=== PATIENT | female | born 1960 | race Caucasian/White ===

== ENCOUNTER → 2020-12-04 09:22 | Outpatient (CLI) | payer MEDICARE, SELFPAY ==
--- NOTE | 2020-12-04 09:34 | RAD_ITS ---
CLINICAL INDICATION: 60-year-old female presenting with a knot in throat and choking. EXAM: Double contrast esophagram. TECHNIQUE: Standard double phase esophagram performed with effervescent capsules and thick and thin barium. FINDINGS: Unremarkable transit of the contrast bolus through the oral cavity, unremarkable transit through the hypopharynx, no evidence of laryngeal penetration or aspiration was seen. Unremarkable transit through the esophagus, no evidence of gastroesophageal stricture or webs, mild surface irregularity visualized in the esophagus in the nondistended state, differential diagnosis would include infections, viral or Fabiola. Unremarkable transit through the esophagus is seen. Small type I hiatus hernia visualized, mild gastroesophageal reflux seen. Fluoroscopy time 2.08 minutes. Dose area product: 49.87 mGycm2 RAD/Esophagus Dual Contrast IMPRESSION: Mild surface irregularity of the esophagus in the nondistended state, differential diagnosis would include infections, viral or Fabiola. Small type I hiatus hernia, mild gastroesophageal reflux seen. Electronically Signed: Andre Marcum MD at 12:27 EDT Tel , Service support ,
== END ==
PROVIDERS: PCP Internal Medicine; Referring Provider Otolaryngology Otolaryngology/Facial Plastic Surgery; Visit Provider Otolaryngology Otolaryngology/Facial Plastic Surgery
DX: K21.9 Gastro-esophageal reflux disease without esophagitis (principal)
CPT/HCPCS: 74221

== ENCOUNTER → 2021-03-05 16:05 | Outpatient (CLI) | payer MEDICARE, SELFPAY ==
--- NOTE | 2021-03-05 16:33 | RAD_ITS ---
STUDY: X-RAY - CERVICAL SPINE REASON FOR EXAM: Female, 60 years old. Neck pain. TECHNIQUE: 2 view(s) of the cervical spine were obtained. Only C1-C6 are visualized on the lateral view. COMPARISON: None FINDINGS: Osteopenia. Reversal of the normal lordotic curve. Diffuse uncovertebral and facet sclerosis. Diffuse intervertebral disc space narrowing with osteophyte formation most marked at C3-4, C4-5 and C5-6. C6-7 interspace is not well visualized on the lateral view. Carotid calcification. RAD/Cerv Spine 2 or 3 Views IMPRESSION: Osteopenia with diffuse moderate cervical spondylosis. No acute abnormality. Electronically Signed: Adrian Spence MD at 11:13 EST , Service support ,
--- NOTE | 2021-03-05 16:33 | RAD_ITS ---
STUDY: X-RAY - LUMBAR SPINE REASON FOR EXAM: Female, 60 years old. SPONDYLOSIS TECHNIQUE: 2 view(s) of the lumbar spine were obtained. COMPARISON: None FINDINGS: There is mild straightening of the normal lumbar lordosis. There is no substantial scoliosis. There is a normal alignment of the vertebrae. There is multilevel endplate spondylosis of the lumbar vertebrae. There is multi-level degenerative disc disease with multi-level disc space narrowing. Multiple pelvic phleboliths. RAD/Lumbar Spine 2 or 3 Views IMPRESSION: Degenerative disc and endplate disease throughout the lumbar spine. Electronically Signed: Jhon Vivas MD at 23:30 EST Tel , Service support ,
== END ==
PROVIDERS: PCP Internal Medicine; Referring Provider Anesthesiology Pain Medicine; Visit Provider Anesthesiology Pain Medicine
DX: M47.812 Spondylosis without myelopathy or radiculopathy, cervical region (principal); M47.816 Spondylosis without myelopathy or radiculopathy, lumbar region; M51.36 Other intervertebral disc degeneration, lumbar region; M48.061 Spinal stenosis, lumbar region without neurogenic claudication
CPT/HCPCS: 72040; 72100

== ENCOUNTER 2021-05-02 10:54 | Outpatient (CLI) | payer MEDICARE, SELFPAY ==
[2021-05-02 12:06] LABS: Absolute Lymphocyte Count 2.59 X10^3/uL (0.83-4.51); Absolute Neutrophil Count 4.6 X10^3/uL (2.0-7.7); Basophil# 0.05 X10^3/uL; Basophil% 0.6 % (0-1); Eosinophil# 0.16 X10^3/uL; Hematocrit 40.5 % (37-47); Lymphocyte # 2.59 X10^3/ul (0.83-4.51); Lymphocyte % 32.4 % (19-41); Mean Corp Hgb Conc 32.1 g/dL (32-36); Mean Corpuscular Hgb 28.1 pg (27.0-32.0); Mean Corpuscular Volume 87.7 fL (81-99); Mean Platelet Vol. 8.9 fl (6.2-12.0); Monocyte# 0.55 X10^3/uL; Monocyte% 6.9 % (0-10); NRBC Flagged by Analyzer 0 % (0-5); Neutrophil # 4.63 X10^3/uL (2.7-7.7); Neutrophil % 57.8 % (47-70); Platelet Count 490 K/mm3 (150-450); RBC Distribution Width CV 13.4 % (11.6-14.6); RBC Distribution Width SD 42.7 fl (35.1-43.9); Red Blood Count 4.62 M/mm3 (4.2-5.4)
[2021-05-02 12:22] LABS: ALB/GLOB Ratio 1.1 RATIO (0.9-2.4); AST(SGOT) 20 U/L (15-37); Alanine Aminotransfer ALT/SGPT 31 U/L (13-56); Albumin, Serum 4.1 g/dL (3.2-5.0); Alkaline Phosphatase 68 U/L (45-117); Anion Gap 7 (5-15); BUN 7 mg/dL (7-18); BUN/Creat Ratio 8.8 RATIO (10-20); Calcium,Total 9.5 mg/dL (8.5-10.1); Chloride 95 mmol/L (98-107); Cholesterol 204 mg/dL (200); EST Glomerular Filtration Rate 78 mL/min (>60); Est Glom Filt Rate - Afr Amer 94 mL/min (>60); Globulin 3.9 g/dL (2.2-4.2); Glucose 101 mg/dL (74-106); High Density Lipoprotein 77 mg/dL; Sodium Level 133 mmol/L (136-145); Triglycerides 263 mg/dL; Very Low Density Lipoprotein 53 mg/dL (5-40)
== END 2021-05-02 23:59 | disposition short-term general hospital (02) ==
LOC: BIMLAB 10:55
PROVIDERS: PCP Internal Medicine; Referring Provider Internal Medicine; Visit Provider Internal Medicine
DX: I10 Essential (primary) hypertension (principal); R73.03 Prediabetes
CPT/HCPCS: 36415; 80053; 80061; 85025

== ENCOUNTER 2021-06-20 10:56 | Outpatient (CLI) | payer MEDICARE, SELFPAY ==
[2021-06-20 12:17] LABS: Erythrocyte Sedimentation Rate 31 mm/hr (0-30)
[2021-06-20 12:48] LABS: Rheumatoid Factor < 10.0 IU/mL (<15)
[2021-06-21 17:09] LABS: ANTINUCLEAR ANTIBODIES DIRECT Negative (Negative)
== END 2021-06-20 23:59 | disposition home or self-care (01) ==
LOC: BIMLAB 10:57
PROVIDERS: PCP Internal Medicine; Visit Provider Internal Medicine
DX: M19.90 Unspecified osteoarthritis, unspecified site (principal)
CPT/HCPCS: 36415; 85652; 86038; 86225; 86235; 86431

== ENCOUNTER → 2021-08-02 | Outpatient (CLI) | payer MEDICARE, SELFPAY ==
--- NOTE | 2021-08-02 10:34 | EKG12_ITS ---
Test Reason : HYPERTENSION Blood Pressure : / mmHG Vent. Rate : 071 BPM Atrial Rate : 071 BPM P-R Int : 154 ms QRS Dur : 080 ms QT Int : 388 ms P-R-T Axes : 026 023 025 degrees QTc Int : 421 ms Normal sinus rhythm Low voltage QRS Borderline ECG Confirmed by LOKESH CHOI, NAHED ([id number]), electronic news gathering editor TAMAR HARRIS ([id number]) on 08/03/2021 10:31:37 AM Referred By: Rich Fallon Confirmed By:NAHED CAMPA MD
== END | disposition home or self-care (01) ==
PROVIDERS: PCP Internal Medicine; Referring Provider Internal Medicine; Visit Provider Internal Medicine
DX: I10 Essential (primary) hypertension (principal)
CPT/HCPCS: 93005

== ENCOUNTER → 2021-08-22 | Outpatient (CLI) | payer MEDICARE, SELFPAY ==
--- NOTE | 2021-08-22 11:15 | RAD_ITS ---
STUDY: X-RAY - THORACIC SPINE REASON FOR EXAM: Female, 61 years old. M51.34 TECHNIQUE: view(s) of the thoracic spine were obtained. COMPARISON: None. FINDINGS: Normal kyphosis of the thoracic spine. There is no substantial scoliosis. Normal thoracic vertebrae and endplates. Normal disc space heights. The soft tissue structures are unremarkable. RAD/Thoracic Spine 3 Views IMPRESSION: Normal x-ray examination of the thoracic spine. Electronically Signed: Sharif Abreu MD at 23:53 EDT ,
== END | disposition home or self-care (01) ==
LOC: RAD 11:01
PROVIDERS: PCP Internal Medicine; Referring Provider Anesthesiology Pain Medicine; Visit Provider Anesthesiology Pain Medicine
DX: M51.34 Other intervertebral disc degeneration, thoracic region (principal)
CPT/HCPCS: 72072

== ENCOUNTER → 2021-10-10 | Outpatient (CLI) | payer MEDICARE, SELFPAY ==
--- NOTE | 2021-10-10 10:08 | RAD_ITS ---
EXAM: XR PELVIS, 1 OR 2 VIEWS CLINICAL INDICATION: INFLAMMATORY POLYARTHROPATHY -- ATTN SACROILIAC JOINTS TECHNIQUE: Frontal view of the pelvis. This report was created using [employer] report generation technology. COMPARISON: None. FINDINGS: BONES/JOINTS: Unremarkable. No displaced fracture. No destructive or sclerotic lesions. Sacroiliac joints are unremarkable. No widening of the pubic symphysis. The articular structures are unremarkable. SOFT TISSUES: Unremarkable. No soft tissue swelling or gas. RAD/Pelvis 1 or 2 Views IMPRESSION: No evidence of sacroiliitis. Electronically Signed: Rick Pringle MD at 10:47 EDT ,
[2021-10-10 12:08] LABS: Absolute Lymphocyte Count 2.04 X10^3/uL (0.83-4.51); Absolute Neutrophil Count 5.9 X10^3/uL (2.0-7.7); Basophil# 0.04 X10^3/uL; Basophil% 0.5 % (0-1); Eosinophil# 0.11 X10^3/uL; Eosinophils% 1.2 % (0-5); Hematocrit 39.8 % (37-47); Hemoglobin 13.3 g/dL (12.0-15.0); Lymphocyte # 2.04 X10^3/ul (0.83-4.51); Lymphocyte % 23.1 % (19-41); Mean Corp Hgb Conc 33.4 g/dL (32-36); Mean Corpuscular Hgb 29.6 pg (27.0-32.0); Mean Corpuscular Volume 88.4 fL (81-99); Mean Platelet Vol. 9.4 fl (6.2-12.0); Monocyte# 0.69 X10^3/uL; Monocyte% 7.8 % (0-10); NRBC Flagged by Analyzer 0 % (0-5); Neutrophil # 5.93 X10^3/uL (2.7-7.7); Neutrophil % 67.1 % (47-70); Platelet Count 476 K/mm3 (150-450); RBC Distribution Width CV 13.7 % (11.6-14.6); RBC Distribution Width SD 44.2 fl (35.1-43.9); White Blood Count 8.8 K/mm3 (4.4-11.0)
[2021-10-10 12:45] LABS: ALB/GLOB Ratio 1.2 RATIO (0.9-2.4); AST(SGOT) 19 U/L (15-37); Alanine Aminotransfer ALT/SGPT 26 U/L (13-56); Albumin, Serum 4.3 g/dL (3.2-5.0); Alkaline Phosphatase 57 U/L (45-117); Anion Gap 8 (5-15); BUN 6 mg/dL (7-18); BUN/Creat Ratio 7.4 RATIO (10-20); CRP 6.55 mg/L (0.0-3.0); Calcium,Total 9.4 mg/dL (8.5-10.1); Chloride 95 mmol/L (98-107); Creatinine, Serum 0.81 mg/dL (0.55-1.02); EST Glomerular Filtration Rate 76 mL/min (>60); Est Glom Filt Rate - Afr Amer 92 mL/min (>60); Globulin 3.7 g/dL (2.2-4.2); Glucose 111 mg/dL (74-106); Potassium 3.7 mmol/L (3.5-5.1); Rheumatoid Factor < 10.0 IU/mL (<15); Sodium Level 132 mmol/L (136-145)
[2021-10-10 13:22] LABS: Hepatitis B Surface Antibody Non-Reactive; Hepatitis B Surface Antigen Non-Reactive (Nonreactive); Hepatitis C Antibody Non-Reactive (Nonreactive)
[2021-10-10 15:54] LABS: Erythrocyte Sedimentation Rate 26 mm/hr (0-30)
[2021-10-18 18:34] LABS: CCP IgG Antibodies 7 units (0-19); HLA B27 Negative (.)
== END | disposition home or self-care (01) ==
PROVIDERS: PCP Internal Medicine; Referring Provider Internal Medicine Rheumatology; Visit Provider Internal Medicine Rheumatology
DX: M06.4 Inflammatory polyarthropathy (principal); I50.32 Chronic diastolic (congestive) heart failure; I11.0 Hypertensive heart disease with heart failure; E11.9 Type 2 diabetes mellitus without complications; M79.7 Fibromyalgia; Q66.70 Congenital pes cavus, unspecified foot; F41.9 Anxiety disorder, unspecified; K21.9 Gastro-esophageal reflux disease without esophagitis; G47.33 Obstructive sleep apnea (adult) (pediatric); J45.909 Unspecified asthma, uncomplicated
CPT/HCPCS: 36415; 72170; 80053; 81374; 85025; 85652; 86140; 86200; 86431; 86706; 86803; 87340

== ENCOUNTER → 2021-10-15 | Outpatient (CLI) | payer MEDICARE, SELFPAY ==
[2021-10-15 12:50] LABS: Amphetamine Urine VISTA NEGATIVE (<1000 ng/mL); Barbiturate Urine VISTA NEGATIVE (< 200 ng/mL); Benzodiazepine Urine VISTA NEGATIVE (< 200 ng/mL); Cocaine Urine VISTA NEGATIVE (< 300 ng/mL); Ecstacy Urine VISTA NEGATIVE (< 500 ng/mL); Methadone Urine VISTA NEGATIVE (< 300 ng/mL); PCP Urine VISTA NEGATIVE (< 25 ng/mL); THC Urine VISTA NEGATIVE (< 50 ng/mL); Vista UDS pH Range 7
== END | disposition home or self-care (01) ==
LOC: LAB 11:32
PROVIDERS: PCP Internal Medicine; Referring Provider Anesthesiology Pain Medicine; Visit Provider Anesthesiology Pain Medicine
DX: F11.20 Opioid dependence, uncomplicated (principal)
CPT/HCPCS: 80307

== ENCOUNTER → 2021-11-09 | Outpatient (CLI) | payer MEDICARE, SELFPAY ==
[2021-11-09 15:26] LABS: Hemoglobin A1c 5.9 % (3.8-5.6)
[2021-11-09 15:36] LABS: Anion Gap 6 (5-15); BUN 5 mg/dL (7-18); BUN/Creat Ratio 7.1 RATIO (10-20); Calcium,Total 9.3 mg/dL (8.5-10.1); Chloride 101 mmol/L (98-107); EST Glomerular Filtration Rate 90 mL/min (>60); Est Glom Filt Rate - Afr Amer 109 mL/min (>60); Glucose 101 mg/dL (74-106); Potassium 4.1 mmol/L (3.5-5.1); Sodium Level 134 mmol/L (136-145)
== END | disposition home or self-care (01) ==
LOC: LABSPEC 11:27 → BIMLAB 12:03
PROVIDERS: PCP Internal Medicine; Referring Provider Physician Assistant; Visit Provider Physician Assistant
DX: E11.9 Type 2 diabetes mellitus without complications (principal); I10 Essential (primary) hypertension; R42 Dizziness and giddiness; R11.0 Nausea
CPT/HCPCS: 36415; 80048; 83036; 87635; U0003; U0005

== ENCOUNTER → 2021-11-13 | Outpatient (CLI) | payer MEDICARE, SELFPAY ==
[2021-11-13 10:56] LABS: Amphetamine Urine VISTA NEGATIVE (<1000 ng/mL); Barbiturate Urine VISTA NEGATIVE (< 200 ng/mL); Benzodiazepine Urine VISTA NEGATIVE (< 200 ng/mL); Cocaine Urine VISTA NEGATIVE (< 300 ng/mL); Ecstacy Urine VISTA NEGATIVE (< 500 ng/mL); Methadone Urine VISTA NEGATIVE (< 300 ng/mL); PCP Urine VISTA NEGATIVE (< 25 ng/mL); THC Urine VISTA NEGATIVE (< 50 ng/mL); Vista UDS pH Range 7
== END | disposition home or self-care (01) ==
LOC: LAB 10:22
PROVIDERS: PCP Internal Medicine; Visit Provider Anesthesiology Pain Medicine
DX: F11.20 Opioid dependence, uncomplicated (principal)
CPT/HCPCS: 80307

== ENCOUNTER → 2022-01-07 | Outpatient (CLI) | payer MEDICARE, SELFPAY ==
[2022-01-07 15:12] LABS: Absolute Lymphocyte Count 2.35 X10^3/uL (0.83-4.51); Absolute Neutrophil Count 4.1 X10^3/uL (2.0-7.7); Basophil# 0.03 X10^3/uL; Basophil% 0.4 % (0-1); Eosinophil# 0.12 X10^3/uL; Eosinophils% 1.7 % (0-5); Hematocrit 39.6 % (37-47); Hemoglobin 12.9 g/dL (12.0-15.0); Lymphocyte # 2.35 X10^3/ul (0.83-4.51); Lymphocyte % 32.5 % (19-41); Mean Corp Hgb Conc 32.6 g/dL (32-36); Mean Corpuscular Hgb 29.9 pg (27.0-32.0); Mean Corpuscular Volume 91.7 fL (81-99); Mean Platelet Vol. 9.3 fl (6.2-12.0); Monocyte# 0.58 X10^3/uL; NRBC Flagged by Analyzer 0 % (0-5); Neutrophil # 4.13 X10^3/uL (2.7-7.7); Neutrophil % 57.1 % (47-70); Platelet Count 401 K/mm3 (150-450); RBC Distribution Width CV 15.1 % (11.6-14.6); RBC Distribution Width SD 50.8 fl (35.1-43.9); Red Blood Count 4.32 M/mm3 (4.2-5.4); White Blood Count 7.2 K/mm3 (4.4-11.0)
[2022-01-07 15:53] LABS: ALB/GLOB Ratio 1.1 RATIO (0.9-2.4); AST(SGOT) 18 U/L (15-37); Alanine Aminotransfer ALT/SGPT 26 U/L (13-56); Albumin, Serum 3.9 g/dL (3.2-5.0); Alkaline Phosphatase 51 U/L (45-117); Anion Gap 8 (5-15); BUN 6 mg/dL (7-18); BUN/Creat Ratio 8.1 RATIO (10-20); Calcium,Total 9.2 mg/dL (8.5-10.1); Chloride 103 mmol/L (98-107); Creatinine, Serum 0.74 mg/dL (0.55-1.02); EST Glomerular Filtration Rate 85 mL/min (>60); Est Glom Filt Rate - Afr Amer 102 mL/min (>60); Globulin 3.4 g/dL (2.2-4.2); Glucose 95 mg/dL (74-106); Potassium 3.9 mmol/L (3.5-5.1); Protein, Total 7.3 g/dL (6.4-8.2); Sodium Level 138 mmol/L (136-145)
== END | disposition home or self-care (01) ==
PROVIDERS: PCP Internal Medicine; Referring Provider Internal Medicine Rheumatology; Visit Provider Internal Medicine Rheumatology
DX: M06.4 Inflammatory polyarthropathy (principal); I50.32 Chronic diastolic (congestive) heart failure; E11.9 Type 2 diabetes mellitus without complications; Z79.899 Other long term (current) drug therapy; M79.7 Fibromyalgia; Q66.70 Congenital pes cavus, unspecified foot; I10 Essential (primary) hypertension; J45.909 Unspecified asthma, uncomplicated; F41.9 Anxiety disorder, unspecified; K21.9 Gastro-esophageal reflux disease without esophagitis; G47.33 Obstructive sleep apnea (adult) (pediatric)
CPT/HCPCS: 36415; 80053; 85025

== ENCOUNTER → 2022-03-13 | Outpatient (CLI) | payer MEDICARE, SELFPAY ==
[2022-03-13 15:13] LABS: Absolute Lymphocyte Count 2.29 X10^3/uL (0.83-4.51); Basophil# 0.04 X10^3/uL; Basophil% 0.6 % (0-1); Eosinophil# 0.15 X10^3/uL; Eosinophils% 2.1 % (0-5); Hemoglobin 12.3 g/dL (12.0-15.0); Lymphocyte # 2.29 X10^3/ul (0.83-4.51); Lymphocyte % 32.7 % (19-41); Mean Corp Hgb Conc 32.4 g/dL (32-36); Mean Corpuscular Hgb 29.7 pg (27.0-32.0); Mean Corpuscular Volume 91.8 fL (81-99); Mean Platelet Vol. 9.4 fl (6.2-12.0); Monocyte% 7.1 % (0-10); NRBC Flagged by Analyzer 0 % (0-5); Neutrophil # 4.01 X10^3/uL (2.7-7.7); Neutrophil % 57.2 % (47-70); Platelet Count 397 K/mm3 (150-450); RBC Distribution Width CV 14.3 % (11.6-14.6); Red Blood Count 4.14 M/mm3 (4.2-5.4)
[2022-03-13 15:41] LABS: ALB/GLOB Ratio 1.4 RATIO (0.9-2.4); AST(SGOT) 21 U/L (15-37); Alanine Aminotransfer ALT/SGPT 32 U/L (13-56); Alkaline Phosphatase 61 U/L (45-117); Anion Gap 3 (5-15); BUN 7 mg/dL (7-18); BUN/Creat Ratio 10.7 RATIO (10-20); Chloride 104 mmol/L (98-107); Creatinine, Serum 0.66 mg/dL (0.55-1.02); EST Glomerular Filtration Rate 97 mL/min (>60); Est Glom Filt Rate - Afr Amer 117 mL/min (>60); Globulin 2.9 g/dL (2.2-4.2); Glucose 107 mg/dL (74-106); Protein, Total 6.9 g/dL (6.4-8.2); Sodium Level 138 mmol/L (136-145)
== END | disposition home or self-care (01) ==
LOC: MTLAB 14:05
PROVIDERS: PCP Internal Medicine; Referring Provider Internal Medicine Rheumatology; Visit Provider Internal Medicine Rheumatology
DX: M06.4 Inflammatory polyarthropathy (principal); G47.33 Obstructive sleep apnea (adult) (pediatric); Z79.899 Other long term (current) drug therapy
CPT/HCPCS: 36415; 80053; 85025

== ENCOUNTER → 2022-04-16 | Outpatient (CLI) | payer MEDICARE, SELFPAY ==
--- NOTE | 2022-04-16 15:40 | RAD_ITS ---
INDICATION: PAIN EXAMINATION/TECHNIQUE: X-RAY - XR Chest 2 Views COMPARISON: None. FINDINGS: The lungs are clear. Tortuous and calcified thoracic aorta. The heart is not enlarged. No pleural effusion or pneumothorax. Degenerative changes of the thoracic spine. RAD/Chest PA and Lateral IMPRESSION: No acute radiographic abnormalities. Electronically Signed: Petr Damon MD at 23:01 EST ,
[2022-04-18 19:07] LABS: QNTFERON TB Mitogen Value > 10.00 IU/mL (.); QNTFERON TB Nil Value 0.04 IU/mL (.); QNTFERON TB1+ Ag Value 0.03 IU/mL (.); QNTFERON TB2+ Ag Value 0.03 IU/mL (.)
[2022-04-18 19:39] LABS: QNTIFERON TB Positive Criteria Negative (Negative)
== END | disposition home or self-care (01) ==
PROVIDERS: PCP Internal Medicine; Referring Provider Internal Medicine Rheumatology; Visit Provider Internal Medicine Rheumatology
DX: M06.09 Rheumatoid arthritis without rheumatoid factor, multiple sites (principal); I50.32 Chronic diastolic (congestive) heart failure; I11.0 Hypertensive heart disease with heart failure; E11.9 Type 2 diabetes mellitus without complications; M79.7 Fibromyalgia; M65.342 Trigger finger, left ring finger; J30.2 Other seasonal allergic rhinitis; F41.0 Panic disorder [episodic paroxysmal anxiety]; K21.9 Gastro-esophageal reflux disease without esophagitis; G47.33 Obstructive sleep apnea (adult) (pediatric); Q66.70 Congenital pes cavus, unspecified foot; Z79.899 Other long term (current) drug therapy
CPT/HCPCS: 36415; 71046; 86480

== ENCOUNTER → 2022-06-19 | Outpatient (CLI) | payer MEDICARE, SELFPAY ==
[2022-06-19 15:41] LABS: Absolute Lymphocyte Count 2.76 X10^3/uL (0.83-4.51); Absolute Neutrophil Count 3.8 X10^3/uL (2.0-7.7); Basophil# 0.03 X10^3/uL; Basophil% 0.4 % (0-1); Eosinophil# 0.17 X10^3/uL; Eosinophils% 2.3 % (0-5); Hematocrit 38.1 % (37-47); Hemoglobin 12.8 g/dL (12.0-15.0); Lymphocyte # 2.76 X10^3/ul (0.83-4.51); Lymphocyte % 37.1 % (19-41); Mean Corp Hgb Conc 33.6 g/dL (32-36); Mean Corpuscular Hgb 31.3 pg (27.0-32.0); Mean Corpuscular Volume 93.2 fL (81-99); Monocyte# 0.63 X10^3/uL; Monocyte% 8.5 % (0-10); NRBC Flagged by Analyzer 0 % (0-5); Neutrophil # 3.84 X10^3/uL (2.7-7.7); Neutrophil % 51.6 % (47-70); Platelet Count 388 K/mm3 (150-450); RBC Distribution Width CV 14.6 % (11.6-14.6); Red Blood Count 4.09 M/mm3 (4.2-5.4); White Blood Count 7.4 K/mm3 (4.4-11.0)
[2022-06-19 16:33] LABS: ALB/GLOB Ratio 1.3 RATIO (0.9-2.4); AST(SGOT) 28 U/L (15-37); Alanine Aminotransfer ALT/SGPT 39 U/L (13-56); Albumin, Serum 3.8 g/dL (3.2-5.0); Alkaline Phosphatase 46 U/L (45-117); Anion Gap 9 (5-15); BUN 8 mg/dL (7-18); BUN/Creat Ratio 10.6 RATIO (10-20); Calcium,Total 8.6 mg/dL (8.5-10.1); Chloride 102 mmol/L (98-107); Creatinine, Serum 0.76 mg/dL (0.55-1.02); EST Glomerular Filtration Rate 82 mL/min (>60); Est Glom Filt Rate - Afr Amer 100 mL/min (>60); Globulin 2.9 g/dL (2.2-4.2); Glucose 122 mg/dL (74-106); Potassium 3.7 mmol/L (3.5-5.1); Protein, Total 6.7 g/dL (6.4-8.2); Sodium Level 137 mmol/L (136-145)
== END | disposition home or self-care (01) ==
LOC: MTLAB 12:57
PROVIDERS: PCP Internal Medicine; Referring Provider Internal Medicine Rheumatology; Visit Provider Internal Medicine Rheumatology
DX: M06.09 Rheumatoid arthritis without rheumatoid factor, multiple sites (principal); M79.7 Fibromyalgia
CPT/HCPCS: 36415; 80053; 85025

== ENCOUNTER → 2022-09-16 | Outpatient (CLI) | payer MEDICARE, SELFPAY ==
[2022-09-16 12:21] LABS: Absolute Lymphocyte Count 2.57 X10^3/uL (0.83-4.51); Absolute Neutrophil Count 4.1 X10^3/uL (2.0-7.7); Basophil# 0.04 X10^3/uL; Basophil% 0.5 % (0-1); Eosinophils% 2.6 % (0-5); Hematocrit 39.4 % (37-47); Lymphocyte # 2.57 X10^3/ul (0.83-4.51); Lymphocyte % 33.9 % (19-41); Mean Corpuscular Hgb 31.3 pg (27.0-32.0); Mean Corpuscular Volume 94.7 fL (81-99); Mean Platelet Vol. 8.8 fl (6.2-12.0); Monocyte# 0.61 X10^3/uL; NRBC Flagged by Analyzer 0 % (0-5); Neutrophil # 4.14 X10^3/uL (2.7-7.7); Neutrophil % 54.7 % (47-70); Platelet Count 379 K/mm3 (150-450); RBC Distribution Width CV 14.1 % (11.6-14.6); RBC Distribution Width SD 48.1 fl (35.1-43.9); Red Blood Count 4.16 M/mm3 (4.2-5.4); White Blood Count 7.6 K/mm3 (4.4-11.0)
[2022-09-16 12:47] LABS: ALB/GLOB Ratio 1.1 RATIO (0.9-2.4); AST(SGOT) 30 U/L (15-37); Alanine Aminotransfer ALT/SGPT 40 U/L (13-56); Alkaline Phosphatase 52 U/L (45-117); Anion Gap 7 (5-15); BUN 6 mg/dL (7-18); Calcium,Total 9.3 mg/dL (8.5-10.1); Chloride 97 mmol/L (98-107); Creatinine, Serum 0.75 mg/dL (0.55-1.02); EST Glomerular Filtration Rate 83 mL/min (>60); Est Glom Filt Rate - Afr Amer 100 mL/min (>60); Globulin 3.5 g/dL (2.2-4.2); Glucose 102 mg/dL (74-106); Potassium 4.2 mmol/L (3.5-5.1); Protein, Total 7.5 g/dL (6.4-8.2); Sodium Level 131 mmol/L (136-145)
== END | disposition home or self-care (01) ==
LOC: MTLAB 10:26
PROVIDERS: PCP Internal Medicine; Referring Provider Internal Medicine Rheumatology; Visit Provider Internal Medicine Rheumatology
DX: M06.09 Rheumatoid arthritis without rheumatoid factor, multiple sites (principal); Z79.899 Other long term (current) drug therapy
CPT/HCPCS: 36415; 80053; 85025

== ENCOUNTER → 2022-10-21 | Outpatient (CLI) | payer MEDICARE, SELFPAY ==
--- NOTE | 2022-10-21 11:52 | RAD_ITS ---
INDICATION: M47.812 EXAMINATION/TECHNIQUE: X-RAY - XR Spine Cervical 2 or 3 Views COMPARISON: FINDINGS: Evaluation is limited secondary to suboptimal visualization of the lower cervical spine on the lateral view. VERTEBRAE: Preserved vertebral body height. No fracture. No spondylolisthesis. Preservation of the normal cervical lordosis. No significant facet arthropathy. DISCS: There is multilevel disc space narrowing and osteophyte formation. NECK SOFT TISSUES: No prevertebral soft tissue widening. LUNG APICES: Clear. RAD/Cerv Spine 2 or 3 Views IMPRESSION: Prominent degenerative changes. Evaluation is limited secondary to suboptimal visualization of the lower cervical spine on the lateral view. Electronically Signed: Dami Cadena, at 12:32 EDT ,
== END | disposition home or self-care (01) ==
LOC: RAD 11:50
PROVIDERS: PCP Internal Medicine; Referring Provider Anesthesiology Pain Medicine; Visit Provider Anesthesiology Pain Medicine
DX: M47.812 Spondylosis without myelopathy or radiculopathy, cervical region (principal)
CPT/HCPCS: 72040

== ENCOUNTER → 2022-12-06 | Outpatient (CLI) | payer MEDICARE, SELFPAY ==
[2022-12-06 12:25] LABS: Absolute Lymphocyte Count 2.13 X10^3/uL (0.83-4.51); Absolute Neutrophil Count 3.8 X10^3/uL (2.0-7.7); Basophil# 0.04 X10^3/uL; Basophil% 0.6 % (0-1); Eosinophil# 0.11 X10^3/uL; Eosinophils% 1.6 % (0-5); Hemoglobin 13.2 g/dL (12.0-15.0); Lymphocyte # 2.13 X10^3/ul (0.83-4.51); Lymphocyte % 31.9 % (19-41); Mean Corp Hgb Conc 32.2 g/dL (32-36); Mean Corpuscular Hgb 31.4 pg (27.0-32.0); Mean Corpuscular Volume 97.6 fL (81-99); Monocyte# 0.54 X10^3/uL; Monocyte% 8.1 % (0-10); NRBC Flagged by Analyzer 0 % (0-5); Neutrophil # 3.83 X10^3/uL (2.7-7.7); Neutrophil % 57.5 % (47-70); Platelet Count 388 K/mm3 (150-450); RBC Distribution Width SD 50.4 fl (35.1-43.9); White Blood Count 6.7 K/mm3 (4.4-11.0)
[2022-12-06 13:26] LABS: ALB/GLOB Ratio 1.2 RATIO (0.9-2.4); AST(SGOT) 27 U/L (15-37); Alanine Aminotransfer ALT/SGPT 38 U/L (13-56); Albumin, Serum 4.1 g/dL (3.2-5.0); Alkaline Phosphatase 51 U/L (45-117); Anion Gap 8 (5-15); BUN 7 mg/dL (7-18); BUN/Creat Ratio 9.2 RATIO (10-20); Chloride 100 mmol/L (98-107); Creatinine, Serum 0.76 mg/dL (0.55-1.02); EST Glomerular Filtration Rate 82 mL/min (>60); Est Glom Filt Rate - Afr Amer 99 mL/min (>60); Globulin 3.4 g/dL (2.2-4.2); Glucose 95 mg/dL (74-106); Potassium 3.8 mmol/L (3.5-5.1); Protein, Total 7.5 g/dL (6.4-8.2); Sodium Level 135 mmol/L (136-145)
== END | disposition home or self-care (01) ==
LOC: MTLAB 10:47
PROVIDERS: PCP Internal Medicine; Referring Provider Internal Medicine Rheumatology; Visit Provider Internal Medicine Rheumatology
DX: M06.09 Rheumatoid arthritis without rheumatoid factor, multiple sites (principal); M79.7 Fibromyalgia; Z79.899 Other long term (current) drug therapy
CPT/HCPCS: 36415; 80053; 85025

== ENCOUNTER → 2023-01-27 | Outpatient (CLI) | payer MEDICARE, SELFPAY ==
--- NOTE | 2023-01-27 14:05 | RAD_ITS ---
STUDY: X-RAY - PELVIS AND RIGHT HIP REASON FOR EXAM: Female, 62 years old. ARTHRITIS TECHNIQUE: 3 views of the pelvis and hip. COMPARISON: 10/10/2021 FINDINGS: There is a non-specific bowel gas pattern. Normal visualized soft tissue structures. Normal bilateral iliac wings, sacroiliac joints and visualized sacrum. Normal bilateral superior and inferior pubic rami. Normal pubic symphysis. Normal bilateral ischial tuberosities. Normal visualized femoral head. Normal acetabulum. Normal hip joint. RAD/HIP, UNI W/ Pelvis 2-3 Views IMPRESSION: Normal x-ray examination of the pelvis and hip. Electronically Signed: Minor Mandel MD at 17:20 EDT ,
== END | disposition home or self-care (01) ==
PROVIDERS: PCP Internal Medicine; Referring Provider Internal Medicine Rheumatology; Visit Provider Internal Medicine Rheumatology
DX: M06.09 Rheumatoid arthritis without rheumatoid factor, multiple sites (principal); M79.7 Fibromyalgia; M70.61 Trochanteric bursitis, right hip; Z79.899 Other long term (current) drug therapy
CPT/HCPCS: 73502

== ENCOUNTER → 2023-02-07 | Outpatient (CLI) | payer MEDICARE, SELFPAY ==
[2023-02-07 17:34] LABS: Absolute Lymphocyte Count 2.83 X10^3/uL (0.83-4.51); Absolute Neutrophil Count 6.8 X10^3/uL (2.0-7.7); Basophil# 0.03 X10^3/uL; Basophil% 0.3 % (0-1); Eosinophil# 0.09 X10^3/uL; Eosinophils% 0.8 % (0-5); Hematocrit 36.9 % (37-47); Hemoglobin 12.2 g/dL (12.0-15.0); Lymphocyte # 2.83 X10^3/ul (0.83-4.51); Lymphocyte % 26.7 % (19-41); Mean Corp Hgb Conc 33.1 g/dL (32-36); Mean Corpuscular Hgb 31.8 pg (27.0-32.0); Mean Corpuscular Volume 96.1 fL (81-99); Mean Platelet Vol. 9.2 fl (6.2-12.0); Monocyte# 0.79 X10^3/uL; Monocyte% 7.5 % (0-10); NRBC Flagged by Analyzer 0 % (0-5); Neutrophil # 6.82 X10^3/uL (2.7-7.7); Neutrophil % 64.4 % (47-70); Platelet Count 402 K/mm3 (150-450); RBC Distribution Width CV 14.4 % (11.6-14.6); RBC Distribution Width SD 49.5 fl (35.1-43.9); Red Blood Count 3.84 M/mm3 (4.2-5.4); White Blood Count 10.6 K/mm3 (4.4-11.0)
[2023-02-07 17:53] LABS: ALB/GLOB Ratio 1.2 RATIO (0.9-2.4); AST(SGOT) 18 U/L (15-37); Alanine Aminotransfer ALT/SGPT 33 U/L (13-56); Albumin, Serum 3.7 g/dL (3.2-5.0); Alkaline Phosphatase 44 U/L (45-117); Anion Gap 7 (5-15); BUN 11 mg/dL (7-18); BUN/Creat Ratio 12.6 RATIO (10-20); Calcium,Total 8.7 mg/dL (8.5-10.1); Chloride 98 mmol/L (98-107); Creatinine, Serum 0.87 mg/dL (0.55-1.02); EST Glomerular Filtration Rate 70 mL/min (>60); Est Glom Filt Rate - Afr Amer 84 mL/min (>60); Globulin 3.1 g/dL (2.2-4.2); Glucose 79 mg/dL (74-106); Potassium 3.8 mmol/L (3.5-5.1); Protein, Total 6.8 g/dL (6.4-8.2); Sodium Level 133 mmol/L (136-145)
== END | disposition home or self-care (01) ==
LOC: MTLAB 14:05
PROVIDERS: PCP Internal Medicine; Referring Provider Internal Medicine Rheumatology; Visit Provider Internal Medicine Rheumatology
DX: M06.09 Rheumatoid arthritis without rheumatoid factor, multiple sites (principal); I11.0 Hypertensive heart disease with heart failure; I50.32 Chronic diastolic (congestive) heart failure; E11.9 Type 2 diabetes mellitus without complications; M79.7 Fibromyalgia; H40.9 Unspecified glaucoma; M18.0 Bilateral primary osteoarthritis of first carpometacarpal joints; J30.2 Other seasonal allergic rhinitis; F41.9 Anxiety disorder, unspecified; K21.9 Gastro-esophageal reflux disease without esophagitis; G47.33 Obstructive sleep apnea (adult) (pediatric); Q66.70 Congenital pes cavus, unspecified foot; Z79.899 Other long term (current) drug therapy
CPT/HCPCS: 36415; 80053; 85025

== ENCOUNTER → 2023-03-17 | Outpatient (CLI) | payer MEDICARE, SELFPAY ==
[2023-03-17 12:37] LABS: Cholesterol 184 mg/dL (200); High Density Lipoprotein 77 mg/dL; Triglycerides 199 mg/dL; Very Low Density Lipoprotein 40 mg/dL (5-40)
== END | disposition home or self-care (01) ==
LOC: BIMLAB 10:41
PROVIDERS: PCP Internal Medicine; Referring Provider Internal Medicine; Visit Provider Internal Medicine
DX: I10 Essential (primary) hypertension (principal)
CPT/HCPCS: 36415; 80061

== ENCOUNTER → 2023-05-26 | Outpatient (CLI) | payer MEDICARE, SELFPAY ==
--- OUTSIDE RECORDS SUMMARY | 2023-05-26 09:29 | XMS RPT_ITS | CCD ---
Author Name Unknown Address [address] [place] [address] Organization [facility] Care Team Providers Care Research Anthropologist Name Role Phone Loan Shepherd CNP Unavailable TERRY KANG MD Primary Care Physician [phone] TASH RAE MD Primary Care Physician [phone] JAIME LEO MD Attending TASH Robbins MD Primary Care UnavailZUNILDA Arciniega DO Attending TASH Sadler MD Primary Care ZUNILDA Lloyd DO Attending TASH Sadler MD Primary Care Unavailab Sebastian CHOI, DR SANDOVAL Attending TASH Robbins MD Primary Care Rosalee Boogie Allergy Classification Reported Allergen(s) Allergy Type Date of Onset Reaction(s) Facility (5 sources) cyclobenzaprine; Translations: [cyclobenzaprine ] Drug Allergy 04-07-1997 Unknown (qualifier value) [facility] Medications Current Medications Medication Drug Class(es) Dates Sig (Normalized) Sig (Original) acetaminophen 500 mg oral tablet (7 sources) Start: 01-03-2021 Tylenol Extra Strength 500 mg oral tablet Dose : 1,000 mg = 2 tab(s), Oral, Daily, PRN as needed for pain, # 50 tab(s), 0 Refill(s) Start Date: 01/03/21 Status: Ordered [id number] 200 actuat albuterol 0.09 mg/actuat metered dose inhaler (9 sources) beta2-Adrenergic Agonist Start: 12-01-2014 take 1 dose by inhalation four times daily as needed for wheezing ProAir HFA MDI (90 mcg/inh) inhalation aerosol Dose = 2 puff(s), Inhalation, QID, PRN as needed for wheezing, 0 Refill(s) Start Date: 12/01/14 Status: Ordered Completed/Discontinued Medications Medication Drug Class(es) Dates Sig (Normalized) Sig (Original) 0.4 ml adalimumab 100 mg/ml auto-injector (2 sources) Tumor Necrosis Factor Faustino Start: 05-08-2022 inject 0.4 mL by subcutaneous injection every other week Humira Pen 40 mg/0.4 mL subcutaneous kit Dose : 40 mg = 0.4 mL, Subcutaneous, q2wk, # 2 EA, 0 Refill(s) Start Date: 05/08/22 Status: Ordered Problems Active Problems Problem Classification Problem Date Documented Da te Episodic/Chronic Alcohol-related disorders (18 sources) Alcohol abuse; Translations: [Alcohol dependence] 09-29-2015 Chronic Anxiety disorders (9 sources) Anxiety 06-21-2014 Chronic Congestive heart failure; nonhypertensive (9 sources) Chronic diastolic heart failure 11-15-2020 Chronic Disorders of lipid metabolism (5 sources) Dyslipidemia 10-29-2021 Chronic Essential hypertension (9 sources) Hypertensive disorder 06-06-2015 Chronic Mood disorders (9 sources) Depressive disorder 08-02-2014 Chronic Other lower respiratory disease (9 sources) Dyspnea on exertion 11-15-2020 Episodic Other nervous system disorders (9 sources) Impairment of balance 11-15-2020 Episodic [place]limpia-; endo-; and myocarditis; cardiomyopathy (except that caused by tuberculosis or sexually transmitted disease) (9 sources) Pericardial effusion 11-15-2020 Episodic Past or Other Problems Problem Classification Problem Date Documented Da te Episodic/Chronic NEGATED: Highlighted row has been ruled out!Residual codes; unclassified (1 source) Disease Episodic Results Test Name Value Interpretation Reference Range Facil ity Encounters Encounter Date Encounter Type Care Provider Facility Start: 05-21-[address] JAIME Jaimes acility:[facility] Start: 07-19-2022 End: 07-20-2022 ambulatory ZUNILDA MARSHALL DO Facility:B Start: 07-19-2022 End: 07-19-2022 Patient encounter procedure ZUNILDA MARSHALL DO [facility] Start: 07-08-2022 End: 07-09-2022 ambulatory ZUNILDA MARSHALL DO Facility:[facility] Start: 07-08-2022 End: 07-08-2022 Patient encounter procedure ZUNILDA MARSHALL DO [facility] Start: 05-01-2022 End: 05-01-[address] JAIME LEO MD [facility] Start: 04-02-2022 End: 04-02-[address] KAYLEIGH GARCIA MD [facility] Start: 11-28-2021 End: 11-28-[address] JAIME LEO MD [facility] Start: 04-02-2021 End: 04-02-[address] JOYA MONTGOMERY MD [facility] Start: 01-24-2021 End: 01-24-[address] JAIME LEO MD [facility] Start: 01-19-2021 End: 01-19-[address] JAIME LEO MD [facility] Procedures Date Procedure Procedure Detail Performing Clinician Start: 12-25-20[address] s testing DR JAIME LEO MD Payers Date Payer Category Payer Unknown [id number] 1960 Unknown [id number] [id number] 1960 Unknown [id number] [id number] 1960 Unknown [id number] [id number] 1960 Unknown [id number] Social History Date Type Detail Facility Start: 11-13-2020 Ex-smoker (finding) [facility] Sex Assigned At Female [facility] Clinical Notes 07-19-2022 LaboratoryLaboratoryLaboratoryLaboratoryLaboratoryRadiology Note Date & Type Note Facility 07-19-2022 Note ORIGINAL EXAMINATION: WHOLE BODY BONE SCAN 07/19/2022 with blood pool images TECHNIQUE: The patient was injected intravenously with 28.9 mCi of 99 mTc MDP and scintigraphy of the entire skeleton was performed approximately three hours later. Multiple delayed osseous focused images acquired. Blood pool images of the spine and upper pelvis also acquired. COMPARISON: Patient did not have previous MDP bone imaging studies for comparison. HISTORY: ORDERING SYSTEM PROVIDED HISTORY: Reason for Exam: DEGENERTIVE DISC DIEASE LUMBAR FINDINGS: Blood pool images reveal no focal areas of increased tracer accumulation. Delayed osseous images: No abnormal foci of radiotracer uptake to suggest metastatic disease. Foci of activity in the articular joints (bilateral shoulders, hips, knees, ankles, feet, wrists) are most likely degenerative. Subtle tracer uptake anteriorly within the upper lumbar spine without significant activity on blood pool imaging is compatible with chronic degenerative disease. Uptake within the mid cervical spine bilaterally compatible with degenerative changes. The remainder of the osseous structures and soft tissues are unremarkable. Physiologic activity is present in the renal collecting systems. IMPRESSION: No focal uptake on blood pool imaging. Uptake anteriorly within the upper lumbar spine and within the mid cervical spine most compatible with degenerative changes. Other areas of degenerative uptake within articular joints.. RECOMMENDATIONS: Unavailable Interpreted by: Dee Dee Salcedo Preliminary Report By: Dee Dee Salcedo Electronically signed By Dee Dee Salcedo Dictated Date: 07/19/2022 12:21:56 PM Prelim Date: 07/19/2022 12:30:16 PM Sign Date: 07/19/2022 12:30:16 PM Ordering Provider: [facility] 07-19-2022 Note ORIGINAL EXAMINATION: WHOLE BODY BONE SCAN 07/19/2022 with blood pool images TECHNIQUE: The patient was injected intravenously with 28.9 mCi of 99 mTc MDP and scintigraphy of the entire skeleton was performed approximately three hours later. Multiple delayed osseous focused images acquired. Blood pool images of the spine and upper pelvis also acquired. COMPARISON: Patient did not have previous MDP bone imaging studies for comparison. HISTORY: ORDERING SYSTEM PROVIDED HISTORY: Reason for Exam: DEGENERTIVE DISC DIEASE LUMBAR FINDINGS: Blood pool images reveal no focal areas of increased tracer accumulation. Delayed osseous images: No abnormal foci of radiotracer uptake to suggest metastatic disease. Foci of activity in the articular joints (bilateral shoulders, hips, knees, ankles, feet, wrists) are most likely degenerative. Subtle tracer uptake anteriorly within the upper lumbar spine without significant activity on blood pool imaging is compatible with chronic degenerative disease. Uptake within the mid cervical spine bilaterally compatible with degenerative changes. The remainder of the osseous structures and soft tissues are unremarkable. Physiologic activity is present in the renal collecting systems. IMPRESSION: No focal uptake on blood pool imaging. Uptake anteriorly within the upper lumbar spine and within the mid cervical spine most compatible with degenerative changes. Other areas of degenerative uptake within articular joints.. RECOMMENDATIONS: Unavailable Interpreted by: Dee Dee Salcedo Preliminary Report By: Dee Dee Salcedo Electronically signed By Dee Dee Salcedo Dictated Date: 07/19/2022 12:21:56 PM Prelim Date: 07/19/2022 12:30:16 PM Sign Date: 07/19/2022 12:30:16 PM Ordering Provider: [facility] Evaluation + Plan note Future Appointments Appointment Date:01/25/2021 08:00:00 AM Scheduled Provider: Location:PULM Appointment Type:PF PFT w/[place] Future Scheduled TestsN-Terminal proBNP 04/04/21N-Terminal proBNP 07/03/21 [facility] Evaluation + Plan note Future Scheduled TestsN-Terminal proBNP 04/04/21N-Terminal proBNP 07/03/21 [facility] Evaluation + Plan note Future Scheduled TestsN-Terminal proBNP 07/03/21 [facility] Evaluation + Plan note Future Scheduled TestsN-Terminal proBNP 05/01/22 [facility] Evaluation + Plan note Future Appointments Appointment Date:05/08/2022 11:30:00 AM Scheduled Provider: Location:[facility] Appointment Type:CV OV Future Scheduled TestsN-Terminal proBNP 05/01/22 [facility] Evaluation + Plan note Future Appointments Appointment Date:05/08/2022 11:30:00 AM Scheduled Provider: Location:[facility] Appointment Type:CV OV [facility] Evaluation + Plan note Future Appointments Appointment Date:07/19/2022 07:30:00 AM Scheduled Provider: Location:RAD Appointment Type:yyNM Inj Bone Imaging Whole Body1 Appointment Date:07/19/2022 10:30:00 AM Scheduled Provider: Location:RAD Appointment Type:yyNM Bone Imaging Whole Body Scan Future Scheduled TestsNM Bone Imaging Whole Body 07/19/22 [facility] Hospital course Narrative No data available for this section [facility] Hospital Discharge instructions No data available for this section [facility] Progress note No data available for this section [facility] Summary Purpose Family History No Family History Records Found Advance Directives No Advanced Directives Records Found Additional Source Comments Care Team (unrecognized sect ion and content) Care Team Personnel Name: TASH RAE MD Member Role: Primary Care Physician Address: Address: [address] [place] [address] [place] [address]- Care Team Related Persons Name: JHONNY AKHTAR Address: Home [address] [place], [place] [id number] [place] Care Team Personnel Name: TASH RAE MD Member Role: Primary Care Physician Address: Address: [address] [place] [address] [place]HA [place] [id number] Care Team Related Persons Name: JHONNY AKHTAR Address: Home [address] [place] [phone] Care Team Personnel Name: TASH RAE MD Member Role: Primary Care Physician Address: Address: [address] [place] [address] AUDELIA [place] [address]- [place] Care Team Related Persons Name: JHONNY AKHTAR Address: [address] [phone] [place] Patient Care team informatio n (unrecognized section and content) Care Team Personnel Name: TASH RAE MD Member Role: Primary Care Physician Address: Address: [address] [place] [address] [facility] J[place] [address] Care Team Related Persons Name: JHONNY AKHTAR Address: [place] [id number] Care Team Personnel Name: TASH RAE MD Member Role: Primary Care Physician Address: Address: [address] [place] [address] [facility] [facility] J[place] [address] Care Team Related Persons Name: JHONNY AKHTAR Address: [address] [phone] [place] INFORMATION SOURCE (unrecogn ized section and content) FOR RECORDS PERTAINING TO PATIENTS WHO ARE OR HAVE BEEN ENROLLED IN A CHEMICAL DEPENDENCY/SUBSTANCEABUSE PROGRAM, SOME INFORMATION MAY BE OMITTED. This clinical summary was aggregated from multiple sources. Caution should be exercised in using it in the provision of clinical care. This summary normalizes information from multiple sources, and as a consequence, information in this document may materially change the coding, format and clinical context of patient data. In addition, data may be omitted in some cases. CLINICAL DECISIONS SHOULD BE BASED ON THE PRIMARY CLINICAL RECORDS. [facility] [employer] provides no warranty or guarantee of the accuracy or completeness of information in this document.
[2023-05-26 10:29] LABS: Absolute Lymphocyte Count 2.25 X10^3/uL (0.83-4.51); Absolute Neutrophil Count 3.1 X10^3/uL (2.0-7.7); Basophil# 0.03 X10^3/uL; Basophil% 0.5 % (0-1); Eosinophil# 0.07 X10^3/uL; Eosinophils% 1.1 % (0-5); Hematocrit 38.2 % (37-47); Hemoglobin 12.9 g/dL (12.0-15.0); Lymphocyte # 2.25 X10^3/ul (0.83-4.51); Lymphocyte % 36.6 % (19-41); Mean Corp Hgb Conc 33.8 g/dL (32-36); Mean Corpuscular Hgb 32.1 pg (27.0-32.0); Mean Platelet Vol. 8.8 fl (6.2-12.0); Monocyte# 0.66 X10^3/uL; Monocyte% 10.7 % (0-10); NRBC Flagged by Analyzer 0 % (0-5); Neutrophil # 3.13 X10^3/uL (2.7-7.7); Neutrophil % 50.9 % (47-70); Platelet Count 339 K/mm3 (150-450); RBC Distribution Width CV 14.6 % (11.6-14.6); RBC Distribution Width SD 50.5 fl (35.1-43.9); Red Blood Count 4.02 M/mm3 (4.2-5.4); White Blood Count 6.2 K/mm3 (4.4-11.0)
[2023-05-26 11:18] LABS: ALB/GLOB Ratio 1.4 RATIO (0.9-2.4); AST(SGOT) 26 U/L (15-37); Alanine Aminotransfer ALT/SGPT 37 U/L (13-56); Alkaline Phosphatase 32 U/L (45-117); Anion Gap 4 (5-15); BUN 8 mg/dL (7-18); BUN/Creat Ratio 8.9 RATIO (10-20); Calcium,Total 8.9 mg/dL (8.5-10.1); Chloride 104 mmol/L (98-107); Cholesterol 225 mg/dL (200); EST Glomerular Filtration Rate 67 mL/min (>60); Est Glom Filt Rate - Afr Amer 81 mL/min (>60); Globulin 2.8 g/dL (2.2-4.2); Glucose 93 mg/dL (74-106); High Density Lipoprotein 91 mg/dL; Potassium 4.2 mmol/L (3.5-5.1); Protein, Total 6.8 g/dL (6.4-8.2); Sodium Level 137 mmol/L (136-145); Triglycerides 174 mg/dL; Very Low Density Lipoprotein 35 mg/dL (5-40)
== END | disposition home or self-care (01) ==
PROVIDERS: PCP Internal Medicine; Referring Provider Internal Medicine Rheumatology; Visit Provider Internal Medicine Rheumatology
DX: M06.09 Rheumatoid arthritis without rheumatoid factor, multiple sites (principal); M79.7 Fibromyalgia; M19.041 Primary osteoarthritis, right hand; M18.12 Unilateral primary osteoarthritis of first carpometacarpal joint, left hand; Z79.899 Other long term (current) drug therapy
CPT/HCPCS: 36415; 80053; 80061; 85025

== ENCOUNTER → 2023-07-07 | Outpatient (CLI) | payer MEDICARE, SELFPAY ==
--- NOTE | 2023-07-07 08:34 | MRI_ITS ---
STUDY: MRI RIGHT HIP REASON FOR EXAM: Female, 63 years old. Pain, difficulty sitting, right chronic gluteal tendinopathy. TECHNIQUE: Standardized fat and water weighted pulse sequences were obtained in all 3 orthogonal planes. COMPARISON: None. FINDINGS: Normal hip joint without articular joint space narrowing. Normal acetabulum. Normal labrum. Normal femoral head. Normal femoral neck and intratrochanteric region. There is mild tendinosis and peritendinitis of the right gluteus minimus and medius tendons. Intact right iliopsoas tendon and distal insertion. There is mild right trochanteric bursitis. There is no iliopsoas or iliopectineal bursitis. Normal superior and inferior pubic rami. Normal pubic symphysis. Normal ischial tuberosity. Normal origin of the hamstring tendons. Normal visualized iliac wing, sacroiliac joint, and sacral ala. Normal visualized soft tissue structures of the pelvis. MRI/Lower Ext Joint Only (Routine) IMPRESSION: Mild tendinosis and peritendinitis of the right gluteus minimus and medius tendons. Mild right trochanteric bursitis. Electronically Signed: Alek Esposito MD at 12:36 EDT ,
== END | disposition home or self-care (01) ==
LOC: MRI 09:05
PROVIDERS: PCP Internal Medicine; Referring Provider Orthopaedic Surgery; Visit Provider Orthopaedic Surgery
DX: M76.01 Gluteal tendinitis, right hip (principal); G89.29 Other chronic pain
CPT/HCPCS: 73721

== ENCOUNTER → 2023-08-15 | Outpatient (CLI) | payer MEDICARE, SELFPAY ==
[2023-08-15 15:34] LABS: Absolute Lymphocyte Count 1.35 X10^3/uL (0.83-4.51); Absolute Neutrophil Count 1.8 X10^3/uL (2.0-7.7); Basophil# 0.01 X10^3/uL; Basophil% 0.3 % (0-1); Eosinophil# 0.05 X10^3/uL; Eosinophils% 1.4 % (0-5); Hematocrit 34.6 % (37-47); Hemoglobin 11.7 g/dL (12.0-15.0); Lymphocyte # 1.35 X10^3/ul (0.83-4.51); Lymphocyte % 38.4 % (19-41); Mean Corp Hgb Conc 33.8 g/dL (32-36); Mean Corpuscular Hgb 32.8 pg (27.0-32.0); Mean Corpuscular Volume 96.9 fL (81-99); Mean Platelet Vol. 9.2 fl (6.2-12.0); Monocyte# 0.28 X10^3/uL; NRBC Flagged by Analyzer 0 % (0-5); Neutrophil # 1.82 X10^3/uL (2.7-7.7); Neutrophil % 51.6 % (47-70); Platelet Count 382 K/mm3 (150-450); RBC Distribution Width CV 13.3 % (11.6-14.6); RBC Distribution Width SD 47.5 fl (35.1-43.9); Red Blood Count 3.57 M/mm3 (4.2-5.4); White Blood Count 3.5 K/mm3 (4.4-11.0)
[2023-08-15 15:55] LABS: ALB/GLOB Ratio 1.3 RATIO (0.9-2.4); AST(SGOT) 27 U/L (15-37); Alanine Aminotransfer ALT/SGPT 37 U/L (13-56); Albumin, Serum 4.1 g/dL (3.2-5.0); Alkaline Phosphatase 39 U/L (45-117); Anion Gap 7 (5-15); BUN 7 mg/dL (7-18); BUN/Creat Ratio 8.4 RATIO (10-20); Calcium,Total 9.2 mg/dL (8.5-10.1); Chloride 99 mmol/L (98-107); Creatinine, Serum 0.83 mg/dL (0.55-1.02); EST Glomerular Filtration Rate 73 mL/min (>60); Est Glom Filt Rate - Afr Amer 89 mL/min (>60); Globulin 3.1 g/dL (2.2-4.2); Glucose 123 mg/dL (74-106); Protein, Total 7.2 g/dL (6.4-8.2); Sodium Level 133 mmol/L (136-145)
== END | disposition home or self-care (01) ==
LOC: MTLAB 13:57
PROVIDERS: PCP Internal Medicine; Referring Provider Internal Medicine Rheumatology; Visit Provider Internal Medicine Rheumatology
DX: M06.09 Rheumatoid arthritis without rheumatoid factor, multiple sites (principal); Z79.899 Other long term (current) drug therapy
CPT/HCPCS: 36415; 80053; 85025

== ENCOUNTER → 2023-09-29 | Outpatient (CLI) | payer MEDICARE, SELFPAY ==
--- NOTE | 2023-09-29 11:55 | RAD_ITS ---
STUDY: X-RAY - THORACIC SPINE REASON FOR EXAM: Female, 63 years old. Back pain. TECHNIQUE: 3 view(s) of the thoracic spine were obtained. COMPARISON: None. FINDINGS: Osteopenia. Normal kyphosis of the thoracic spine. No scoliosis. Diffuse intervertebral disc space narrowing with small osteophytes. No acute abnormality. Normal soft tissues. RAD/Thoracic Spine 3 Views IMPRESSION: Mild osteopenia with mild diffuse thoracic spondylosis. No acute abnormality or erosive changes. Electronically Signed: Adrian Spence MD at 9:44 EDT ,
== END | disposition home or self-care (01) ==
LOC: RAD 11:48
PROVIDERS: PCP Internal Medicine; Referring Provider Anesthesiology Pain Medicine; Visit Provider Anesthesiology Pain Medicine
DX: M51.34 Other intervertebral disc degeneration, thoracic region (principal)
CPT/HCPCS: 72072

== ENCOUNTER → 2023-11-13 | Outpatient (CLI) | payer MEDICARE, SELFPAY ==
[2023-11-13 14:44] LABS: Absolute Lymphocyte Count 1.76 X10^3/uL (0.83-4.51); Absolute Neutrophil Count 3.2 X10^3/uL (2.0-7.7); Basophil# 0.03 X10^3/uL; Basophil% 0.5 % (0-1); Eosinophil# 0.09 X10^3/uL; Eosinophils% 1.6 % (0-5); Hematocrit 36.3 % (37-47); Lymphocyte # 1.76 X10^3/ul (0.83-4.51); Lymphocyte % 31.2 % (19-41); Mean Corp Hgb Conc 33.1 g/dL (32-36); Mean Corpuscular Hgb 30.8 pg (27.0-32.0); Mean Corpuscular Volume 93.1 fL (81-99); Mean Platelet Vol. 9.2 fl (6.2-12.0); Monocyte# 0.59 X10^3/uL; Monocyte% 10.4 % (0-10); NRBC Flagged by Analyzer 0 % (0-5); Neutrophil # 3.17 X10^3/uL (2.7-7.7); Neutrophil % 56.1 % (47-70); Platelet Count 345 K/mm3 (150-450); RBC Distribution Width CV 13.7 % (11.6-14.6); RBC Distribution Width SD 45.9 fl (35.1-43.9); White Blood Count 5.7 K/mm3 (4.4-11.0)
[2023-11-13 14:58] LABS: ALB/GLOB Ratio 1.5 RATIO (0.9-2.4); AST(SGOT) 33 U/L (15-37); Alanine Aminotransfer ALT/SGPT 42 U/L (13-56); Albumin, Serum 4.2 g/dL (3.2-5.0); Alkaline Phosphatase 32 U/L (45-117); Anion Gap 7 (5-15); BUN 8 mg/dL (7-18); BUN/Creat Ratio 10.6 RATIO (10-20); Calcium,Total 9.2 mg/dL (8.5-10.1); Chloride 100 mmol/L (98-107); Creatinine, Serum 0.75 mg/dL (0.55-1.02); EST Glomerular Filtration Rate 82 mL/min (>60); Est Glom Filt Rate - Afr Amer 100 mL/min (>60); Globulin 2.8 g/dL (2.2-4.2); Glucose 93 mg/dL (74-106); Sodium Level 134 mmol/L (136-145)
== END | disposition home or self-care (01) ==
LOC: MTLAB 12:34
PROVIDERS: PCP Internal Medicine; Referring Provider Internal Medicine Rheumatology; Visit Provider Internal Medicine Rheumatology
DX: M06.09 Rheumatoid arthritis without rheumatoid factor, multiple sites (principal); M79.7 Fibromyalgia; Z79.899 Other long term (current) drug therapy
CPT/HCPCS: 36415; 80053; 85025

== ENCOUNTER → 2023-11-17 | Outpatient (CLI) | payer MEDICARE, SELFPAY ==
--- NOTE | 2023-11-17 11:02 | RAD_ITS ---
INDICATION: Spondylosis without myelopathy or radiculopathy, cervical region EXAMINATION/TECHNIQUE: X-RAY - XR Spine Cervical 2 or 3 Views COMPARISON: Prior study dated: 10/21/2022 FINDINGS: VERTEBRAE: Preserved vertebral body height. C6 and C7 vertebrae are suboptimally seen on the lateral views. No spondylolisthesis. Straightening of the cervical spine. Probable facet arthropathy at the level of C3-C4. DISCS: Multilevel disc space narrowing is again seen unchanged. Endplate spondylosis. NECK SOFT TISSUES: No prevertebral soft tissue widening. LUNG APICES: Clear. RAD/Cerv Spine 2 or 3 Views IMPRESSION: Degenerative changes. No significant change. Electronically Signed: Bret Robert MD at 12:23 EDT ,
== END | disposition home or self-care (01) ==
PROVIDERS: PCP Internal Medicine; Referring Provider Anesthesiology Pain Medicine; Visit Provider Anesthesiology Pain Medicine
DX: M47.812 Spondylosis without myelopathy or radiculopathy, cervical region (principal)
CPT/HCPCS: 72040

== ENCOUNTER 2024-02-11 13:40 | Outpatient (CLI) | payer MEDICARE, SELFPAY ==
[2024-02-11 17:46] LABS: Absolute Lymphocyte Count 1.42 X10^3/uL (0.83-4.51); Absolute Neutrophil Count 4.6 X10^3/uL (2.0-7.7); Basophil# 0.05 X10^3/uL; Basophil% 0.7 % (0-1); Eosinophil# 0.17 X10^3/uL; Eosinophils% 2.5 % (0-5); Hematocrit 35.1 % (37-47); Lymphocyte # 1.42 X10^3/ul (0.83-4.51); Lymphocyte % 21.1 % (19-41); Mean Corp Hgb Conc 34.2 g/dL (32-36); Mean Corpuscular Volume 93.6 fL (81-99); Mean Platelet Vol. 9.2 fl (6.2-12.0); Monocyte% 7.4 % (0-10); NRBC Flagged by Analyzer 0 % (0-5); Neutrophil # 4.57 X10^3/uL (2.7-7.7); Platelet Count 362 K/mm3 (150-450); RBC Distribution Width CV 14.3 % (11.6-14.6); RBC Distribution Width SD 48.5 fl (35.1-43.9); Red Blood Count 3.75 M/mm3 (4.2-5.4); White Blood Count 6.7 K/mm3 (4.4-11.0)
[2024-02-11 18:18] LABS: ALB/GLOB Ratio 1.3 RATIO (0.9-2.4); AST(SGOT) 24 U/L (15-37); Alanine Aminotransfer ALT/SGPT 33 U/L (13-56); Albumin, Serum 3.9 g/dL (3.2-5.0); Alkaline Phosphatase 42 U/L (45-117); Anion Gap 6 (5-15); BUN 9 mg/dL (7-18); BUN/Creat Ratio 10.3 RATIO (10-20); Calcium,Total 9.1 mg/dL (8.5-10.1); Chloride 100 mmol/L (98-107); Creatinine, Serum 0.87 mg/dL (0.55-1.02); EST Glomerular Filtration Rate 69 mL/min (>60); Est Glom Filt Rate - Afr Amer 84 mL/min (>60); Glucose 115 mg/dL (74-106); Potassium 3.5 mmol/L (3.5-5.1); Protein, Total 6.9 g/dL (6.4-8.2); Sodium Level 134 mmol/L (136-145)
== END 2024-02-11 23:59 | disposition home or self-care (01) ==
LOC: MTLAB 13:42
PROVIDERS: PCP Internal Medicine; Referring Provider Internal Medicine Rheumatology; Visit Provider Internal Medicine Rheumatology
DX: M06.09 Rheumatoid arthritis without rheumatoid factor, multiple sites (principal); M79.7 Fibromyalgia; M70.61 Trochanteric bursitis, right hip; M18.12 Unilateral primary osteoarthritis of first carpometacarpal joint, left hand; Z79.899 Other long term (current) drug therapy
CPT/HCPCS: 36415; 80053; 85025

== ENCOUNTER → 2024-04-30 | Outpatient (CLI) | payer MEDICARE, SELFPAY ==
[2024-04-30 15:12] LABS: Absolute Lymphocyte Count 1.66 X10^3/uL (0.83-4.51); Absolute Neutrophil Count 5.7 X10^3/uL (2.0-7.7); Basophil# 0.03 X10^3/uL; Basophil% 0.4 % (0-1); Eosinophil# 0.12 X10^3/uL; Eosinophils% 1.5 % (0-5); Hematocrit 35.5 % (37-47); Hemoglobin 11.7 g/dL (12.0-15.0); Lymphocyte # 1.66 X10^3/ul (0.83-4.51); Lymphocyte % 20.3 % (19-41); Mean Corpuscular Volume 94.2 fL (81-99); Mean Platelet Vol. 9.1 fl (6.2-12.0); Monocyte# 0.67 X10^3/uL; Monocyte% 8.2 % (0-10); NRBC Flagged by Analyzer 0 % (0-5); Neutrophil # 5.65 X10^3/uL (2.7-7.7); Neutrophil % 69.1 % (47-70); Platelet Count 397 K/mm3 (150-450); RBC Distribution Width CV 14.2 % (11.6-14.6); RBC Distribution Width SD 48.2 fl (35.1-43.9); Red Blood Count 3.77 M/mm3 (4.2-5.4); White Blood Count 8.2 K/mm3 (4.4-11.0)
[2024-04-30 15:40] LABS: Hemoglobin A1c 5.7 % (3.8-5.6)
[2024-04-30 17:22] LABS: Cholesterol 160 mg/dL (200); High Density Lipoprotein 72 mg/dL; Triglycerides 215 mg/dL; Very Low Density Lipoprotein 43 mg/dL (5-40)
[2024-04-30 17:35] LABS: ALB/GLOB Ratio 1.1 RATIO (0.9-2.4); AST(SGOT) 17 U/L (15-37); Alanine Aminotransfer ALT/SGPT 27 U/L (13-56); Albumin, Serum 3.7 g/dL (3.2-5.0); Alkaline Phosphatase 47 U/L (45-117); Anion Gap 7 (5-15); BUN 10 mg/dL (7-18); BUN/Creat Ratio 11.7 RATIO (10-20); Calcium,Total 9.2 mg/dL (8.5-10.1); Chloride 100 mmol/L (98-107); Creatinine, Serum 0.86 mg/dL (0.55-1.02); EST Glomerular Filtration Rate 71 mL/min (>60); Est Glom Filt Rate - Afr Amer 86 mL/min (>60); Globulin 3.4 g/dL (2.2-4.2); Glucose 109 mg/dL (74-106); Potassium 4.4 mmol/L (3.5-5.1); Protein, Total 7.1 g/dL (6.4-8.2); Sodium Level 134 mmol/L (136-145)
== END | disposition home or self-care (01) ==
LOC: BIMLAB 13:40
PROVIDERS: PCP Internal Medicine; Referring Provider Internal Medicine Rheumatology; Visit Provider Internal Medicine Rheumatology
DX: M06.09 Rheumatoid arthritis without rheumatoid factor, multiple sites (principal); M79.7 Fibromyalgia; Z79.899 Other long term (current) drug therapy
CPT/HCPCS: 36415; 80053; 80061; 83036; 85025

== ENCOUNTER → 2024-07-23 | Outpatient (CLI) | payer MEDICARE, SELFPAY ==
[2024-07-23 15:24] LABS: Absolute Lymphocyte Count 1.71 X10^3/uL (0.83-4.51); Absolute Neutrophil Count 3.2 X10^3/uL (2.0-7.7); Basophil# 0.03 X10^3/uL; Basophil% 0.5 % (0-1); Eosinophils% 1.8 % (0-5); Hematocrit 35.2 % (37-47); Hemoglobin 11.8 g/dL (12.0-15.0); Lymphocyte # 1.71 X10^3/ul (0.83-4.51); Lymphocyte % 30.5 % (19-41); Mean Corp Hgb Conc 33.5 g/dL (32-36); Mean Corpuscular Hgb 31.6 pg (27.0-32.0); Mean Corpuscular Volume 94.1 fL (81-99); Mean Platelet Vol. 9.2 fl (6.2-12.0); Monocyte# 0.57 X10^3/uL; Monocyte% 10.2 % (0-10); NRBC Flagged by Analyzer 0 % (0-5); Neutrophil # 3.17 X10^3/uL (2.7-7.7); Neutrophil % 56.6 % (47-70); Platelet Count 400 K/mm3 (150-450); RBC Distribution Width SD 51.2 fl (35.1-43.9); Red Blood Count 3.74 M/mm3 (4.2-5.4); White Blood Count 5.6 K/mm3 (4.4-11.0)
[2024-07-23 18:33] LABS: ALB/GLOB Ratio 1.6 RATIO (0.9-2.4); AST(SGOT) 20 U/L (<=31); Alanine Aminotransfer ALT/SGPT 21 U/L (<=34); Albumin, Serum 4.4 g/dL (3.4-4.8); Alkaline Phosphatase 42 U/L (35-104); Anion Gap 12 (5-15); BUN 8 mg/dL (4-19); Calcium,Total 9.7 mg/dL (7.6-11.0); Carbon Dioxide 25.9 mmol/L (21.0-32.0); Chloride 98 mmol/L (98-108); Creatinine, Serum 0.82 mg/dL (0.70-1.20); EST Glomerular Filtration Rate 80 (>60); Globulin 2.7 g/dL (2.2-4.2); Glucose 85 mg/dL (70-99); Potassium 3.8 mmol/L (3.3-5.1); Protein, Total 7.1 g/dL (5.9-8.4); Sodium Level 137 mmol/L (133-145); Total Bilirubin 0.45 mg/dL (0.00-1.30)
== END | disposition home or self-care (01) ==
LOC: MTLAB 14:11
PROVIDERS: PCP Internal Medicine; Referring Provider Internal Medicine Rheumatology; Visit Provider Internal Medicine Rheumatology
DX: M06.09 Rheumatoid arthritis without rheumatoid factor, multiple sites (principal); M79.7 Fibromyalgia; Z79.899 Other long term (current) drug therapy
CPT/HCPCS: 36415; 80053; 85025

== ENCOUNTER → 2024-10-05 | Outpatient (CLI) | payer MEDICARE, SELFPAY ==
--- NOTE | 2024-10-05 14:02 | RAD_ITS ---
PROCEDURE: FOOT MIN 3 VIEWS 10/05/2024 REASON FOR EXAM: FOOT PAIN TECHNIQUE: FOOT MIN 3 VIEWS COMPARISON: No FINDINGS: Osteoporosis. No acute bone or soft tissue pathology. Possible old 5th metatarsal base fracture. RAD/Foot min 3 Views IMPRESSION: No acute findings Reading Location: [place] [address]
--- OUTSIDE RECORDS SUMMARY | 2024-10-05 22:46 | XMS RPT_ITS | CCD ---
Author Organization [facility] Care Team Providers Care Field Service Tech Name Role Phone Cora RHOADES, Loan Andersen Unavailable JORGE LUIS CHOI, TERRY Earl Primary Care Physician [phone] Dr. Tash Fallon Primary Care Provider 1(33 [phone]) Dr. Tash Fallon Attending Provider [phone])2 Dr. Tash Fallon Referring Provider [phone] Dr. Ceferino Donnelly Attending Provider 1(330) Dr. Joe Merchant Attending Provider [phone] Dr. Ceferino Donnelly Referring Provider [phone] Dr. Tash Fallon Primary Care Provider 1(33 0) Dr. Tash Fallon Attending Provider [phone])2 Dr. Tash Fallon Referring Provider [phone])2 Dr. Jhon Day Attending Provider 1(330) Dr. Tash Fallon Primary Care Provider 1(33 0) Dr. Tash Fallon Attending Provider [phone])2 Dr. Tash Fallon Referring Provider [phone])2 Dr. Ceferino Donnelly Attending Provider 1(330) Dr. Tash Fallon Primary Care Provider 1(33 0) Dr. Tash Fallon Attending Provider [phone])2 Dr. Tash Fallon Referring Provider [phone])2 BARBIE Garcia Attending Provider Unavail TASH Julian MD Primary Care Physician [phone] Leeanne, Dr. Villanueva Primary Care Provider 1(33 0) Dr. Tash Fallon Referring Provider [phone])2 Leeanne, Dr. Villanueva Attending Provider [phone])2 Dr. Tash Fallon Primary Care Provider 1(33 0) Leeanne, Dr. Villanueva Referring Provider [phone])2 Dr. Ceferino Donnelly Attending Provider 1(330) Dr. Joe Merchant Attending Provider 1(330) Dr. Tash Fallon Primary Care Provider 1(33 0) Leeanne, Dr. Villanueva Referring Provider [phone])2 BARBIE Ruvalcaba Attending Provider Nicolette REFERENCE ASSISTANT, REFERENCE ASSISTANT-C Roberto Attending Provider 1(330) Dr. Tash Fallon Primary Care Provider 1(33 0) Leeanne, Dr. Villanueva Referring Provider 1(330)2 BARBIE Syed Attending Provider Dr. Tash Fallon Primary Care Provider 1(33 0) Dr. Tash Fallon Referring Provider 1(330)2 BARBIE Syed Attending Provider Dr. Tash Fallon Primary Care Provider 1(33 0) Dr. Tash Fallon Referring Provider [phone])2 BARBIE Syed Attending Provider Dr. Tash Fallon Attending Provider 1(330)2 BARBIE Lubin Attending Provider 1(330) Dr. Ceferino Donnelly Attending Provider 1(330) Dr. Joe Merchant Attending Provider [phone])- Dr. Tash Fallon Primary Care Provider [phone] Dr. Tash Fallon Attending Provider [phone])2 Dr. Tash Fallon Referring Provider [phone] BARBIE Lubin Attending Provider [phone] Dr. Ceferino Donnelly Attending Provider Dr. Joe Merchant Attending Provider AHMET CHOI, DR SANDOVAL Attending Unavailab Eliel CHOI, EFEWONGBE B Primary Care Unavailab ramana LEO MD, DR SANDOVAL Attending Unavailab Eliel CHOI, EFEWONGBE B Primary Care Unavailab CEFERINO Tarango DO Attending Unavailable LEEANNE CHOI, EFEWONGBE B Primary Care Unavailab ramana LEO MD, DR SANDOVAL Attending Unavailab Eliel CHOI, EFEWONGBE B Primary Care Unavailab le Vellanki, Susie Referring Unavailable Vellanki, Susie Attending Unavailable Oleghe, Efewongbe Primary Care Unavailable Gloria Garcia Attending Unavailable Basali Ayman Referring Unavailable Oleghe, Efewongbe Primary Care Unavailable Vellanki, Susie Referring Unavailable Vellanki, Susie Attending Unavailable Oleghe, Efewongbe Primary Care Unavailable BasalGloria peres Attending Unavailable Basali Ayman Referring Unavailable Oleghe, Efewongbe Primary Care Unavailable Oleghe, Efewongbe Referring Unavailable Oleghe, Efewongbe Attending Unavailable Oleghe, Efewongbe Primary Care Unavailable Vellanki, Susie Attending Unavailable Vellanki, Susie Referring Unavailable Oleghe, Efewongbe Primary Care Unavailable Vellanki, Susie Attending Unavailable Vellanki, Susie Referring Unavailable Oleghe, Efewongbe Primary Care Unavailable Vellanki, Susie Attending Unavailable Vellanki, Susie Referring Unavailable Oleghe, Efewongbe Primary Care Unavailable Oleghe, Efewongbe Primary Care Unavailable Oleghe, Efewongbe Referring Unavailable Oleghe, Efewongbe Attending Unavailable Oleghe, Efewongbe Primary Care Unavailable Oleghe, Efewongbe Referring Unavailable Riley Lubin Attending Unavailable LEEANNE CHOI, EFEWONGBE B Primary Care Unavailab ramana CHENEVEY MD, LOUIS Attending Unavailable TASH FALLON MD Primary Care Unavailab ramana LEO MD, DR ASNDOVAL Attending UnavailTash Dumas MD Primary Care Provider [phone] Louis Yu MD Unavailable JUAN CMEHDI WILMER Attending Unavailable LOUIS YU Referring Unavailable TASH FALLON Primary Care Unavailable Leeanne CHOI, Dr. Villanueva Primary Care Provider Dr. Tash Fallon MD Referring Provider [phone] Riley Lubin Attending Provider Padmini CHOI, Dr. Richards Attending Provider Dr. Susie Washington MD Referring Provider Kim REFERENCE ASSISTANT-CElsa Attending Provider [phone] Allergies Allergy Classification Reported Allergen(s) Allergy Type Date of Onset Reaction(s) Facility (20 sources) cyclobenzaprine; Translations: [cyclobenzaprine] Drug Allergy 8 Unknown (qualifier value), Other: See Comments [facility] (1 source) cyclobenzaprine Drug Allergy 5 [facility] Repository Medications Current Medications Medication Drug Class(es) Dates Sig (Normalized) Sig (Original) acetaminophen 500 mg oral tablet (7 sources) Start: 01-03-2021 Tylenol Extra Strength 500 mg oral tablet Dose : 1,000 mg = 2 tab(s), Oral, Daily, PRN as needed for pain, # 50 tab(s), 0 Refill(s) Start Date: 01/03/21 Status: Ordered Acetaminophen (Tylenol Extra Strength) 500 mg powder in packet (19 sources) Start: 01-01-2021 take 500 mg by mouth every six hours Acetaminophen (Tylenol Extra Strength) 500 mg powder in packet Active 500 MG PO EVERY 6 HOURS January 01, 2021 1:56pm Start: 01-01-2021 End: 11-09-2021 take 500 mg by mouth every six hours as needed Acetaminophen (Tylenol Extra Strength) 500 mg powder in packet Discontinued 500 mg PO EVERY 6 HOURS as needed January 01, 2021 12:00am November 09, 2021 11:17am Start: 01-01-2021 End: 11-09-2021 take 500 mg by mouth every six hours Acetaminophen (Tylenol Extra Strength) 500 mg powder in packet Discontinued 500 MG PO EVERY 6 HOURS December 31, 2020 11:00pm November 09, 2021 10:17am Start: 01-01-2021 End: 11-09-2021 take 500 mg by mouth every six hours Acetaminophen (Tylenol Extra Strength) 500 mg powder in packet Discontinued 500 MG PO EVERY 6 HOURS January 01, 2021 12:00am November 09, 2021 11:17am Start: 01-01-2021 take 500 mg by mouth every six hours Acetaminophen (Tylenol Extra Strength) 500 mg powder in packet Active 500 MG PO EVERY 6 HOURS January 01, 2021 12:00am [id number] 200 actuat albuterol 0.09 mg/actuat metered dose inhaler (20 sources) beta2-Adrenergic Agonist Start: 05-14-2021 take 1 puff(s) by inhalation every six hours Albuterol Sulfate Active 2 PUFF INHALATION EVERY 6 HOURS 8.5 May 14, 2021 11:57am Start: 05-14-2021 End: 07-29-2024 Albuterol Sulfate 90 mcg/act uation HFA aerosol inhaler Active 2 NMA INHALATION EVERY 6 HOURS as needed for shortness of breath or wheezing 8.5 July 29, 2024 8:41am Start: 05-14-2021 End: 03-17-2023 take 1 puff(s) by inhalation every six hours Albuterol Sulfate Discontinued 2 PUFF INHALATION EVERY 6 HOURS 8.5 March 20, 2022 11:09am September 24, 2022 2:37pm Start: 10-30-2020 End: 05-14-2021 Albuterol Discontinued MCG INHALATION October 30, 2020 5:08pm May 14, 2021 11:59am Start: 10-30-2020 End: 05-14-2021 Albuterol Discontinued MCG INHALATION October 29, 2020 11:00pm May 14, 2021 10:59am Start: 10-30-2020 End: 02-07-2022 Albuterol Discontinued MCG INHALATION October 30, 2020 12:00am May 14, 2021 11:59am Start: 12-01-2014 take 1 dose by inhal ation four times daily as needed for wheezing ProAir HFA MDI (90 mcg/inh) inhalation aerosol Dose = 2 puff(s), Inhalation, QID, PRN as needed for wheezing, 0 Refill(s) Start Date: 12/01/14 Status: Ordered Start: 12-01-2014 take 1 dose by inhal ation four times daily as needed for wheezing ProAir HFA MDI (90 mcg/inh) inhalation aerosol Dose = 2 puff(s), Inhalation, QID, PRN as needed for wheezing, 0 Refill(s) Start Date: 12/01/14 Status: Ordered take 2 puff(s) by in halation every six hours as needed albuterol HFA (PROVENTIL HFA, VENTOLIN HFA) 90 mcg/actuation inhaler Inhale 2 puffs as instructed every 6 hours as needed. Active amLODIPine 5 mg oral tablet (20 sources) Dihydropyridine Calcium Channel Faustino Start: 12-20-2020 take 1 tablet by mouth once daily Amlodipine 5 mg tablet Active 5 mg PO DAILY January 01, 2021 12:00am aspirin 81 mg chewable tablet (20 sources) Platelet Aggregation Inhibitor, Nonsteroidal Anti-inflammatory Drug Start: 09-19-2023 take 1 tablet by mouth once daily Aspirin 81 mg tablet,chewable Active 81 mg PO DAILY September 19, 2023 12:00am Start: 05-21-2023 aspirin 81 mg oral delayed release tablet Dose : 81 mg = 1 tab(s), Oral, Daily, # 30 tab(s), 6 Refill(s), Pharmacy: [facility], 160, cm, 05/21/23 9:43:00 EST, Height, kg, 05/21/23 9:43:00 EST, Dosing Weight Start Date: 05/21/23 Status: Ordered Start: 10-30-2020 End: 01-01-2021 take 1 tablet by mouth once daily Aspirin 81 mg tablet,delayed release (DR/EC) Discontinued 81 mg PO DAILY October 30, 2020 12:00am January 01, 2021 1:58pm baclofen 10 mg oral tablet (20 sources) gamma-Aminobutyric Acid-ergic Agonist Start: 09-19-2023 baclofen 10 mg tablet Take 10 mg by mouth as needed (as needed). 09/14/2024 Active Start: 05-25-2021 baclofen 5 mg oral tablet Dose : 5 mg = 1 tab(s), Oral, qDay, 0 Refill(s) Start Date: 05/25/21 Status: Ordered Start: 03-20-2021 End: 09-24-2022 take 1 tablet by mouth at bedtime as needed for muscle spasms Baclofen 10 mg tablet Discontinued 10 mg PO AT BEDTIME as needed for muscle spasm 60 1 2021 10:17am September 24, 2022 3:13pm Start: 03-20-2021 End: 09-19-2023 take 1 tablet by mouth twice daily as needed for muscle spasms Baclofen 10 mg tablet Discontinued 10 mg PO TWICE A DAY as needed for muscle spasm September 24, 2022 3:09pm September 19, 2023 10:09am Start: 01-01-2021 End: 03-20-2021 take 1 tablet by mouth three times daily as needed for muscle spasms Baclofen 5 mg tablet Discontinued 5 mg PO THREE TIMES A DAY as needed for muscle spasm 90 1 January 02, 2021 1:15pm March 20, 2021 3:41pm Start: 10-30-2020 End: 01-01-2021 take 1 tablet by mouth once daily Baclofen 5 mg tablet Discontinued 5 mg PO DAILY October 30, 2020 12:00am January 01, 2021 1:54pm brimonidine tartrate 2 mg/ml ophthalmic solution (1 source) alpha-Adrenergic Agonist Start: 09-21-2024 take 1 drop(s) into the eye(s) twice daily brimonidine (ALPHAGAN) 0.2 % ophthalmic solution Use 1 drop in the left eye two times a day. 10 mL 5 09/21/2024 Active choline salicylate 440 mg / magnesium salicylate 544 mg oral tablet (1 source) Start: 01-10-1999 take 1-2 tablets by mouth twice daily Trilisate 750 mg Oral 1.0 to 2.0 tablet Oral bid 30.0 tablet 2 01/10/1999 Active dorzolamide 20 mg/ml / timolol 5 mg/ml ophthalmic solution (5 sources) Carbonic Anhydrase Inhibitor, beta-Adrenergic Faustino Start: 07-29-2024 take 1 drop(s) into the eye(s) twice daily dorzolamide-timol ol (COSOPT) 22.3-6.8 mg/mL ophthalmic solution Use 1 drop in both eyes two times a day. 07/29/2024 Active Start: 09-19-2023 Dorzolamide-Ti molol 22.3-6.8 mg/mL drops Active OPHTHALMIC TWICE A DAY September 19, 2023 10:04am Start: 03-17-2023 Dorzolamide-Ti molol Active OPHTHALMIC March 17, 2023 1:00am Start: 03-17-2023 Dorzolamide-Ti molol Active OPHTHALMIC March 17, 2023 12:00am fluticasone propionate 0.05 mg/actuat metered dose nasal spray (1 source) Corticosteroid Start: 09-19-2023 take 50 ug nasal route once daily Fluticasone Propionate (Flonase Allergy Relief) 50 mcg/actuation spray,suspension Active 1 NMA INTRANASAL DAILY September 19, 2023 12:00am administer into each nostril folic acid 20 mg oral capsule (14 sources) Start: 09-24-2022 take 1 capsule by mouth once daily Folic Acid 20 mg capsule Active 20 mg PO DAILY September 24, 2022 12:00am Start: 05-08-2022 folic acid 1 m g oral tablet Dose : 2 mg = 2 tab(s), Oral, qDay, 0 Refill(s) Start Date: 05/08/22 Status: Ordered take 2 tablets by cox branson once daily folic acid 1 mg tablet Take 2 mg by mouth once daily. Active hydroxychloroquine sulfate 200 mg oral tablet (9 sources) Antimalarial, Antirheumatic Agent Start: 03-17-2023 End: 09-19-2023 take 1 mg by mouth twice daily Hydroxychloroquine 200 mg tablet Active mg PO TWICE A DAY September 19, 2023 10:04am Start: 03-17-2023 Hydroxychloroq uine Active MG PO March 17, 2023 1:00am Inhalational Spacing Device (Aerochamber Mv) spacer (1 source) Start: 09-25-2023 Inhalational Spacing Device (Aerochamber Mv) spacer Active 0 .Route 10 0 September 25, 2023 12:00am Asthma Unspecified asthma, uncomplicated As directed ipratropium 21 mcg/inh (0.03%) nasal spray (4 sources) Start: 01-03-2021 ipratropium 21 mcg/inh (0.03%) nasal spray Dose = 2 spray(s), Nasal, TID, # 30 mL, 0 Refill(s) Start Date: 01/03/21 Status: Ordered latanoprost 0.05 mg/ml ophthalmic solution (5 sources) Prostaglandin Analog Start: 09-04-2024 take 1 drop(s) into the eye(s) once daily at bedtime latanoprost (XALATAN) 0.005 % ophthalmic solution Use 1 drop in both eyes daily at bedtime. 09/04/2024 Active Start: 03-17-2023 Latanoprost 0. 005 % drops Active NMA OPHTHALMIC March 17, 2023 1:00am Start: 03-17-2023 Latanoprost Ac tive DRP OPHTHALMIC March 17, 2023 1:00am losartan potassium 50 mg oral tablet (20 sources) Angiotensin 2 Receptor Faustino Start: 05-22-2023 losartan 50 mg oral tablet Dose : 50 mg = 1 tab(s), Oral, qPM, Take extra half a pill in AM on days when systolic blood pressure more than 160, # 60 tab(s), 6 Refill(s), Pharmacy: [facility], 160, cm, 05/21/23 9:43:00 EST, Height, kg, 05/21/23 9:43:00 EST, Dosing Weight Start Date: 05/22/23 Status: Ordered Start: 01-03-2021 take 1 tablet by mouth once da inder Losartan 25 mg tablet Active 25 mg PO DAILY January 12, 2021 12:00am methotrexate 2.5 mg oral tablet (20 sources) Folate Analog Metabolic Inhibitor Start: 09-19-2023 Methotrexate Sodium 2.5 mg tablet Active 20 mg PO EVERY WEEK September 19, 2023 10:06am Start: 05-08-2022 take 3 tablets by mo uth at lunch, then take 4 tablets by mouth every week at dinner methotrexate 2.5 mg oral tablet See Instructions, 3 pills at lunch / 4 pills at dinner (once a week ), 0 Refill(s) Start Date: 05/08/22 Status: Ordered Start: 11-19-2021 End: 09-19-2023 take 1 tablet by mouth once daily Methotrexate Sodium 2.5 mg tablet Discontinued 2.5 mg PO DAILY November 19, 2021 12:00am September 19, 2023 10:09am potassium chloride 20 meq or al tablet (20 sources) Start: 10-29-2021 potassium chlo ride 20 mEq oral tablet, extended release Dose : 20 mEq = 1 tab(s), Oral, qDay, PRN only take when take torsemide, Take with food, # 30 tab(s), 3 Refill(s), Pharmacy: [facility], 160, cm, 10/29/21 16:32:00 EDT, Height, kg, 10/29/21 16:32:00 EDT, Dosing Weight Start Date: 10/29/21 Status: Ordered Start: 01-01-2021 End: 11-09-2021 take 1 tablet by mouth once daily Potassium Chloride 20 mEq tablet extended release Discontinued 20 meq PO DAILY January 01, 2021 12:00am November 09, 2021 11:20am Start: 11-15-2020 potassium chlo ride 20 mEq oral tablet, extended release Dose : 20 mEq = 1 tab(s), Oral, qDay, Take with food, # 30 tab(s), 6 Refill(s), Pharmacy: [facility], 160, cm, 11/15/20 10:30:00 EDT, Height, kg, 11/15/20 10:30:00 EDT, Dosing Weight Start Date: 11/15/20 Status: Ordered predniSONE 10 mg oral tablet (16 sources) Start: 09-20-2024 predniSONE (DE LTASONE) 10 mg tablet Take 10 mg by mouth as needed (as needed). 09/20/2024 Active Start: 07-01-2024 Prednisone 10 mg tablet Active 10 mg PO As Directed July 01, 2024 12:00am see taper instructions: 4 tabs x 2 days, 3 tabs x 2 days, 2 tabs x 2 days, 1 tab x 2 days Start: 11-09-2021 End: 11-19-2021 take 2 tablets by mouth once daily Prednisone 20 mg tablet Discontinued 40 mg PO DAILY November 09, 2021 12:00am November 19, 2021 10:23am Start: 11-09-2021 End: 11-19-2021 take 40 mg by mouth once daily Prednisone Discontinued 40 MG PO DAILY November 09, 2021 12:00am November 19, 2021 10:23am pregabalin 75 mg oral capsule (20 sources) Start: 09-19-2023 take 1 capsule by mouth four times daily Pregabalin (Lyrica) 75 mg capsule Active 75 mg PO 4 TIMES DAILY September 19, 2023 10:08am Start: 05-08-2022 End: 09-19-2023 take 1 capsule by mouth three times daily Pregabalin (Lyrica) 75 mg capsule Discontinued 75 mg PO THREE TIMES A DAY September 24, 2022 3:10pm September 19, 2023 10:09am Start: 11-09-2021 End: 02-18-2022 take 1 capsule by mouth twice daily Pregabalin (Lyrica) 50 mg capsule Discontinued 50 mg PO TWICE A DAY November 09, 2021 11:18am February 18, 2022 10:35am Start: 11-09-2021 End: 09-24-2022 take 1 capsule by mouth twice daily Pregabalin (Lyrica) 75 mg capsule Discontinued 75 mg PO TWICE A DAY November 09, 2021 12:00am September 24, 2022 3:12pm Start: 07-31-2021 End: 11-09-2021 take 1 capsule by mouth once daily Pregabalin (Lyrica) 50 mg capsule Discontinued 50 mg PO DAILY July 31, 2021 12:00am November 09, 2021 11:20am torsemide 10 mg oral tablet (20 sources) Loop Diuretic Start: 10-29-2021 torsemide 10 m g oral tablet Dose : 10 mg = 1 tab(s), Oral, Daily, PRN more then 2 pound weight gain, # 30 tab(s), 3 Refill(s), Pharmacy: [facility], 160, cm, 10/29/21 16:32:00 EDT, Height, kg, 10/29/21 16:32:00 EDT, Dosing Weight Start Date: 10/29/21 Status: Ordered Start: 01-12-2021 End: 11-09-2021 take 10 mg by mouth once daily Torsemide 20 mg tablet Discontinued 10 mg PO DAILY January 12, 2021 1:00pm November 09, 2021 11:18am Start: 01-12-2021 End: 11-09-2021 take 10 mg by mouth once daily Torsemide Discontinued 10 MG PO DAILY January 12, 2021 1:00pm November 09, 2021 11:18am Start: 01-03-2021 torsemide 10 m g oral tablet Dose : 30 mg = 3 tab(s), Oral, Daily, Take 2 tabs on Friday, Fri, Fri. Take 1 tab on Friday and ., # 270 tab(s), 3 Refill(s), Pharmacy: [facility], 160, cm, 01/03/21 13:16:00 EDT, Height, kg, 01/03/21 13:16:00 EDT, Dosing Weight Start Date: 01/25/21 Status: Ordered Start: 01-01-2021 End: 01-12-2021 take 1 tablet by mouth once daily Torsemide 20 mg tablet Discontinued 20 mg PO DAILY January 01, 2021 12:00am January 12, 2021 1:01pm traMADol hydrochloride 50 mg oral tablet (2 sources) Opioid Agonist Start: 08-28-2024 take 1 tablet by mouth every six hours as needed traMADol (ULTRAM) 50 mg tablet Take 50 mg by mouth every 6 hours as needed for pain. 08/28/2024 Active Start: 04-30-2024 take 1 tablet by jim three times daily as needed Tramadol 50 mg tablet Active 50 mg PO THREE TIMES A DAY as needed April 30, 2024 1:00am traZODone hydrochloride 100 mg oral tablet (20 sources) Serotonin Reuptake Inhibitor Start: 09-17-2021 End: 09-17-2024 take 1 tablet by mouth at bedtime as needed Trazodone 100 mg tablet Active 100 mg PO AT BEDTIME as needed for insomnia 90 September 17, 2024 1:04pm Start: 05-30-2021 End: 09-17-2021 Trazodone 50 mg tablet Disco ntinued 75 mg PO AT BEDTIME as needed for insomnia 60 August 23, 2021 8:41am September 17, 2021 11:34am Start: 05-30-2021 End: 09-17-2021 take 75 mg by mouth at bedtime Trazodone Discontinued 75 MG PO AT BEDTIME 60 August 23, 2021 7:41am September 17, 2021 10:34am Start: 03-20-2021 End: 05-30-2021 take 1 tablet by mouth at bedtime as needed Trazodone 50 mg tablet Discontinued 50 mg PO AT BEDTIME as needed for insomnia 30 1 May 21, 2021 12:13pm May 30, 2021 2:59pm 24 hr upadacitinib 15 mg extended release oral tablet (6 sources) Start: 04-21-2023 take 1 tablet by mouth once daily Upadacitinib (Rinvoq) 15 mg tablet extended release 24 hr Active 15 mg PO DAILY April 21, 2023 1:00am Completed/Discontinued Medications Medication Drug Class(es) Dates Sig (Normalized) Sig (Original) acetaminophen 325 mg / HYDROcodone bitartrate 5 mg oral tablet (14 sources) Opioid Agonist Start: 11-09-2021 End: 02-18-2022 Hydrocodone-Acetami nophen 5-325 mg tablet Discontinued 1 {tbl} PO TWICE A DAY as needed 0 November 09, 2021 12:00am February 18, 2022 10:35am Start: 11-09-2021 End: 02-18-2022 take 1 tablet by mouth twice daily Hydrocodone-Acetaminophen Discontinued 1 TABLET PO TWICE A DAY November 09, 2021 12:00am February 18, 2022 10:35am 0.8 ml adalimumab 50 mg/ml prefilled syringe (10 sources) Tumor Necrosis Factor Faustino Start: 09-24-2022 End: 03-27-2023 Adalimumab (Humira) 40 mg/0.8 mL syringe kit Discontinued 0 SC .COMPLEX September 24, 2022 12:00am March 27, 2023 4:54pm inject one - 40 mg/0.8 mL syringe every 2 weeks subcut Start: 09-24-2022 End: 03-27-2023 Adalimumab (Humira) 40 mg/0. 8 mL syringe kit Discontinued 0 SC .COMPLEX September 24, 2022 12:00am March 27, 2023 4:54pm inject one - 40 mg/0.8 mL syringe every 2 weeks subcut Start: 05-08-2022 inject 0.4 mL by sub cutaneous injection every other week Humira Pen 40 mg/0.4 mL subcutaneous kit Dose : 40 mg = 0.4 mL, Subcutaneous, q2wk, # 2 EA, 0 Refill(s) Start Date: 05/08/22 Status: Ordered Albuterol 90 mcg/actuation aerosol (1 source) Start: 10-30-2020 End: 05-14-2021 Albuterol 90 mcg/actuation aerosol Discontinued ug INHALATION October 30, 2020 12:00am May 14, 2021 11:59am amoxicillin 500 mg oral capsule (4 sources) Penicillin-class Antibacterial Start: 03-13-2023 End: 03-23-2023 take 1 capsule by mouth twice daily Amoxicillin 500 mg capsule Discontinued 500 mg PO TWICE A DAY 20 10 March 13, 2023 1:00am March 22, 2023 1:00am March 23, 2023 1:04am azithromycin 250 mg oral tablet (20 sources) Macrolide Antimicrobial Start: 01-03-2023 End: 03-17-2023 take 2-5 tablets by mouth once daily Azithromycin 250 mg tablet Discontinued 0 PO .COMPLEX 6 0 January 03, 2023 12:00am March 17, 2023 10:57am take 500 mg today (day 1), then 250 mg for 4 days (days 2-5) PO Start: 08-26-2022 End: 09-24-2022 Azithromycin 250 mg tablet Discontinued 0 PO .COMPLEX 6 0 August 26, 2022 12:00am September 24, 2022 3:08pm For 250 mg dose pack: take 500 mg today (day 1), then 250 mg for 4 days (days 2-5) PO Start: 08-26-2022 End: 09-24-2022 Azithromycin Discontinued 0 PO .COMPLEX 6 August 26, 2022 12:00am September 24, 2022 3:08pm For 250 mg dose pack: take 500 mg today (day 1), then 250 mg for 4 days (days 2-5) PO Start: 11-09-2021 End: 11-19-2021 take 2-5 tablets by mouth once daily Azithromycin (Zithromax Z-Nickolas) 250 mg tablet Discontinued 0 PO .COMPLEX 6 0 November 09, 2021 12:00am November 19, 2021 10:22am take 500 mg today (day 1), then 250 mg for 4 days (days 2-5) PO cetirizine hydrochloride 10 mg oral tablet (19 sources) Histamine-1 Receptor Antagonist Start: 10-30-2020 End: 01-01-2021 take 1 tablet by mouth once daily as needed Cetirizine (Zyrtec) 10 mg tablet Discontinued 10 mg PO DAILY as needed October 30, 2020 12:00am January 01, 2021 1:58pm clotrimazole 10 mg oral lozenge (6 sources) Azole Antifungal Start: 01-03-2023 End: 01-17-2023 Clotrimazole 10 mg colby Discontinued 10 mg MUCOUS MEM THREE TIMES A DAY 42 14 0 January 03, 2023 12:00am January 16, 2023 12:00am January 17, 2023 12:04am Dorzolamide-Timolol 22.3-6.8 mg/mL drops (1 source) Start: 03-17-2023 End: 09-19-2023 Dorzolamide-Timolo l 22.3-6.8 mg/mL drops Discontinued OPHTHALMIC March 17, 2023 1:00am September 19, 2023 10:09am formula 303 (19 sources) Start: 01-01-2021 End: 03-20-2021 formula 303 Discontinued PO January 01, 2021 1:56pm March 20, 2021 2:59pm Start: 01-01-2021 End: 03-20-2021 formula 303 Discontinued PO 0 January 01, 2021 12:00am March 20, 2021 2:59pm Start: 01-01-2021 End: 03-20-2021 formula 303 Discontinued PO December 31, 2020 11:00pm March 20, 2021 1:59pm Start: 01-01-2021 End: 03-20-2021 formula 303 Discontinued PO January 01, 2021 12:00am March 20, 2021 2:59pm 12 hr guaiFENesin 600 mg extended release oral tablet (6 sources) Start: 01-03-2023 End: 03-17-2023 take 1 tablet by mouth twice daily, then take 1 tablet by mouth every twelve hours Guaifenesin (Mucinex) 600 mg tablet extended release 12hr Discontinued 600 mg PO TWICE A DAY January 03, 2023 12:00am March 17, 2023 10:57am ibuprofen 600 mg oral tablet (2 sources) Nonsteroidal Anti-inflammatory Drug Start: 09-19-2023 End: 10-05-2024 Ibuprofen 600 mg tablet Discontinued 200 mg PO THREE TIMES A DAY as needed September 19, 2023 10:05am October 05, 2024 1:05pm Start: 07-14-2023 End: 09-19-2023 take 1 tablet by mouth three times daily Ibuprofen 600 mg tablet Discontinued 600 mg PO THREE TIMES A DAY 42 0 July 14, 2023 12:00am September 19, 2023 10:09am ipratropium bromide 0.021 mg/actuat metered dose nasal spray (20 sources) Anticholinergic Start: 01-12-2021 End: 09-19-2023 Ipratropium Cameron 21 mcg (0.03 %) spray,non-aerosol Discontinued mL INTRANASAL January 12, 2021 12:00am September 19, 2023 10:06am Start: 01-03-2021 ipratropium 21 mcg/inh (0.03%) nasal spray Dose = 2 spray(s), Nasal, TID, # 30 mL, 0 Refill(s) Start Date: 01/03/21 Status: Ordered lisinopril 10 mg oral tablet (20 sources) Angiotensin Converting Enzyme Inhibitor Start: 01-01-2021 End: 01-12-2021 take 1 tablet by mouth once daily Lisinopril 10 mg tablet Discontinued 10 mg PO DAILY January 01, 2021 12:00am January 12, 2021 12:59pm Start: 10-30-2020 End: 01-01-2021 take 1 tablet by mouth once daily Lisinopril 5 mg tablet Discontinued 5 mg PO DAILY October 30, 2020 12:00am January 01, 2021 1:52pm meclizine hydrochloride 25 mg oral tablet (19 sources) Antiemetic Start: 06-20-2021 End: 11-09-2021 take 1 tablet by mouth twice daily as needed for dizziness Meclizine 25 mg tablet Discontinued 25 mg PO TWICE A DAY as needed for dizziness 60 2 June 20, 2021 12:00am November 09, 2021 11:19am meloxicam 15 mg oral tablet (19 sources) Nonsteroidal Anti-inflammatory Drug Start: 05-02-2021 End: 08-20-2021 take 1 tablet by mouth once daily Meloxicam 15 mg tablet Discontinued 15 mg PO DAILY 30 0 May 02, 2021 1:00am August 20, 2021 10:09am methylPREDNISolone acetate 40 mg/ml injectable suspension (3 sources) Corticosteroid Start: 01-17-2021 End: 01-17-2021 Depo-Medrol (methylprednisolo ne acetate) 40 mg/mL suspension for injection Discontinued 20 MG intrasynovial ONCE 0.5 January 17, 2021 8:09am January 17, 2021 8:48am mirtazapine 15 mg oral tablet (20 sources) Start: 01-01-2021 End: 03-20-2021 take 1 tablet by mouth at bedtime as needed Mirtazapine (Remeron) 15 mg tablet Discontinued 15 mg PO AT BEDTIME as needed for insomnia 60 1 January 02, 2021 1:15pm March 20, 2021 3:40pm montelukast 10 mg oral tablet (20 sources) Leukotriene Receptor Antagonist Start: 09-24-2022 End: 09-22-2024 take 1 tablet by mouth once daily in the evening Montelukast (Singulair) 10 mg tablet Discontinued 10 mg PO EVERY EVENING 90 1 September 09, 2024 9:38am September 22, 2024 11:27pm Start: 10-30-2020 End: 01-01-2021 take 1 tablet by mouth once daily Montelukast (Singulair) 10 mg tablet Discontinued 10 mg PO DAILY October 30, 2020 12:00am January 01, 2021 1:58pm nystatin 138308 unt/ml oral suspension (20 sources) Polyene Antifungal Start: 01-12-2021 End: 11-09-2021 Nystatin 100,000 unit/mL suspension Discontinued [id number] U BUCCAL EVERY 6 HOURS 200 10 1 March 08, 2021 11:31am November 09, 2021 11:19am administer 1/2 of dose in each side of the mouth, swish and swallow Start: 10-30-2020 End: 11-09-2020 Nystatin 100,000 unit/mL kurt pension Discontinued [id number] U BUCCAL EVERY 6 HOURS 200 10 0 October 30, 2020 12:00am November 08, 2020 12:00am November 09, 2020 12:01am administer 1/2 of dose in each side of the mouth omeprazole 40 mg delayed release oral capsule (20 sources) Proton Pump Inhibitor Start: 01-01-2021 End: 03-20-2021 take 1 capsule by mouth once daily Omeprazole 40 mg capsule,delayed release(DR/EC) Discontinued 40 mg PO DAILY January 01, 2021 12:00am March 20, 2021 2:58pm triamcinolone acetonide 40 mg/ml injectable suspension (6 sources) Corticosteroid Start: 2021 End: 2021 Kenalog (triamcinolone acetonide) 40 mg/mL suspension for injection Discontinued 20 MG INTRAARTIC ONCE 0.5 2021 3:01pm 2021 4:15pm Start: 06-04-2021 End: 06-04-2021 Kenalog (triamcinolone aceto nide) 40 mg/mL suspension for injection Discontinued 20 MG INTRAARTIC ONCE 0.5 June 04, 2021 9:30am June 04, 2021 10:00am valACYclovir 1000 mg oral tablet (1 source) Herpesvirus Nucleoside Analog DNA Polymerase Inhibitor, Herpes Simplex Virus Nucleoside Analog DNA Polymerase Inhibitor, Herpes Zoster Virus Nucleoside Analog DNA Polymerase Inhibitor Start: 07-01-2024 End: 10-05-2024 Valacyclovir (Valtrex) 1 gram tablet Discontinued 1000 mg PO THREE TIMES A DAY July 01, 2024 12:00am October 05, 2024 1:05pm Problems Active Problems Problem Classification Problem Date Documented Date Episodic/Chronic Abdominal hernia (19 sources) Hiatal hernia; Translations: [Diaphragmatic hernia without obstruction or gangrene] 01-01-2021 Episodic Acquired foot deformities (19 sources) Pronation of foot; Translations: [Other acquired deformities of left foot] 01-01-2021 Episodic Acute bronchitis (9 sources) Acute bronchitis; Translations: [Acute bronchitis, unspecified] 01-03-2023 Episodic Alcohol-related disorders (20 sources) Alcohol abuse; Translations: [Alcohol dependence] 09-29-2015 Chronic Anxiety disorders (20 sources) Anxiety; Translations: [Anxiety disorder, unspecified] 06-21-2014 Chronic Asthma (20 sources) Asthma; Translations: [Unspecified asthma, uncomplicated] Onset: 04-30-2024 Chronic Cataract (20 sources) Bilateral cataracts; Translations: [Unspecified cataract] Onset: 09-21-2024 01-01-2021 Chronic Conditions associated with dizziness or vertigo (20 sources) Vertigo; Translations: [Dizziness and giddiness] Episodic Congestive heart failure; nonhypertensive (20 sources) Chronic diastolic heart failure; Translations: [Chronic diastolic (congestive) heart failure] Onset: 04-30-2024 11-15-2020 Chronic Diabetes mellitus without complication (19 sources) Diabetes mellitus; Translations: [Type 2 diabetes mellitus without complications] 01-17-2021 Chronic Diabetes mellitus without complication (20 sources) Prediabetes; Translations: [Prediabetes] Onset: 04-30-2024 Episodic Disorders of lipid metabolism (9 sources) Dyslipidemia; Translations: [Hyperlipidemia] 10-29-2021 Chronic Esophageal disorders (20 sources) Gastroesophageal reflux disease; Translations: [Gastro-esophageal reflux disease without esophagitis] Onset: 04-30-2024 01-01-2021 Chronic Essential hypertension (20 sources) Hypertensive disorder; Translations: [Essential (primary) hypertension] Onset: 04-30-2024 06-06-2015 Chronic Glaucoma (5 sources) Low tension glaucoma of left eye; 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, left eye, severe stage] Onset: 09-21-2024 09-21-2024 Chronic Hypertension with complications and secondary hypertension (1 source) Hypertensive heart failure; Translations: [Hypertensive heart disease with heart failure] Chronic Miscellaneous mental health disorders (1 source) Primary insomnia; Translations: [Primary insomnia] Onset: 04-30-2024 Chronic Mood disorders (12 sources) Depressive disorder 08-02-2014 Chronic Mycoses (20 sources) Candidiasis of mouth; Translations: [Candidal stomatitis] 01-12-2021 Episodic Nonmalignant breast conditions (19 sources) Sebaceous cyst of skin of breast; Translations: [Other benign mammary dysplasias of unspecified breast] 01-01-2021 Episodic Nutritional deficiencies (19 sources) Magnesium deficiency; Translations: [Magnesium deficiency] 01-01-2021 Episodic Osteoarthritis (20 sources) Arthritis; Translations: [Unspecified osteoarthritis, unspecified site] Chronic Other aftercare (2 sources) Drug therapy finding; Translations: [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] Onset: 09-21-2024 09-21-2024 Episodic Other connective tissue disease (20 sources) Pain in thumb ; Translations: [Pain in right finger(s)] 01-01-2021 Episodic Other connective tissue disease (19 sources) Trigger thumb of left hand; Translations: [Trigger thumb, left thumb] 06-04-2021 Episodic Other connective tissue disease (19 sources) Fibromyalgia; Translations: [Fibromyalgia] 07-31-2021 Episodic Other connective tissue disease (20 sources) Trigger thumb of right hand; Translations: [Trigger thumb, right thumb] 01-17-2021 Episodic Other connective tissue disease (19 sources) Pain in buttock; Translations: [Myalgia, other site] 05-02-2021 Episodic Other connective tissue disease (19 sources) Foot pain; Translations: [Pain in left foot] 01-01-2021 Episodic Other connective tissue disease (1 source) Pain in left foot; Translations: [Pain in limb] Episodic Other connective tissue disease (3 sources) Myalgia, other site; Translations: [Myalgia and myositis, unspecified] Episodic Other connective tissue disease (3 sources) Trigger thumb, left thumb; Translations: [Trigger finger (acquired)] Episodic Other connective tissue disease (12 sources) Fibromyalgia; Translations: [Myalgia and myositis, unspecified] Episodic Other connective tissue disease (5 sources) Trigger thumb, right thumb; Translations: [Trigger finger (acquired)] Episodic Other connective tissue disease (17 sources) Hand pain; Translations: [Pain in unspecified hand] 08-20-2021 Episodic Other connective tissue disease (4 sources) Pain in unspecified hand; Translations: [Pain in limb] Episodic Other connective tissue disease (2 sources) Pain in right finger(s); Translations: [Pain in limb] Episodic Other connective tissue disease (3 sources) Trochanteric bursitis; Translations: [Trochanteric bursitis, right hip] 03-27-2023 Episodic Other connective tissue disease (3 sources) Ischial bursitis ; Translations: [Other bursitis of hip, right hip] 04-21-2023 Episodic Other connective tissue disease (3 sources) Iliotibial band friction syndrome; Translations: [Iliotibial band syndrome, right leg] 04-21-2023 Episodic Other connective tissue disease (5 sources) Trochanteric bursitis, right hip; Translations: [Enthesopathy of hip region] 03-27-2023 Episodic Other connective tissue disease (3 sources) Iliotibial band syndrome, right leg; Translations: [Other disorders of muscle, ligament, and fascia] 04-21-2023 Episodic Other connective tissue disease (3 sources) Other bursitis of hip, right hip; Translations: [Enthesopathy of hip region] 04-21-2023 Episodic Other connective tissue disease (1 source) Trochanteric bursitis of right hip; Translations: [Trochanteric bursitis, right hip] Episodic Other connective tissue disease (1 source) Iliotibial band friction syndrome of right knee; Translations: [Iliotibial band syndrome, right leg] Episodic Other connective tissue disease (1 source) Bursitis of right hip; Translations: [Other bursitis of hip, right hip] Episodic Other connective tissue disease (1 source) Tendinitis of right gluteal tendon; Translations: [Unspecified disorder of synovium and tendon, right thigh] 07-14-2023 Episodic Other lower respiratory disease (12 sources) Dyspnea on exertion 11-15-2020 Episodic Other lower respiratory disease (19 sources) Dyspnea; Translations: [Shortness of breath] 10-30-2020 Episodic Other nervous system disorders (19 sources) Chronic pain; Translations: [Other chronic pain] 01-01-2021 Chronic Other nervous system disorders (1 source) Other chronic pain; Translations: [Other chronic pain] Onset: 04-30-2024 Chronic Other nervous system disorders (12 sources) Impairment of balance 11-15-2020 Episodic Other non-traumatic joint disorders (19 sources) Multiple joint pain; Translations: [Pain in unspecified joint] 11-19-2021 Episodic Other non-traumatic joint disorders (17 sources) Pain in unspecified joint; Translations: [Pain in joint, multiple sites] Episodic Other non-traumatic joint disorders (4 sources) Hip pain; Translations: [Pain in right hip] 03-17-2023 Episodic Other non-traumatic joint disorders (5 sources) Pain in right hip; Translations: [Pain in joint, pelvic region and thigh] 03-17-2023 Episodic Other nutritional; endocrine; and metabolic disorders (19 sources) Body mass index 30+ - obesity; Translations: [Obesity, unspecified] 05-02-2021 Chronic Other nutritional; endocrine; and metabolic disorders (3 sources) Obesity, unspecified; Translations: [Obesity, unspecified] Chronic Other screening for suspected conditions (not mental disorders or infectious disease) (2 sources) Encounter for screening for malignant neoplasm of colon; Translations: [Patient encounter status] Onset: 09-19-2023 09-19-2023 Episodic Other upper respiratory disease (19 sources) Seasonal allergy; Translations: [Other seasonal allergic rhinitis] 01-01-2021 Chronic Other upper respiratory infections (20 sources) Acute upper respiratory infection, unspecified; Translations: [Acute upper respiratory infections of unspecified site] Episodic Otitis media and related conditions (6 sources) Acute right otitis media; Translations: [Otitis media, unspecified, right ear] 03-13-2023 Episodic Olimpia-; endo-; and myocarditis; cardiomyopathy (except that caused by tuberculosis or sexually transmitted disease) (12 sources) Pericardial effusion 11-15-2020 Episodic Residual codes; unclassified (19 sources) Obstructive sleep apnea syndrome; Translations: [Obstructive sleep apnea (adult) (pediatric)] 03-20-2021 Chronic Residual codes; unclassified (4 sources) Obstructive sleep apnea (adult) (pediatric); Translations: [Obstructive sleep apnea (adult)(pediatric)] Chronic Residual codes; unclassified (19 sources) Insomnia; Translations: [Insomnia, unspecified] 03-20-2021 Episodic Residual codes; unclassified (19 sources) History of laparoscopy; Translations: [Other specified postprocedural states] 01-01-2021 Episodic Residual codes; unclassified (19 sources) Pain; Translations: [Pain, unspecified] 2021 Episodic Residual codes; unclassified (11 sources) Insomnia, unspecified; Translations: [Insomnia, unspecified] Episodic Residual codes; unclassified (1 source) Past history of procedure; Translations: [Other specified postprocedural states] Episodic Rheumatoid arthritis and related disease (7 sources) Rheumatoid arthritis; Translations: [Rheumatoid arthritis, unspecified] Onset: 07-28-2024 04-21-2023 Chronic Spondylosis; intervertebral disc disorders; other back problems (2 sources) Spondylosis without myelopathy or radiculopathy, cervical region; Translations: [Other intervertebral disc degeneration, thoracic region] Onset: 10-08-2023 Chronic Viral infection (2 sources) Herpes zoster; Translations: [Zoster without complications] 07-01-2024 Episodic Past or Other Problems Problem Classification Problem Date Documented Da te Episodic/Chronic Residual codes; unclassified (1 source) Asymptomatic menopausal state; Translations: [Asymptomatic menopausal state] Onset: 09-19-2023 Episodic NEGATED: Highlighted row has been ruled out!Residual codes; unclassified (1 source) Disease Episodic Results Test Name Value Interpretation Reference Range Facility OCT OPTIC NERVE CIRRUS OU (B OTH EYES)on 09-21-2024 [facility] Radiology Study observation (narrative) [facility] PACHYMETRY OU (BOTH EYES)on 09-21-2024 [facility] Radiology Study observation (narrative) [facility] VISUAL FIELD 24-2 OU (BOTH E YES)on 09-21-2024 [facility] Rad[facility] Study observation (narrative) [facility] Absolute lymphocyte countOrd ered By: Susie Washington on 07-23-2024 Lymphocytes Auto (Unsp spec) [#/Vol] 1.71 10*3/uL 0.83-4.51 [facility] Absolute neutrophil countOrd ered By: Susie Washington on 07-23-2024 Neutrophils (Bld) [#/Vol] 3.2 10*3/uL 2.0-7.7 [facility] Anion gap in Serum or Plasma Ordered By: Susie Washington on 07-23-2024 Anion gap [Moles/Vol] 12 mmol/L 5-15 [facility] Automated lymphocyte count a s percentage of total leukocytesOrdered By: Susie Washington on 07-23-2024 Lymphocytes/100 WBC Auto (Unsp spec) 30.5 % 19-41 [facility] BUN/creatinine ratioOrdered By: [facility] Padmini on 07-23-2024 Urea nitrogen/Creatinine [Mass ratio] 10.0 mg/mg 10-20 [facility] Basophil percentageOrdered B y: Susie Washington on 07-23-2024 Basophils/100 WBC (Bld) 0.5 % 0-1 [facility] Bilirubin, totalOrdered By: Susierashida Washington on 07-23-2024 Bilirubin [Mass/Vol] 0.45 mg/dL 0.00-1.30 [facility] CBC W/Diff, Automatedon 07-06 Absolute Lymph 1.71 X10 3/uL Normal 0.83-4.51 [facility] Comment on above: Performed By: #### L 500.4050, L100.0100 ####[facility] [address] [place], [address] Absolute Neut 3.2 X10 3/uL Normal 2.0-7.7 [facility] Comment on above: Performed By: #### L [id number], L100.0100 ####[facility] [address] [place], [address] Basophils/100 WBC (Bld) 0.5 % Normal 0-1 [facility] Comment on above: Performed By: #### L [id number], L100.0100 ####[facility] [address] [place], [address] Eosinophils/100 WBC (Bld) 1.8 % Normal 0-5 [facility] Comment on above: Performed By: #### L [id number], L100.0100 ####[facility] [address] [place], [address] Erythrocyte distribution width (RBC) [Ratio] 15.0 % High 11.6-14.6 [facility] Comment on above: Performed By: #### L [id number], L100.0100 ####[facility] [address] [place], [address] Hematocrit (Bld) [Volume fraction] 35.2 % Low 37-47 [facility] Comment on above: Performed By: #### L [id number], L100.0100 ####[facility] [address] [place], [address] Hemoglobin (Bld) [Mass/Vol] 11.8 g/dL Low 12.0-15.0 [facility] Comment on above: Performed By: #### L 500.4050, L100.0100 ####[facility] [address] [place], [address] IG% 0.400 Normal 0.0-0.9 [facility] Comment on above: Result Comment: IG% - Immature Granulocytes (promyelocytes, myelocytes and metamyelocytes) > 1% indicates that a LEFT SHIFT is Present. Performed By: #### L 500.4050, L100.0100 ####[facility] [address] [place], [address] Lymphocytes/100 WBC (Bld) 30.5 % Normal 19-41 [facility] Comment on above: Performed By: #### L [id number], L100.0100 ####[facility] [address] [place], [address] MCH (RBC) [Entitic mass] 31.6 pg Normal 27.0-32.0 [facility] Comment on above: Performed By: #### L [id number], L100.0100 ####[facility] [address] [place], [address] MCHC (RBC) [Mass/Vol] 33.5 g/dL Normal 32-36 [facility] Comment on above: Performed By: #### L [id number], L100.0100 ####[facility] [address] [place], [address] MCV (RBC) [Entitic vol] 94.1 fL Normal 81-99 [facility] Comment on above: Performed By: #### L [id number], L100.0100 ####[facility] [address] [place], [address] Monocytes/100 WBC (Bld) 10.2 % High 0-10 [facility] Comment on above: Performed By: #### L 500.4050, L100.0100 ####[facility] [address] [place], [address] Neutrophils/100 WBC (Bld) 56.6 % Normal 47-70 [facility] Comment on above: Performed By: #### L [id number], L100.0100 ####[facility] [address] [place], [address] Nucleated RBC (Bld) [#/Vol] 0 10*3/uL Normal 0-5 [facility] Comment on above: Performed By: #### L [id number], L100.0100 ####[facility] [address] [place], [address] Platelet mean volume (Bld) [Entitic vol] 9.2 fL Normal 6.2-12.0 [facility] Comment on above: Performed By: #### L 500.4050, L100.0100 ####[facility] [address] [place], [address] Platelets (Bld) [#/Vol] 400 10*3/uL Normal 150-450 [facility] Comment on above: Performed By: #### L 500.4050, L100.0100 ####[facility] [address] [place], [address] RBC (Bld) [#/Vol] 3.74 10*6/uL Low 4.2-5.4 [facility] Comment on above: Performed By: #### L 500.4050, L100.0100 ####[facility] [address] [place], [address] RDW SD 51.2 fl High 35.1-43.9 [facility] Comment on above: Performed By: #### L 500.4050, L100.0100 ####[facility] [address] [place], [address] WBC (Bld) [#/Vol] 5.6 10*3/uL Normal 4.4-11.0 [facility] Comment on above: Performed By: #### L 500.4050, L100.0100 ####[facility] [address] [place], [address] Carbon dioxide, total [Moles /volume] in Central venous bloodOrdered By: Susie Washington on 07-23-2024 CO2 [Moles/Vol] 25.9 mmol/L 21.0-32.0 [facility] Chloride assayOrdered By: Barbie Washington on 07-23-2024 Chloride [Moles/Vol] 98 mmol/L 98-108 [facility] Comprehensive Metabolic Prof ilon 07-23-2024 Albumin [Mass/Vol] 4.4 g/dL Normal 3.4-4.8 [facility] Comment on above: Performed By: #### L 500.4050, L100.0100 ####[facility] [address] [place], [address] Albumin/Globulin [Mass ratio] 1.6 {ratio} Normal 0.9-2.4 [facility] Comment on above: Performed By: #### L 500.4050, L100.0100 ####[facility] [address] [place], [address] ALK PHOS 42 U/L Normal 35-104 [facility] Comment on above: Performed By: #### L 500.4050, L100.0100 ####[facility] [address] [place], [address] ALT [Catalytic activity/Vol] 21 U/L Normal <=34 [facility] Comment on above: Performed By: #### L 500.4050, L100.0100 ####[facility] [address] [place], [address] AST [Catalytic activity/Vol] 20 U/L Normal <=31 [facility] Comment on above: Performed By: #### L 500.4050, L100.0100 ####[facility] [address] [place], [address] Bilirubin [Mass/Vol] 0.45 mg/dL Normal 0.00-1.30 [facility] Comment on above: Performed By: #### L 500.4050, L100.0100 ####[facility] [address] [place], [address] BUN/CRE 10.0 RATIO Normal 10-20 [facility] Comment on above: Performed By: #### L 500.4050, L100.0100 ####[facility] [address] [place], [address] Calcium [Mass/Vol] 9.7 mg/dL Normal 7.6-11.0 [facility] Comment on above: Performed By: #### L 500.4050, L100.0100 ####[facility] [address] [place], [address] Chloride [Moles/Vol] 98 mmol/L Normal 98-108 [facility] Comment on above: Performed By: #### L 500.4050, L100.0100 ####[facility] [address] [place], [address] CO2 [Moles/Vol] 25.9 mmol/L Normal 21.0-32.0 [facility] Comment on above: Performed By: #### L 500.4050, L100.0100 ####[facility] [address] [place], [address] Creatinine [Mass/Vol] 0.82 mg/dL Normal 0.70-1.20 [facility] Comment on above: Performed By: #### L 500.4050, L100.0100 ####[facility] [address] [place], [address] GAP 12 Normal 5-15 [facility] Comment on above: Performed By: #### L 500.4050, L100.0100 ####[facility] [address] [place], [address] GFR/1.73 sq M.predicted among non-blacks MDRD (S/P/Bld) [Vol rate/Area] 80 mL/min/{1.73_m2} Normal >60 [facility] Comment on above: Result Comment: mL/m in/1.73m2 CKD-EPI Creatinine Equation (2020) Performed By: #### L 500.4050, L100.0100 ####[facility] [address] [place], [address] Globulin (S) [Mass/Vol] 2.7 g/dL Normal 2.2-4.2 [facility] Comment on above: Performed By: #### L 500.4050, L100.0100 ####[facility] [address] [place], [address] Glucose [Mass/Vol] 85 mg/dL Normal 70-99 [facility] Comment on above: Performed By: #### L 500.4050, L100.0100 ####[facility] [address] [place], [address] Potassium [Moles/Vol] 3.8 mmol/L Normal 3.3-5.1 [facility] Comment on above: Performed By: #### L 500.4050, L100.0100 ####[facility] [address] [place], [address] Sodium [Moles/Vol] 137 mmol/L Normal 133-145 [facility] Comment on above: Performed By: #### L 500.4050, L100.0100 ####[facility] [address] [place], [address] T PROT 7.1 g/dL Normal 5.9-8.4 [facility] Comment on above: Performed By: #### L 500.4050, L100.0100 ####[facility] [address] [place], [place], [id number] Urea nitrogen [Mass/Vol] 8 mg/dL Normal 4-19 [facility] Comment on above: Performed By: #### L 500.4050, L100.0100 ####[facility] [address] [place], [address] Eosinophil percentageOrdered By: Susie Washington on 07-23-2024 Eosinophils/100 WBC (Bld) 1.8 % 0-5 [facility] Erythrocyte distribution wid th ratioOrdered By: Susie Washington on 07-23-2024 Erythrocyte distribution width (RBC) [Ratio] 15.0 % High 11.6-14.6 [facility] Erythrocyte distribution wid th standard deviationOrdered By: Susie Washington on 07-23-2024 Erythrocyte distribution width (RBC) [Ratio] 51.2 fl High 35.1-43.9 [facility] Glomerular filtration rate ( GFR) estimation/1.73 sq m using serum, plasma, or whole bOrdered By: Susie Washington on 07-23-2024 GFR/1.73 sq M.predicted among non-blacks MDRD (S/P/Bld) [Vol rate/Area] 80 mL/min/{1.73_m2} >60 [facility] Comment on above: mL/min/1.73m2 CKD-EP I Creatinine Equation (2020) Hematocrit Auto (Bld) [Volum e fraction]Ordered By: Susie Washington on 07-23-2024 Hematocrit (Bld) [Volume fraction] 35.2 % Low 37-47 [facility] Hemoglobin measurementOrdere d By: Susie Washington on 07-23-2024 Hemoglobin (Bld) [Mass/Vol] 11.8 g/dL Low 12.0-15.0 [facility] Immature granulocytes/100 WB C Auto (Bld)Ordered By: Susie Washington on 07-23-2024 Immature granulocytes/100 WBC (Bld) 0.400 % 0.0-0.9 [facility] Comment on above: IG% - Immature Granu locytes (promyelocytes, myelocytes and metamyelocytes) > 1% indicates that a LEFT SHIFT is Present. Laboratory - Chemistry and C hemistry - challengeOrdered By: Susie Washington on 07-23-2024 AST [Catalytic activity/Vol] 20 U/L <32 [facility] MCV (mean corpuscular volume ) determinationOrdered By: Susie Washington on 07-23-2024 MCV (RBC) [Entitic vol] 94.1 fL 81-99 [facility] Mean corpuscular hemoglobin (MCH) determinationOrdered By: Susie Washington on 07-23-2024 MCH (RBC) [Entitic mass] 31.6 pg 27.0-32.0 [facility] Mean corpuscular hemoglobin concentration (MCHC) determinationOrdered By: Susie Washington on 07-23-2024 MCHC (RBC) [Mass/Vol] 33.5 g/dL 32-36 [facility] Mean platelet volume determi nationOrdered By: Susie Washington on 07-23-2024 Platelet mean volume (Bld) [Entitic vol] 9.2 fL 6.2-12.0 [facility] Monocyte percentageOrdered B y: Susie Washington on 07-23-2024 Monocytes/100 WBC (Bld) 10.2 % High 0-10 [facility] Neutrophil percentageOrdered By: Susie Washington on 07-23-2024 Neutrophils/100 WBC (Bld) 56.6 % 47-70 [facility] Nucleated red blood cell per centageOrdered By: Susie Washington on 07-23-2024 Nucleated RBC/100 WBC (Bld) [Ratio] 0 % 0-5 [facility] Platelet countOrdered By: Barbie Washington on 07-23-2024 Platelets (Bld) [#/Vol] 400 10*3/uL 150-450 [facility] Potassium measurement (mass/ volume)Ordered By: Susie Washington on 07-23-2024 Potassium (Unsp spec) [Mass/Vol] 3.8 mmol/L 3.3-5.1 [facility] RBC Auto (Bld) [#/Vol]Ordere d By: Susie Washington on 07-23-2024 RBC (Bld) [#/Vol] 3.74 10*6/uL Low 4.2-5.4 [facility] Serum creatinine measurement (mass/volume)Ordered By: Susie Washington on 07-23-2024 Creatinine [Mass/Vol] 0.82 mg/dL 0.70-1.20 [facility] Serum globulin measurementOr dered By: Susie Washington on 07-23-2024 Globulin (S) [Mass/Vol] 2.7 g/dL 2.2-4.2 [facility] Serum glucose measurement (m ass/volume)Ordered By: Susie Washington on 07-23-2024 Glucose [Mass/Vol] 85 mg/dL 70-99 [facility] Serum or plasma alanine wall otransferase (ALT) measurementOrdered By: Susie Washington on 07-23-2024 ALT [Catalytic activity/Vol] 21 U/L <35 [facility] Serum or plasma albumin syed urement (mass/volume)Ordered By: Susie Washington on 07-23-2024 Albumin [Mass/Vol] 4.4 g/dL 3.4-4.8 [facility] Serum or plasma albumin/glob ulin mass ratioOrdered By: Susie Washington on 07-23-2024 Albumin/Globulin [Mass ratio] 1.6 {ratio} 0.9-2.4 [facility] Serum or plasma alkaline enma sphatase measurementOrdered By: Susie Washington 07-23-2024 ALP [Catalytic activity/Vol] 42 U/L 35-104 [facility] Serum or plasma calcium syed urement (mass/volume)Ordered By: Susie Washington on 07-23-2024 Calcium [Mass/Vol] 9.7 mg/dL 7.6-11.0 [facility] Serum or plasma urea nitroge n measurement (mass/volume)Ordered By: Susie Washington on 07-23-2024 Urea nitrogen [Mass/Vol] 8 mg/dL 4-19 [facility] Sodium levelOrdered By: Estefany Washington on 07-23-2024 Sodium [Moles/Vol] 137 mmol/L 133-145 [facility] Total proteinOrdered By: Leonor Washington on 07-23-2024 Protein [Mass/Vol] 7.1 g/dL 5.9-8.4 [facility] White blood cell (WBC) count Ordered By: Susie Washington on 07-23-2024 WBC (Bld) [#/Vol] 5.6 10*3/uL 4.4-11.0 [facility] Internal Medicine Office Vis iton 07-01-2024 Internal Medicine Office Visit [facility] [address] [place] [address] [place] [address] OFFICE VISIT Date of Service: 07/01/24 MR#: [id number] Acct: [id number] Name: KADY SPENCER Rep #: [id number] : 1960 Provider: BARBIE Ulloa Age/Sex: 64/F Location: [facility] Status: Signed Intake Vital Signs 04/30/24 13:21 07/01/24 08:32 Height 5 ft 3 in 5 ft 3 in Weight: 183 lb 187 lb BMI 32.4 33.1 BP 128/60 H 122/74 H Blood Pressure Location Lt brachial Lt brachial Position Sitting Sitting Respiration 16 16 Pulse 85 78 Pulse Source Monitor Monitor Temp 97.6 F L 97.4 F L Temp Source Temporal Temporal Pulse Oximetry (%) 98 99 Oxygen Delivery Method room air room air Intake Visit Reasons: ACUTE RAISED ITCHY RASH ON INNER THIGH Chief Complaint: 6 M FU Insect Control Aide Required: No Is patient in pain?: Yes (bumps) Pain scale (1-10): 7 Allergies cyclobenzaprine (From Flexeril) Allergy (Mild, Verified 07/01/24 10:59) unknown Medications ???Medication ???Instructions ???Recorded ???Confirmed ???Type amlodipine 5 mg tablet 5 mg PO DAILY 01/01/21 07/01/24 Hi story losartan 25 mg tablet 25 mg PO DAILY 01/12/21 07/01/24 H istory folic acid 20 mg capsule 20 mg PO DAILY 09/24/22 07/01/24 H istory latanoprost 0.005 % eye drops drp ophthalmic (eye) 03/17/2306/06 History upadacitinib 15 mg tablet,extended 15 mg PO DAILY 04/21/23 07/01/24 History release 24 hr (Rinvoq) aspirin 81 mg chewable tablet 81 mg PO DAILY 09/19/23 07/01/24 H istory baclofen 10 mg tablet 10 mg PO TID PRN muscle spasm 09/0507/01/24 History dorzolamide 22.3 mg-timolol 6.8 ophthalmic (eye) BID 09/19/2306/06 History mg/mL eye drops fluticasone propionate 50 1 spray intranasal DAILY 09/19/23 07/01/24 History mcg/actuation nasal spray,suspension (Flonase Allergy Relief) hydroxychloroquine 200 mg tablet mg PO BID 09/19/23 07/01/24 Histor y ibuprofen 600 mg tablet 200 mg PO TID PRN 09/19/23 5 History methotrexate sodium 2.5 mg tablet 20 mg PO QWEEK 09/19/23 07/01/24 History pregabalin 75 mg capsule (Lyrica) 75 mg PO 4X/DAY 09/19/23 07/01/24 History inhalational spacing device #10 ea 09/25/23 07/01/24 Rx (Aerochamber MV spacer) albuterol sulfate 90 mcg/actuation 2 puff inhalation Q6H PRN 07/01/24 Rx aerosol inhaler shortness of breath or wheezing #8.5 grams montelukast 10 mg tablet 10 mg PO QPM #90 tabs 03/15/24 Rx (Singulair) trazodone 100 mg tablet 100 mg PO QHS PRN insomnia #90 tab s 03/20/24 07/01/24 Rx tramadol 50 mg tablet 50 mg PO TID PRN 04/30/24 07/01/24 History prednisone 10 mg tablet 10 mg PO DIRECTED #20 tabs 06/0607/01/24 Rx valacyclovir 1 gram tablet 1,000 mg PO TID #21 tabs 07/01/24 07/01/24 Rx (Valtrex) Have you fallen in the past year?: No Nurse's Note: States she has a rash on her L leg. States she noticed it 3 days ago. It is somewhat itchy and painful it has now gone down behind knee. Has been using dove, anti itch cream and soft soap body wash It did not help. It is red and in a nerve track down leg and blisters are visible. Has been having a lot of nerve pain on that leg, but attributed it to Ra. Has not been seeping any fluid.Describes the pain as a burn. Has not had shingle vaccine. [facility] Medical History Health care maintenance Colon cancer screening Right hip pain Acute pharyngitis, unspecified Acute sinusitis, unspecified Vertigo Trigger thumb, left thumb Obesity (BMI 30-39.9) Right buttock pain Borderline type 2 diabetes mellitus Trigger thumb, right thumb Oral candidiasis Thrush, oral Insomnia GERD (gastroesophageal reflux disease) Left foot pain Pain of right thumb Pronation of left foot Fibromyalgia Hiatal hernia KATELYN (obstructive sleep apnea) Anxiety Cataracts, bilateral Magnesium deficiency Chronic diastolic heart failure Seasonal allergies Chronic pain Sebaceous cyst of breast Hypertension Surgical History Hx of cataract extraction History of laparoscopy Family History Grandmother Colon cancer Grandfather Myocardial infarction, Onset Age: 62 Father Myocardial infarction Other Alcohol abuse Anemia Anxiety Arthritis Asthma CVA (cerebral vascular accident) Cancer Diabetes Heart disease Hypertension Thyroid disorder Social History Smoking Status: Never smoker Tobacco: How many years used: 5 alcohol intake: former year quit: 2014 substance use type: does not use what type of physical activity do you partici (more content not included)... Normal [facility] CBC W/Diff, Automatedon 04-08 Absolute Lymph 1.66 X10 3/uL Normal 0.83-4.51 [facility] Comment on above: Performed By: #### L 500.2328, L100.0100 ####[facility] [address] [place], [address] Absolute Neut 5.7 X10 3/uL Normal 2.0-7.7 [facility] Comment on above: Performed By: #### L 500.4050, L100.0100 ####[facility] [address] [place], [address] Basophils/100 WBC (Bld) 0.4 % Normal 0-1 [facility] Comment on above: Performed By: #### L 500.4050, L100.0100 ####[facility] [address] [place], [address] Eosinophils/100 WBC (Bld) 1.5 % Normal 0-5 [facility] Comment on above: Performed By: #### L 500.4050, L100.0100 ####[facility] [address] [place], [address] Erythrocyte distribution width (RBC) [Ratio] 14.2 % Normal 11.6-14.6 [facility] Comment on above: Performed By: #### L 500.4050, L100.0100 ####[facility] [address] [place], [address] Hematocrit (Bld) [Volume fraction] 35.5 % Low 37-47 [facility] Comment on above: Performed By: #### L 500.4050, L100.0100 ####[facility] [address] [place], [address] Hemoglobin (Bld) [Mass/Vol] 11.7 g/dL Low 12.0-15.0 [facility] Comment on above: Performed By: #### L 500.4050, L100.0100 ####[facility] [address] [place], [address] IG% 0.500 Normal 0.0-0.9 [facility] Comment on above: Result Comment: IG% - Immature Granulocytes (promyelocytes, myelocytes and metamyelocytes) > 1% indicates that a LEFT SHIFT is Present. Performed By: #### L 500.4050, L100.0100 ####[facility] [address] [place], [address] Lymphocytes/100 WBC (Bld) 20.3 % Normal 19-41 [facility] Comment on above: Performed By: #### L 500.4050, L100.0100 ####[facility] [address] [place], [address] MCH (RBC) [Entitic mass] 31.0 pg Normal 27.0-32.0 [facility] Comment on above: Performed By: #### L 500.4050, L100.0100 ####[facility] [address] [place], [address] MCHC (RBC) [Mass/Vol] 33.0 g/dL Normal 32-36 [facility] Comment on above: Performed By: #### L 500.4050, L100.0100 ####[facility] [address] [place], [address] MCV (RBC) [Entitic vol] 94.2 fL Normal 81-99 [facility] Comment on above: Performed By: #### L 500.4050, L100.0100 ####[facility] [address] [place], [address] Monocytes/100 WBC (Bld) 8.2 % Normal 0-10 [facility] Comment on above: Performed By: #### L 500.4050, L100.0100 ####[facility] [address] [place], [address] Neutrophils/100 WBC (Bld) 69.1 % Normal 47-70 [facility] Comment on above: Performed By: #### L 500.4050, L100.0100 ####[facility] [address] [place], [address] Nucleated RBC (Bld) [#/Vol] 0 10*3/uL Normal 0-5 [facility] Comment on above: Performed By: #### L 500.4050, L100.0100 ####[facility] [address] [place], [address] Platelet mean volume (Bld) [Entitic vol] 9.1 fL Normal 6.2-12.0 [facility] Comment on above: Performed By: #### L 500.4050, L100.0100 ####[facility] [address] [place], [address] Platelets (Bld) [#/Vol] 397 10*3/uL Normal 150-450 [facility] Comment on above: Performed By: #### L 500.4050, L100.0100 ####[facility] [address] [place], [address] RBC (Bld) [#/Vol] 3.77 10*6/uL Low 4.2-5.4 [facility] Comment on above: Performed By: #### L 500.4050, L100.0100 ####[facility] [address] [place], [address] RDW SD 48.2 fl High 35.1-43.9 [facility] Comment on above: Performed By: #### L 500.4050, L100.0100 ####[facility] [address] [place], [address] WBC (Bld) [#/Vol] 8.2 10*3/uL Normal 4.4-11.0 [facility] Comment on above: Performed By: #### L 500.4050, L100.0100 ####[facility] [address] [place], [address] Comprehensive Metabolic Prof ilon 04-30-2024 Albumin [Mass/Vol] 3.7 g/dL Normal 3.2-5.0 [facility] Comment on above: Performed By: #### L 500.4050, L100.0100 ####[facility] [address] [place], [address] Albumin/Globulin [Mass ratio] 1.1 {ratio} Normal 0.9-2.4 [facility] Comment on above: Performed By: #### L 500.4050, L100.0100 ####[facility] [address] [place], [address] ALK P 47 U/L Normal 45-117 [facility] Comment on above: Performed By: #### L 500.4050, L100.0100 ####[facility] [address] [place], [address] ALT [Catalytic activity/Vol] 27 U/L Normal 13-56 [facility] Comment on above: Performed By: #### L 500.4050, L100.0100 ####[facility] [address] [place], [address] AST [Catalytic activity/Vol] 17 U/L Normal 15-37 [facility] Comment on above: Performed By: #### L 500.4050, L100.0100 ####[facility] [address] [place], [address] Bilirubin [Mass/Vol] 0.70 mg/dL Normal 0.20-1.00 [facility] Comment on above: Result Comment: For patients on eltrombopag therapy, use of Dimension [place] TBIL is not recommended. Performed By: #### L 500.4050, L100.0100 ####[facility] [address] [place], [address] BUN/CRE 11.7 RATIO Normal 10-20 [facility] Comment on above: Performed By: #### L 500.4050, L100.0100 ####[facility] [address] [place], [address] CA,Total 9.2 mg/dL Normal 8.5-10.1 [facility] Comment on above: Performed By: #### L 500.4050, L100.0100 ####[facility] [address] [place], [address] Chloride [Moles/Vol] 100 mmol/L Normal 98-107 [facility] Comment on above: Performed By: #### L 500.4050, L100.0100 ####[facility] [address] [place], [address] CO2 [Moles/Vol] 27.0 mmol/L Normal 21.0-32.0 [facility] Comment on above: Performed By: #### L 500.4050, L100.0100 ####[facility] [address] [place], [address] Creatinine [Mass/Vol] 0.86 mg/dL Normal 0.55-1.02 [facility] Comment on above: Result Comment: The validity of the calculated GFR GFRAA in patients over 70 years has not been determined. Clinical correlation is essential. Performed By: #### L 500.4050, L100.0100 ####[facility] [address] [place], [address] EST GFR - AA 86 mL/min Normal >60 [facility] Comment on above: Result Comment: Afri can [place] GFR Calc Performed By: #### L 500.4050, L100.0100 ####[facility] [address] [place], [address] GAP 7 Normal 5-15 [facility] Comment on above: Performed By: #### L 500.4050, L100.0100 ####[facility] [address] [place], [address] GFR/1.73 sq M.predicted among non-blacks MDRD (S/P/Bld) [Vol rate/Area] 71 mL/min/{1.73_m2} Normal >60 [facility] Comment on above: Result Comment: Non- GFR Calc Performed By: #### L 500.4050, L100.0100 ####[facility] [address] [place], [address] Globulin (S) [Mass/Vol] 3.4 g/dL Normal 2.2-4.2 [facility] Comment on above: Performed By: #### L 500.4050, L100.0100 ####[facility] [address] [place], [address] Glucose [Mass/Vol] 109 mg/dL High 74-106 [facility] Comment on above: Result Comment: Fast ing Glucose result from 100 to 125 mg/dL suggests IMPAIRED HOMEOSTASIS per A.D.A. criteria. Performed By: #### L 500.4050, L100.0100 ####[facility] [address] [place], [address] Potassium [Moles/Vol] 4.4 mmol/L Normal 3.5-5.1 [facility] Comment on above: Performed By: #### L 500.4050, L100.0100 ####[facility] [address] [place], [address] Sodium [Moles/Vol] 134 mmol/L Low 136-145 [facility] Comment on above: Performed By: #### L 500.4050, L100.0100 ####[facility] [address] [place], [address] T PROT 7.1 g/dL Normal 6.4-8.2 [facility] Comment on above: Performed By: #### L 500.4050, L100.0100 ####[facility] [address] [place], [address] Urea nitrogen [Mass/Vol] 10 mg/dL Normal 7-18 [facility] Comment on above: Performed By: #### L 500.4050, L100.0100 ####[facility] [address] [place], [address] Hemoglobin A1con 04-30-2024 HbA1c (Bld) [Mass fraction] 5.7 % High 3.8-5.6 [facility] Comment on above: Result Comment: Norm al < 5.7 % Prediabetic 5.7 - 6.4 % Diabetic >or= 6.5 % Please note range changes. Performed By: #### L 500.4100, L501.9985 #### [facility] [address] [place], [place], [address] Internal Medicine Office Vis iton 04-30-2024 Internal Medicine Office Visit [facility] [place], [place] [address] OFFICE VISIT Date of Service: 04/30/24 MR#: [id number] Acct: [id number] Name: KADY SPENCER Rep #: [id number] : 1960 Provider: Dr. Tash fisher MD Age/Sex: 63/F Location: [facility] Status: Signed Intake Vital Signs 09/19/23 10:11 04/30/24 13:21 Height 5 ft 3 in 5 ft 3 in Weight: 183 lb BMI 32.4 BP 128/60 H Blood Pressure Location Lt brachial Position Sitting Respiration 16 Pulse 85 Pulse Source Monitor Temp 97.6 F L Temp Source Temporal Pulse Oximetry (%) 98 Oxygen Delivery Method room air Intake Visit Reasons: 6 M/ EKG per dr. Pop Chief Complaint: 6 M FU Insect Control Aide Required: No Accompanied by: Self Is patient in pain?: No Allergies cyclobenzaprine (From Flexeril) Allergy (Mild, Verified 04/30/24 13:07) unknown Medications ???Medication ???Instructions ???Recorded ???Confirmed ???Type amlodipine 5 mg tablet 5 mg PO DAILY 01/01/21 04/30/24 History losartan 25 mg tablet 25 mg PO DAILY 01/12/21 04/30/24 History folic acid 20 mg capsule 20 mg PO DAILY 09/24/22 04/30/24 History latanoprost 0.005 % eye drops drp ophthalmic (eye) 03/17/23 04/30/24 History upadacitinib 15 mg tablet,extended 15 mg PO DAILY 04/21/23 04/30/24 History release 24 hr (Rinvoq) aspirin 81 mg chewable tablet 81 mg PO DAILY 09/19/23 04/30/24 History baclofen 10 mg tablet 10 mg PO TID PRN muscle spasm 09/19/23 04/30/24 History dorzolamide 22.3 mg-timolol 6.8 ophthalmic (eye) BID 09/19/23 04/30/24 History mg/mL eye drops fluticasone propionate 50 1 spray intranasal DAILY 09/19/23 04/30/24 History mcg/actuation nasal spray,suspension (Flonase Allergy Relief) hydroxychloroquine 200 mg tablet mg PO BID 09/19/23 04/30/24 History ibuprofen 600 mg tablet 200 mg PO TID PRN 09/19/23 04/30/24 History methotrexate sodium 2.5 mg tablet 20 mg PO QWEEK 09/19/23 04/30/24 History pregabalin 75 mg capsule (Lyrica) 75 mg PO 4X/DAY 09/19/23 04/30/24 History inhalational spacing device #10 ea 09/25/23 04/30/24 Rx (Aerochamber MV spacer) albuterol sulfate 90 mcg/actuation 2 puff inhalation Q6H PRN 11/10/23 04/30/24 Rx aerosol inhaler shortness of breath or wheezing #8.5 grams montelukast 10 mg tablet 10 mg PO QPM #90 tabs 03/15/24 04/30/24 Rx (Singulair) trazodone 100 mg tablet 100 mg PO QHS PRN insomnia #90 tabs 03/20/24 04/30/24 Rx tramadol 50 mg tablet 50 mg PO TID PRN 04/30/24 04/30/24 History PFSH Medical History Health care maintenance Colon cancer screening Right hip pain Acute pharyngitis, unspecified Acute sinusitis, unspecified Vertigo Trigger thumb, left thumb Obesity (BMI 30-39.9) Right buttock pain Borderline type 2 diabetes mellitus Trigger thumb, right thumb Oral candidiasis Thrush, oral Insomnia GERD (gastroesophageal reflux disease) Left foot pain Pain of right thumb Pronation of left foot Fibromyalgia Hiatal hernia KATELYN (obstructive sleep apnea) Anxiety Cataracts, bilateral Magnesium deficiency Chronic diastolic heart failure Seasonal allergies Chronic pain Sebaceous cyst of breast Hypertension Surgical History Hx of cataract extraction History of laparoscopy Family History Grandmother Colon cancer Grandfather Myocardial infarction, Onset Age: 62 Father Myocardial infarction Other Alcohol abuse Anemia Anxiety Arthritis Asthma CVA (cerebral vascular accident) Cancer Diabetes Heart disease Hypertension Thyroid disorder Social History Smoking Status: Never smoker Tobacco: How many years used: 5 alcohol intake: former year quit: 2014 substance use type: does not use what type of physical activity do you participate in: walking, swimming and yoga frequency: daily HPI HPI Chief Complaint: 6 M FU Details: KADY SPENCER, is a 63 F who presents to the office today for follow-up of her chronic conditions. No acute concerns at this time. Since her last visit, she states that she had some injections by rheumatology and was also started on tramadol, her pain is much better controlled. Feeling better overall. Blood pressure is better today at 128/60 mmHg. She states that her readings at home have been better as well. Sleeping better due to less pain. History of borderline diabetes, last A1c was at 5.6. Currently not on any medication. Other chronic conditions are stable. ROS Const Constitutional: No body ache, chills, excessive sweating, fatigue, fever(s), frequent falls, headache(s), snoring, weakness, weight change or change in appetite (more content not included)... Normal [facility] Lipid Profileon 04-30-2024 Cholesterol [Mass/Vol] 160 mg/dL Normal 200 [facility] Comment on above: Result Comment: <200 mg/dL Desirable 200-240 mg/dL Borderline >240 mg/dL High Risk Performed By: #### L 500.2211, L501.9985 #### [facility] [address] [place], [address] Cholesterol in HDL [Mass/Vol] 72 mg/dL Normal [facility] Comment on above: Result Comment: The drugs N-Acetylcysteine and Metamizole may falsely depress this assay. Reference Range HDL <40 mg/dL Low HDL Cholesterol HDL >or= 60 mg/dL High HDL Cholesterol Performed By: #### L 500.4100, L501.9985 #### [facility] [address] [place], [address] Cholesterol in LDL [Mass/Vol] 45 mg/dL Normal 0-130 [facility] Comment on above: Performed By: #### L 500.4100, L501.9985 #### [facility] [address] [place], [address] Cholesterol in VLDL [Mass/Vol] 43 mg/dL High 5-40 [facility] Comment on above: Performed By: #### L 500.4100, L501.9985 #### [facility] [address] [place], [address] Triglyceride [Mass/Vol] 215 mg/dL High [facility] Comment on above: Result Comment: The drugs N-Acetylcysteine and Metamizole may falsely depress this assay. Serum Triglycerides Reference Interval Normal <150 mg/dL Borderline high 150 - 199 mg/dL High 200 - 499 mg/dL Very High > or = 500 mg/dL Performed By: #### L 500.4100, L501.9985 #### [facility] [address] [place], [address] CBC W/Diff, Automatedon 11-0 Absolute Lymph 1.42 X10 3/uL Normal 0.83-4.51 [facility] Comment on above: Performed By: #### L 100.0100, L500.4050 #### [facility] [address] [place], [address] Absolute Neut 4.6 X10 3/uL Normal 2.0-7.7 [facility] Comment on above: Performed By: #### L 100.0100, L500.4050 #### [facility] [address] [place], [address] Basophils/100 WBC (Bld) 0.7 % Normal 0-1 [facility] Comment on above: Performed By: #### L 100.0100, L500.4050 #### [facility] [address] [place], [address] Eosinophils/100 WBC (Bld) 2.5 % Normal 0-5 [facility] Comment on above: Performed By: #### L 100.0100, L500.4050 #### [facility] [address] [place], [address] Erythrocyte distribution width (RBC) [Ratio] 14.3 % Normal 11.6-14.6 [facility] Comment on above: Performed By: #### L 100.0100, L500.4050 #### [facility] [address] [place], [address] Hematocrit (Bld) [Volume fraction] 35.1 % Low 37-47 [facility] Comment on above: Performed By: #### L 100.0100, L500.4050 #### [facility] [address] [place], [address] Hemoglobin (Bld) [Mass/Vol] 12.0 g/dL Normal 12.0-15.0 [facility] Comment on above: Performed By: #### L 100.0100, L500.4050 #### [facility] [address] [place], [address] IG% 0.300 Normal 0.0-0.9 [facility] Comment on above: Result Comment: IG% - Immature Granulocytes (promyelocytes, myelocytes and metamyelocytes) > 1% indicates that a LEFT SHIFT is Present. Performed By: #### L 100.0100, L500.4050 #### [facility] [address] [place], [address] Lymphocytes/100 WBC (Bld) 21.1 % Normal 19-41 [facility] Comment on above: Performed By: #### L 100.0100, L500.4050 #### [facility] [address] [place], [address] MCH (RBC) [Entitic mass] 32.0 pg Normal 27.0-32.0 [facility] Comment on above: Performed By: #### L 100.0100, L500.4050 #### [facility] [address] [place], [address] MCHC (RBC) [Mass/Vol] 34.2 g/dL Normal 32-36 [facility] Comment on above: Performed By: #### L 100.0100, L500.4050 #### [facility] [address] [place], [address] MCV (RBC) [Entitic vol] 93.6 fL Normal 81-99 [facility] Comment on above: Performed By: #### L 100.0100, L500.4050 #### [facility] [address] [place], [address] Monocytes/100 WBC (Bld) 7.4 % Normal 0-10 [facility] Comment on above: Performed By: #### L 100.0100, L500.4050 #### [facility] [address] [place], [address] Neutrophils/100 WBC (Bld) 68.0 % Normal 47-70 [facility] Comment on above: Performed By: #### L 100.0100, L500.4050 #### [facility] [address] [place], [address] Nucleated RBC (Bld) [#/Vol] 0 10*3/uL Normal 0-5 [facility] Comment on above: Performed By: #### L 100.0100, L500.4050 #### [facility] [address] [place], [address] Platelet mean volume (Bld) [Entitic vol] 9.2 fL Normal 6.2-12.0 [facility] Comment on above: Performed By: #### L 100.0100, L500.4050 #### [facility] [address] [place], [address] Platelets (Bld) [#/Vol] 362 10*3/uL Normal 150-450 [facility] Comment on above: Performed By: #### L 100.0100, L500.4050 #### [facility] [address] [place], [address] RBC (Bld) [#/Vol] 3.75 10*6/uL Low 4.2-5.4 [facility] Comment on above: Performed By: #### L 100.0100, L500.4050 #### [facility] [address] [place], [address] RDW SD 48.5 fl High 35.1-43.9 [facility] Comment on above: Performed By: #### L 100.0100, L500.4050 #### [facility] [address] [place], [address] WBC (Bld) [#/Vol] 6.7 10*3/uL Normal 4.4-11.0 [facility] Comment on above: Performed By: #### L 100.0100, L500.4050 #### [facility] [address] [place], [address] Comprehensive Metabolic Prof ilon 02-11-2024 Albumin [Mass/Vol] 3.9 g/dL Normal 3.2-5.0 [facility] Comment on above: Performed By: #### L 100.0100, L500.4050 ####[facility] [address] [place], [address] Albumin/Globulin [Mass ratio] 1.3 {ratio} Normal 0.9-2.4 [facility] Comment on above: Performed By: #### L 100.0100, L500.4050 ####[facility] [address] [place], [address] ALK P 42 U/L Low 45-117 [facility] Comment on above: Performed By: #### L 100.0100, L500.4050 ####[facility] [address] [place], [address] ALT [Catalytic activity/Vol] 33 U/L Normal 13-56 [facility] Comment on above: Performed By: #### L 100.0100, L500.4050 ####[facility] [address] [place], [address] AST [Catalytic activity/Vol] 24 U/L Normal 15-37 [facility] Comment on above: Performed By: #### L 100.0100, L500.4050 ####[facility] [address] [place], [address] Bilirubin [Mass/Vol] 0.70 mg/dL Normal 0.20-1.00 [facility] Comment on above: Result Comment: For patients on eltrombopag therapy, use of Dimension [place] TBIL is not recommended. Performed By: #### L 100.0100, L500.4050 ####[facility] [address] [place], [address] BUN/CRE 10.3 RATIO Normal 10-20 [facility] Comment on above: Performed By: #### L 100.0100, L500.4050 ####[facility] [address] [place], [address] CA,Total 9.1 mg/dL Normal 8.5-10.1 [facility] Comment on above: Performed By: #### L 100.0100, L500.4050 ####[facility] [address] [place], [address] Chloride [Moles/Vol] 100 mmol/L Normal 98-107 [facility] Comment on above: Performed By: #### L 100.0100, L500.4050 ####[facility] [address] [place], [address] CO2 [Moles/Vol] 28.0 mmol/L Normal 21.0-32.0 [facility] Comment on above: Performed By: #### L 100.0100, L500.4050 ####[facility] [address] [place], [address] Creatinine [Mass/Vol] 0.87 mg/dL Normal 0.55-1.02 [facility] Comment on above: Result Comment: The validity of the calculated GFR GFRAA in patients over 70 years has not been determined. Clinical correlation is essential. Performed By: #### L 100.0100, L500.4050 ####[facility] [address] [place], [address] EST GFR - AA 84 mL/min Normal >60 [facility] Comment on above: Result Comment: Afri can [place] GFR Calc Performed By: #### L 100.0100, L500.4050 ####[facility] [address] [place], [address] GAP 6 Normal 5-15 [facility] Comment on above: Performed By: #### L 100.0100, L500.4050 ####[facility] [address] [place], [address] GFR/1.73 sq M.predicted among non-blacks MDRD (S/P/Bld) [Vol rate/Area] 69 mL/min/{1.73_m2} Normal >60 [facility] Comment on above: Result Comment: Non- GFR Calc Performed By: #### L 100.0100, L500.4050 ####[facility] [address] [place], [address] Globulin (S) [Mass/Vol] 3.0 g/dL Normal 2.2-4.2 [facility] Comment on above: Performed By: #### L 100.0100, L500.4050 ####[facility] [address] [place], [address] Glucose [Mass/Vol] 115 mg/dL High 74-106 [facility] Comment on above: Result Comment: Fast ing Glucose result from 100 to 125 mg/dL suggests IMPAIRED HOMEOSTASIS per A.D.A. criteria. Performed By: #### L 100.0100, L500.4050 ####[facility] [address] [place], [address] Potassium [Moles/Vol] 3.5 mmol/L Normal 3.5-5.1 [facility] Comment on above: Performed By: #### L 100.0100, L500.4050 ####[facility] [address] [place], [address] Sodium [Moles/Vol] 134 mmol/L Low 136-145 [facility] Comment on above: Performed By: #### L 100.0100, L500.4050 ####[facility] [address] [place], [address] T PROT 6.9 g/dL Normal 6.4-8.2 [facility] Comment on above: Performed By: #### L 100.0100, L500.4050 ####[facility] [address] [place], [address] Urea nitrogen [Mass/Vol] 9 mg/dL Normal 7-18 [facility] Comment on above: Performed By: #### L 100.0100, L500.4050 ####[facility] [address] [place], [address] LABORATORYOrdered By: SYSTEM SYSTEM on 01-19-2024 Natriuretic peptide.B prohormone N-Terminal [Mass/Vol] 33 pg/mL Normal 0 - 125 pg/mL AO ADM SS Comment on above: Interpretive Data: N T-proBNP results of less than 300 pg/mL effectively rules out acute congestive heart failure with 99% negative predictive value. PBNPon 01-19-2024 Natriuretic peptide B (Bld) [Mass/Vol] 33 pg/mL Normal 0-125 [facility] Comment on above: Result Comment: NT-p roBNP results of less than 300 pg/mL effectively rules out acute congestive heart failure with 99% negative predictive value. Performed By: #### P BNP #### [facility] [address] [place], [place] [address] Cerv Spine 2 or 3 Viewson Cerv Spine 2 or 3 Views [facility] [address] [place], [place] [address] Cerv Spine 2 or 3 Views MR#: [id number] Acct: [id number] Name: KADY SPENCER Rep #: [id number] : 1960 F 63 From: Bret Hebert PCP: Dr. Tash Fallon MD Status: REG CLI Study: Cerv Spine 2 or 3 Views Date of Exam: 11/17/23 Exam# [id number] Ordering Dr: Gloria Garcia MD [id number] INDICATION: Spondylosis without myelopathy or radiculopathy, cervical region EXAMINATION/TECHNIQUE: X-RAY - XR Spine Cervical 2 or 3 Views COMPARISON: Prior study dated: 10/21/2022 FINDINGS: VERTEBRAE: Preserved vertebral body height. C6 and C7 vertebrae are suboptimally seen on the lateral views. No spondylolisthesis. Straightening of the cervical spine. Probable facet arthropathy at the level of C3-C4. DISCS: Multilevel disc space narrowing is again seen unchanged. Endplate spondylosis. NECK SOFT TISSUES: No prevertebral soft tissue widening. LUNG APICES: Clear. RAD/Cerv Spine 2 or 3 Views IMPRESSION: Degenerative changes. No significant change. Electronically Signed: Bret Robert MD at 12:23 EDT , CC: Dr. Gloria Garcia MD; Dr. Tash Fallon MD Supervisor Feed House: Signed Normal [facility] CBC W/Diff, Automatedon 08-0 8-2023 Absolute Lymph 1.76 X10 3/uL Normal 0.83-4.51 [facility] Comment on above: Performed By: #### L 500.4050, L100.0100 #### [facility] [address] [place], [address] Absolute Neut 3.2 X10 3/uL Normal 2.0-7.7 [facility] Comment on above: Performed By: #### L 500.4050, L100.0100 #### [facility] [address] [place], [address] Basophils/100 WBC (Bld) 0.5 % Normal 0-1 [facility] Comment on above: Performed By: #### L 500.4050, L100.0100 #### [facility] [address] [place], [address] Eosinophils/100 WBC (Bld) 1.6 % Normal 0-5 [facility] Comment on above: Performed By: #### L 500.4050, L100.0100 #### [facility] [address] [place], [address] Erythrocyte distribution width (RBC) [Ratio] 13.7 % Normal 11.6-14.6 [facility] Comment on above: Performed By: #### L 500.4050, L100.0100 #### [facility] [address] [place], [address] Hematocrit (Bld) [Volume fraction] 36.3 % Low 37-47 [facility] Comment on above: Performed By: #### L 500.4050, L100.0100 #### [facility] [address] [place], [address] Hemoglobin (Bld) [Mass/Vol] 12.0 g/dL Normal 12.0-15.0 [facility] Comment on above: Performed By: #### L 500.4050, L100.0100 #### [facility] [address] [place], [address] IG% 0.200 Normal 0.0-0.9 [facility] Comment on above: Result Comment: IG% - Immature Granulocytes (promyelocytes, myelocytes and metamyelocytes) > 1% indicates that a LEFT SHIFT is Present. Performed By: #### L 500.4050, L100.0100 #### [facility] [address] [place], [address] Lymphocytes/100 WBC (Bld) 31.2 % Normal 19-41 [facility] Comment on above: Performed By: #### L 500.4050, L100.0100 #### [facility] [address] [place], [address] MCH (RBC) [Entitic mass] 30.8 pg Normal 27.0-32.0 [facility] Comment on above: Performed By: #### L 500.4050, L100.0100 #### [facility] [address] [place], [address] MCHC (RBC) [Mass/Vol] 33.1 g/dL Normal 32-36 [facility] Comment on above: Performed By: #### L 500.4050, L100.0100 #### [facility] [address] [place], [address] MCV (RBC) [Entitic vol] 93.1 fL Normal 81-99 [facility] Comment on above: Performed By: #### L 500.4050, L100.0100 #### [facility] [address] [place], [address] Monocytes/100 WBC (Bld) 10.4 % High 0-10 [facility] Comment on above: Performed By: #### L 500.4050, L100.0100 #### [facility] [address] [place], [address] Neutrophils/100 WBC (Bld) 56.1 % Normal 47-70 [facility] Comment on above: Performed By: #### L 500.4050, L100.0100 #### [facility] [address] [place], [address] Nucleated RBC (Bld) [#/Vol] 0 10*3/uL Normal 0-5 [facility] Comment on above: Performed By: #### L 500.4050, L100.0100 #### [facility] [address] [place], [address] Platelet mean volume (Bld) [Entitic vol] 9.2 fL Normal 6.2-12.0 [facility] Comment on above: Performed By: #### L 500.4050, L100.0100 #### [facility] [address] [place], [address] Platelets (Bld) [#/Vol] 345 10*3/uL Normal 150-450 [facility] Comment on above: Performed By: #### L 500.4050, L100.0100 #### [facility] [address] [place], [address] RBC (Bld) [#/Vol] 3.90 10*6/uL Low 4.2-5.4 [facility] Comment on above: Performed By: #### L 500.4050, L100.0100 #### [facility] [address] [place], [address] RDW SD 45.9 fl High 35.1-43.9 [facility] Comment on above: Performed By: #### L 500.4050, L100.0100 #### [facility] [address] [place], [address] WBC (Bld) [#/Vol] 5.7 10*3/uL Normal 4.4-11.0 [facility] Comment on above: Performed By: #### L 500.4050, L100.0100 #### [facility] [address] [place], [address] Comprehensive Metabolic Prof [facility] 11-13-2023 Albumin [Mass/Vol] 4.2 g/dL Normal 3.2-5.0 [facility] Comment on above: Performed By: #### L 500.4050, L100.0100 #### [facility] [address] [place], [address] Albumin/Globulin [Mass ratio] 1.5 {ratio} Normal 0.9-2.4 [facility] Comment on above: Performed By: #### L 500.4050, L100.0100 #### [facility] [address] [place], [address] ALK P 32 U/L Low 45-117 [facility] Comment on above: Performed By: #### L 500.4050, L100.0100 #### [facility] [address] [place], [address] ALT [Catalytic activity/Vol] 42 U/L Normal 13-56 [facility] Comment on above: Performed By: #### L 500.4050, L100.0100 #### [facility] [address] [place], [address] AST [Catalytic activity/Vol] 33 U/L Normal 15-37 [facility] Comment on above: Performed By: #### L 500.4050, L100.0100 #### [facility] [address] [place], [address] Bilirubin [Mass/Vol] 0.90 mg/dL Normal 0.20-1.00 [facility] Comment on above: Result Comment: For patients on eltrombopag therapy, use of [place] TBIL is not recommended. Performed By: #### L 500.4050, L100.0100 #### [facility] [address] [place], [address] BUN/CRE 10.6 RATIO Normal 10-20 [facility] Comment on above: Performed By: #### L 500.4050, L100.0100 #### [facility] [address] [place], [address] CA,Total 9.2 mg/dL Normal 8.5-10.1 [facility] Comment on above: Performed By: #### L 500.4050, L100.0100 #### [facility] [address] [place], [address] Chloride [Moles/Vol] 100 mmol/L Normal 98-107 [facility] Comment on above: Performed By: #### L 500.4050, L100.0100 #### [facility] [address] [place], [address] CO2 [Moles/Vol] 27.0 mmol/L Normal 21.0-32.0 [facility] Comment on above: Performed By: #### L 500.4050, L100.0100 #### [facility] [address] [place], [address] Creatinine [Mass/Vol] 0.75 mg/dL Normal 0.55-1.02 [facility] Comment on above: Result Comment: The validity of the calculated GFR GFRAA in patients over 70 years has not been determined. Clinical correlation is essential. Performed By: #### L 500.4050, L100.0100 #### [facility] [address] [place], [address] EST GFR - AA 100 mL/min Normal >60 [facility] Comment on above: Result Comment: Afri can [place] GFR Calc Performed By: #### L 500.4050, L100.0100 #### [facility] [address] [place], [address] GAP 7 Normal 5-15 [facility] Comment on above: Performed By: #### L 500.4050, L100.0100 #### [facility] [address] [place], [address] GFR/1.73 sq M.predicted among non-blacks MDRD (S/P/Bld) [Vol rate/Area] 82 mL/min/{1.73_m2} Normal >60 [facility] Comment on above: Result Comment: Non- GFR Calc Performed By: #### L 500.4050, L100.0100 #### [facility] [address] [place], [address] Globulin (S) [Mass/Vol] 2.8 g/dL Normal 2.2-4.2 [facility] Comment on above: Performed By: #### L 500.4050, L100.0100 #### [facility] [address] [place], [address] Glucose [Mass/Vol] 93 mg/dL Normal 74-106 [facility] Comment on above: Performed By: #### L 500.4050, L100.0100 #### [facility] [address] [place], [address] Potassium [Moles/Vol] 4.0 mmol/L Normal 3.5-5.1 [facility] Comment on above: Performed By: #### L 500.4050, L100.0100 #### [facility] [address] [place], [address] Sodium [Moles/Vol] 134 mmol/L Low 136-145 [facility] Comment on above: Performed By: #### L 500.4050, L100.0100 #### [facility] [address] [place], [address] T PROT 7.0 g/dL Normal 6.4-8.2 [facility] Comment on above: Performed By: #### L 500.4050, L100.0100 #### [facility] [address] [place], [address] Urea nitrogen [Mass/Vol] 8 mg/dL Normal 7-18 [facility] Comment on above: Performed By: #### L 500.4050, L100.0100 #### [facility] [address] [place], [address] Thoracic Spine 3 Viewson Thoracic Spine 3 Views [facility] [address] [place] [address] Thoracic Spine 3 Views MR#: [id number] Acct: [id number] Name: KADY SPENCER Rep #: [id number] : 1960 F 63 From: Adrian Spence MD PCP: Dr. Tash Fallon MD Status: REG CLI Study: Thoracic Spine 3 Views Date of Exam: 09/29/23 Exam# [id number] Ordering Dr: Gloria Garcia MD [id number] STUDY: X-RAY - THORACIC SPINE REASON FOR EXAM: Female, 63 years old. Back pain. TECHNIQUE: 3 view(s) of the thoracic spine were obtained. COMPARISON: None. FINDINGS: Osteopenia. Normal kyphosis of the thoracic spine. No scoliosis. Diffuse intervertebral disc space narrowing with small osteophytes. No acute abnormality. Normal soft tissues. RAD/Thoracic Spine 3 Views IMPRESSION: Mild osteopenia with mild diffuse thoracic spondylosis. No acute abnormality or erosive changes. Electronically Signed: Adrian Spence MD at 9:44 EDT Reading Location [place] and [place] [id number] [facility] [place] support , CC: Dr. Gloria Garcia MD; Dr. Tash Fallon MD Supervisor Feed House: Signed Normal [facility] Internal Medicine Office Vis franck 09-19-2023 Internal Medicine Office Visit [facility] [address] [place] [address] [address] [place] [address] OFFICE VISIT Date of Service: 09/19/23 MR#: [id number] Acct: [id number] Name: KADY SPENCER Rep #: [id number] : 1960 Provider: Dr. Tash fisher MD Age/Sex: 63/F Location: [facility] [place] Status: Signed Intake Vital Signs 03/17/23 10:05 06/20/23 11:21 09/19/23 10:11 Height 5 ft 3 in 5 ft 3 in 5 ft 3 in Weight: 186 lb BMI 32.9 BP 158/98 H Blood Pressure Location Lt brachial Position Sitting Respiration 16 Pulse 78 Pulse Source Monitor Temp 97.8 F Temp Source Temporal Pulse Oximetry (%) 97 Oxygen Delivery Method room air Intake Visit Reasons: 6 M FU Chief Complaint: 6 M FU Is patient in pain?: Yes (GENERALIZED) Pain scale (1-10): 6 Allergies cyclobenzaprine (From Flexeril) Allergy (Mild, Verified 09/19/23 10:03) unknown Medications ???Medication ???Instructions ???Recorded ???Confirmed ???Type amlodipine 5 mg tablet 5 mg PO DAILY 01/01/21 09/19/23 History losartan 25 mg tablet 25 mg PO DAILY 01/12/21 09/19/23 History folic acid 20 mg capsule 20 mg PO DAILY 09/24/22 09/19/23 History albuterol sulfate 90 mcg/actuation 2 puff inhalation Q6H PRN 03/17/23 09/19/23 Rx aerosol inhaler shortness of breath or wheezing #8.5 grams latanoprost 0.005 % eye drops drp ophthalmic (eye) 03/17/23 09/19/23 History upadacitinib 15 mg tablet,extended 15 mg PO DAILY 04/21/23 09/19/23 History release 24 hr (Rinvoq) montelukast 10 mg tablet 10 mg PO QPM #90 tabs 09/08/23 09/19/23 Rx (Singulair) aspirin 81 mg chewable tablet 81 mg PO DAILY 09/19/23 09/19/23 History baclofen 10 mg tablet 10 mg PO TID PRN muscle spasm 09/19/23 09/19/23 History dorzolamide 22.3 mg-timolol 6.8 ophthalmic (eye) BID 09/19/23 09/19/23 History mg/mL eye drops fluticasone propionate 50 1 spray intranasal DAILY 09/19/23 09/19/23 History mcg/actuation nasal spray,suspension (Flonase Allergy Relief) hydroxychloroquine 200 mg tablet mg PO BID 09/19/23 09/19/23 History ibuprofen 600 mg tablet 200 mg PO TID PRN 09/19/23 History methotrexate sodium 2.5 mg tablet 20 mg PO QWEEK 09/19/23 09/19/23 History pregabalin 75 mg capsule (Lyrica) 75 mg PO 4X/DAY 09/19/23 09/19/23 History trazodone 100 mg tablet 100 mg PO QHS insomnia 09/19/23 History PFSH Medical History (Updated 09/19/23 @ 12:[address] Tash Fallon MD) Health care maintenance Colon cancer screening Right hip pain Acute pharyngitis, unspecified Acute sinusitis, unspecified Vertigo Trigger thumb, left thumb Obesity (BMI 30-39.9) Right buttock pain Borderline type 2 diabetes mellitus Trigger thumb, right thumb Oral candidiasis Thrush, oral Insomnia GERD (gastroesophageal reflux disease) Left foot pain Pain of right thumb Pronation of left foot Fibromyalgia Hiatal hernia KATELYN (obstructive sleep apnea) Anxiety Cataracts, bilateral Magnesium deficiency Chronic diastolic heart failure Seasonal allergies Chronic pain Sebaceous cyst of breast Hypertension Surgical History Hx of cataract extraction History of laparoscopy Family History Grandmother Colon cancer Grandfather Myocardial infarction, Onset Age: 62 Father Myocardial infarction Other Alcohol abuse Anemia Anxiety Arthritis Asthma CVA (cerebral vascular accident) Cancer Diabetes Heart disease Hypertension Thyroid disorder Social History Smoking Status: Never smoker Tobacco: How many years used: 5 alcohol intake: former year quit: 2014 substance use type: does not use what type of physical activity do you participate in: walking, swimming and yoga frequency: daily HPI HPI Chief Complaint: 6 M FU Details: KADY SPENCER, is a 63 F who presents to the office today for follow-up of her chronic medical conditions. Also has some concerns. History of chronic pain. At her last visit, was referred to Ortho due to concern for trochanteric bursitis. Imaging done with no other significant concerns except for trochanteric bursitis. Had an injection which only minimally helped. She states that most of her activities are limited due to her chronic pain. Follows up with rheumatology, currently on methotrexate, Plaquenil and oral steroids for flares. Also on Rinvoq. History of hypertension, blood pressure today is at 158/98 mmHg. She states that she monitors her numbers closely and her readings on average in the 120s. Follows up with cardiology as well and she states that she was advised by her electric lineman to take an extra 25 mg of losartan if her systolic blood pressure is elevated during the day. She states that she has not had to do this b (more content not included)... Normal [facility] CBC W/Diff, Automatedon 05- 0-2023 Absolute Lymph 1.35 X10 3/uL Normal 0.83-4.51 [facility] Comment on above: Performed By: #### L 100.0100, L500.4050 ####[facility] [address] [place], [address] Absolute Neut 1.8 X10 3/uL Low 2.0-7.7 [facility] Comment on above: Performed By: #### L 100.0100, L500.4050 ####[facility] [address] [place], [address] Basophils/100 WBC (Bld) 0.3 % Normal 0-1 [facility] Comment on above: Performed By: #### L 100.0100, L500.4050 ####[facility] [address] [place], [address] Eosinophils/100 WBC (Bld) 1.4 % Normal 0-5 [facility] Comment on above: Performed By: #### L 100.0100, L500.4050 ####[facility] [address] [place], [address] Erythrocyte distribution width (RBC) [Ratio] 13.3 % Normal 11.6-14.6 [facility] Comment on above: Performed By: #### L 100.0100, L500.4050 ####[facility] [address] [place], [address] Hematocrit (Bld) [Volume fraction] 34.6 % Low 37-47 [facility] Comment on above: Performed By: #### L 100.0100, L500.4050 ####[facility] [address] [place], [address] Hemoglobin (Bld) [Mass/Vol] 11.7 g/dL Low 12.0-15.0 [facility] Comment on above: Performed By: #### L 100.0100, L500.4050 ####[facility] [address] [place], [address] IG% 0.300 Normal 0.0-0.9 [facility] Comment on above: Result Comment: IG% - Immature Granulocytes (promyelocytes, myelocytes and metamyelocytes) > 1% indicates that a LEFT SHIFT is Present. Performed By: #### L 100.0100, L500.4050 ####[facility] [address] [place], [address] Lymphocytes/100 WBC (Bld) 38.4 % Normal 19-41 [facility] Comment on above: Performed By: #### L 100.0100, L500.4050 ####[facility] [address] [place], [address] MCH (RBC) [Entitic mass] 32.8 pg High 27.0-32.0 [facility] Comment on above: Performed By: #### L 100.0100, L500.4050 ####[facility] [address] [place], [address] MCHC (RBC) [Mass/Vol] 33.8 g/dL Normal 32-36 [facility] Comment on above: Performed By: #### L 100.0100, L500.4050 ####[facility] [address] [place], [address] MCV (RBC) [Entitic vol] 96.9 fL Normal 81-99 [facility] Comment on above: Performed By: #### L 100.0100, L500.4050 ####[facility] [address] [place], [address] Monocytes/100 WBC (Bld) 8.0 % Normal 0-10 [facility] Comment on above: Performed By: #### L 100.0100, L500.4050 ####[facility] [address] [place], [address] Neutrophils/100 WBC (Bld) 51.6 % Normal 47-70 [facility] Comment on above: Performed By: #### L 100.0100, L500.4050 ####[facility] [address] [place], [address] Nucleated RBC (Bld) [#/Vol] 0 10*3/uL Normal 0-5 [facility] Comment on above: Performed By: #### L 100.0100, L500.4050 ####[facility] [address] [place], [address] Platelet mean volume (Bld) [Entitic vol] 9.2 fL Normal 6.2-12.0 [facility] Comment on above: Performed By: #### L 100.0100, L500.4050 ####[facility] [address] [place], [address] Platelets (Bld) [#/Vol] 382 10*3/uL Normal 150-450 [facility] Comment on above: Performed By: #### L 100.0100, L500.4050 ####[facility] [address] [place], [address] RBC (Bld) [#/Vol] 3.57 10*6/uL Low 4.2-5.4 [facility] Comment on above: Performed By: #### L 100.0100, L500.4050 ####[facility] [address] [place], [address] RDW SD 47.5 fl High 35.1-43.9 [facility] Comment on above: Performed By: #### L 100.0100, L500.4050 ####[facility] [address] [place], [address] WBC (Bld) [#/Vol] 3.5 10*3/uL Low 4.4-11.0 [facility] Comment on above: Performed By: #### L 100.0100, L500.4050 ####[facility] [address] [place], [address] Comprehensive Metabolic Prof ilon 08-15-2023 Albumin [Mass/Vol] 4.1 g/dL Normal 3.2-5.0 [facility] Comment on above: Performed By: #### L 100.0100, L500.4050 ####[facility] [address] [place], [address] Albumin/Globulin [Mass ratio] 1.3 {ratio} Normal 0.9-2.4 [facility] Comment on above: Performed By: #### L 100.0100, L500.4050 ####[facility] [address] [place], [address] ALK P 39 U/L Low 45-117 [facility] Comment on above: Performed By: #### L 100.0100, L500.4050 ####[facility] [address] [place], [address] ALT [Catalytic activity/Vol] 37 U/L Normal 13-56 [facility] Comment on above: Performed By: #### L 100.0100, L500.4050 ####[facility] [address] [place], [address] AST [Catalytic activity/Vol] 27 U/L Normal 15-37 [facility] Comment on above: Performed By: #### L 100.0100, L500.4050 ####[facility] [address] [place], [address] Bilirubin [Mass/Vol] 0.90 mg/dL Normal 0.20-1.00 [facility] Comment on above: Result Comment: For patients on eltrombopag therapy, use of Dimension [place] TBIL is not recommended. Performed By: #### L 100.0100, L500.4050 ####[facility] [address] [place], [address] BUN/CRE 8.4 RATIO Low 10-20 [facility] Comment on above: Performed By: #### L 100.0100, L500.4050 ####[facility] [address] [place], [address] CA,Total 9.2 mg/dL Normal 8.5-10.1 [facility] Comment on above: Performed By: #### L 100.0100, L500.4050 ####[facility] [address] [place], [address] Chloride [Moles/Vol] 99 mmol/L Normal 98-107 [facility] Comment on above: Performed By: #### L 100.0100, L500.4050 ####[facility] [address] [place], [address] CO2 [Moles/Vol] 27.0 mmol/L Normal 21.0-32.0 [facility] Comment on above: Performed By: #### L 100.0100, L500.4050 ####[facility] [address] [place], [address] Creatinine [Mass/Vol] 0.83 mg/dL Normal 0.55-1.02 [facility] Comment on above: Result Comment: The validity of the calculated GFR GFRAA in patients over 70 years has not been determined. Clinical correlation is essential. Performed By: #### L 100.0100, L500.4050 ####[facility] [address] [place], [address] EST GFR - AA 89 mL/min Normal >60 [facility] Comment on above: Result Comment: Afri can [place] GFR Calc Performed By: #### L 100.0100, L500.4050 ####[facility] [address] [place], [address] GAP 7 Normal 5-15 [facility] Comment on above: Performed By: #### L 100.0100, L500.4050 ####[facility] [address] [place], [address] GFR/1.73 sq M.predicted among non-blacks MDRD (S/P/Bld) [Vol rate/Area] 73 mL/min/{1.73_m2} Normal >60 [facility] Comment on above: Result Comment: Non- GFR Calc Performed By: #### L 100.0100, L500.4050 ####[facility] [address] [place], [address] Globulin (S) [Mass/Vol] 3.1 g/dL Normal 2.2-4.2 [facility] Comment on above: Performed By: #### L 100.0100, L500.4050 ####[facility] [address] [place], [address] Glucose [Mass/Vol] 123 mg/dL High 74-106 [facility] Comment on above: Result Comment: Fast ing Glucose result from 100 to 125 mg/dL suggests IMPAIRED HOMEOSTASIS per A.D.A. criteria. Performed By: #### L 100.0100, L500.4050 ####[facility] [address] [place], [address] Potassium [Moles/Vol] 4.0 mmol/L Normal 3.5-5.1 [facility] Comment on above: Performed By: #### L 100.0100, L500.4050 ####[facility] [address] [place], [address] Sodium [Moles/Vol] 133 mmol/L Low 136-145 [facility] Comment on above: Performed By: #### L 100.0100, L500.4050 ####[facility] [address] [place], [address] T PROT 7.2 g/dL Normal 6.4-8.2 [facility] Comment on above: Performed By: #### L 100.0100, L500.4050 ####[facility] [address] [place], [address] Urea nitrogen [Mass/Vol] 7 mg/dL Normal 7-18 [facility] Comment on above: Performed By: #### L 100.0100, L500.4050 ####[facility] [address] [place], [address] Absolute lymphocyte countOrd ered By: Ssuie Washington on 05-26-2023 Lymphocytes Auto (Unsp spec) [#/Vol] 2.25 10*3/uL 0.83-4.51 [facility] Automated lymphocyte count a s percentage of total leukocytesOrdered By: Susie Washington on 05-26-2023 Lymphocytes/100 WBC Auto (Unsp spec) 36.6 % 19-41 [facility] Basophil percentageOrdered B y: Susie Washington on 05-26-2023 Basophils/100 WBC (Bld) 0.5 % 0-1 [facility] Bilirubin [Mass/Vol] 1.00 mg/dL 0.20-1.00 [facility] Comment on above: For patients on eltr ombopag therapy, use of [place] TBIL is not recommended. Chloride [Moles/Vol] 104 mmol/L 98-107 [facility] Cholesterol [Mass/Vol] 225 mg/dL <200 [facility] Comment on above: <200 mg/dL Desirable 200-240 mg/dL Borderline >240 mg/dL High Risk Eosinophils/100 WBC (Bld) 1.1 % 0-5 [facility] Glucose [Mass/Vol] 93 mg/dL 74-106 [facility] Hemoglobin (Bld) [Mass/Vol] 12.9 g/dL 12.0-15.0 [facility] Monocytes/100 WBC (Bld) 10.7 % 0-10 [facility] Neutrophils (Bld) [#/Vol] 3.1 10*3/uL 2.0-7.7 [facility] Neutrophils/100 WBC (Bld) 50.9 % 47-70 [facility] Potassium [Moles/Vol] 4.2 mmol/L 3.5-5.1 [facility] Protein [Mass/Vol] 6.8 g/dL 6.4-8.2 [facility] Sodium [Moles/Vol] 137 mmol/L 136-145 [facility] Triglyceride [Mass/Vol] 174 mg/dL <199 [facility] Comment on above: The drugs N-Acetylcy steine and Metamizole may falsely depress this assay.Serum Triglycerides Reference Interval Normal <150 mg/dL Borderline high 150 - 199 mg/dL High 200 - 499 mg/dL Very High > or = 500 mg/dL WBC (Bld) [#/Vol] 6.2 10*3/uL 4.4-11.0 [facility] Determination of erythrocyte mean corpuscular volume (MCV)Ordered By: Susie Washington on 05-26-2023 MCV (RBC) [Entitic vol] 95.0 fL 81-99 [facility] Erythrocyte distribution wid th ratioOrdered By: [facility] Padmini on 05-26-2023 Erythrocyte distribution width (RBC) [Ratio] 14.6 % 11.6-14.6 [facility] Erythrocyte distribution wid th standard deviationOrdered By: [facility] on 05-26-2023 Erythrocyte distribution width (RBC) [Entitic vol] 50.5 fL 35.1-43.9 [facility] Hematocrit Auto (Bld) [Volum e fraction]Ordered By: [facility] Padmini on 05-26-2023 Hematocrit (Bld) [Volume fraction] 38.2 % 37-47 [facility] Immature granulocytes/100 WB C Auto (Bld)Ordered By: [facility] Padmini on 05-26-2023 Immature granulocytes/100 WBC (Bld) 0.200 % 0.0-0.9 [facility] Comment on above: IG% - Immature Granu locytes (promyelocytes, myelocytes and metamyelocytes) > 1% indicates that a LEFT SHIFT is Present. Laboratory - Chemistry and C hemistry - challengeOrdered By: Susie Washington on 05-26-2023 Albumin/Globulin [Mass ratio] 1.4 {ratio} 0.9-2.4 [facility] ALP [Catalytic activity/Vol] 32 U/L 45-117 [facility] ALT [Catalytic activity/Vol] 37 U/L 13-56 [facility] Cholesterol in HDL [Mass/Vol] 91 mg/dL >40 [facility] Comment on above: The drugs N-Acetylcy steine and Metamizole may falsely depress this assay. Reference Range HDL <40 mg/dL Low HDL Cholesterol HDL >or= 60 mg/dL High HDL Cholesterol Cholesterol in LDL [Mass/Vol] 99 mg/dL 0-130 [facility] CO2 [Moles/Vol] 29.0 mmol/L 21.0-32.0 [facility] Globulin (S) [Mass/Vol] 2.8 g/dL 2.2-4.2 [facility] Urea nitrogen/Creatinine [Mass ratio] 8.9 mg/mg 10-20 [facility] Laboratory - Hematology and Cell countsOrdered By: Susie Washington on 05-26-2023 MCH (RBC) [Entitic mass] 32.1 pg 27.0-32.0 [facility] MCHC (RBC) [Mass/Vol] 33.8 g/dL 32-36 [facility] Nucleated RBC/100 WBC (Bld) [Ratio] 0 % 0-5 [facility] Platelet mean volume (Bld) [Entitic vol] 8.8 fL 6.2-12.0 [facility] Platelets (Bld) [#/Vol] 339 10*3/uL 150-450 [facility] No Panel InformationOrdered By: Susie Washington on 05-26-2023 Estimated GFR (MDRD) Amer 81 mL/min >60 [facility] Comment on above: GFR Calc Estimated GFR (MDRD) Non-Af Amer 67 mL/min >60 [facility] Comment on above: Non- GFR Calc VLDL Cholesterol 35 mg/dL 5-40 [facility] RBC Auto (Bld) [#/Vol]Ordere d By: Susie Washington on 05-26-2023 RBC (Bld) [#/Vol] 4.02 10*6/uL 4.2-5.4 [facility] Serum or plasma calcium syed urement (mass/volume)Ordered By: Susie Washington on 05-26-2023 Calcium [Mass/Vol] 8.9 mg/dL 8.5-10.1 [facility] Serum or plasma creatinine m easurement (mass/volume)Ordered By: Susie Washington on 05-26-2023 Creatinine [Mass/Vol] 0.90 mg/dL 0.55-1.02 [facility] Comment on above: The validity of the calculated GFR & GFRAA in patients over 70 years has not been determined. Clinical correlation is essential. Serum or plasma urea nitroge n measurement (mass/volume)Ordered By: Susie Washington on 05-26-2023 Urea nitrogen [Mass/Vol] 8 mg/dL 7-18 [facility] Thin prep Papanicolaou smear with manual screeningOrdered By: Susie Washington on 05-26-2023 Thin prep Papanicolaou smear with manual screening 4.0 g/dL 3.2-5.0 [facility] Thin prep Papanicolaou smear with manual screening 26 U/L 15-37 [facility] Thin prep Papanicolaou smear with manual screening 4 5-15 [facility] Basophil percentageOrdered B y: Tash Fallon on 03-17-2023 Cholesterol [Mass/Vol] 184 mg/dL <200 [facility] Comment on above: <200 mg/dL Desirable 200-240 mg/dL Borderline >240 mg/dL High Risk Triglyceride [Mass/Vol] 199 mg/dL <199 [facility] Comment on above: The drugs N-Acetylcy steine and Metamizole may falsely depress this assay.Serum Triglycerides Reference Interval Normal <150 mg/dL Borderline high 150 - 199 mg/dL High 200 - 499 mg/dL Very High > or = 500 mg/dL Laboratory - Hematology and Cell countson 03-17-2023 HbA1c (Bld) [Mass fraction] 5.9 % 4.2-6.3 [facility] Serum or plasma cholesterol in HDL measurement (mass/volume)Ordered By: Tash Fallon on 03-17-2023 Cholesterol in HDL [Mass/Vol] 77 mg/dL >40 [facility] Comment on above: The drugs N-Acetylcy steine and Metamizole may falsely depress this assay. Reference Range HDL <40 mg/dL Low HDL Cholesterol HDL >or= 60 mg/dL High HDL Cholesterol Serum or plasma cholesterol in VLDL measurement (mass/volume)Ordered By: [facility] on 03-17-2023 Cholesterol in VLDL [Mass/Vol] 40 mg/dL 5-40 [facility] Serum or plasma low density lipoprotein (LDL) cholesterol measurement (mass/volume)Ordered By: ewharrisburgbe Oleghe on 03-17-2023 Cholesterol in LDL [Mass/Vol] 67 mg/dL 0-130 [facility] Absolute lymphocyte countOrd ered By: Susie Washington on 02-07-2023 Lymphocytes Auto (Unsp spec) [#/Vol] 2.83 10*3/uL 0.83-4.51 [facility] Basophil percentageOrdered B y: Susie Washington on 02-07-2023 Basophils/100 WBC (Bld) 0.3 % 0-1 [facility] Bilirubin [Mass/Vol] 0.80 mg/dL 0.20-1.00 [facility] Comment on above: For patients on eltr ombopag therapy, use of [place] TBIL is not recommended. Chloride [Moles/Vol] 98 mmol/L 98-107 [facility] Eosinophils/100 WBC (Bld) 0.8 % 0-5 [facility] Glucose [Mass/Vol] 79 mg/dL 74-106 [facility] Neutrophils (Bld) [#/Vol] 6.8 10*3/uL 2.0-7.7 [facility] Neutrophils/100 WBC (Bld) 64.4 % 47-70 [facility] Potassium [Moles/Vol] 3.8 mmol/L 3.5-5.1 [facility] Protein [Mass/Vol] 6.8 g/dL 6.4-8.2 [facility] Sodium [Moles/Vol] 133 mmol/L 136-145 [facility] WBC (Bld) [#/Vol] 10.6 10*3/uL 4.4-11.0 [facility] Blood erythrocytes count (nu mber/volume)Ordered By: Susie Washington on 02-07-2023 RBC (Bld) [#/Vol] 3.84 10*6/uL 4.2-5.4 [facility] Blood hemoglobin measurement (mass/volume)Ordered By: Susie Washington on 02-07-2023 Hemoglobin (Bld) [Mass/Vol] 12.2 g/dL 12.0-15.0 [facility] Blood lymphocytes/100 leukoc ytesOrdered By: Susierashida Washington on 02-07-2023 Lymphocytes/100 WBC (Bld) 26.7 % 19-41 [facility] Blood monocytes/100 leukocyt esOrdered By: Susierashida Washington on 02-07-2023 Monocytes/100 WBC (Bld) 7.5 % 0-10 [facility] Blood platelet mean volumeOr dered By: Susie Washington on 02-07-2023 Platelet mean volume (Bld) [Entitic vol] 9.2 fL 6.2-12.0 [facility] Determination of erythrocyte mean corpuscular volume (MCV)Ordered By: Susie Washington on 02-07-2023 MCV (RBC) [Entitic vol] 96.1 fL 81-99 [facility] Hematocrit Auto (Bld) [Volum e fraction]Ordered By: Susie Washington on 02-07-2023 Hematocrit (Bld) [Volume fraction] 36.9 % 37-47 [facility] Laboratory - Chemistry and C hemistry - challengeOrdered By: Susie Washington on 02-07-2023 ALP [Catalytic activity/Vol] 44 U/L 45-117 [facility] ALT [Catalytic activity/Vol] 33 U/L 13-56 [facility] CO2 [Moles/Vol] 28.0 mmol/L 21.0-32.0 [facility] Globulin (S) [Mass/Vol] 3.1 g/dL 2.2-4.2 [facility] Urea nitrogen/Creatinine [Mass ratio] 12.6 mg/mg 10-20 [facility] Laboratory - Hematology and Cell countsOrdered By: Susie Washington on 02-07-2023 Erythrocyte distribution width (RBC) [Entitic vol] 49.5 fL 35.1-43.9 [facility] Erythrocyte distribution width (RBC) [Ratio] 14.4 % 11.6-14.6 [facility] Immature granulocytes/100 WBC (Bld) 0.300 % 0.0-0.9 [facility] Comment on above: IG% - Immature Granu locytes (promyelocytes, myelocytes and metamyelocytes) > 1% indicates that a LEFT SHIFT is Present. MCH (RBC) [Entitic mass] 31.8 pg 27.0-32.0 [facility] Nucleated RBC/100 WBC (Bld) [Ratio] 0 % 0-5 [facility] MCHC Auto (RBC) [Mass/Vol]Or dered By: Susie Washington on 02-07-2023 MCHC (RBC) [Mass/Vol] 33.1 g/dL 32-36 [facility] No Panel InformationOrdered By: Susie Washington on 02-07-2023 Estimated GFR (MDRD) Amer 84 mL/min >60 [facility] Comment on above: GFR Calc Estimated GFR (MDRD) Non-Af Amer 70 mL/min >60 [facility] Comment on above: Non- GFR Calc Platelets bldOrdered By: Leonor Washington on 02-07-2023 Platelets (Bld) [#/Vol] 402 10*3/uL 150-450 [facility] Serum or plasma albumin syed urement (mass/volume)Ordered By: Susie Washington on 02-07-2023 Albumin [Mass/Vol] 3.7 g/dL 3.2-5.0 [facility] [facility] Serum or plasma albumin/glob ulin mass ratioOrdered By: Susie Washington on 02-07-2023 Albumin/Globulin [Mass ratio] 1.2 {ratio} 0.9-2.4 [facility] Serum or plasma calcium syed urement (mass/volume)Ordered By: Susie Washington on 02-07-2023 Calcium [Mass/Vol] 8.7 mg/dL 8.5-10.1 [facility] Serum or plasma creatinine m easurement (mass/volume)Ordered By: Susie Washington on 02-07-2023 Creatinine [Mass/Vol] 0.87 mg/dL 0.55-1.02 [facility] Comment on above: The validity of the calculated GFR & GFRAA in patients over 70 years has not been determined. Clinical correlation is essential. Serum or plasma urea nitroge n measurement (mass/volume)Ordered By: Susie Washington on 02-07-2023 Urea nitrogen [Mass/Vol] 11 mg/dL 7-18 [facility] Thin prep Papanicolaou smear with manual screeningOrdered By: Susie Washington on 02-07-2023 Thin prep Papanicolaou smear with manual screening 18 U/L 15-37 [facility] Thin prep Papanicolaou smear with manual screening 7 5-15 [facility] Absolute lymphocyte countOrd ered By: Susie Washington on 12-06-2022 Lymphocytes Auto (Unsp spec) [#/Vol] 2.13 10*3/uL 0.83-4.51 [facility] Basophil percentageOrdered B y: Susie Washington on 12-06-2022 Basophils/100 WBC (Bld) 0.6 % 0-1 [facility] Bilirubin [Mass/Vol] 0.90 mg/dL 0.20-1.00 [facility] Comment on above: For patients on eltr ombopag therapy, use of [place] TBIL is not recommended. Chloride [Moles/Vol] 100 mmol/L 98-107 [facility] Eosinophils/100 WBC (Bld) 1.6 % 0-5 [facility] Glucose [Mass/Vol] 95 mg/dL 74-106 [facility] Neutrophils (Bld) [#/Vol] 3.8 10*3/uL 2.0-7.7 [facility] Neutrophils/100 WBC (Bld) 57.5 % 47-70 [facility] Potassium [Moles/Vol] 3.8 mmol/L 3.5-5.1 [facility] Protein [Mass/Vol] 7.5 g/dL 6.4-8.2 [facility] Sodium [Moles/Vol] 135 mmol/L 136-145 [facility] WBC (Bld) [#/Vol] 6.7 10*3/uL 4.4-11.0 [facility] Blood erythrocytes count (nu mber/volume)Ordered By: Susie Washington on 12-06-2022 RBC (Bld) [#/Vol] 4.20 10*6/uL 4.2-5.4 [facility] Blood hemoglobin measurement (mass/volume)Ordered By: Susie Washington on 12-06-2022 Hemoglobin (Bld) [Mass/Vol] 13.2 g/dL 12.0-15.0 [facility] Blood lymphocytes/100 leukoc ytesOrdered By: [facility] Padmin[facility] on 12-06-2022 Lymphocytes/100 WBC (Bld) 31.9 % 19-41 [facility] Blood monocytes/100 leukocyt esOrdered By: [facility] Padmini on 12-06-2022 Monocytes/100 WBC (Bld) 8.1 % 0-10 [facility] Blood platelet mean volumeOr dered By: [facility] Padmini on 12-06-2022 Platelet mean volume (Bld) [Entitic vol] 9.0 fL 6.2-12.0 [facility] Determination of erythrocyte mean corpuscular volume (MCV)Ordered By: [facility] Padmini on 12-06-2022 MCV (RBC) [Entitic vol] 97.6 fL 81-99 [facility] Hematocrit Auto (Bld) [Volum e fraction]Ordered By: Susie Washington on 12-06-2022 Hematocrit (Bld) [Volume fraction] 41.0 % 37-47 [facility] Laboratory - Chemistry and C hemistry - challengeOrdered By: Susie Washington on 12-06-2022 ALP [Catalytic activity/Vol] 51 U/L 45-117 [facility] ALT [Catalytic activity/Vol] 38 U/L 13-56 [facility] CO2 [Moles/Vol] 27.0 mmol/L 21.0-32.0 [facility] Globulin (S) [Mass/Vol] 3.4 g/dL 2.2-4.2 [facility] Urea nitrogen/Creatinine [Mass ratio] 9.2 mg/mg 10-20 [facility] Laboratory - Hematology and Cell countsOrdered By: Susierashida Washington on 12-06-2022 Erythrocyte distribution width (RBC) [Entitic vol] 50.4 fL 35.1-43.9 [facility] Erythrocyte distribution width (RBC) [Ratio] 14.0 % 11.6-14.6 [facility] Immature granulocytes/100 WBC (Bld) 0.300 % 0.0-0.9 [facility] Comment on above: IG% - Immature Granu locytes (promyelocytes, myelocytes and metamyelocytes) > 1% indicates that a LEFT SHIFT is Present. MCH (RBC) [Entitic mass] 31.4 pg 27.0-32.0 [facility] Nucleated RBC/100 WBC (Bld) [Ratio] 0 % 0-5 [facility] MCHC Auto (RBC) [Mass/Vol]Or dered By: Susie Washington on 12-06-2022 MCHC (RBC) [Mass/Vol] 32.2 g/dL 32-36 [facility] No Panel InformationOrdered By: Susie Washington on 12-06-2022 Estimated GFR (MDRD) Amer 99 mL/min >60 [facility] Comment on above: GFR Calc Estimated GFR (MDRD) Non-Af Amer 82 mL/min >60 [facility] Comment on above: Non- GFR Calc Platelets bldOrdered By: Leonor Washington on 12-06-2022 Platelets (Bld) [#/Vol] 388 10*3/uL 150-450 [facility] Serum or plasma albumin syed urement (mass/volume)Ordered By: Susie Washington on 12-06-2022 Albumin [Mass/Vol] 4.1 g/dL 3.2-5.0 [facility] Serum or plasma albumin/glob ulin mass ratioOrdered By: Susie Washington on 12-06-2022 Albumin/Globulin [Mass ratio] 1.2 {ratio} 0.9-2.4 [facility] Serum or plasma calcium syed urement (mass/volume)Ordered By: Susie Washington on 12-06-2022 Calcium [Mass/Vol] 9.0 mg/dL 8.5-10.1 [facility] Serum or plasma creatinine m easurement (mass/volume)Ordered By: Susie Washington on 12-06-2022 Creatinine [Mass/Vol] 0.76 mg/dL 0.55-1.02 [facility] Comment on above: The validity of the calculated GFR & GFRAA in patients over 70 years has not been determined. Clinical correlation is essential. Serum or plasma urea nitroge n measurement (mass/volume)Ordered By: Susie Washington on 12-06-2022 Urea nitrogen [Mass/Vol] 7 mg/dL 7-18 [facility] Thin prep Papanicolaou smear with manual screeningOrdered By: Susie Washington on 12-06-2022 Thin prep Papanicolaou smear with manual screening 27 U/L 15-37 [facility] Thin prep Papanicolaou smear with manual screening 8 5-15 [facility] Laboratory - Hematology and Cell countson 09-24-2022 HbA1c (Bld) [Mass fraction] 6.0 % 4.2-6.3 [facility] Absolute lymphocyte countOrd ered By: Dr. Washington on 09-16-2022 Lymphocytes Auto (Unsp spec) [#/Vol] 2.57 10*3/uL 0.83-4.51 [facility] Basophil percentageOrdered B y: Dr. Washington on 09-16-2022 Basophils/100 WBC (Bld) 0.5 % 0-1 [facility] Bilirubin [Mass/Vol] 0.80 mg/dL 0.20-1.00 [facility] Comment on above: For patients on eltr ombopag therapy, use of [place] TBIL is not recommended. Chloride [Moles/Vol] 97 mmol/L 98-107 [facility] Eosinophils/100 WBC (Bld) 2.6 % 0-5 [facility] Glucose [Mass/Vol] 102 mg/dL 74-106 [facility] Comment on above: Fasting Glucose resu lt from 100 to 125 mg/dL suggests IMPAIRED HOMEOSTASIS per A.D.A. criteria. Neutrophils (Bld) [#/Vol] 4.1 10*3/uL 2.0-7.7 [facility] Neutrophils/100 WBC (Bld) 54.7 % 47-70 [facility] Potassium [Moles/Vol] 4.2 mmol/L 3.5-5.1 [facility] Protein [Mass/Vol] 7.5 g/dL 6.4-8.2 [facility] Sodium [Moles/Vol] 131 mmol/L 136-145 [facility] WBC (Bld) [#/Vol] 7.6 10*3/uL 4.4-11.0 [facility] Blood erythrocytes count (nu mber/volume)Ordered By: Dr. Washington on 09-16-2022 RBC (Bld) [#/Vol] 4.16 10*6/uL 4.2-5.4 [facility] Blood hemoglobin measurement (mass/volume)Ordered By: Dr. Washington on 09-16-2022 Hemoglobin (Bld) [Mass/Vol] 13.0 g/dL 12.0-15.0 [facility] Blood lymphocytes/100 leukoc ytesOrdered By: Dr. Washington on 09-16-2022 Lymphocytes/100 WBC (Bld) 33.9 % 19-41 [facility] Blood monocytes/100 leukocyt esOrdered By: Dr. Washington on 09-16-2022 Monocytes/100 WBC (Bld) 8.0 % 0-10 [facility] Blood platelet mean volumeOr dered By: Dr. Washington on 09-16-2022 Platelet mean volume (Bld) [Entitic vol] 8.8 fL 6.2-12.0 [facility] Determination of erythrocyte mean corpuscular volume (MCV)Ordered By: Dr. Washington on 09-16-2022 MCV (RBC) [Entitic vol] 94.7 fL 81-99 [facility] Hematocrit Auto (Bld) [Volum e fraction]Ordered By: Dr. Washington on 09-16-2022 Hematocrit (Bld) [Volume fraction] 39.4 % 37-47 [facility] Laboratory - Chemistry and C hemistry - challengeOrdered By: Dr. Washington on 09-16-2022 ALP [Catalytic activity/Vol] 52 U/L 45-117 [facility] ALT [Catalytic activity/Vol] 40 U/L 13-56 [facility] CO2 [Moles/Vol] 27.0 mmol/L 21.0-32.0 [facility] Globulin (S) [Mass/Vol] 3.5 g/dL 2.2-4.2 [facility] Urea nitrogen/Creatinine [Mass ratio] 8.0 mg/mg 10-20 [facility] Laboratory - Hematology and Cell countsOrdered By: Dr. Washington on 09-16-2022 Erythrocyte distribution width (RBC) [Entitic vol] 48.1 fL 35.1-43.9 [facility] Erythrocyte distribution width (RBC) [Ratio] 14.1 % 11.6-14.6 [facility] Immature granulocytes/100 WBC (Bld) 0.300 % 0.0-0.9 [facility] Comment on above: IG% - Immature Granu locytes (promyelocytes, myelocytes and metamyelocytes) > 1% indicates that a LEFT SHIFT is Present. MCH (RBC) [Entitic mass] 31.3 pg 27.0-32.0 [facility] Nucleated RBC/100 WBC (Bld) [Ratio] 0 % 0-5 [facility] MCHC Auto (RBC) [Mass/Vol]Or dered By: Dr. Washington on 09-16-2022 MCHC (RBC) [Mass/Vol] 33.0 g/dL 32-36 [facility] No Panel InformationOrdered By: Dr. Washington on 09-16-2022 Estimated GFR (MDRD) Amer 100 mL/min >60 [facility] Comment on above: GFR Calc Estimated GFR (MDRD) Non-Af Amer 83 mL/min >60 [facility] Comment on above: Non- GFR Calc Platelets bldOrdered By: Dr. Washington on 09-16-2022 Platelets (Bld) [#/Vol] 379 10*3/uL 150-450 [facility] Serum or plasma albumin syed urement (mass/volume)Ordered By: Dr. Washington on 09-16-2022 Albumin [Mass/Vol] 4.0 g/dL 3.2-5.0 [facility] Serum or plasma albumin/glob ulin mass ratioOrdered By: Dr. Washington on 09-16-2022 Albumin/Globulin [Mass ratio] 1.1 {ratio} 0.9-2.4 [facility] Serum or plasma calcium syed urement (mass/volume)Ordered By: Dr. Washington on 09-16-2022 Calcium [Mass/Vol] 9.3 mg/dL 8.5-10.1 [facility] Serum or plasma creatinine m easurement (mass/volume)Ordered By: Dr. Washington on 09-16-2022 Creatinine [Mass/Vol] 0.75 mg/dL 0.55-1.02 [facility] Comment on above: The validity of the calculated GFR & GFRAA in patients over 70 years has not been determined. Clinical correlation is essential. Serum or plasma urea nitroge n measurement (mass/volume)Ordered By: Dr. Washington on 09-16-2022 Urea nitrogen [Mass/Vol] 6 mg/dL 7-18 [facility] Thin prep Papanicolaou smear with manual screeningOrdered By: Dr. Washington on 09-16-2022 Thin prep Papanicolaou smear with manual screening 30 U/L 15-37 [facility] Thin prep Papanicolaou smear with manual screening 7 5-15 [facility] Laboratory - Microbiology an d Antimicrobial susceptibilityon 08-26-2022 S. pyogenes Ag IA Ql (Unsp spec) Negative [facility] Absolute lymphocyte countOrd ered By: Dr. Washington on 06-19-2022 Lymphocytes Auto (Unsp spec) [#/Vol] 2.76 10*3/uL 0.83-4.51 [facility] Basophil percentageOrdered B y: Dr. Washington on 06-19-2022 Basophils/100 WBC (Bld) 0.4 % 0-1 [facility] Bilirubin [Mass/Vol] 1.00 mg/dL 0.20-1.00 [facility] Comment on above: For patients on eltr ombopag therapy, use of [place] TBIL is not recommended. Chloride [Moles/Vol] 102 mmol/L 98-107 [facility] Eosinophils/100 WBC (Bld) 2.3 % 0-5 [facility] Glucose [Mass/Vol] 122 mg/dL 74-106 [facility] Comment on above: Fasting Glucose resu lt from 100 to 125 mg/dL suggests IMPAIRED HOMEOSTASIS per A.D.A. criteria. Neutrophils (Bld) [#/Vol] 3.8 10*3/uL 2.0-7.7 [facility] Neutrophils/100 WBC (Bld) 51.6 % 47-70 [facility] Potassium [Moles/Vol] 3.7 mmol/L 3.5-5.1 [facility] Protein [Mass/Vol] 6.7 g/dL 6.4-8.2 [facility] Sodium [Moles/Vol] 137 mmol/L 136-145 [facility] WBC (Bld) [#/Vol] 7.4 10*3/uL 4.4-11.0 [facility] Blood erythrocytes count (nu mber/volume)Ordered By: Dr. Washington on 06-19-2022 RBC (Bld) [#/Vol] 4.09 10*6/uL 4.2-5.4 [facility] Blood hemoglobin measurement (mass/volume)Ordered By: Dr. Washington on 06-19-2022 Hemoglobin (Bld) [Mass/Vol] 12.8 g/dL 12.0-15.0 [facility] Blood lymphocytes/100 leukoc ytesOrdered By: Dr. Washington on 06-19-2022 Lymphocytes/100 WBC (Bld) 37.1 % 19-41 [facility] Blood monocytes/100 leukocyt esOrdered By: Dr. Washington on 06-19-2022 Monocytes/100 WBC (Bld) 8.5 % 0-10 [facility] Blood platelet mean volumeOr dered By: Dr. Washington on 06-19-2022 Platelet mean volume (Bld) [Entitic vol] 10.0 fL 6.2-12.0 [facility] Determination of erythrocyte mean corpuscular volume (MCV)Ordered By: Dr. Washington on 06-19-2022 MCV (RBC) [Entitic vol] 93.2 fL 81-99 [facility] Hematocrit Auto (Bld) [Volum e fraction]Ordered By: Dr. Washington on 06-19-2022 Hematocrit (Bld) [Volume fraction] 38.1 % 37-47 [facility] Laboratory - Chemistry and C hemistry - challengeOrdered By: Dr. Washington on 06-19-2022 ALP [Catalytic activity/Vol] 46 U/L 45-117 [facility] ALT [Catalytic activity/Vol] 39 U/L 13-56 [facility] CO2 [Moles/Vol] 26.0 mmol/L 21.0-32.0 [facility] Globulin (S) [Mass/Vol] 2.9 g/dL 2.2-4.2 [facility] Urea nitrogen/Creatinine [Mass ratio] 10.6 mg/mg 10-20 [facility] Laboratory - Hematology and Cell countsOrdered By: Dr. Washington on 06-19-2022 Erythrocyte distribution width (RBC) [Entitic vol] 50.0 fL 35.1-43.9 [facility] Erythrocyte distribution width (RBC) [Ratio] 14.6 % 11.6-14.6 [facility] Immature granulocytes/100 WBC (Bld) 0.100 % 0.0-0.9 [facility] Comment on above: IG% - Immature Granu locytes (promyelocytes, myelocytes and metamyelocytes) > 1% indicates that a LEFT SHIFT is Present. MCH (RBC) [Entitic mass] 31.3 pg 27.0-32.0 [facility] Nucleated RBC/100 WBC (Bld) [Ratio] 0 % 0-5 [facility] MCHC Auto (RBC) [Mass/Vol]Or dered By: Dr. Washington on 06-19-2022 MCHC (RBC) [Mass/Vol] 33.6 g/dL 32-36 [facility] No Panel InformationOrdered By: Dr. Washington on 06-19-2022 Estimated GFR (MDRD) Amer 100 mL/min >60 [facility] Comment on above: GFR Calc Estimated GFR (MDRD) Non-Af Amer 82 mL/min >60 [facility] Comment on above: Non- GFR Calc Platelets bldOrdered By: Dr. Washington on 06-19-2022 Platelets (Bld) [#/Vol] 388 10*3/uL 150-450 [facility] Serum or plasma albumin syed urement (mass/volume)Ordered By: Dr. Washington on 06-19-2022 Albumin [Mass/Vol] 3.8 g/dL 3.2-5.0 [facility] Serum or plasma albumin/glob ulin mass ratioOrdered By: Dr. Washington on 06-19-2022 Albumin/Globulin [Mass ratio] 1.3 {ratio} 0.9-2.4 [facility] Serum or plasma calcium syed urement (mass/volume)Ordered By: Dr. Washington on 06-19-2022 Calcium [Mass/Vol] 8.6 mg/dL 8.5-10.1 [facility] Serum or plasma creatinine m easurement (mass/volume)Ordered By: Dr. Washington on 06-19-2022 Creatinine [Mass/Vol] 0.76 mg/dL 0.55-1.02 [facility] Comment on above: The validity of the calculated GFR & GFRAA in patients over 70 years has not been determined. Clinical correlation is essential. Serum or plasma urea nitroge n measurement (mass/volume)Ordered By: Dr. Washington on 06-19-2022 Urea nitrogen [Mass/Vol] 8 mg/dL 7-18 [facility] Thin prep Papanicolaou smear with manual screeningOrdered By: Dr. Washington on 06-19-2022 Thin prep Papanicolaou smear with manual screening 28 U/L 15 [facility] Thin prep Papanicolaou smear with manual screening 9 5 [facility] LABORATORYOrdered By: SYSTEM SYSTEM on 05-01-2022 Natriuretic peptide.B prohormone N-Terminal [Mass/Vol] 20 pg/mL Invalid Interpretation Code 0 - 125 pg/mL AO ADM SS Qualitative QuantiFERON-TB g old in tube testOrdered By: Dr. Washington on 04-16-2022 M. tuberculosis tuberculin stim IFN-g Ql (Bld) 0.03 IU/mL . [facility] Thin prep Papanicolaou smear with manual screeningOrdered By: Dr. Washington on 04-16-2022 Thin prep Papanicolaou smear with manual screening Comment . [facility] Comment on above: QuantiFERON-TB Gold Plus is a qualitative indirect test forM tuberculosis infection (including disease) and isintended for use in conjunction with risk assessment,radiography, and other medical and diagnostic evaluations.The QuantiFERON-TB Gold Plus result is determined bysubtracting the Nil value from either TB antigen (Ag)value. The Mitogen tube serves as a control for the test. Thin prep Papanicolaou smear with manual screening 0.03 IU/mL . [facility] Thin prep Papanicolaou smear with manual screening 0.04 IU/mL . [facility] Thin prep Papanicolaou smear with manual screening > 10.00 IU/mL . [facility] Thin prep Papanicolaou smear with manual screening Negative Negative [facility] Comment on above: No response to M tub erculosis antigens detected.Infection with M tuberculosis is unlikely, but high riskindividuals should be considered for additional testing(ATS/IDSA/CDC Clinical Practice Guidelines, 2017). Thereference range is an Antigen minus Nil result of <0.35IU/mL.The specimen received for QuantiFERON testing was incubatedby the ordering institution. Specific procedures outlinedin our Directory of Services and in the package insert forthe QuantiFERON Gold (In Tube) test must be followed toenable for proper stimulation of cells for the productionof interferon gamma. Chemiluminescence immunoassaymethodologyPerformed at: [facility] [place] [id number] Director: Fuentes Petty PhD, Phone: [phone] Absolute lymphocyte countOrd ered By: Dr. Washington on 03-13-2022 Lymphocytes Auto (Unsp spec) [#/Vol] 2.29 10*3/uL 0.83-4.51 [facility] Basophil percentageOrdered B y: Dr. Washington on 03-13-2022 Basophils/100 WBC (Bld) 0.6 % 0-1 [facility] Bilirubin [Mass/Vol] 0.40 mg/dL 0.20-1.00 [facility] Comment on above: For patients on eltr ombopag therapy, use of [place] TBIL is not recommended. Chloride [Moles/Vol] 104 mmol/L 98-107 [facility] Eosinophils/100 WBC (Bld) 2.1 % 0-5 [facility] Glucose [Mass/Vol] 107 mg/dL 74-106 [facility] Comment on above: Fasting Glucose resu lt from 100 to 125 mg/dL suggests IMPAIRED HOMEOSTASIS per A.D.A. criteria. Neutrophils (Bld) [#/Vol] 4.0 10*3/uL 2.0-7.7 [facility] Neutrophils/100 WBC (Bld) 57.2 % 47-70 [facility] Potassium [Moles/Vol] 4.0 mmol/L 3.5-5.1 [facility] Protein [Mass/Vol] 6.9 g/dL 6.4-8.2 [facility] Sodium [Moles/Vol] 138 mmol/L 136-145 [facility] WBC (Bld) [#/Vol] 7.0 10*3/uL 4.4-11.0 [facility] Blood erythrocytes count (nu mber/volume)Ordered By: Dr. Washington on 03-13-2022 RBC (Bld) [#/Vol] 4.14 10*6/uL 4.2-5.4 [facility] Blood hemoglobin measurement (mass/volume)Ordered By: Dr. Washington on 03-13-2022 Hemoglobin (Bld) [Mass/Vol] 12.3 g/dL 12.0-15.0 [facility] Blood lymphocytes/100 leukoc ytesOrdered By: Dr. Washington on 03-13-2022 Lymphocytes/100 WBC (Bld) 32.7 % 19-41 [facility] Blood monocytes/100 leukocyt esOrdered By: Dr. Washnigton on 03-13-2022 Monocytes/100 WBC (Bld) 7.1 % 0-10 [facility] Blood platelet mean volumeOr dered By: Dr. Washington on 03-13-2022 Platelet mean volume (Bld) [Entitic vol] 9.4 fL 6.2-12.0 [facility] Determination of erythrocyte mean corpuscular volume (MCV)Ordered By: Dr. Washington on 03-13-2022 MCV (RBC) [Entitic vol] 91.8 fL 81-99 [facility] Hematocrit Auto (Bld) [Volum e fraction]Ordered By: Dr. Washington on 03-13-2022 Hematocrit (Bld) [Volume fraction] 38.0 % 37-47 [facility] Laboratory - Chemistry and C hemistry - challengeOrdered By: Dr. Washington on 03-13-2022 ALP [Catalytic activity/Vol] 61 U/L 45-117 [facility] ALT [Catalytic activity/Vol] 32 U/L 13-56 [facility] CO2 [Moles/Vol] 31.0 mmol/L 21.0-32.0 [facility] Globulin (S) [Mass/Vol] 2.9 g/dL 2.2-4.2 [facility] Urea nitrogen/Creatinine [Mass ratio] 10.7 mg/mg 10-20 [facility] Laboratory - Hematology and Cell countsOrdered By: Dr. Washington on 03-13-2022 Erythrocyte distribution width (RBC) [Entitic vol] 48.0 fL 35.1-43.9 [facility] Erythrocyte distribution width (RBC) [Ratio] 14.3 % 11.6-14.6 [facility] Immature granulocytes/100 WBC (Bld) 0.300 % 0.0-0.9 [facility] Comment on above: IG% - Immature Granu locytes (promyelocytes, myelocytes and metamyelocytes) > 1% indicates that a LEFT SHIFT is Present. MCH (RBC) [Entitic mass] 29.7 pg 27.0-32.0 [facility] Nucleated RBC/100 WBC (Bld) [Ratio] 0 % 0-5 [facility] MCHC Auto (RBC) [Mass/Vol]Or dered By: Dr. Washington on 03-13-2022 MCHC (RBC) [Mass/Vol] 32.4 g/dL 32-36 [facility] No Panel InformationOrdered By: Dr. Washington on 03-13-2022 Estimated GFR (MDRD) Amer 117 mL/min >60 [facility] Comment on above: GFR Calc Estimated GFR (MDRD) Non-Af Amer 97 mL/min >60 [facility] Comment on above: Non- GFR Calc Platelets bldOrdered By: Dr. Washington on 03-13-2022 Platelets (Bld) [#/Vol] 397 10*3/uL 150-450 [facility] Serum or plasma albumin syed urement (mass/volume)Ordered By: Dr. Washington on 03-13-2022 Albumin [Mass/Vol] 4.0 g/dL 3.2-5.0 [facility] Serum or plasma albumin/glob ulin mass ratioOrdered By: Dr. Washington on 03-13-2022 Albumin/Globulin [Mass ratio] 1.4 {ratio} 0.9-2.4 [facility] Serum or plasma calcium syed urement (mass/volume)Ordered By: Dr. Washington on 03-13-2022 Calcium [Mass/Vol] 9.0 mg/dL 8.5-10.1 [facility] Serum or plasma creatinine m easurement (mass/volume)Ordered By: Dr. Washington on 03-13-2022 Creatinine [Mass/Vol] 0.66 mg/dL 0.55-1.02 [facility] Comment on above: The validity of the calculated GFR & GFRAA in patients over 70 years has not been determined. Clinical correlation is essential. Serum or plasma urea nitroge n measurement (mass/volume)Ordered By: Dr. Washington on 03-13-2022 Urea nitrogen [Mass/Vol] 7 mg/dL 7-18 [facility] Thin prep Papanicolaou smear with manual screeningOrdered By: Dr. Washington on 03-13-2022 Thin prep Papanicolaou smear with manual screening 21 U/L 15-37 [facility] Thin prep Papanicolaou smear with manual screening 3 5-15 [facility] Absolute lymphocyte countOrd ered By: Dr. Washington on 01-07-2022 Lymphocytes Auto (Unsp spec) [#/Vol] 2.35 10*3/uL 0.83-4.51 [facility] Basophil percentageOrdered B y: Dr. Washington on 01-07-2022 Basophils/100 WBC (Bld) 0.4 % 0-1 [facility] Bilirubin [Mass/Vol] 0.70 mg/dL 0.20-1.00 [facility] Comment on above: For patients on eltr ombopag therapy, use of Dim[place] TBIL is not recommended. Chloride [Moles/Vol] 103 mmol/L 98-107 [facility] Eosinophils/100 WBC (Bld) 1.7 % 0-5 [facility] Glucose [Mass/Vol] 95 mg/dL 74-106 [facility] Neutrophils (Bld) [#/Vol] 4.1 10*3/uL 2.0-7.7 [facility] Neutrophils/100 WBC (Bld) 57.1 % 47-70 [facility] Potassium [Moles/Vol] 3.9 mmol/L 3.5-5.1 [facility] Protein [Mass/Vol] 7.3 g/dL 6.4-8.2 [facility] Sodium [Moles/Vol] 138 mmol/L 136-145 [facility] WBC (Bld) [#/Vol] 7.2 10*3/uL 4.4-11.0 [facility] Blood erythrocytes count (nu mber/volume)Ordered By: Dr. Washington on 01-07-2022 RBC (Bld) [#/Vol] 4.32 10*6/uL 4.2-5.4 [facility] Blood hemoglobin measurement (mass/volume)Ordered By: Dr. Washington on 01-07-2022 Hemoglobin (Bld) [Mass/Vol] 12.9 g/dL 12.0-15.0 [facility] Blood lymphocytes/100 leukoc ytesOrdered By: Dr. Washington on 01-07-2022 Lymphocytes/100 WBC (Bld) 32.5 % 19-41 [facility] Blood monocytes/100 leukocyt esOrdered By: Dr. Washington on 01-07-2022 Monocytes/100 WBC (Bld) 8.0 % 0-10 [facility] Blood platelet mean volumeOr dered By: Dr. Washington on 01-07-2022 Platelet mean volume (Bld) [Entitic vol] 9.3 fL 6.2-12.0 [facility] Determination of erythrocyte mean corpuscular volume (MCV)Ordered By: Dr. Washington on 01-07-2022 MCV (RBC) [Entitic vol] 91.7 fL 81-99 [facility] Hematocrit Auto (Bld) [Volum e fraction]Ordered By: Dr. Washington on 01-07-2022 Hematocrit (Bld) [Volume fraction] 39.6 % 37-47 [facility] Laboratory - Chemistry and C hemistry - challengeOrdered By: Dr. Washington on 01-07-2022 ALP [Catalytic activity/Vol] 51 U/L 45-117 [facility] ALT [Catalytic activity/Vol] 26 U/L 13-56 [facility] CO2 [Moles/Vol] 27.0 mmol/L 21.0-32.0 [facility] Globulin (S) [Mass/Vol] 3.4 g/dL 2.2-4.2 [facility] Urea nitrogen/Creatinine [Mass ratio] 8.1 mg/mg 10-20 [facility] Laboratory - Hematology and Cell countsOrdered By: Dr. Washington on 01-07-2022 Erythrocyte distribution width (RBC) [Entitic vol] 50.8 fL 35.1-43.9 [facility] Erythrocyte distribution width (RBC) [Ratio] 15.1 % 11.6-14.6 [facility] Immature granulocytes/100 WBC (Bld) 0.300 % 0.0-0.9 [facility] Comment on above: IG% - Immature Granu locytes (promyelocytes, myelocytes and metamyelocytes) > 1% indicates that a LEFT SHIFT is Present. MCH (RBC) [Entitic mass] 29.9 pg 27.0-32.0 [facility] Nucleated RBC/100 WBC (Bld) [Ratio] 0 % 0-5 [facility] MCHC Auto (RBC) [Mass/Vol]Or dered By: Dr. Washington on 01-07-2022 MCHC (RBC) [Mass/Vol] 32.6 g/dL 32-36 [facility] No Panel InformationOrdered By: Dr. Washington on 01-07-2022 Estimated GFR (MDRD) Amer 102 mL/min >60 [facility] Comment on above: GFR Calc Estimated GFR (MDRD) Non-Af Amer 85 mL/min >60 [facility] Comment on above: Non- GFR Calc Platelets bldOrdered By: Dr. Washington on 01-07-2022 Platelets (Bld) [#/Vol] 401 10*3/uL 150-450 [facility] Serum or plasma albumin syed urement (mass/volume)Ordered By: Dr. Washington on 01-07-2022 Albumin [Mass/Vol] 3.9 g/dL 3.2-5.0 [facility] Serum or plasma albumin/glob ulin mass ratioOrdered By: Dr. Washington on 10-03-2022 Albumin/Globulin [Mass ratio] 1.1 {ratio} 0.9-2.4 [facility] Serum or plasma calcium syed urement (mass/volume)Ordered By: Dr. Washington on 01-07-2022 Calcium [Mass/Vol] 9.2 mg/dL 8.5-10.1 [facility] Serum or plasma creatinine m easurement (mass/volume)Ordered By: Dr. Washington on 01-07-2022 Creatinine [Mass/Vol] 0.74 mg/dL 0.55-1.02 [facility] Comment on above: The validity of the calculated GFR & GFRAA in patients over 70 years has not been determined. Clinical correlation is essential. Serum or plasma urea nitroge n measurement (mass/volume)Ordered By: Dr. Washington on 01-07-2022 Urea nitrogen [Mass/Vol] 6 mg/dL 7-18 [facility] Thin prep Papanicolaou smear with manual screeningOrdered By: Dr. Washington on 01-07-2022 Thin prep Papanicolaou smear with manual screening 18 U/L 15-37 [facility] Thin prep Papanicolaou smear with manual screening 8 5-15 [facility] Laboratory - Drug toxicology on 11-13-2021 Amphetamines Ql (U) Negative <1000 ng/mL [facility] Work Phone: Benzodiazepines Ql (U) Negative < 200 ng/mL [facility] Work Phone: Cannabinoids Screen Ql (U) Negative < 50 ng/mL [facility] Work Phone: Cocaine Ql (U) Negative < 300 ng/mL [facility] Work Phone: Opiates Ql (U) Negative < 300 ng/mL [facility] Work Phone: No Panel Informationon 11-13 MDMA (Ecstasy) Screen Negative < 500 ng/mL [facility] Work Phone: Miscellaneous Test See comment [facility] Work Phone: Comment on above: [id number] 6+OXYCODONE-B UND (ng/mL) DRUG RESULT SCREEN CUTOFF____ Amphetamines,Urine Negative ng/mL 1000 Amphetamine test includes Amphetamine and Methamphetamine.Barbiturates Negative ng/mL 200Benzodiazepines Negative ng/mL 200Cannabinoid Negative ng/mL 20Cocaine (Metab) Negative ng/mL 300Opiates Negative ng/mL 300 Opiates test includes Codeine, Morphine, Hydromorphone, Hydrocodone. Oxycodone/Oxymorphone,Urine Negative ng/mL 300 Test includes Oxydodone and Oxymorphone. TESTING PERFORMED AT [facility]. ORIGINAL REPORT ON FILE IN LAB CONTAINS ADDITIONAL TEST SITE INFORMATION. Urine Barbiturates Screen Negative < 200 ng/mL [facility] Work Phone: Urine Drug Screen Comment [facility] Work Phone: Comment on above: CONFIRMATORY TESTING FOR ALL POSITIVE URINE DRUG SCREENRESULTS WILL ONLY BE SENT OUT UPON PHYSICIAN ORDER. VISTA Urine Drug Screen methods provide only preliminaryanalytical test results. A more specific alternate chemicalmethod must be used in order to obtain a confirmedanalytical result. Gas chromatography/mass spectrometery(GC/MS) is the preferred confirmatory method. Clinicalconsideration and professional judgement should be appliedto any drug of abuse test result, particularly whenpreliminary positive results are used. URINE TCA TESTING MUST BE ORDERED SEPARATELY. USE TESTMNEMONIC: [facility] Urine Methadone Screen Negative < 300 ng/mL [facility] Work Phone: Urine phencyclidine (PCP) de tectionon 11-13-2021 Phencyclidine Ql (U) Negative < 25 ng/mL [facility] Work Phone: Basophil percentageon 2021 Chloride [Moles/Vol] 101 mmol/L 98-107 [facility] Work Phone: Glucose [Mass/Vol] 101 mg/dL 74-106 [facility] Work Phone: Comment on above: Fasting Glucose resu lt from 100 to 125 mg/dL suggests IMPAIRED HOMEOSTASIS per A.D.A. criteria. Potassium [Moles/Vol] 4.1 mmol/L 3.5-5.1 [facility] Work Phone: Sodium [Moles/Vol] 134 mmol/L 136-145 [facility] Work Phone: Laboratory - Chemistry and C hemistry - challengeon 11-09-2021 CO2 [Moles/Vol] 27.0 mmol/L 21.0-32.0 [facility] Work Phone: Urea nitrogen/Creatinine [Mass ratio] 7.1 mg/mg 10-20 [facility] Work Phone: Laboratory - Microbiology an d Antimicrobial susceptibilityon 11-09-2021 SARS-CoV-2 (COVID-19) RNA AYANNA+probe Ql (Unsp spec) Not detected Not Detect [facility] Work Phone: Comment on above: Normal Reference Ran ge: Not DetectedMethod:(RT-PCR) real-time reverse transcriptase PCRLuminex FLORA Instrument*The Food and Drug Administration (FDA) has issued an Emergency Use Authorization (EAU) for the FLORA SARS-CoV-2 Assay for the rapid detection of the virus that causes COVID-19. This test has been validated, but the FDAs independent review of this validation is pending.*Negative results do not preclude infection and should not be used as the sole basis for treatment or patient management. Optimum specimen types and timing for peak viral levels during infections caused by SARS-CoV-2 have not been determined. Collection of multiple specimens from the same patient may be necessary to detect the virus. The possibility of a false negative result should be considered if the patient has clinical presentation or has had recent exposure. No Panel Informationon 11-09 Estimated GFR (MDRD) Amer 109 mL/min >60 [facility] Work Phone: Comment on above: GFR Calc Estimated GFR (MDRD) Non-Af Amer 90 mL/min >60 [facility] Work Phone: Comment on above: Non- GFR Calc Serum or plasma calcium syed urement (mass/volume)on 11-09-2021 Calcium [Mass/Vol] 9.3 mg/dL 8.5-10.1 [facility] Work Phone: Serum or plasma creatinine m easurement (mass/volume)on 11-09-2021 Creatinine [Mass/Vol] 0.70 mg/dL 0.55-1.02 [facility] Work Phone: Comment on above: The validity of the calculated GFR & GFRAA in patients over 70 years has not been determined. Clinical correlation is essential. Serum or plasma urea nitroge n measurement (mass/volume)on 11-09-2021 Urea nitrogen [Mass/Vol] 5 mg/dL 7-18 [facility] Work Phone: Thin prep Papanicolaou smear with manual screeningon 11-09-2021 Thin prep Papanicolaou smear with manual screening 6 5-15 [facility] Work Phone: Whole blood hemoglobin A1c/t otal hemoglobin ratio (mass fraction)on 11-09-2021 HbA1c (Bld) [Mass fraction] 5.9 % 3.8-5.6 [facility] Work Phone: Comment on above: Normal < 5.7 % Predi abetic 5.7 - 6.4 % Diabetic >or= 6.5 % Please note range changes. Laboratory - Drug toxicology on 10-15-2021 Amphetamines Ql (U) Negative <1000 ng/mL [facility] Work Phone: Benzodiazepines Ql (U) Negative < 200 ng/mL [facility] Work Phone: Cannabinoids Screen Ql (U) Negative < 50 ng/mL [facility] Work Phone: Cocaine Ql (U) Negative < 300 ng/mL [facility] Work Phone: Opiates Ql (U) Negative < 300 ng/mL [facility] Work Phone: No Panel Informationon 10-15 MDMA (Ecstasy) Screen Negative < 500 ng/mL [facility] Work Phone: Miscellaneous Test See comment [facility] Work Phone: Comment on above: [id number] 6+OXYCODONE-B UND (ng/mL) DRUG RESULT SCREEN CUTOFF____ Amphetamines,Urine Negative ng/mL 1000 Amphetamine test includes Amphetamine and Methamphetamine.Barbiturates Negative ng/mL 200Benzodiazepines Negative ng/mL 200Cannabinoid Negative ng/mL 20Cocaine (Metab) Negative ng/mL 300Opiates Negative ng/mL 300 Opiates test includes Codeine, Morphine, Hydromorphone, Hydrocodone. Oxycodone/Oxymorphone,Urine Negative ng/mL 300 Test includes Oxydodone and Oxymorphone. TESTING PERFORMED AT [facility]. ORIGINAL REPORT ON FILE IN LAB CONTAINS ADDITIONAL TEST SITE INFORMATION. Urine Barbiturates Screen Negative < 200 ng/mL [facility] Work Phone: Urine Drug Screen Comment [facility] Work Phone: Comment on above: CONFIRMATORY TESTING FOR ALL POSITIVE URINE DRUG SCREENRESULTS WILL ONLY BE SENT OUT UPON PHYSICIAN ORDER. VISTA Urine Drug Screen methods provide only preliminaryanalytical test results. A more specific alternate chemicalmethod must be used in order to obtain a confirmedanalytical result. Gas chromatography/mass spectrometery(GC/MS) is the preferred confirmatory method. Clinicalconsideration and professional judgement should be appliedto any drug of abuse test result, particularly whenpreliminary positive results are used. URINE TCA TESTING MUST BE ORDERED SEPARATELY. USE TESTMNEMONIC: [facility] Urine Methadone Screen Negative < 300 ng/mL [facility] Work Phone: [phone] Urine phencyclidine (PCP) de tectionon 10-15-2021 Phencyclidine Ql (U) Negative < 25 ng/mL [facility] Work Phone: [phone] Absolute lymphocyte counton 10-10-2021 Lymphocytes Auto (Unsp spec) [#/Vol] 2.04 10*3/uL 0.83-4.51 [facility] Work Phone: Basophil percentageon 2021 Basophils/100 WBC (Bld) 0.5 % 0-1 [facility] Work Phone: [phone] Bilirubin [Mass/Vol] 0.90 mg/dL 0.20-1.00 [facility] Work Phone: [phone] Comment on above: For patients on eltr ombopag therapy, use of [place] TBIL is not recommended. Chloride [Moles/Vol] 95 mmol/L 98-107 [facility] Work Phone: [phone] Eosinophils/100 WBC (Bld) 1.2 % 0-5 [facility] Work Phone: [phone] Glucose [Mass/Vol] 111 mg/dL 74-106 [facility] Work Phone: [phone] Comment on above: Fasting Glucose resu lt from 100 to 125 mg/dL suggests IMPAIRED HOMEOSTASIS per A.D.A. criteria. Neutrophils (Bld) [#/Vol] 5.9 10*3/uL 2.0-7.7 [facility] Work Phone: [phone] Neutrophils/100 WBC (Bld) 67.1 % 47-70 [facility] Work Phone: [phone] Potassium [Moles/Vol] 3.7 mmol/L 3.5-5.1 [facility] Work Phone: [phone] Protein [Mass/Vol] 8.0 g/dL 6.4-8.2 [facility] Work Phone: Sodium [Moles/Vol] 132 mmol/L 136-145 [facility] Work Phone: WBC (Bld) [#/Vol] 8.8 10*3/uL 4.4-11.0 [facility] Work Phone: Blood erythrocytes count (nu mber/volume)on 10-10-2021 RBC (Bld) [#/Vol] 4.50 10*6/uL 4.2-5.4 [facility] Work Phone: [phone] Blood hemoglobin measurement (mass/volume)on 10-10-2021 Hemoglobin (Bld) [Mass/Vol] 13.3 g/dL 12.0-15.0 [facility] Work Phone: Blood lymphocytes/100 leukoc yteson 10-10-2021 Lymphocytes/100 WBC (Bld) 23.1 % 19-41 [facility] Work Phone: Blood monocytes/100 leukocyt eson 10-10-2021 Monocytes/100 WBC (Bld) 7.8 % 0-10 [facility] Work Phone: [phone] Blood platelet mean volumeon 10-10-2021 Platelet mean volume (Bld) [Entitic vol] 9.4 fL 6.2-12.0 [facility] Work Phone: [phone] Determination of erythrocyte mean corpuscular volume (MCV)on 10-10-2021 MCV (RBC) [Entitic vol] 88.4 fL 81-99 [facility] Work Phone: Erythrocyte sedimentation ra zhen 10-10-2021 ESR (Bld) [Velocity] 26 mm/h 0-30 [facility] Work Phone: Hematocrit Auto (Bld) [Volum e fraction]on 10-10-2021 Hematocrit (Bld) [Volume fraction] 39.8 % 37-47 [facility] Work Phone: [phone] Laboratory - Chemistry and C hemistry - challengeon 07-06-2022 ALP [Catalytic activity/Vol] 57 U/L 45-117 [facility] Work Phone: [phone] ALT [Catalytic activity/Vol] 26 U/L 13-56 [facility] Work Phone: [phone] CO2 [Moles/Vol] 29.0 mmol/L 21.0-32.0 [facility] Work Phone: [phone] Globulin (S) [Mass/Vol] 3.7 g/dL 2.2-4.2 [facility] Work Phone: [phone] Urea nitrogen/Creatinine [Mass ratio] 7.4 mg/mg 10-20 [facility] Work Phone: [phone] Laboratory - Hematology and Cell countson 10-10-2021 Erythrocyte distribution width (RBC) [Entitic vol] 44.2 fL 35.1-43.9 [facility] Work Phone: [phone] Erythrocyte distribution width (RBC) [Ratio] 13.7 % 11.6-14.6 [facility] Work Phone: [phone] Immature granulocytes/100 WBC (Bld) 0.300 % 0.0-0.9 [facility] Work Phone: Comment on above: IG% - Immature Granu locytes (promyelocytes, myelocytes and metamyelocytes) > 1% indicates that a LEFT SHIFT is Present. MCH (RBC) [Entitic mass] 29.6 pg 27.0-32.0 [facility] Work Phone: Nucleated RBC/100 WBC (Bld) [Ratio] 0 % 0-5 [facility] Work Phone: [phone] MCHC Auto (RBC) [Mass/Vol]on 10-10-2021 MCHC (RBC) [Mass/Vol] 33.4 g/dL 32-36 [facility] Work Phone: No Panel Informationon 10-10 Estimated GFR (MDRD) Amer 92 mL/min >60 [facility] Work Phone: Comment on above: GFR Calc Estimated GFR (MDRD) Non-Af Amer 76 mL/min >60 [facility] Work Phone: Comment on above: Non- GFR Calc Hepatitis B Surface Antigen Non-Reactive Nonreactive [facility] Work Phone: Hepatitis C Antibody Non-Reactive Nonreactive [facility] Work Phone: Comment on above: Non Reactive: < 0.8 Equivocal: >/= 0.8 to < 1.0 Reactive: >/= 1.0The [facility] recommends that a reactive/equivocal HCV antibody result be followed up by the HCV Nucleic Acid Amplificationtest (266418) Platelets bldon 10-10-2021 Platelets (Bld) [#/Vol] 476 10*3/uL 150-450 [facility] Work Phone: Serum cyclic citrullinated p eptide IgG antibody assay (units/volume)on 10-10-2021 Cyclic citrullinated peptide IgG Qn 7 units 0-19 [facility] Work Phone: Comment on above: Negative <20 Weak po sitive 20 - 39 Moderate positive 40 - 59 Strong positive >59Performed at: [facility] [address] [place], [place] [id number] Director: Napoleon Niño PhD, Phone: [phone] at: [facility] [address] [id number] Director: Igor Andrews MD, Phone: [phone] Serum hepatitis B virus surf bautista antibody IgG detectionon 10-10-2021 HBV surface IgG Ql (S) Non-Reactive [facility] Work Phone: Comment on above: Non Reactive: Incons istent with immunity less than <10 mIU/mL Reactive: Consistent with immunity greater than or equal to 10 mIU/mL Serum or plasma C reactive p rotein measurement (mass/volume)on 10-10-2021 CRP [Mass/Vol] 6.55 mg/L 0.0-3.0 [facility] Work Phone: Comment on above: C-Reactive Protein ( CRP) provides useful information for thediagnosis, therapy and monitoring of inflammatory processesand associated diseases. For the evaluation of Relative Riskfor Cardiovascular Disease, a High Sensitivity CRP (HSCRP)should be ordered. Serum or plasma albumin syed urement (mass/volume)on 10-10-2021 Albumin [Mass/Vol] 4.3 g/dL 3.2-5.0 [facility] Work Phone: Serum or plasma albumin/glob ulin mass ratioon 10-10-2021 Albumin/Globulin [Mass ratio] 1.2 {ratio} 0.9-2.4 [facility] Work Phone: Serum or plasma calcium syed urement (mass/volume)on 10-10-2021 Calcium [Mass/Vol] 9.4 mg/dL 8.5-10.1 [facility] Work Phone: Serum or plasma creatinine m easurement (mass/volume)on 10-10-2021 Creatinine [Mass/Vol] 0.81 mg/dL 0.55-1.02 [facility] Work Phone: Comment on above: The validity of the calculated GFR & GFRAA in patients over 70 years has not been determined. Clinical correlation is essential. Serum or plasma urea nitroge n measurement (mass/volume)on 10-10-2021 Urea nitrogen [Mass/Vol] 6 mg/dL 7-18 [facility] Work Phone: Serum rheumatoid factor dete ctionon 10-10-2021 Rheumatoid factor Ql (S) < 10.0 IU/mL <15 [facility] Work Phone: Thin prep Papanicolaou smear with manual screeningon 10-10-2021 Thin prep Papanicolaou smear with manual screening 19 U/L 15-37 [facility] Work Phone: Thin prep Papanicolaou smear with manual screening 8 5-15 [facility] Work Phone: Thin prep Papanicolaou smear with manual screening Negative . [facility] Work Phone: Comment on above: HLA-B*27 [id number] allele interpretation for all loci based on IMGT/HLAdatabase version 3.44This test was developed and its performance characteristicsdetermined by [employer]. It has not been cleared or approvedby the Food and Drug Administration.[facility] CLIA ID Number [id number] test was performed using PCR (Polymerase ChainReaction)/SSOP (Sequence Specific Oligonucleotide Probes)technique. SBT (Sequence Based Typing) and/or SSP(Sequence Specific Primers) may be used as supplementalmethods when necessary. Please contact [facility] CustomerService at if you have any questions. Director of [facility] Dr Napoleon Niño, PhD Laboratory - Hematology and Cell countson 07-31-2021 HbA1c (Bld) [Mass fraction] 6.1 % 4.2-6.3 [facility] Work Phone: Basophil percentageon 2021 Basophil percentage Not Reportable [facility] Work Phone: Erythrocyte sedimentation ra zhen 06-20-2021 ESR (Bld) [Velocity] 31 mm/h 0-30 [facility] Work Phone: No Panel Informationon 06-20 Anti-Nuclear Antibody Screen Negative Negative [facility] Work Phone: Comment on above: Performed at: [address] Director: Fuentes Petty PhD, Phone: [phone] Centromere B Antibody Not Reportable [facility] Work Phone: CERTIFICATION OFFICER Antibody Not Reportable [facility] Work Phone: Serum DNA double strand anti body assay (units/volume)on 06-20-2021 DNA double strand Ab Qn (S) Not Reportable [facility] Work Phone: Serum Vika-1 antibody assay (u nits/volume)on 06-20-2021 Vika-1 extractable nuclear Ab Qn (S) Not Reportable [facility] Work Phone: Serum Scl-70 extractable nuc lear antibody assay (units/volume)on 06-20-2021 SCL-70 extractable nuclear Ab Qn (S) Not Reportable [facility] Work Phone: Serum Shay extractable nucl ear antibody detectionon 06-20-2021 Shay extractable nuclear Ab Ql (S) Not Reportable [facility] Work Phone: Serum rheumatoid factor dete ctionon 06-20-2021 Rheumatoid factor Ql (S) < 10.0 IU/mL <15 [facility] Work Phone: Absolute lymphocyte counton 05-02-2021 Lymphocytes Auto (Unsp spec) [#/Vol] 2.59 10*3/uL 0.83-4.51 [facility] Work Phone: [phone] Basophil percentageon 2021 Basophils/100 WBC (Bld) 0.6 % 0-1 [facility] Work Phone: Bilirubin [Mass/Vol] 1.00 mg/dL 0.20-1.00 [facility] Work Phone: Comment on above: For patients on eltr ombopag therapy, use of [place] TBIL is not recommended. Chloride [Moles/Vol] 95 mmol/L 98-107 [facility] Work Phone: Cholesterol [Mass/Vol] 204 mg/dL <200 [facility] Work Phone: Comment on above: <200 mg/dL Desirable 200-240 mg/dL Borderline >240 mg/dL High Risk Eosinophils/100 WBC (Bld) 2.0 % 0-5 [facility] Work Phone: Glucose [Mass/Vol] 101 mg/dL 74-106 [facility] Work Phone: Comment on above: Fasting Glucose resu lt from 100 to 125 mg/dL suggests IMPAIRED HOMEOSTASIS per A.D.A. criteria. Neutrophils (Bld) [#/Vol] 4.6 10*3/uL 2.0-7.7 [facility] Work Phone: [phone] Neutrophils/100 WBC (Bld) 57.8 % 47-70 [facility] Work Phone: [phone] Potassium [Moles/Vol] 4.0 mmol/L 3.5-5.1 [facility] Work Phone: [phone] Protein [Mass/Vol] 8.0 g/dL 6.4-8.2 [facility] Work Phone: [phone] Sodium [Moles/Vol] 133 mmol/L 136-145 [facility] Work Phone: [phone] Triglyceride [Mass/Vol] 263 mg/dL [facility] Work Phone: [phone] Comment on above: The drugs N-Acetylcy steine and Metamizole may falsely depress this assay.Serum Triglycerides Reference Interval Normal <150 mg/dL Borderline high 150 - 199 mg/dL High 200 - 499 mg/dL Very High > or = 500 mg/dL WBC (Bld) [#/Vol] 8.0 10*3/uL 4.4-11.0 [facility] Work Phone: [phone] Blood erythrocytes count (nu mber/volume)on 05-02-2021 RBC (Bld) [#/Vol] 4.62 10*6/uL 4.2-5.4 [facility] Work Phone: Blood hemoglobin measurement (mass/volume)on 05-02-2021 Hemoglobin (Bld) [Mass/Vol] 13.0 g/dL 12.0-15.0 [facility] Work Phone: Blood lymphocytes/100 leukoc yteson 05-02-2021 Lymphocytes/100 WBC (Bld) 32.4 % 19-41 [facility] Work Phone: Blood monocytes/100 leukocyt eson 05-02-2021 Monocytes/100 WBC (Bld) 6.9 % 0-10 [facility] Work Phone: [phone] Blood platelet mean volumeon 05-02-2021 Platelet mean volume (Bld) [Entitic vol] 8.9 fL 6.2-12.0 [facility] Work Phone: Determination of erythrocyte mean corpuscular volume (MCV)on 05-02-2021 MCV (RBC) [Entitic vol] 87.7 fL 81-99 [facility] Work Phone: [phone] Hematocrit Auto (Bld) [Volum e fraction]on 05-02-2021 Hematocrit (Bld) [Volume fraction] 40.5 % 37-47 [facility] Work Phone: [phone] Laboratory - Chemistry and C hemistry - challengeon 05-02-2021 ALP [Catalytic activity/Vol] 68 U/L 45-117 [facility] Work Phone: ALT [Catalytic activity/Vol] 31 U/L 13-56 [facility] Work Phone: CO2 [Moles/Vol] 31.0 mmol/L 21.0-32.0 [facility] Work Phone: Globulin (S) [Mass/Vol] 3.9 g/dL 2.2-4.2 [facility] Work Phone: Urea nitrogen/Creatinine [Mass ratio] 8.8 mg/mg 10-20 [facility] Work Phone: Laboratory - Hematology and Cell countson 05-02-2021 Erythrocyte distribution width (RBC) [Entitic vol] 42.7 fL 35.1-43.9 [facility] Work Phone: Erythrocyte distribution width (RBC) [Ratio] 13.4 % 11.6-14.6 [facility] Work Phone: [phone] Immature granulocytes/100 WBC (Bld) 0.300 % 0.0-0.9 [facility] Work Phone: [phone] Comment on above: IG% - Immature Granu locytes (promyelocytes, myelocytes and metamyelocytes) > 1% indicates that a LEFT SHIFT is Present. MCH (RBC) [Entitic mass] 28.1 pg 27.0-32.0 [facility] Work Phone: Nucleated RBC/100 WBC (Bld) [Ratio] 0 % 0-5 [facility] Work Phone: HbA1c (Bld) [Mass fraction] 6.2 % [facility] Work Phone: MCHC Auto (RBC) [Mass/Vol]on 05-02-2021 MCHC (RBC) [Mass/Vol] 32.1 g/dL 32-36 [facility] Work Phone: No Panel Informationon 05-02 Estimated GFR (MDRD) Amer 94 mL/min >60 [facility] Work Phone: Comment on above: GFR Calc Estimated GFR (MDRD) Non-Af Amer 78 mL/min >60 [facility] Work Phone: Comment on above: Non- GFR Calc Platelets bldon 05-02-2021 Platelets (Bld) [#/Vol] 490 10*3/uL 150-450 [facility] Work Phone: Serum or plasma albumin syed urement (mass/volume)on 05-02-2021 Albumin [Mass/Vol] 4.1 g/dL 3.2-5.0 [facility] Work Phone: Serum or plasma albumin/glob ulin mass ratioon 05-02-2021 Albumin/Globulin [Mass ratio] 1.1 {ratio} 0.9-2.4 [facility] Work Phone: Serum or plasma calcium syed urement (mass/volume)on 05-02-2021 Calcium [Mass/Vol] 9.5 mg/dL 8.5-10.1 [facility] Work Phone: Serum or plasma cholesterol in HDL measurement (mass/volume)on 05-02-2021 Cholesterol in HDL [Mass/Vol] 77 mg/dL [facility] Work Phone: Comment on above: The drugs N-Acetylcy steine and Metamizole may falsely depress this assay. Reference Range HDL <40 mg/dL Low HDL Cholesterol HDL >or= 60 mg/dL High HDL Cholesterol Serum or plasma cholesterol in VLDL measurement (mass/volume)on 05-02-2021 Cholesterol in VLDL [Mass/Vol] 53 mg/dL 5-40 [facility] Work Phone: Serum or plasma creatinine m easurement (mass/volume)on 05-02-2021 Creatinine [Mass/Vol] 0.80 mg/dL 0.55-1.02 [facility] Work Phone: Comment on above: The validity of the calculated GFR & GFRAA in patients over 70 years has not been determined. Clinical correlation is essential. Serum or plasma low density lipoprotein (LDL) cholesterol measurement (mass/volume)on 05-02-2021 Cholesterol in LDL [Mass/Vol] 74 mg/dL 0-130 [facility] Work Phone: Serum or plasma urea nitroge n measurement (mass/volume)on 05-02-2021 Urea nitrogen [Mass/Vol] 7 mg/dL 7-18 [facility] Work Phone: Thin prep Papanicolaou smear with manual screeningon 05-02-2021 Thin prep Papanicolaou smear with manual screening 20 U/L 15-37 [facility] Work Phone: Thin prep Papanicolaou smear with manual screening 7 5-15 [facility] Work Phone: LABORATORYOrdered By: Lambert Hall on 04-02-2021 Natriuretic peptide.B prohormone N-Terminal [Mass/Vol] 29 pg/mL Invalid Interpretation Code 0 - 125 pg/mL AO ADM SS LABORATORYOrdered By: Lambert Hall on 01-19-2021 Calcium [Mass/Vol] 9.2 mg/dL Invalid Interpretation Code 8.4 - 10.2 mg/dL AO ADM SS Chloride [Moles/Vol] 95 mmol/L Invalid Interpretation Code 98 - 107 mmol/L AO ADM SS CO2 [Moles/Vol] 31 mmol/L Invalid Interpretation Code 23 - 31 mmol/L AO ADM SS Creatinine [Mass/Vol] 0.80 mg/dL Invalid Interpretation Code 0.55 - 1.02 mg/dL AO ADM SS Electrolyte Balance 9.0 mEq/L Invalid Interpretation Code AO ADM SS Glucose [Mass/Vol] 101 mg/dL Invalid Interpretation Code 80 - 115 mg/dL AO ADM SS Natriuretic peptide.B prohormone N-Terminal [Mass/Vol] 53 pg/mL Invalid Interpretation Code 0 - 125 pg/mL AO ADM SS Potassium [Moles/Vol] 3.9 mmol/L Invalid Interpretation Code 3.5 - 5.1 mmol/L AO ADM SS Sodium [Moles/Vol] 135 mmol/L Invalid Interpretation Code 136 - 145 mmol/L AO ADM SS Urea nitrogen [Mass/Vol] 10 mg/dL Invalid Interpretation Code 7 - 18 mg/dL AO ADM SS Urea nitrogen/Creatinine [Mass ratio] 12 ratio Invalid Interpretation Code 7 - 27 ratio AO ADM SS LABORATORYOrdered By: SYSTEM SYSTEM on 01-19-2021 GFR 88 ml/min/1.73sqm Invalid Interpretation Code AO Chemistry S GFR Non- 73 ml/min/1.73sqm Invalid Interpretation Code AO Chemistry S Vital Signs Date Time Vital Sign Value Performing Clinician Faci lity 10-05-2024 13:07-0400 Body height 160.[address] Tash Fallon MD Work Phone: [facility] 10-05-2024 13:07-0400 Body mass index (BMI) [Ratio] 33.5 kg/m2 Dr. Tash Fallon MD Work Phone: [facility] 10-05-2024 13:07-0400 Body temperature 98 [degF] Dr. Tash Fallon MD Work Phone: [facility] 10-05-2024 13:07-0400 Body weight 85.[address] Tash Fallon MD Work Phone: [facility] 10-05-2024 13:07-0400 Diastolic blood pressure 76 mm[Hg] Dr. Tash Fallon MD Work Phone: [facility] 10-05-2024 13:07-0400 Heart rate 92 /min Dr. Tash Fallon MD Work Phone: [facility] 10-05-2024 13:07-0400 Respiratory rate 18 /min Dr. Tash Fallon MD Work Phone: [facility] 10-05-2024 13:07-0400 SaO2% (BldA) [Mass fraction] 94 % Dr. Tash Fallon MD Work Phone: [facility] 10-05-2024 13:07-0400 Systolic blood pressure 144 mm[Hg] Dr. Tash Fallon MD Work Phone: [facility] 07-01-2024 08:32-0400 Body mass index (BMI) [Ratio] 33.1 kg/m2 Dr. Tash Fallon MD Work Phone: [facility] 07-01-2024 08:32-0400 Body temperature 97.4 [degF] Dr. Tash Fallon MD Work Phone: [facility] 07-01-2024 08:32-0400 Body weight 84.[address] Tash Fallon MD Work Phone: [facility] 07-01-2024 08:32-0400 Diastolic blood pressure 74 mm[Hg] Dr. Tash Fallon MD Work Phone: [facility] 07-01-2024 08:32-0400 Heart rate 78 /min Dr. Tash Fallon MD Work Phone: [facility] 07-01-2024 08:32-0400 Respiratory rate 16 /min Dr. Tash Fallon MD Work Phone: [facility] 07-01-2024 08:32-0400 SaO2% (BldA) [Mass fraction] 99 % Dr. Tash Fallon MD Work Phone: [facility] 07-01-2024 08:32-0400 Systolic blood pressure 122 mm[Hg] Dr. Tash Fallon MD Work Phone: [facility] 06-20-2023 11:21-0400 Body height 160.[address] Tash Fallon Work Phone: [facility] 04-21-2023 10:57-0500 Body height 160.[address] Tash Fallon Work Phone: [facility] 04-21-2023 10:44-0500 Body mass index (BMI) [Ratio] 31.9 kg/m2 Dr. Tash Fallon Work Phone: [facility] 04-21-2023 10:44-0500 Body weight 81.[address] Tash Fallon Work Phone: [facility] 03-27-2023 15:55-0500 Body mass index (BMI) [Ratio] 31.7 kg/m2 Dr. Tash Fallon Work Phone: [facility] 03-27-2023 15:55-0500 Body temperature 97.8 [degF] Dr. Tash Fallon Work Phone: [facility] 03-27-2023 15:55-0500 Body weight 81.[address] Tash Fallon Work Phone: [facility] 03-27-2023 15:55-0500 Diastolic blood pressure 80 mm[Hg] Dr. Tash Fallon Work Phone: [facility] 03-27-2023 15:55-0500 Heart rate 85 /min Dr. Tash Fallon Work Phone: [facility] 03-27-2023 15:55-0500 Respiratory rate 16 /min Dr. Tash Fallon Work Phone: [facility] 03-27-2023 15:55-0500 SaO2% (BldA) [Mass fraction] 98 % Dr. Tash Fallon Work Phone: [facility] 03-27-2023 15:55-0500 Systolic blood pressure 138 mm[Hg] Dr. Tash Fallon Work Phone: [facility] 03-17-2023 10:05-0500 Body height 160.[address] Tash Fallon Work Phone: [facility] 03-17-2023 10:05-0500 Body mass index (BMI) [Ratio] 31.8 kg/m2 Dr. Tash Fallno Work Phone: [facility] 03-17-2023 10:05-0500 Body temperature 97.7 [degF] Dr. Tash Fallon Work Phone: [facility] 03-17-2023 10:05-0500 Body weight 81.[address] Tash Fallon Work Phone: [facility] 03-17-2023 10:05-0500 Diastolic blood pressure 82 mm[Hg] Dr. Tash Fallon Work Phone: [facility] 03-17-2023 10:05-0500 Heart rate 81 /min Dr. Tash Fallon Work Phone: [facility] 03-17-2023 10:05-0500 Respiratory rate 16 /min Dr. Tash Fallon Work Phone: [facility] 03-17-2023 10:05-0500 SaO2% (BldA) [Mass fraction] 97 % Dr. Tash Fallon Work Phone: [facility] 03-17-2023 10:05-0500 Systolic blood pressure 120 mm[Hg] Dr. Tash Fallon Work Phone: [facility] 03-13-2023 14:12-0500 Body temperature 98.7 [degF] Dr. Tash Fallon Work Phone: [facility] 03-13-2023 14:12-0500 Diastolic blood pressure 84 mm[Hg] Dr. Tash Fallon Work Phone: [facility] 03-13-2023 14:12-0500 Heart rate 94 /min Dr. Tash Fallon Work Phone: [facility] 03-13-2023 14:12-0500 Respiratory rate 14 /min Dr. Tash Fallon Work Phone: [facility] 03-13-2023 14:12-0500 SaO2% (BldA) [Mass fraction] 93 % Dr. Tash Fallon Work Phone: [facility] 03-13-2023 14:12-0500 Systolic blood pressure 143 mm[Hg] Dr. Tash Fallon Work Phone: [facility] 01-03-2023 09:23-0400 Body height 160.[address] Tash Fallon Work Phone: [facility] 01-03-2023 09:23-0400 Body mass index (BMI) [Ratio] 31.3 kg/m2 Dr. Tash Fallon Work Phone: [facility] 01-03-2023 09:23-0400 Body temperature 98.1 [degF] Dr. Tash Fallon Work Phone: [facility] 01-03-2023 09:23-0400 Body weight 80.[address] Tash Fallon Work Phone: [facility] 01-03-2023 09:23-0400 Diastolic blood pressure 83 mm[Hg] Dr. Tash Faloln Work Phone: [facility] 01-03-2023 09:23-0400 Heart rate 83 /min Dr. aTsh Fallon Work Phone: [facility] 01-03-2023 09:23-0400 Respiratory rate 14 /min Dr. Tash Fallon Work Phone: [facility] 01-03-2023 09:23-0400 SaO2% (BldA) [Mass fraction] 96 % Dr. Tash Fallon Work Phone: [facility] 01-03-2023 09:23-0400 Systolic blood pressure 161 mm[Hg] Dr. Tash Fallon Work Phone: [facility] 09-24-2022 15:24-0400 Body height 160.[address] Tash Fallon Work Phone: [facility] 09-24-2022 15:24-0400 Body mass index (BMI) [Ratio] 31.3 kg/m2 Dr. Tash Fallon Work Phone: [facility] 09-24-2022 15:24-0400 Body temperature 98.6 [degF] Dr. Tash Fallon Work Phone: [facility] 09-24-2022 15:24-0400 Body weight 80.[address] Tash Fallon Work Phone: [facility] 09-24-2022 15:24-0400 Diastolic blood pressure 76 mm[Hg] Dr. Tash Fallon Work Phone: [facility] 09-24-2022 15:24-0400 Heart rate 86 /min Dr. Tash Fallon Work Phone: [facility] 09-24-2022 15:24-0400 Respiratory rate 14 /min Dr. Tash Fallon Work Phone: [facility] 09-24-2022 15:24-0400 SaO2% (BldA) [Mass fraction] 97 % Dr. Tash Fallon Work Phone: [facility] 09-24-2022 15:24-0400 Systolic blood pressure 138 mm[Hg] Dr. Tash Fallon Work Phone: [facility] 08-26-2022 14:09-0400 Body temperature 97.4 [degF] Dr. Tash Fallon Work Phone: [facility] 08-26-2022 14:09-0400 Body weight 79.[address] Tash Fallon Work Phone: [facility] 08-26-2022 14:09-0400 Diastolic blood pressure 74 mm[Hg] Dr. Tash Fallon Work Phone: [facility] 08-26-2022 14:09-0400 Heart rate 88 /min Dr. Tash Fallon Work Phone: [facility] 08-26-2022 14:09-0400 Respiratory rate 14 /min Dr. Tash Fallon Work Phone: [facility] 08-26-2022 14:09-0400 SaO2% (BldA) [Mass fraction] 97 % Dr. Tash Fallon Work Phone: [facility] 08-26-2022 14:09-0400 Systolic blood pressure 122 mm[Hg] Dr. Tash Fallon Work Phone: [facility] 11-19-2021 10:26-0400 Body height 160.[address] Tash Fallon Work Phone: [facility] Work Phone: 11-19-2021 10:26-0400 Body mass index (BMI) [Ratio] 29.7 kg/m2 Dr. Tash Fallon Work Phone: [facility] Work Phone: 11-19-2021 10:26-0400 Body temperature 98.6 [degF] Dr. Tash Fallon Work Phone: [facility] Work Phone: 11-19-2021 10:26-0400 Body weight 76.[address] Tash Fallon Work Phone: [facility] Work Phone: 11-19-2021 10:26-0400 Diastolic blood pressure 70 mm[Hg] Dr. Tash Fallon Work Phone: [facility] Work Phone: 11-19-2021 10:26-0400 Heart rate 81 /min Dr. Tash Fallon Work Phone: [facility] Work Phone: 11-19-2021 10:26-0400 Respiratory rate 14 /min Dr. Tash Fallon Work Phone: [facility] Work Phone: 11-19-2021 10:26-0400 SaO2% (BldA) [Mass fraction] 97 % Dr. Tash Fallon Work Phone: [facility] Work Phone: 11-19-2021 10:26-0400 Systolic blood pressure 122 mm[Hg] Dr. Tash Fallon Work Phone: [facility] Work Phone: 11-09-2021 11:12-0400 Body height 160.[address] Tash Fallon Work Phone: [facility] Work Phone: 11-09-2021 11:12-0400 Body mass index (BMI) [Ratio] 29.5 kg/m2 Dr. Tash Fallon Work Phone: [facility] Work Phone: 11-09-2021 11:12-0400 Body temperature 97.3 [degF] Dr. Tash Fallon Work Phone: [facility] Work Phone: 11-09-2021 11:12-0400 Body weight 75.[address] Tash Fallon Work Phone: [facility] Work Phone: 11-09-2021 11:12-0400 Diastolic blood pressure 60 mm[Hg] Dr. Tash Fallon Work Phone: [facility] Work Phone: 11-09-2021 11:12-0400 Heart rate 78 /min Dr. Tash Fallon Work Phone: [facility] Work Phone: 11-09-2021 11:12-0400 Respiratory rate 18 /min Dr. Tash Fallon Work Phone: [facility] Work Phone: 11-09-2021 11:12-0400 SaO2% (BldA) [Mass fraction] 98 % Dr. Tash Fallon Work Phone: [facility] Work Phone: 11-09-2021 11:12-0400 Systolic blood pressure 124 mm[Hg] Dr. Tash Fallon Work Phone: [facility] Work Phone: 07-31-2021 09:39-0400 Body height 160.[address] Tash Fallon Work Phone: [facility] Work Phone: 07-31-2021 09:39-0400 Body mass index (BMI) [Ratio] 30.4 kg/m2 Dr. Tash Fallon Work Phone: [facility] Work Phone: 07-31-2021 09:39-0400 Body temperature 97 [degF] Dr. Tash Fallon Work Phone: [facility] Work Phone: 07-31-2021 09:39-0400 Body weight 78.[address] Tash Fallon Work Phone: [facility] Work Phone: 07-31-2021 09:39-0400 Heart rate 81 /min Dr. Tash Fallon Work Phone: [facility] Work Phone: 07-31-2021 09:39-0400 Respiratory rate 18 /min Dr. Tash Fallon Work Phone: [facility] Work Phone: 07-31-2021 09:39-0400 SaO2% (BldA) [Mass fraction] 97 % Dr. Tash Fallon Work Phone: [facility] Work Phone: 07-31-2021 09:39-0400 Body height 160.[address] Tash Fallon Work Phone: [facility] Work Phone: 07-31-2021 09:39-0400 Body mass index (BMI) [Ratio] 30.4 kg/m2 Dr. Tash Fallon Work Phone: [facility] Work Phone: 07-31-2021 09:39-0400 Body temperature 97 [degF] Dr. Tash Fallon Work Phone: [facility] Work Phone: 07-31-2021 09:39-0400 Body weight 78.[address] Tash Fallon Work Phone: [facility] Work Phone: 07-31-2021 09:39-0400 Heart rate 81 /min Dr. Tash Fallon Work Phone: [facility] Work Phone: 07-31-2021 09:39-0400 Respiratory rate 18 /min Dr. Tash Fallon Work Phone: [facility] Work Phone: 07-31-2021 09:39-0400 SaO2% (BldA) [Mass fraction] 97 % Dr. Tash Fallon Work Phone: [facility] Work Phone: 06-20-2021 10:35-0400 Body mass index (BMI) [Ratio] 28.8 kg/m2 Dr. Tash Fallon Work Phone: [facility] Work Phone: 06-20-2021 10:35-0400 Body temperature 98.4 [degF] Dr. Tash Fallon Work Phone: [facility] Work Phone: 06-20-2021 10:35-0400 Body weight 73.[address] Tash Fallon Work Phone: [facility] Work Phone: 06-20-2021 10:35-0400 Diastolic blood pressure 80 mm[Hg] Dr. Tash Fallon Work Phone: [facility] Work Phone: 06-20-2021 10:35-0400 Heart rate 82 /min Dr. Tash Fallon Work Phone: [facility] Work Phone: 06-20-2021 10:35-0400 Respiratory rate 14 /min Dr. Tash Fallon Work Phone: [facility] Work Phone: 06-20-2021 10:35-0400 SaO2% (BldA) [Mass fraction] 96 % Dr. Tash Fallon Work Phone: [facility] Work Phone: 06-20-2021 10:35-0400 Systolic blood pressure 126 mm[Hg] Dr. Tash Fallon Work Phone: [facility] Work Phone: 06-20-2021 10:35-0400 Body height 160.[address] Tash Fallon Work Phone: [facility] Work Phone: 06-20-2021 10:35-0400 Body mass index (BMI) [Ratio] 28.8 kg/m2 Dr. Tash Fallon Work Phone: [facility] Work Phone: 06-20-2021 10:35-0400 Body temperature 98.4 [degF] Dr. Tash Fallon Work Phone: [facility] Work Phone: 06-20-2021 10:35-0400 Body weight 73.[address] Tash Fallon Work Phone: [facility] Work Phone: 06-20-2021 10:35-0400 Diastolic blood pressure 80 mm[Hg] Dr. Tash Fallon Work Phone: [facility] Work Phone: 06-20-2021 10:35-0400 Heart rate 82 /min Dr. Tash Fallon Work Phone: [facility] Work Phone: 06-20-2021 10:35-0400 Respiratory rate 14 /min Dr. Tash Fallon Work Phone: [facility] Work Phone: 06-20-2021 10:35-0400 SaO2% (BldA) [Mass fraction] 96 % Dr. Tash Fallon Work Phone: [facility] Work Phone: 06-20-2021 10:35-0400 Systolic blood pressure 126 mm[Hg] Dr. Tash Fallon Work Phone: [facility] Work Phone: 05-02-2021 09:32-0500 Body mass index (BMI) [Ratio] 30.1 kg/m2 Dr. Tash Fallon Work Phone: [facility] Work Phone: 05-02-2021 09:32-0500 Body temperature 96.6 [degF] Dr. Tash Fallon Work Phone: [facility] Work Phone: 05-02-2021 09:32-0500 Body weight 77.[address] Tash Fallon Work Phone: [facility] Work Phone: 05-02-2021 09:32-0500 Diastolic blood pressure 72 mm[Hg] Dr. Tash Fallon Work Phone: [facility] Work Phone: 05-02-2021 09:32-0500 Heart rate 83 /min Dr. Tash Fallon Work Phone: [facility] Work Phone: 05-02-2021 09:32-0500 Respiratory rate 14 /min Dr. Tash Fallon Work Phone: [facility] Work Phone: 05-02-2021 09:32-0500 SaO2% (BldA) [Mass fraction] 99 % Dr. Tash Fallon Work Phone: [facility] Work Phone: 05-02-2021 09:32-0500 Systolic blood pressure 112 mm[Hg] Dr. Tash Fallon Work Phone: [facility] Work Phone: 03-20-2021 13:02-0500 Body mass index (BMI) [Ratio] 29 kg/m2 Dr. Tash Fallon Work Phone: [facility] Work Phone: 03-20-2021 13:02-0500 Body temperature 97.6 [degF] Dr. Tash Fallon Work Phone: [facility] Work Phone: 03-20-2021 13:02-0500 Body weight 74.[address] Tash Fallon Work Phone: [facility] Work Phone: 03-20-2021 13:02-0500 Diastolic blood pressure 84 mm[Hg] Dr. Tash Fallon Work Phone: [facility] Work Phone: 03-20-2021 13:02-0500 Heart rate 78 /min Dr. Tash Fallon Work Phone: [facility] Work Phone: 03-20-2021 13:02-0500 Respiratory rate 14 /min Dr. Tash Fallon Work Phone: [facility] Work Phone: 03-20-2021 13:02-0500 SaO2% (BldA) [Mass fraction] 97 % Dr. Tash Fallon Work Phone: [facility] Work Phone: 03-20-2021 13:02-0500 Systolic blood pressure 120 mm[Hg] Dr. Tash Fallon Work Phone: [facility] Work Phone: Encounters Encounter Date Encounter Type Care Provider Facility Start: 10-05-2024 End: 10-05-[address] Tash Fallon MD Work Phone: -[facility] Start: 10-05-2024 End: 10-05-2024 Patient encounter procedure Elsa Alvarez NP-C -[facility] Work Phone: Start: 09-21-2024 End: 09-21-2024 Office outpatient new 60 minutes Wilmer Titus MD Work Phone: Ophthalmology Comment on above: Low tension glaucoma of left eye, severe stage (Primary Dx); Low-tension glaucoma, right eye, mild stage; Pseudophakia; Long-term use of Plaquenil Start: 09-21-2024 End: 09-21-2024 ambulatory WILMER TITUS Facility:[facility] Start: 08-27-2024 ambulatory TASH FISHER MD Facility:[facility] Start: 07-23-2024 End: 07-23-[address] Susie Washington MD [facility] Work Phone: Start: 07-23-2024 End: 07-23-2024 ambulatory [facility] Facility:[facility] Start: 07-01-2024 End: 07-01-2024 Patient encounter procedure Riley VALENTIN -[facility] Work Phone: Start: 07-01-2024 End: 07-01-2024 ambulatory Tash Fallon Facility:[facility] Start: 06-10-[address] JAIME BHATTI MD Facility:[facility] Start: 04-30-2024 Encounter for genera l adult medical examination without abnormal [facility] Start: 04-30-2024 End: 04-30-2024 ambulatory Tash Fallon Facility:[facility] Start: 04-30-2024 End: 04-30-2024 ambulatory [facility] Facility:[facility] Start: 02-11-2024 End: 02-11-2024 ambulatory [facility] Facility:[facility] Start: 01-19-2024 End: 01-19-2024 ambulatory TASH FALLON MD Facility:[facility] Start: 01-19-2024 End: 01-19-[address] JAIME LEO MD [facility] Start: 11-17-2023 End: 11-17-[address] [facility] Facility:[facility] Start: 11-13-2023 End: 11-13-2023 ambulatory [facility] Facility:[facility] Start: 09-29-2023 End: 09-29-[address] [facility] Facility:[facility] Start: 09-19-[address] Tash Fallon MD Work Phone: [facility] Start: 09-19-2023 End: 09-19-2023 ambulatory Tash Fallon Facility:[facility] Start: 08-15-2023 End: 08-15-2023 ambulatory Susie Washington Facility:[facility] Start: 07-07-2023 End: 07-07-[address] Tash Fallon Work Phone: [facility] Work Phone: Start: 07-07-2023 End: 07-07-2023 Patient encounter procedure Dr. Tash Fallon Work Phone: [facility] Work Phone: Start: 06-23-2023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 Sign Date: 07/19/2022 12:30:16 PM [facility]ments Appointment Date:01/25/2021 08:00:00 AM Scheduled Provider: Location:PULM Appointment Type:PF PFT w/[place] Future Scheduled Tests Laboratory* N-Terminal proBNP 04/04/21 * N-Terminal proBNP 07/03/21 [facility] Evaluation + Plan note Future Scheduled Tests Laboratory* N-Terminal proBNP 04/04/21 * N-Terminal proBNP 07/03/21 [facility] Evaluation + Plan note Future Scheduled Tests Laboratory* N-Terminal proBNP 07/03/21 [facility] Evaluation + Plan note Future Scheduled Tests Laboratory* N-Terminal proBNP 05/01/22 [facility] evaluation + Plan note Future Appointments Appointment Date:05/08/2022 11:30:00 AM Scheduled Provider: Location:[facility] Appointment Type:CV OV Future Scheduled Tests Laboratory* N-Terminal proBNP 05/01/22 [facility] evaluation + Plan note Future Appointments Appointment Date:05/08/2022 11:30:00 AM Scheduled Provider: Location:[facility] Appointment Type:CV OV [facility] evaluation + Plan note Future Appointments Appointment Date:07/19/2022 07:30:00 AM Scheduled Provider: Location:[facility] Appointment Type:yyNM Inj Bone Imaging Whole Body1 Appointment Date:07/19/2022 10:30:00 AM Scheduled Provider: Location:[facility] Appointment Type:yyNM Bone Imaging Whole Body Scan Future Scheduled Tests Radiology* NM Bone Imaging Whole Body 07/19/22 [facility] evaluation + Plan note Future Appointments Appointment Date:06/14/2023 09:30:00 AM Scheduled Provider: Location:[facility] Appointment Type:CT Coronary Calcium Scoring w/o Contrast Future Scheduled Tests Laboratory* N-Terminal proBNP 11/19/23 Radiology* CT Coronary Calcium Score w/o Contrast 06/14/23 [facility] evaluation note* Diagnosis Onset Date Resolution Status Borderline type 2 diabetes mellitus chronic Hypertension chronic Insomnia chronic Left foot pain chronic AKTELYN (obstructive sleep apnea) chronic Obesity (BMI 30-39.9) acute Right buttock pain acute Borderline type 2 diabetes mellitus chronic Hypertension chronic KATELYN (obstructive sleep apnea) chronic Trigger thumb, left thumb ac [place] Fibromyalgia acute Polyarthralgia acute Trigger thumb, right thumb a cute Polyarthralgia acute Vertigo acute Arthritis [facility] Work Phone: evaluation note* Diagnosis Onset Date Resolution Status Obesity (BMI 30-39.9) acute Right buttock pain acute Borderline type 2 diabetes mellitus chronic Hypertension chronic KATELYN (obstructive sleep apnea) chronic Trigger thumb, left thumb ac [place] Polyarthralgia acute Trigger thumb, right thumb a cute Fibromyalgia chronic Polyarthralgia acute Vertigo acute Arthritis chronic Polyarthralgia acute Vertigo acute Borderline type 2 diabetes mellitus chronic Fibromyalgia chronic Hypertension chronic Insomnia chronic [facility] Work Phone: Evaluation note* Diagnosis Onset Date Resolution Status Obesity (BMI 30-39.9) acute Right buttock pain acute Borderline type 2 diabetes mellitus chronic Hypertension chronic KATELYN (obstructive sleep apnea) chronic Trigger thumb, left thumb ac [place] Polyarthralgia acute Trigger thumb, right thumb a cute Fibromyalgia chronic Polyarthralgia acute Vertigo acute Arthritis chronic Polyarthralgia acute Vertigo acute Borderline type 2 diabetes mellitus chronic Fibromyalgia chronic Hypertension chronic Insomnia chronic Chronic hand pain acute Polyarthralgia acute Fibromyalgia chronic [facility] Work Phone: Evaluation note* Diagnosis Onset Date Resolution Status Polyarthralgia acute Vertigo acute Arthritis chronic Polyarthralgia acute Vertigo acute Borderline type 2 diabetes mellitus chronic Fibromyalgia chronic Hypertension chronic Insomnia chronic Chronic hand pain acute Polyarthralgia acute Fibromyalgia chronic [facility] Work Phone: Evaluation note* Diagnosis Onset Date Resolution Status Polyarthralgia acute Vertigo acute Borderline type 2 diabetes mellitus chronic Fibromyalgia chronic Hypertension chronic Insomnia chronic Chronic hand pain acute Polyarthralgia acute Fibromyalgia chronic [facility] Work Phone: Evaluation note* Diagnosis Onset Date Resolution Status Polyarthralgia acute Vertigo acute Borderline type 2 diabetes mellitus chronic Fibromyalgia chronic Hypertension chronic Insomnia chronic Chronic hand pain acute Polyarthralgia acute Fibromyalgia chronic Asthma acute Dizziness noneactive Upper respiratory infection noneactive [facility] Work Phone: Evaluation note* Diagnosis Onset Date Resolution Status Asthma acute Dizziness noneactive Upper respiratory infection noneactive Asthma acute Borderline type 2 diabetes mellitus chronic Hypertension chronic Polyarthralgia chronic [facility] Work Phone: Evaluation note* Diagnosis Onset Date Resolution Status Pain of right thumb acute Trigger thumb, right thumb a cute [facility] Work Phone: Evaluation noteNo assessment information available [facility] Work Phone: Evaluation note* Diagnosis Onset Date Resolution Status Acute pharyngitis, unspecified acute Acute sinusitis, unspecified acute [facility] Work Phone: Evaluation note* Diagnosis Onset Date Resolution Status Acute pharyngitis, unspecified acute Acute sinusitis, unspecified acute Insomnia chronic Allergic asthma noneactive [facility] Work Phone: Evaluation note* Diagnosis Onset Date Resolution Status Acute bronchitis acute Oral candidiasis acute [facility] Work Phone: Evaluation note* Diagnosis Onset Date Resolution Status Acute right otitis media acu te Asthma chronic Borderline type 2 diabetes mellitus chronic Hypertension chronic Insomnia chronic Right hip pain chronic Greater trochanteric bursitis of right hip acute Right hip pain chronic Greater trochanteric bursitis of right hip acute Iliotibial band syndrome affecting right lower leg acute Ischial bursitis of right side acute Rheumatoid arthritis acute [facility] Work Phone: Evaluation note* Diagnosis Onset Date Resolution Status Asthma chronic Borderline type 2 diabetes mellitus chronic Hypertension chronic Insomnia chronic Right hip pain chronic Greater trochanteric bursitis of right hip acute Right hip pain chronic Greater trochanteric bursitis of right hip acute Iliotibial band syndrome affecting right lower leg acute Ischial bursitis of right side acute Rheumatoid arthritis acute Greater trochanteric bursitis of right hip acute Iliotibial band syndrome affecting right lower leg acute Ischial bursitis of right side acute Rheumatoid arthritis acute [facility] Work Phone: Evaluation note* Diagnosis Onset Date Resolution Status Acute bronchitis acute Oral candidiasis acute Acute right otitis media acu te Asthma chronic Borderline type 2 diabetes mellitus chronic Hypertension chronic Insomnia chronic Right hip pain chronic [facility] Work Phone: Evaluation note* Diagnosis Low tension glaucoma of left eye, severe stage- Primary Low-tension glaucoma, right eye, mild stage Pseudophakia Lens replaced by other means Long-term use of Plaquenil Encounter for long-term (current) use of other medications documented in this encounter [facility] course Narrative No data available for this section [facility] Hospital Discharge instructions No data available for this section [facility] Work Phone: Progress note No data available for this section [facility] Reason for referral (narrative)No reason for referral information [facility] Work Phone: Chief Complaint and Reason for Visit Chief Complaint f/u dm Rt buttock and leg pain left hand xray Right hand dizziness Reason for Visit Borderline type 2 di abetes mellitus Hypertension Insomnia Left foot pain KATELYN (obstructive sleep apnea) Obesity (BMI 30-39.9) Right buttock pain Borderline type 2 diabetes mellitus Hypertension KATELYN (obstructive sleep apnea) Trigger thumb, left thumb Fibromyalgia Polyarthralgia Trigger thumb, right thumb Polyarthralgia Vertigo Arthritis Chief Complaint Rt buttock and leg p ain left hand xray Right hand dizziness 3 M FU Essential (primary) hypertension Reason for Visit Obesity (BMI 30-39.9 ) Right buttock pain Borderline type 2 diabetes mellitus Hypertension KATELYN (obstructive sleep apnea) Trigger thumb, left thumb Polyarthralgia Trigger thumb, right thumb Fibromyalgia Polyarthralgia Vertigo Arthritis Polyarthralgia Vertigo Borderline type 2 diabetes mellitus Fibromyalgia Hypertension Insomnia Chief Complaint Rt buttock and leg p ain left hand xray Right hand dizziness 3 M FU Essential (primary) hypertension Essential (primary) hypertension Right hand Reason for Visit Obesity (BMI 30-39.9 ) Right buttock pain Borderline type 2 diabetes mellitus Hypertension KATELYN (obstructive sleep apnea) Trigger thumb, left thumb Polyarthralgia Trigger thumb, right thumb Fibromyalgia Polyarthralgia Vertigo Arthritis Polyarthralgia Vertigo Borderline type 2 diabetes mellitus Fibromyalgia Hypertension Insomnia Chronic hand pain Polyarthralgia Fibromyalgia Chief Complaint dizziness 3 M FU Essential (primary) hypertension Essential (primary) hypertension Right hand Reason for Visit Polyarthralgia Vertigo Arthritis Polyarthralgia Vertigo Borderline type 2 diabetes mellitus Fibromyalgia Hypertension Insomnia Chronic hand pain Polyarthralgia Fibromyalgia Chief Complaint 3 M FU Essential (primary) hypertension Essential (primary) hypertension Right hand Reason for Visit Polyarthralgia Vertigo Borderline type 2 diabetes mellitus Fibromyalgia Hypertension Insomnia Chronic hand pain Polyarthralgia Fibromyalgia Chief Complaint 3 M FU Essential (primary) hypertension Essential (primary) hypertension Right hand asthma flare. (recent travel) Reason for Visit Polyarthralgia Vertigo Borderline type 2 diabetes mellitus Fibromyalgia Hypertension Insomnia Chronic hand pain Polyarthralgia Fibromyalgia Asthma Dizziness Upper respiratory infection Chief Complaint asthma flare. (recen t travel) 3 M FU Reason for Visit Asthma Dizziness Upper respiratory infection Asthma Borderline type 2 diabetes mellitus Hypertension Polyarthralgia Chief Complaint Right hand Room 1 Reason for Visit Pain of right thumb Trigger thumb, right thumb Chief Complaint Right hand Room 1 LABS AND XRAY- PAIN Reason for Visit Pain of right thumb Trigger thumb, right thumb Chief Complaint LABS AND XRAY- PAIN PAIN- COPY PCP Chief Complaint PAIN- COPY PCP CONCERN FOR URI Reason for Visit Acute pharyngitis, u nspecified Acute sinusitis, unspecified Chief Complaint CONCERN FOR URI MED FOLLOW UP Reason for Visit Acute pharyngitis, u nspecified Acute sinusitis, unspecified Insomnia Allergic asthma Chief Complaint CONCERN FOR URI MED FOLLOW UP PAIN- COPY PCP Reason for Visit Acute pharyngitis, u nspecified Acute sinusitis, unspecified Insomnia Allergic asthma Chief Complaint PAIN- COPY PCP SORE THROAT, POSSIBLE THRUSH Reason for Visit Acute bronchitis Oral candidiasis Chief Complaint PAIN- COPY PCP SORE THROAT, POSSIBLE THRUSH PAIN- COPY PCP Reason for Visit Acute bronchitis Oral candidiasis Chief Complaint PAIN- COPY PCP EAR PAIN, SORE THROAT 6 M FU RA/hip bursa flare BL HIP RM 1 Reason for Visit Acute right otitis m edia Asthma Borderline type 2 diabetes mellitus Hypertension Insomnia Right hip pain Greater trochanteric bursitis of right hip Right hip pain Greater trochanteric bursitis of right hip Iliotibial band syndrome affecting right lower leg Ischial bursitis of right side Rheumatoid arthritis Chief Complaint 6 M FU RA/hip bursa flare BL HIP RM 1 RIGHT HIP M70.61 Reason for Visit Asthma Borderline type 2 diabetes mellitus Hypertension Insomnia Right hip pain Greater trochanteric bursitis of right hip Right hip pain Greater trochanteric bursitis of right hip Iliotibial band syndrome affecting right lower leg Ischial bursitis of right side Rheumatoid arthritis Greater trochanteric bursitis of right hip Iliotibial band syndrome affecting right lower leg Ischial bursitis of right side Rheumatoid arthritis Chief Complaint PAIN- COPY PCP SORE THROAT, POSSIBLE THRUSH PAIN- COPY PCP EAR PAIN, SORE THROAT 6 M FU Reason for Visit Acute bronchitis Oral candidiasis Acute right otitis media Asthma Borderline type 2 diabetes mellitus Hypertension Insomnia Right hip pain Chief Complaint Admit Date ACUTE RAISED ITCHY RASH ON INNER THIGH M arch 2024 10:59am PAIN- COPY PCP July 23, 2024 2:0 9pm ACUTE RIGHT FOOT PAIN October 05, 2024 12: 58pm Reason for Visit Admit Date Shingles July 01, 2024 10: 59am Family History Relationship Condition Age at Onset Recorded Date/T mariaelena Not Specified Diabetes mellitus Unknown Alcohol abuse Unknown Anemia Unknown Anxiety Unknown Arthritis Unknown Cardiac disease Unknown Malignant neoplasm Unknown Hypertension Unknown Disorder of thyroid Unknown Cerebrovascular accident (CVA) Unknown Asthma Unknown grandmother Malignant neoplasm of colon Unknown grandfather Myocardial infarction 62 father Myocardial infarction Unknown Summary Purpose Advance Directives No Advanced Directives Records FoundNo Advanced Directives Records FoundNo Advanced Directives Records FoundNo Advanced Directives Records FoundNo Advanced Directives Records Found Additional Source Comments Goals (unrecognized section and content) Goals may be documented in a n alternate section Care Team (unrecognized sect ion and content) Care Team Personnel Name: TASH FALLON MD Member Role: Primary Care Physician Address: Address: [address] [place] [address]- Care Team Related Persons Name: JHONNY SPENCER Address: Home [address] [place], [place] [id number] Care Team Personnel Name: TASH FALLON MD Member Role: Primary Care Physician Address: Address: [address] [place] [address] Care Team Related Persons Name: JHONNY SPENCER Address: Home [address] [place], [place] [id number] Care Team Personnel Name: TASH FALLON MD Member Role: Primary Care Physician Address: Address: [address] [place] [address]- Care Team Related Persons Name: JHONNY SPENCER Address: Home [address] [place], [place] [id number] Care Teams (unrecognized sec tion and content) Team Status: Active Member Role Status Dates Fran Ellis Family Provider Active Dr. Tash Fallon MD Primary Care Provider Active Team Status: Inactive Member Role Status Dates Dr. Tash Fallon MD Primary Care Provider, Refer ring Provider Active Dr. Ceferino Donnelly DO Attending Provider Active Team Status: Inactive Member Role Status Dates Dr. Tash Fallon MD Primary Care Provider Active Dr. Joe Merchant MD Attending Provider Active Team Status: Inactive Member Role Status Dates Dr. Tash Fallon MD Primary Care Provider Active Dr. Susie Washington MD Attending Provider, Referring Provider Active Team Status: Inactive Member Role Status Dates Dr. Tash Fallon MD Primary Care Provider, Refer ring Provider Active Terry Alex PA, PA Attending Provider Active Team Status: Inactive Member Role Status Dates Dr. Tash Fallon MD Primary Care Provider, Refer ring Provider Active Roberto Will REFERENCE ASSISTANT, REFERENCE ASSISTANT-C Attending Provider Active Team Status: Inactive Member Role Status Dates Dr. Tash Fallon MD Primary Care Provider Active Dr. Gloria Garcia MD Attending Provider, Referring Pr ovider Active Team Status: Inactive Member Role Status Dates Dr. Tash Fallon MD Primary Care Provider, Refer ring Provider Active Kenn Hunter PA, PA Attending Provider Active Team Status: Inactive Member Role Status Dates Dr. Tash Fallon MD Primary Care P roruizder, Attending Provider, Referring Provider Active Team Status: Inactive Member Role Status Dates Dr. Tash Fallon MD Primary Care Provider, Refer ring Provider Active Riley Bosch PA, PA Attending Provider Active Team Status: Inactive Member Role Status Dates Dr. Tash Fallon MD Primary Care Provider Active Dr. Ceferino Donnelly DO Attending Provider, Referring Provider Active Field Service Tech Relationship Specialty Start Date End Date Tash Fallon MD [address] [place] [address] PCP - General Internal Medicine 02/23/24 Louis Yu MD [address] [place], [place] [id number] Referring Ophthalmology 02/23/24 Team Status: Active Member Role/Relationship Status Dates jaelyn [facility] Family Provider Active Dr. Tash Fallon MD Primary Care Provider Active Team Status: Inactive Member Role/Relationship Status Dates Dr. Tash Fallon MD Primary Care Provider Active Start: July 01, 2024 End: July 01, 2024 Dr. Tash Fallon MD Referring Provider Active Start: July 01, 2024 End: July 01, 2024 BARBIE Henley Attending Provider Active St art: July 01, 2024 End: July 01, 2024 Team Status: Inactive Member Role/Relationship Status Dates Dr. Tash Fallon MD Primary Care Provider Active Start: July 23, 2024 End: July 23, 2024 Dr. Susie Washington MD Attending Provider Active Start: July 23, 2024 End: July 23, 2024 Dr. Susie Washington MD Referring Provider Active Start: July 23, 2024 End: July 23, 2024 Team Status: Inactive Member Role/Relationship Status Dates Dr. Tash Fallon MD Primary Care Provider Active Start: October 05, 2024 End: October 05, 2024 Dr. Tash Fallon MD Referring Provider Active Start: October 05, 2024 End: October 05, 2024 CELIA Umana Attending Provider Active Start: October 05, 2024 End: October 05, 2024 INFORMATION SOURCE (unrecogn ized section and content) DATE CREATED AUTHOR 10/11/2023 [facility] DATE CREATED AUTHOR AUTHOR'S ORGANIZ ATION 06/10/2024 [facility] DATE CREATED AUTHOR AUTHOR'S ORGANIZ ATION 07/30/2024 [facility] DATE CREATED AUTHOR AUTHOR'S ORGANIZ ATION 09/03/2024 [facility] DATE CREATED AUTHOR AUTHOR'S ORGANIZ ATION 09/24/2024 [facility] Source Comments (unrecognize d section and content) In the event this informatio n is protected by the Federal Confidentiality of Alcohol and Drug Abuse Patient Records regulations: The Federal rules restrict any use of the information to criminally investigate or prosecute any alcohol or drug abuse patient.[facility] Reason for Visit (unrecogniz ed section and content) Reason Comments Glaucoma Evaluation FOR RECORDS PERTAINING TO PATIENTS WHO ARE [...] BE BASED ON THE PRIMARY CLINICAL RECORDS. [facility]. provides no warranty or guarantee of the accuracy or completeness of information in this document.
== END | disposition home or self-care (01) ==
LOC: MTRAD 14:02
PROVIDERS: PCP Internal Medicine; Referring Provider Nurse Practitioner Family; Visit Provider Nurse Practitioner Family
DX: M77.51 Other enthesopathy of right foot and ankle (principal)
CPT/HCPCS: 73630

== ENCOUNTER → 2024-10-15 | Outpatient (CLI) | payer MEDICARE, SELFPAY ==
[2024-10-15 12:44] LABS: Hematocrit 36.5 % (37-47); Hemoglobin 12.2 g/dL (12.0-15.0); Immature Granulocytes Count 0.040 X10^3/uL (0.0-0.0); Mean Corp Hgb Conc 33.4 g/dL (32-36); Mean Corpuscular Volume 94.8 fL (81-99); Mean Platelet Vol. 9.4 fl (6.2-12.0); NRBC Flagged by Analyzer 0 % (0-5); Platelet Count 387 K/mm3 (150-450); RBC Distribution Width CV 14.3 % (11.6-14.6); RBC Distribution Width SD 49.2 fl (35.1-43.9); Red Blood Count 3.85 M/mm3 (4.2-5.4); White Blood Count 8.2 K/mm3 (4.4-11.0)
[2024-10-15 13:27] LABS: AST(SGOT) 27 U/L (<=31); Alanine Aminotransfer ALT/SGPT 23 U/L (<=34); Albumin, Serum 4.6 g/dL (3.4-4.8); Alkaline Phosphatase 46 U/L (35-104); Anion Gap 12 (5-15); BUN 9 mg/dL (4-19); BUN/Creat Ratio 11.3 RATIO (10-20); Calcium,Total 9.6 mg/dL (7.6-11.0); Carbon Dioxide 25.8 mmol/L (21.0-32.0); Chloride 95 mmol/L (98-108); Globulin 2.5 g/dL (2.2-4.2); Glucose 93 mg/dL (70-99); Potassium 4.6 mmol/L (3.3-5.1)
--- OUTSIDE RECORDS SUMMARY | 2024-10-15 19:16 | XMS RPT_ITS | CCD ---
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 Tash Fallon Primary Care Provider 1([phone] [...] Tash Fallon Primary Care Provider [phone]) Leenane, Dr. Villanueva Referring Provider [phone] Dr. Ceferino Donnelly Attending Provider 1(330) Dr. Joe Merchant Attending Provider 1(330) Dr. Tash Fallon Primary Care Provider 1(33 0) Leeanne, Dr. 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 Tash Fallon [...] Provider AHMET CHOI, DR SANDOVAL Attending Unavailab Jenna CHOI, EFEWONGBE B Primary Care Unavailab ramana LEO MD, DR SANDOVAL Attending Unavailab ramana FALLON MD, EFONGBE B Primary Care Unavailab CEFERINO Tarango DO Attending Unavailable LEEANNE CHOI, EFONGBE B Primary Care Unavailab ramana LEO MD, DR SANDOVAL Attending Unavailab Jenna CHOI, EFONGBE B Primary Care Unavailab ramana FALLON MD, EFONGBE B Primary Care Unavailab LOUIS Gale MD Attending Unavailable LEEANNE CHOI, EFEWONGBE B Primary Care Unavailab ramana LEO MD, DR SANDOVAL Attending Unavailab Jenna CHOI, Efongbe B Primary Care Provider 1([phone]) Louis Yu MD Unavailable WILMER TITUS Attending Unavailable LOUIS YU Referring Unavailable OLEGHE, EFEWONGBE B Primary Care Unavailable Dr. Tash Fallon MD Primary Care Provider Dr. Tash Fallon MD Referring Provider 1(33 [phone]) Riley Lubin Attending Provider Dr. Susie Washington MD Attending Provider Dr. Susie Washington MD Referring Provider Kim WASHING MACHINE [employer]ER [employer]ER-CElsa Attending Provider [phone] Elsa Alvarez Attending Unavailable Elsa Alvarez Referring Unavailable Oleghe, Efewongbe Primary Care Unavailable Susie Washington Referring Unavailable Oleghe, Efewongbe Primary Care Unavailable Susie Washington Attending Unavailable Elsa Alvarez Attending Unavailable Oleghe, Efewongbe Referring Unavailable Oleghe, Efewongbe Primary Care Unavailable Oleghe, Efewongbe Primary Care Unavailable Oleghe, Efewongbe Attending Unavailable Oleghe, Efewongbe Referring Unavailable Vellanki, Susie Referring Unavailable Oleghe, Efewongbe Primary Care Unavailable Leonor Washingtonma Attending Unavailable Gloria Garcia Attending Unavailable BasaliGloria Referring Unavailable Oleghe, Efewongbe Primary Care Unavailable Riley Lubin Attending Unavailable Oleghe, Efewongbe Referring Unavailable Oleghe, Efewongbe Primary Care Unavailable Oleghe, Efewongbe Primary Care Unavailable Vellanki, Susie Attending Unavailable Vellanki, Susie Referring Unavailable Vellanki, Susie Attending Unavailable Oleghe, Efewongbe Primary Care Unavailable Vellanki, Susie Referring Unavailable Ungerer WASHING MACHINE LOADER AND PULLERAliciaCElsa Referring Provider Allergies Allergy Classification Reported Allergen(s) Allergy Type Date of Onset Reaction(s) Facility (20 sources) cyclobenzaprine; Translations: [cyclobenzaprine] Drug Allergy 8 Unknown (qualifier value), Other: See Comments [facility] [place] (1 source) cyclobenzaprine Drug Allergy 5 [facility] Medications Current Medications Medication Drug Class(es) Dates Sig (Normalized) Sig (Original) acetaminophen 500 mg oral tablet (7 sources) Start: 01-03-2021 Tylenol Extra Strength 500 mg oral tablet Dose : 1,000 mg = 2 tab(s), Oral, Daily, PRN as needed for pain, # 50 tab(s), 0 Refill(s) Start Date: 01/03/21 Status: Ordered Acetaminophen (Tylenol Extra Strength) 500 mg powder in packet (20 sources) Start: 01-01-2021 take 500 mg by [...] EVERY 6 HOURS January 01, 2021 12:00am amLODIPine 5 mg oral tablet (20 sources) [...] Daily, # 30 tab(s), 6 Refill(s), Pharmacy: [facility], 160, cm, 05/21/23 9:43:00 EST, Height, kg, 05/21/23 9:43:00 EST, Dosing Weight Start Date: 05/21/23 Status: Ordered Start: 10-30-2020 End: 01-01-2021 take 1 tablet by mouth once daily Aspirin 81 mg tablet,delayed release (DR/EC) Discontinued 81 mg PO DAILY October 30, 2020 12:00am January 01, 2021 1:58pm baclofen 10 mg oral tablet (20 sources) gamma-Aminobutyric Acid-ergic Agonist Start: 09-19-2023 take 1 tablet by mouth three times daily as needed for muscle spasms Baclofen 10 mg tablet Active 10 mg PO THREE TIMES A DAY as needed for muscle spasm September 19, 2023 10:04am Start: 05-25-2021 baclofen 5 mg oral tablet [...] mg/ml / timolol 5 mg/ml ophthalmic solution (6 sources) Carbonic Anhydrase Inhibitor, beta-Adrenergic Faustino Start: [...] propionate 0.05 mg/actuat metered dose nasal spray (2 sources) Corticosteroid Start: 09-19-2023 take 50 ug nasal route once daily Fluticasone Propionate (Flonase Allergy Relief) 50 mcg/actuation spray,suspension Active 1 NMA INTRANASAL DAILY September 19, 2023 12:00am administer into each nostril folic acid 20 mg oral capsule (15 sources) Start: 09-24-2022 take 1 capsule by mouth once daily Folic Acid 20 mg capsule Active 20 mg PO DAILY September 24, 2022 12:00am Start: 05-08-2022 folic acid 1 m g oral tablet Dose : 2 mg = 2 tab(s), Oral, qDay, 0 Refill(s) Start Date: 05/08/22 Status: Ordered take 2 tablets by [facility] once daily folic acid 1 mg tablet Take 2 mg by mouth once daily. Active hydroxychloroquine sulfate 200 mg oral tablet (11 sources) Antimalarial, Antirheumatic Agent Start: 03-17-2023 End: 09-19-2023 take 1 mg by mouth twice daily Hydroxychloroquine 200 mg tablet Active mg PO TWICE A DAY September 19, 2023 10:04am Start: 03-17-2023 Hydroxychloroq uine Active MG PO March 17, 2023 1:00am Inhalational Spacing Device (Aerochamber Mv) spacer (2 sources) Start: 09-25-2023 Inhalational Spacing Device (Aerochamber Mv) spacer Active 0 .Route 10 0 September 25, 2023 12:00am Asthma Unspecified asthma, uncomplicated As directed ipratropium 21 mcg/inh (0.03%) nasal spray (4 sources) Start: 01-03-2021 ipratropium 21 mcg/inh (0.03%) nasal spray Dose = 2 spray(s), Nasal, TID, # 30 mL, 0 Refill(s) Start Date: 01/03/21 Status: Ordered latanoprost 0.05 mg/ml ophthalmic solution (6 sources) Prostaglandin Analog Start: 09-04-2024 take 1 [...] 160, # 60 tab(s), 6 Refill(s), Pharmacy: [facility], 160, cm, 05/21/23 9:43:00 EST, [...] Start: 05-08-2022 take 3 tablets by mo [facility] at lunch, then take 4 tablets by [...] food, # 30 tab(s), 3 Refill(s), Pharmacy: [facility], 160, cm, 10/29/21 16:32:00 EDT, Height, [...] food, # 30 tab(s), 6 Refill(s), Pharmacy: [facility], 160, cm, 11/15/20 10:30:00 EDT, Height, kg, 11/15/20 10:30:00 EDT, Dosing Weight Start Date: 11/15/20 Status: Ordered predniSONE 10 mg oral tablet (18 sources) Start: 09-20-2024 predniSONE (DE LTASONE) 10 [...] mg tablet Discontinued 40 mg PO DAILY 10 November 09, 2021 12:00am November 19, 2021 [...] gain, # 30 tab(s), 3 Refill(s), Pharmacy: [facility], 160, cm, 10/29/21 16:32:00 EDT, Height, [...] ., # 270 tab(s), 3 Refill(s), Pharmacy: [facility], 160, cm, 01/03/21 13:16:00 EDT, Height, kg, 01/03/21 13:16:00 EDT, Dosing Weight Start Date: 01/25/21 Status: Ordered Start: 01-01-2021 End: 01-12-2021 take 1 tablet by mouth once daily Torsemide 20 mg tablet Discontinued 20 mg PO DAILY January 01, 2021 12:00am January 12, 2021 1:01pm traMADol hydrochloride 50 mg oral tablet (3 sources) Opioid Agonist Start: 08-28-2024 take 1 tablet by mouth every six hours as needed traMADol (ULTRAM) 50 mg tablet Take 50 mg by mouth every 6 hours as needed for pain. 08/28/2024 Active Start: 04-30-2024 take 1 tablet by jim th three times daily as needed Tramadol 50 mg tablet Active 50 mg PO THREE TIMES A DAY as needed April 30, 2024 1:00am 24 hr upadacitinib 15 mg extended release oral tablet (7 sources) Start: 04-21-2023 take 1 tablet by mouth once daily Upadacitinib (Rinvoq) 15 mg tablet extended release 24 hr Active 15 mg PO DAILY April 21, 2023 1:00am Completed/Discontinued Medications Medication Drug Class(es) Dates Sig (Normalized) Sig (Original) acetaminophen 325 mg / HYDROcodone bitartrate 5 mg oral tablet (15 sources) Opioid Agonist Start: 11-09-2021 End: 02-18-2022 [...] 0.8 ml adalimumab 50 mg/ml prefilled syringe (11 sources) Tumor Necrosis Factor Faustino Start: 09-24-2022 [...] 0 Refill(s) Start Date: 05/08/22 Status: Ordered [id number] 200 actuat albuterol 0.09 mg/actuat metered dose inhaler (20 sources) beta2-Adrenergic Agonist Start: 05-14-2021 take 1 puff(s) by inhalation every six hours Albuterol Sulfate Active 2 PUFF INHALATION EVERY 6 HOURS 8.5 May 14, 2021 11:57am Start: 05-14-2021 End: 07-29-2024 Albuterol Sulfate 90 mcg/act uation HFA aerosol inhaler Discontinued 2 NMA INHALATION EVERY 6 HOURS as needed for shortness of breath or wheezing 8.5 3 November 10, 2023 1:10pm July 29, 2024 8:41am Start: 05-14-2021 End: [...] May 14, 2021 10:59am Start: 10-30-2020 End: 05-14-2021 Albuterol Discontinued MCG [...] instructed every 6 hours as needed. Active Albuterol 90 mcg/actuation aerosol (2 sources) Start: 10-30-2020 End: 05-14-2021 Albuterol 90 mcg/actuation aerosol Discontinued ug INHALATION October 30, 2020 12:00am May 14, 2021 11:59am amoxicillin 500 mg oral capsule (5 sources) Penicillin-class Antibacterial Start: 03-13-2023 End: 03-23-2023 take 1 capsule by mouth twice daily Amoxicillin 500 mg capsule Discontinued 500 mg PO TWICE A DAY 20 10 0 March 13, 2023 1:00am March 22, 2023 [...] PO cetirizine hydrochloride 10 mg oral tablet (20 sources) Histamine-1 Receptor Antagonist Start: 10-30-2020 End: 01-01-2021 take 1 tablet by mouth once daily as needed Cetirizine (Zyrtec) 10 mg tablet Discontinued 10 mg PO DAILY as needed October 30, 2020 12:00am January 01, 2021 1:58pm clotrimazole 10 mg oral lozenge (7 sources) Azole Antifungal Start: 01-03-2023 End: 01-17-2023 Clotrimazole 10 mg colby Discontinued 10 mg MUCOUS MEM THREE TIMES A DAY 42 14 0 January 03, 2023 12:00am January 16, 2023 12:00am January 17, 2023 12:04am Dorzolamide-Timolol 22.3-6.8 mg/mL drops (2 sources) Start: 03-17-2023 End: 09-19-2023 Dorzolamide-Timolo l 22.3-6.8 mg/mL drops Discontinued OPHTHALMIC March 17, 2023 1:00am September 19, 2023 10:09am formula 303 (20 sources) Start: 01-01-2021 End: 03-20-2021 formula 303 [...] guaiFENesin 600 mg extended release oral tablet (7 sources) Start: 01-03-2023 End: 03-17-2023 take 1 tablet by mouth twice daily, then take 1 tablet by mouth every twelve hours Guaifenesin (Mucinex) 600 mg tablet extended release 12hr Discontinued 600 mg PO TWICE A DAY January 03, 2023 12:00am March 17, 2023 10:57am ibuprofen 600 mg oral tablet (4 sources) Nonsteroidal Anti-inflammatory Drug Start: 09-19-2023 End: [...] sources) Anticholinergic Start: 01-12-2021 End: 09-19-2023 Ipratropium Pledger 21 mcg (0.03 %) spray,non-aerosol Discontinued mL [...] 1:52pm meclizine hydrochloride 25 mg oral tablet (20 sources) Antiemetic Start: 06-20-2021 End: 11-09-2021 take 1 tablet by mouth twice daily as needed for dizziness Meclizine 25 mg tablet Discontinued 25 mg PO TWICE A DAY as needed for dizziness 60 2 June 20, 2021 12:00am November 09, 2021 11:19am meloxicam 15 mg oral tablet (20 sources) Nonsteroidal Anti-inflammatory Drug Start: 05-02-2021 End: [...] Discontinued 10 mg PO EVERY EVENING 90 September 09, 2024 9:38am September 22, 2024 11:27pm Start: 10-30-2020 End: 01-01-2021 take 1 tablet by mouth once daily Montelukast (Singulair) 10 mg tablet Discontinued 10 mg PO DAILY October 30, 2020 12:00am January 01, 2021 1:58pm nystatin [id number] unt/ml oral suspension (20 sources) Polyene Antifungal Start: 01-12-2021 End: 11-09-2021 Nystatin 100,000 unit/mL suspension Discontinued [id number] U BUCCAL EVERY 6 HOURS 200 10 1 March 08, 2021 11:31am November 09, 2021 11:19am administer 1/2 of dose in each side of the mouth, swish and swallow Start: 10-30-2020 End: 11-09-2020 Nystatin 100,000 unit/mL kurt pension Discontinued 386110 U BUCCAL EVERY 6 HOURS 200 10 [...] 01, 2021 12:00am March 20, 2021 2:58pm traZODone hydrochloride 100 mg oral tablet (20 sources) Serotonin Reuptake Inhibitor Start: 09-17-2021 End: 09-17-2024 take 1 tablet by mouth at bedtime as needed Trazodone 100 mg tablet Discontinued 100 mg PO AT BEDTIME as needed for insomnia 90 September 09, 2024 9:38am September 17, 2024 1:05pm Start: 05-30-2021 End: 09-17-2021 Trazodone 50 mg [...] AT BEDTIME as needed for insomnia 30 May 21, 2021 12:13pm May 30, 2021 2:59pm triamcinolone acetonide 40 mg/ml injectable suspension (6 sources) Corticosteroid Start: 2021 End: 2021 Kenalog (triamcinolone acetonide) 40 mg/mL suspension for injection Discontinued 20 MG INTRAARTIC ONCE 0.5 2021 3:01pm 2021 4:15pm Start: 06-04-2021 End: 06-04-2021 Kenalog (triamcinolone aceto nide) 40 mg/mL suspension for injection Discontinued 20 MG INTRAARTIC ONCE 0.5 June 04, 2021 9:30am June 04, 2021 10:00am valACYclovir 1000 mg oral tablet (2 sources) Herpesvirus Nucleoside Analog DNA Polymerase Inhibitor, Herpes Simplex Virus Nucleoside Analog DNA Polymerase Inhibitor, Herpes Zoster Virus Nucleoside Analog DNA Polymerase Inhibitor Start: 07-01-2024 End: 10-05-2024 Valacyclovir (Valtrex) 1 gram tablet Discontinued 1000 mg PO THREE TIMES A DAY 21 0 July 01, 2024 12:00am October 05, 2024 1:05pm Problems Active Problems Problem Classification Problem Date Documented Date Episodic/Chronic Abdominal hernia (20 sources) Hiatal hernia; Translations: [Diaphragmatic hernia without obstruction or gangrene] 01-01-2021 Episodic Acquired foot deformities (20 sources) Pronation of foot; Translations: [Other acquired deformities of left foot] 01-01-2021 Episodic Acute bronchitis (10 sources) Acute bronchitis; Translations: [Acute bronchitis, unspecified] [...] 04-30-2024 11-15-2020 Chronic Diabetes mellitus without complication (20 sources) Diabetes mellitus; Translations: [Type 2 diabetes [...] [Candidal stomatitis] 01-12-2021 Episodic Nonmalignant breast conditions (20 sources) Sebaceous cyst of skin of breast; Translations: [Other benign mammary dysplasias of unspecified breast] 01-01-2021 Episodic Nutritional deficiencies (20 sources) Magnesium deficiency; Translations: [Magnesium deficiency] 01-01-2021 Episodic Osteoarthritis (20 sources) Arthritis; Translations: [Unspecified osteoarthritis, unspecified site] Chronic Other aftercare (2 sources) Drug therapy finding; Translations: [Other usp (current) drug therapy] Onset: 09-21-2024 09-21-2024 Episodic Other connective tissue disease (20 sources) Pain in thumb ; Translations: [Pain in right finger(s)] 01-01-2021 Episodic Other connective tissue disease (20 sources) Trigger thumb of left hand; Translations: [Trigger thumb, left thumb] 06-04-2021 Episodic Other connective tissue disease (20 sources) Fibromyalgia; Translations: [Fibromyalgia] 07-31-2021 Episodic Other connective tissue disease (20 sources) Trigger thumb of right hand; Translations: [Trigger thumb, right thumb] 01-17-2021 Episodic Other connective tissue disease (20 sources) Pain in buttock; Translations: [Myalgia, other site] 05-02-2021 Episodic Other connective tissue disease (20 sources) Foot pain; Translations: [Pain in left [...] finger (acquired)] Episodic Other connective tissue disease (18 sources) Hand pain; Translations: [Pain in unspecified hand] 08-20-2021 Episodic Other connective tissue disease (4 sources) Pain in unspecified hand; Translations: [Pain in limb] Episodic Other connective tissue disease (2 sources) Pain in right finger(s); Translations: [Pain in limb] Episodic Other connective tissue disease (4 sources) Trochanteric bursitis; Translations: [Trochanteric bursitis, right hip] 03-27-2023 Episodic Other connective tissue disease (4 sources) Ischial bursitis ; Translations: [Other bursitis of hip, right hip] 04-21-2023 Episodic Other connective tissue disease (4 sources) Iliotibial band friction syndrome; Translations: [Iliotibial [...] right hip] Episodic Other connective tissue disease (2 sources) Tendinitis of right gluteal tendon; Translations: [Unspecified disorder of synovium and tendon, right thigh] 07-14-2023 Episodic Other connective tissue disease (1 source) Other enthesopathies, not elsewhere classified; Translations: [Other enthesopathies, not elsewhere classified] Onset: 10-05-2024 Episodic Other connective tissue disease (1 source) Enthesopathy, unspecified; Translations: [Enthesopathy, unspecified] Onset: 10-05-2024 Episodic Other connective tissue disease (2 sources) Tendinitis of foot; Translations: [Other enthesopathies, not elsewhere classified] 10-05-2024 Episodic Other connective tissue disease (1 source) Periarthritis; Translations: [Enthesopathy, unspecified] 10-05-2024 Episodic Other lower respiratory disease (12 sources) Dyspnea on exertion 11-15-2020 Episodic Other lower respiratory disease (20 sources) Dyspnea; Translations: [Shortness of breath] 10-30-2020 Episodic Other nervous system disorders (20 sources) Chronic pain; Translations: [Other chronic pain] 01-01-2021 Chronic Other nervous system disorders (1 source) Other chronic pain; Translations: [Other chronic pain] Onset: 04-30-2024 Chronic Other nervous system disorders (12 sources) Impairment of balance 11-15-2020 Episodic Other non-traumatic joint disorders (20 sources) Multiple joint pain; Translations: [Pain in unspecified joint] 11-19-2021 Episodic Other non-traumatic joint disorders (17 sources) Pain in unspecified joint; Translations: [Pain in joint, multiple sites] Episodic Other non-traumatic joint disorders (5 sources) Hip pain; Translations: [Pain in right hip] 03-17-2023 Episodic Other non-traumatic joint disorders (5 sources) Pain in right hip; Translations: [Pain in joint, pelvic region and thigh] 03-17-2023 Episodic Other nutritional; endocrine; and metabolic disorders (20 sources) Body mass index 30+ - obesity; Translations: [Obesity, unspecified] 05-02-2021 Chronic Other nutritional; endocrine; and metabolic disorders (3 sources) Obesity, unspecified; Translations: [Obesity, unspecified] Chronic Other screening for suspected conditions (not mental disorders or infectious disease) (2 sources) Patient encounter status; Translations: [Encounter for screening for malignant neoplasm of colon] 09-19-2023 Episodic Other upper respiratory disease (20 sources) Seasonal allergy; Translations: [Other seasonal allergic rhinitis] 01-01-2021 Chronic Other upper respiratory infections (20 sources) Acute upper respiratory infection, unspecified; Translations: [Acute upper respiratory infections of unspecified site] Episodic Otitis media and related conditions (7 sources) Acute right otitis media; Translations: [Otitis media, unspecified, right ear] 03-13-2023 Episodic Olimpia-; endo-; and myocarditis; cardiomyopathy (except that caused by tuberculosis or sexually transmitted disease) (12 sources) Pericardial effusion 11-15-2020 Episodic Residual codes; unclassified (20 sources) Obstructive sleep apnea syndrome; Translations: [Obstructive sleep apnea (adult) (pediatric)] 03-20-2021 Chronic Residual codes; unclassified (4 sources) Obstructive sleep apnea (adult) (pediatric); Translations: [Obstructive sleep apnea (adult)(pediatric)] Chronic Residual codes; unclassified (20 sources) Insomnia; Translations: [Insomnia, unspecified] 03-20-2021 Episodic Residual codes; unclassified (20 sources) History of laparoscopy; Translations: [Other specified postprocedural states] 01-01-2021 Episodic Residual codes; unclassified (20 sources) Pain; Translations: [Pain, unspecified] 2021 Episodic Residual codes; unclassified (11 sources) Insomnia, unspecified; Translations: [Insomnia, unspecified] Episodic Residual codes; unclassified (1 source) Past history of procedure; Translations: [Other specified postprocedural states] Episodic Rheumatoid arthritis and related disease (8 sources) Rheumatoid arthritis; Translations: [Rheumatoid arthritis, unspecified] Onset: 07-28-2024 04-21-2023 Chronic Spondylosis; intervertebral disc disorders; other back problems (1 source) Spondylosis without myelopathy or radiculopathy, cervical region; Translations: [Spondylosis without myelopathy or radiculopathy, cervical region] Onset: 12-06-2023 Chronic Viral infection (4 sources) Herpes zoster; Translations: [Zoster without complications] 07-01-2024 Episodic Past or Other Problems Problem Classification Problem Date Documented Da te Episodic/Chronic NEGATED: Highlighted row has been ruled out!Residual codes; unclassified (1 source) Disease Episodic Results Test Name Value Interpretation Reference Range Facility Foot min 3 Viewson Foot min 3 Views [facility] [address], [place] [address] Foot min 3 Views MR#: [id number] Acct: [id number] Name: KADY SPENCER Rep #: [id number] : 1960 F 64 From: Yogesh Mccurdy MD PCP: Dr. Tash Fallon MD Status: REG CLI Study: Foot min 3 Views Date of Exam: 10/05/24 Exam# [id number] Ordering Dr: Elsa Alvarez NP-Danielle PROCEDURE: FOOT MIN 3 VIEWS 10/05/2024 REASON FOR EXAM: FOOT PAIN TECHNIQUE: FOOT MIN 3 VIEWS COMPARISON: No FINDINGS: Osteoporosis. No acute bone or soft tissue pathology. Possible old 5th metatarsal base fracture. RAD/Foot min 3 Views IMPRESSION: No acute findings [facility] CC: W[employer]ING M[employer]-C Elsa Alvarez; Dr. Tash Fallon MD Outreach Educator: Signed [facility] Internal Medicine Office Vis franck 10-05-2024 Internal Medicine Office Visit [facility] [address] [place] [address] [place] [address] OFFICE VISIT Date of Service: 10/05/24 MR#: [id number] Acct: [id number] Name: KADY SPENCER Rep #: [id number] : 1960 Provider: CELIA whiting Age/Sex: 64/F Location: [facility] Status: Signed Intake Vital Signs 10/05/24 07:42 10/05/24 13:07 Height 5 ft 3 in 5 ft 3 in Weight: 189 lb BMI 33.5 BP 144/76 H Blood Pressure Location Lt brachial Position Sitting Respiration 18 Pulse 92 Pulse Source Monitor Temp 98.0 F Temp Source Temporal Pulse Oximetry (%) 94 Oxygen Delivery Method room air Intake Visit Reasons: ACUTE RIGHT FOOT PAIN Chief Complaint: ACUTE RIGHT FOOT PAIN Is patient in pain?: Yes (10 RIGHT FOOT PAIN ) Allergies cyclobenzaprine (From Flexeril) Allergy (Mild, Verified 10/05/24 13:03) unknown Medications ???Medication ???Instructions ???Recorded ???Confirmed ???Type amlodipine 5 mg tablet 5 mg PO DAILY 01/01/21 10/05/24 Hi story losartan 25 mg tablet 25 mg PO DAILY 01/12/21 10/05/24 H istory folic acid 20 mg capsule 20 mg PO DAILY 09/24/22 10/05/24 H istory latanoprost 0.005 % eye drops drp ophthalmic (eye) 03/17/2305/01 History upadacitinib 15 mg tablet,extended 15 mg PO DAILY 04/21/23 10/05/24 History release 24 hr (Rinvoq) aspirin 81 mg chewable tablet 81 mg PO DAILY 09/19/23 10/05/24 H istory baclofen 10 mg tablet 10 mg PO TID PRN muscle spasm 09/0510/05/24 History dorzolamide 22.3 mg-timolol 6.8 ophthalmic (eye) BID 09/19/2305/01 History mg/mL eye drops fluticasone propionate 50 1 spray intranasal DAILY 09/19/23 10/05/24 History mcg/actuation nasal spray,suspension (Flonase Allergy Relief) hydroxychloroquine 200 mg tablet mg PO BID 09/19/23 10/05/24 Histor y methotrexate sodium 2.5 mg tablet 20 mg PO QWEEK 09/19/23 10/05/24 History pregabalin 75 mg capsule (Lyrica) 75 mg PO 4X/DAY 09/19/23 10/05/24 History inhalational spacing device #10 ea 09/25/23 10/05/24 Rx (Aerochamber MV spacer) tramadol 50 mg tablet 50 mg PO TID PRN 04/30/24 10/05/24 History prednisone 10 mg tablet 10 mg PO DIRECTED #20 tabs 06/0610/05/24 Rx albuterol sulfate 90 mcg/actuation 2 puff inhalation Q6H PRN 10/05/24 Rx aerosol inhaler shortness of breath or wheezing #8.5 grams trazodone 100 mg tablet 100 mg PO QHS PRN insomnia #90 tab s 09/17/24 10/05/24 Rx montelukast 10 mg tablet 10 mg PO QPM #90 tabs 09/22/2405/01 Rx (Singulair) Have you fallen in the past year?: No Nurse's Note: PT REPORTS NOTING PAIN AND SWELLING OF RIGHT FOOT FOR THE PAST WEEK AFTER WEARING A NEW PAIR OF SANDALS. PT DENIES ANY INJURY [facility] Medical History Health care maintenance Colon cancer [...] yoga frequency: daily HPI HPI Chief Complaint: ACUTE RIGHT FOOT PAIN Details: KADY SPENCER, is a 64 F who presents to the office today for complaints of right foot pain and swelling. Patient states that the past week she has noted swelling to the top of her right foot pain with any pressure to the top of the foot no pain on the bottom of the foot worse with dorsiflexion. Patient states she has been using ice elevating heat for pain relief states mild relief with these methods. Denies any known injury. States she did get a new pair of sandals last week which had 2 straps one of the s (more content not included)... Normal [facility] OCT OPTIC NERVE CIRRUS OU (B OTH EYES)on 09-21-2024 [facility] Radiology Study observation (narrative) [facility] PACHYMETRY OU (BOTH EYES)on 09-21-2024 [facility] Radiology Study observation (narrative) [facility] VISUAL FIELD 24-2 OU (BOTH E YES)on 09-21-2024 [facility] Radiology Study observation (narrative) [facility] Absolute lymphocyte countOrd ered By: Susie Washington on 07-23-2024 Lymphocytes Auto (Unsp spec) [#/Vol] 1.71 10*3/uL 0.83-4.51 [facility] Absolute neutrophil countOrd ered By: Susie Washignton on 07-23-2024 Neutrophils (Bld) [#/Vol] 3.2 10*3/uL 2.0-7.7 [facility] Anion gap in Serum or Plasma Ordered By: Susie Washington on 07-23-2024 Anion gap [Moles/Vol] 12 mmol/L 5-15 [facility] Automated lymphocyte count a s percentage of total leukocytesOrdered By: Susie Washington on 07-23-2024 Lymphocytes/100 WBC Auto (Unsp spec) 30.5 % 19-41 [facility] BUN/creatinine ratioOrdered By: [facility] Padmini on 07-23-2024 Urea nitrogen/Creatinine [Mass ratio] 10.0 mg/mg 10-20 [facility] Basophil percentageOrdered B y: Susie Washington on 07-23-2024 Basophils/100 WBC (Bld) 0.5 % 0-1 [facility] Bilirubin, totalOrdered By: Susierashida Washington on 07-23-2024 Bilirubin [Mass/Vol] 0.45 mg/dL 0.00-1.30 [facility] CBC W/Diff, Automatedon 07-06 Absolute Lymph 1.71 X10 3/uL Normal 0.83-4.51 [facility] Comment on above: Performed By: #### L 100.0100, L500.4050 #### [facility] [address] [place], [address] Absolute Neut 3.2 X10 3/uL Normal 2.0-7.7 [facility] Comment on above: Performed By: #### L 100.0100, L500.4050 #### [facility] [address] [place], [address] Basophils/100 WBC (Bld) 0.5 % Normal 0-1 [facility] Comment on above: Performed By: #### L 100.0100, L500.4050 #### [facility] [address] [place], [address] Eosinophils/100 WBC (Bld) 1.8 % Normal 0-5 [facility] Comment on above: Performed By: #### L 100.0100, L500.4050 #### [facility] [address] [place], [address] Erythrocyte distribution width (RBC) [Ratio] 15.0 % High 11.6-14.6 [facility] Comment on above: Performed By: #### L 100.0100, L500.4050 #### [facility] [address] [place], [address] Hematocrit (Bld) [Volume fraction] 35.2 % Low 37-47 [facility] Comment on above: Performed By: #### L 100.0100, L500.4050 #### [facility] [address] [place], [address] Hemoglobin (Bld) [Mass/Vol] 11.8 g/dL Low 12.0-15.0 [facility] Comment on above: Performed By: #### L 100.0100, L500.4050 #### [facility] [address] [place], [address] IG% 0.400 Normal 0.0-0.9 [facility] Comment on above: Result Comment: IG% - Immature Granulocytes (promyelocytes, myelocytes and metamyelocytes) > 1% indicates that a LEFT SHIFT is Present. Performed By: #### L 100.0100, L500.4050 #### [facility] [address] [place], [address] Lymphocytes/100 WBC (Bld) 30.5 % Normal 19-41 [facility] Comment on above: Performed By: #### L 100.0100, L500.4050 #### [facility] [address] [place], [address] MCH (RBC) [Entitic mass] 31.6 pg Normal 27.0-32.0 [facility] Comment on above: Performed By: #### L 100.0100, L500.4050 #### [facility] [address] [place], [address] MCHC (RBC) [Mass/Vol] 33.5 g/dL Normal 32-36 [facility] Comment on above: Performed By: #### L 100.0100, L500.4050 #### [facility] [address] [place], [address] MCV (RBC) [Entitic vol] 94.1 fL Normal 81-99 [facility] Comment on above: Performed By: #### L 100.0100, L500.4050 #### [facility] [address] [place], [address] Monocytes/100 WBC (Bld) 10.2 % High 0-10 [facility] Comment on above: Performed By: #### L 100.0100, L500.4050 #### [facility] [address] [place], [address] Neutrophils/100 WBC (Bld) 56.6 % Normal 47-70 [facility] Comment on above: Performed By: #### L 100.0100, L500.4050 #### [facility] [address] [place], [address] Nucleated RBC (Bld) [#/Vol] 0 10*3/uL Normal 0-5 [facility] Comment on above: Performed By: #### L 100.0100, L500.4050 #### [facility] [address] [place], [address] Platelet mean volume (Bld) [Entitic vol] 9.2 fL Normal 6.2-12.0 [facility] Comment on above: Performed By: #### L 100.0100, L500.4050 #### [facility] [address] [place], [address] Platelets (Bld) [#/Vol] 400 10*3/uL Normal 150-450 [facility] Comment on above: Performed By: #### L 100.0100, L500.4050 #### [facility] [address] [place], [address] RBC (Bld) [#/Vol] 3.74 10*6/uL Low 4.2-5.4 [facility] Comment on above: Performed By: #### L 100.0100, L500.4050 #### [facility] [address] [place], [address] RDW SD 51.2 fl High 35.1-43.9 [facility] Comment on above: Performed By: #### L 100.0100, L500.4050 #### [facility] [address] [place], [address] WBC (Bld) [#/Vol] 5.6 10*3/uL Normal 4.4-11.0 [facility] Comment on above: Performed By: #### L 100.0100, L500.4050 #### [facility] [address] [place], [address] Carbon dioxide, total [Moles /volume] in Central venous bloodOrdered By: Susie Washington on 07-23-2024 CO2 [Moles/Vol] 25.9 mmol/L 21.0-32.0 [facility] Chloride assayOrdered By: Barbie Washington on 07-23-2024 Chloride [Moles/Vol] 98 mmol/L 98-108 [facility] Comprehensive Metabolic Prof ilon 07-23-2024 Albumin [Mass/Vol] 4.4 g/dL Normal 3.4-4.8 [facility] Comment on above: Performed By: #### L 100.0100, L500.4050 ####[facility] [address] [place], [address] Albumin/Globulin [Mass ratio] 1.6 {ratio} Normal 0.9-2.4 [facility] Comment on above: Performed By: #### L 100.0100, L500.4050 ####[facility] [address] [place], [address] ALK PHOS 42 U/L Normal 35-104 [facility] Comment on above: Performed By: #### L 100.0100, L500.4050 ####[facility] [address] [place], [address] ALT [Catalytic activity/Vol] 21 U/L Normal <=34 [facility] Comment on above: Performed By: #### L 100.0100, L500.4050 ####[facility] [address] [place], [address] AST [Catalytic activity/Vol] 20 U/L Normal <=31 [facility] Comment on above: Performed By: #### L 100.0100, L500.4050 ####[facility] [address] [place], [address] Bilirubin [Mass/Vol] 0.45 mg/dL Normal 0.00-1.30 [facility] Comment on above: Performed By: #### L 100.0100, L500.4050 ####[facility] [address] [place], [address] BUN/CRE 10.0 RATIO Normal 10-20 [facility] Comment on above: Performed By: #### L 100.0100, L500.4050 ####[facility] [address] [place], [address] Calcium [Mass/Vol] 9.7 mg/dL Normal 7.6-11.0 [facility] Comment on above: Performed By: #### L 100.0100, L500.4050 ####[facility] [address] [place], [address] Chloride [Moles/Vol] 98 mmol/L Normal 98-108 [facility] Comment on above: Performed By: #### L 100.0100, L500.4050 ####[facility] [address] [place], [address] CO2 [Moles/Vol] 25.9 mmol/L Normal 21.0-32.0 [facility] Comment on above: Performed By: #### L 100.0100, L500.4050 ####[facility] [address] [place], [address] Creatinine [Mass/Vol] 0.82 mg/dL Normal 0.70-1.20 [facility] Comment on above: Performed By: #### L 100.0100, L500.4050 ####[facility] [address] [place], [address] GAP 12 Normal 5-15 [facility] Comment on above: Performed By: #### L 100.0100, L500.4050 ####[facility] [address] [place], [address] GFR/1.73 sq M.predicted among non-blacks MDRD (S/P/Bld) [Vol rate/Area] 80 mL/min/{1.73_m2} Normal >60 [facility] Comment on above: Result Comment: mL/m in/1.73m2 CKD-EPI Creatinine Equation (2020) Performed By: #### L 100.0100, L500.4050 ####[facility] [address] [place], [address] Globulin (S) [Mass/Vol] 2.7 g/dL Normal 2.2-4.2 [facility] Comment on above: Performed By: #### L 100.0100, L500.4050 ####[facility] [address] [place], [address] Glucose [Mass/Vol] 85 mg/dL Normal 70-99 [facility] Comment on above: Performed By: #### L 100.0100, L500.4050 ####[facility] [address] [place], [address] Potassium [Moles/Vol] 3.8 mmol/L Normal 3.3-5.1 [facility] Comment on above: Performed By: #### L 100.0100, L500.4050 ####[facility] [address] [place], [address] Sodium [Moles/Vol] 137 mmol/L Normal 133-145 [facility] Comment on above: Performed By: #### L 100.0100, L500.4050 ####[facility] [address] [place], [address] T PROT 7.1 g/dL Normal 5.9-8.4 [facility] Comment on above: Performed By: #### L 100.0100, L500.4050 ####[facility] [address] [place], [address] Urea nitrogen [Mass/Vol] 8 mg/dL Normal 4-19 [facility] Comment on above: Performed By: #### L 100.0100, L500.4050 ####[facility] [address] [place], [address] Eosinophil percentageOrdered By: Susie Washington on 07-23-2024 Eosinophils/100 WBC (Bld) 1.8 % 0-5 [facility] Erythrocyte distribution wid th ratioOrdered By: Susie Washington on 07-23-2024 Erythrocyte distribution width (RBC) [Ratio] 15.0 % High 11.6-14.6 [facility] Erythrocyte distribution wid th standard deviationOrdered By: Susie Washington on 07-23-2024 Erythrocyte distribution width (RBC) [Ratio] 51.2 fl High 35.1-43.9 [facility] Glomerular filtration rate ( GFR) estimation/1.73 sq m using serum, plasma, or whole bOrdered By: Susie Washington on 07-23-2024 GFR/1.73 sq M.predicted among non-blacks MDRD (S/P/Bld) [Vol rate/Area] 80 mL/min/{1.73_m2} >60 [facility] Comment on above: mL/min/1.73m2 CKD-EP I Creatinine Equation (2020) Hematocrit Auto (Bld) [Volum e fraction]Ordered By: Susie Washington on 07-23-2024 Hematocrit (Bld) [Volume fraction] 35.2 % Low 37-47 [facility] Hemoglobin measurementOrdere d By: Susie Washington on 07-23-2024 Hemoglobin (Bld) [Mass/Vol] 11.8 g/dL Low 12.0-15.0 [facility] Immature granulocytes/100 WB C Auto (Bld)Ordered By: Susie Washington on 07-23-2024 Immature granulocytes/100 WBC (Bld) 0.400 % 0.0-0.9 [facility] Comment on above: IG% - Immature Granu locytes (promyelocytes, myelocytes and metamyelocytes) > 1% indicates that a LEFT SHIFT is Present. Laboratory - Chemistry and C hemistry - challengeOrdered By: Susie Washington on 07-23-2024 AST [Catalytic activity/Vol] 20 U/L <32 [facility] MCV (mean corpuscular volume ) determinationOrdered By: Susie Washington on 07-23-2024 MCV (RBC) [Entitic vol] 94.1 fL 81-99 [facility] Mean corpuscular hemoglobin (MCH) determinationOrdered By: Susie Washington on 07-23-2024 MCH (RBC) [Entitic mass] 31.6 pg 27.0-32.0 [facility] Mean corpuscular hemoglobin concentration (MCHC) determinationOrdered By: Susie Washington 07-23-2024 MCHC (RBC) [Mass/Vol] 33.5 g/dL 32-36 [facility] Mean platelet volume determi nationOrdered By: Susie Washington on 07-23-2024 Platelet mean volume (Bld) [Entitic vol] 9.2 fL 6.2-12.0 [facility] Monocyte percentageOrdered B y: Susie Washington on 07-23-2024 Monocytes/100 WBC (Bld) 10.2 % High 0-10 [facility] Neutrophil percentageOrdered By: Susie Washington on 04-18-2025 Neutrophils/100 WBC (Bld) 56.6 % 47-70 [facility] Nucleated red blood cell per centageOrdered By: Susie Washington on 07-23-2024 Nucleated RBC/100 WBC (Bld) [Ratio] 0 % 0-5 [facility] Platelet countOrdered By: Barbie Washington on 07-23-2024 Platelets (Bld) [#/Vol] 400 10*3/uL 150-450 [facility] Potassium measurement (mass/ volume)Ordered By: Susie Washington on 07-23-2024 Potassium (Unsp spec) [Mass/Vol] 3.8 mmol/L 3.3-5.1 [facility] RBC Auto (Bld) [#/Vol]Ordere d By: Susie Washington on 07-23-2024 RBC (Bld) [#/Vol] 3.74 10*6/uL Low 4.2-5.4 [facility] Serum creatinine measurement (mass/volume)Ordered By: Susie Washington on 07-23-2024 Creatinine [Mass/Vol] 0.82 mg/dL 0.70-1.20 [facility] Serum globulin measurementOr dered By: Susie Washington on 07-23-2024 Globulin (S) [Mass/Vol] 2.7 g/dL 2.2-4.2 [facility] Serum glucose measurement (m ass/volume)Ordered By: Susie Washington on 07-23-2024 Glucose [Mass/Vol] 85 mg/dL 70-99 [facility] Serum or plasma alanine wall otransferase (ALT) measurementOrdered By: Susie Washington on 07-23-2024 ALT [Catalytic activity/Vol] 21 U/L <35 [facility] Serum or plasma albumin syed urement (mass/volume)Ordered By: Susie Washington on 07-23-2024 Albumin [Mass/Vol] 4.4 g/dL 3.4-4.8 [facility] Serum or plasma albumin/glob ulin mass ratioOrdered By: Susie Washington on 07-23-2024 Albumin/Globulin [Mass ratio] 1.6 {ratio} 0.9-2.4 [facility] Serum or plasma alkaline enma sphatase measurementOrdered By: Susie Washington on 07-23-2024 ALP [Catalytic activity/Vol] 42 U/L 35-104 [facility] Serum or plasma calcium syed urement (mass/volume)Ordered By: Susie Washington on 07-23-2024 Calcium [Mass/Vol] 9.7 mg/dL 7.6-11.0 [facility] Serum or plasma urea nitroge n measurement (mass/volume)Ordered By: Susie Washington on 07-23-2024 Urea nitrogen [Mass/Vol] 8 mg/dL 4-19 [facility] Sodium levelOrdered By: Estefany Washington on 07-23-2024 Sodium [Moles/Vol] 137 mmol/L 133-145 [facility] Total proteinOrdered By: Leonor Washington on 07-23-2024 Protein [Mass/Vol] 7.1 g/dL 5.9-8.4 [facility] White blood cell (WBC) count Ordered By: Susie Washington on 07-23-2024 WBC (Bld) [#/Vol] 5.6 10*3/uL 4.4-11.0 [facility] Internal Medicine Office Vis iton 07-01-2024 Internal Medicine Office Visit [facility] [address] [place] [address] OFFICE VISIT Date of Service: 07/01/24 MR#: [id number] Acct: [id number] Name: KADY SPENCER Rep #: [id number] : 1960 Provider: BARBIE Ulloa Age/Sex: 64/F Location: [facility] Status: Signed Intake Vital Signs 04/30/24 13:21 [...] INNER THIGH Chief Complaint: 5 M FU [employer] Mechanical Technician Required: No Is patient in pain?: Yes [...] a burn. Has not had shingle vaccine. [facility] Medical History Health care maintenance Colon cancer [...] you partici (more content not included)... Normal [facility] CBC W/Diff, Automatedon - Absolute Lymph 1.66 X10 3/uL Normal 0.83-4.51 [facility] Comment on above: Performed By: #### L 100.0100, L500.4050 ####[facility] [address] [place], [address] Absolute Neut 5.7 X10 3/uL Normal 2.0-7.7 [facility] Comment on above: Performed By: #### L 100.0100, L500.4050 ####[facility] [address] [place], [address] Basophils/100 WBC (Bld) 0.4 % Normal 0-1 [facility] Comment on above: Performed By: #### L 100.0100, L500.4050 ####[facility] [address] [place], [address] Eosinophils/100 WBC (Bld) 1.5 % Normal 0-5 [facility] Comment on above: Performed By: #### L 100.0100, L500.4050 ####[facility] [address] [place], [address] Erythrocyte distribution width (RBC) [Ratio] 14.2 % Normal 11.6-14.6 [facility] Comment on above: Performed By: #### L 100.0100, L500.4050 ####[facility] [address] [place], [address] Hematocrit (Bld) [Volume fraction] 35.5 % Low 37-47 [facility] Comment on above: Performed By: #### L 100.0100, L500.4050 ####[facility] [address] [place], [address] Hemoglobin (Bld) [Mass/Vol] 11.7 g/dL Low 12.0-15.0 [facility] Comment on above: Performed By: #### L 100.0100, L500.4050 ####[facility] [address] [place], [address] IG% 0.500 Normal 0.0-0.9 [facility] Comment on above: Result Comment: IG% - Immature Granulocytes (promyelocytes, myelocytes and metamyelocytes) > 1% indicates that a LEFT SHIFT is Present. Performed By: #### L 100.0100, L500.4050 ####[facility] [address] [place], [address] Lymphocytes/100 WBC (Bld) 20.3 % Normal 19-41 [facility] Comment on above: Performed By: #### L 100.0100, L500.4050 ####[facility] [address] [place], [address] MCH (RBC) [Entitic mass] 31.0 pg Normal 27.0-32.0 [facility] Comment on above: Performed By: #### L 100.0100, L500.4050 ####[facility] [address] [place], [address] MCHC (RBC) [Mass/Vol] 33.0 g/dL Normal 32-36 [facility] Comment on above: Performed By: #### L 100.0100, L500.4050 ####[facility] [address] [place], [address] MCV (RBC) [Entitic vol] 94.2 fL Normal 81-99 [facility] Comment on above: Performed By: #### L 100.0100, L500.4050 ####[facility] [address] [place], [address] Monocytes/100 WBC (Bld) 8.2 % Normal 0-10 [facility] Comment on above: Performed By: #### L 100.0100, L500.4050 ####[facility] [address] [place], [address] Neutrophils/100 WBC (Bld) 69.1 % Normal 47-70 [facility] Comment on above: Performed By: #### L 100.0100, L500.4050 ####[facility] [address] [place], [address] Nucleated RBC (Bld) [#/Vol] 0 10*3/uL Normal 0-5 [facility] Comment on above: Performed By: #### L 100.0100, L500.4050 ####[facility] [address] [place], [address] Platelet mean volume (Bld) [Entitic vol] 9.1 fL Normal 6.2-12.0 [facility] Comment on above: Performed By: #### L 100.0100, L500.4050 ####[facility] [address] [place], [address] Platelets (Bld) [#/Vol] 397 10*3/uL Normal 150-450 [facility] Comment on above: Performed By: #### L 100.0100, L500.4050 ####[facility] [address] [place], [address] RBC (Bld) [#/Vol] 3.77 10*6/uL Low 4.2-5.4 [facility] Comment on above: Performed By: #### L 100.0100, L500.4050 ####[facility] [address] [place], [address] RDW SD 48.2 fl High 35.1-43.9 [facility] Comment on above: Performed By: #### L 100.0100, L500.4050 ####[facility] [address] [place], [address] WBC (Bld) [#/Vol] 8.2 10*3/uL Normal 4.4-11.0 [facility] Comment on above: Performed By: #### L 100.0100, L500.4050 ####[facility] [address] [place], [address] Comprehensive Metabolic Prof ilon 04-30-2024 Albumin [Mass/Vol] 3.7 g/dL Normal 3.2-5.0 [facility] Comment on above: Performed By: #### L 100.0100, L500.4050 ####[facility] [address] [place], [address] Albumin/Globulin [Mass ratio] 1.1 {ratio} Normal 0.9-2.4 [facility] Comment on above: Performed By: #### L 100.0100, L500.4050 ####[facility] [address] [place], [address] ALK P 47 U/L Normal 45-117 [facility] Comment on above: Performed By: #### L 100.0100, L500.4050 ####[facility] [address] [place], [address] ALT [Catalytic activity/Vol] 27 U/L Normal 13-56 [facility] Comment on above: Performed By: #### L 100.0100, L500.4050 ####[facility] [address] [place], [address] AST [Catalytic activity/Vol] 17 U/L Normal 15-37 [facility] Comment on above: Performed By: #### L 100.0100, L500.4050 ####[facility] [address] [place], [address] Bilirubin [Mass/Vol] 0.70 mg/dL Normal 0.20-1.00 [facility] Comment on above: Result Comment: For patients on eltrombopag therapy, use of Dimension [place] TBIL is not recommended. Performed By: #### L 100.0100, L500.4050 ####[facility] [address] [place], [address] BUN/CRE 11.7 RATIO Normal 10-20 [facility] Comment on above: Performed By: #### L 100.0100, L500.4050 ####[facility] [address] [place], [address] CA,Total 9.2 mg/dL Normal 8.5-10.1 [facility] Comment on above: Performed By: #### L 100.0100, L500.4050 ####[facility] [address] [place], [address] Chloride [Moles/Vol] 100 mmol/L Normal 98-107 [facility] Comment on above: Performed By: #### L 100.0100, L500.4050 ####[facility] [address] [place], [address] CO2 [Moles/Vol] 27.0 mmol/L Normal 21.0-32.0 [facility] Comment on above: Performed By: #### L 100.0100, L500.4050 ####[facility] [address] [place], [address] Creatinine [Mass/Vol] 0.86 mg/dL Normal 0.55-1.02 [facility] Comment on above: Result Comment: The validity of the calculated GFR GFRAA in patients over 70 years has not been determined. Clinical correlation is essential. Performed By: #### L 100.0100, L500.4050 ####[facility] [address] [place], [address] EST GFR - AA 86 mL/min Normal >60 [facility] Comment on above: Result Comment: Afri can Argentine GFR Calc Performed By: #### L 100.0100, L500.4050 ####[facility] [address] [place], [address] GAP 7 Normal 5-15 [facility] Comment on above: Performed By: #### L 100.0100, L500.4050 ####[facility] [address] [place], [address] GFR/1.73 sq M.predicted among non-blacks MDRD (S/P/Bld) [Vol rate/Area] 71 mL/min/{1.73_m2} Normal >60 [facility] Comment on above: Result Comment: Non- GFR Calc Performed By: #### L 100.0100, L500.4050 ####[facility] [address] [place], [address] Globulin (S) [Mass/Vol] 3.4 g/dL Normal 2.2-4.2 [facility] Comment on above: Performed By: #### L 100.0100, L500.4050 ####[facility] [address] [place], [address] Glucose [Mass/Vol] 109 mg/dL High 74-106 [facility] Comment on above: Result Comment: Fast ing Glucose result from 100 to 125 mg/dL suggests IMPAIRED HOMEOSTASIS per A.D.A. criteria. Performed By: #### L 100.0100, L500.4050 ####[facility] [address] [place], [address] Potassium [Moles/Vol] 4.4 mmol/L Normal 3.5-5.1 [facility] Comment on above: Performed By: #### L 100.0100, L500.4050 ####[facility] [address] [place], [address] Sodium [Moles/Vol] 134 mmol/L Low 136-145 [facility] Comment on above: Performed By: #### L 100.0100, L500.4050 ####[facility] [address] [place], [address] T PROT 7.1 g/dL Normal 6.4-8.2 [facility] Comment on above: Performed By: #### L 100.0100, L500.4050 ####[facility] [address] [place], [address] Urea nitrogen [Mass/Vol] 10 mg/dL Normal 7-18 [facility] Comment on above: Performed By: #### L 100.0100, L500.4050 ####[facility] [address] [place], [address] Hemoglobin A1con 04-30-2024 HbA1c (Bld) [Mass fraction] 5.7 % High 3.8-5.6 [facility] Comment on above: Result Comment: Norm al < 5.7 % Prediabetic 5.7 - 6.4 % Diabetic >or= 6.5 % Please note range changes. Performed By: #### L 500.4100, L501.9985 #### [facility] [address] [place], [address] Internal Medicine Office Vis iton 04-30-2024 Internal Medicine Office Visit [facility] [address] [place] [address] [place] [address] OFFICE VISIT Date of Service: 04/30/24 MR#: [id number] Acct: [id number] Name: KADY SPENCER Rep #: [id number] : 1960 Provider: Dr. Tash fisher MD Age/Sex: 63/F Location: [facility] Status: Signed Intake Vital Signs 09/19/23 10:11 [...] dr. Pop Chief Complaint: 6 M FU [employer] Mechanical Technician Required: No Accompanied by: Self Is patient [...] 90 mcg/actuation 2 puff inhalation Q6H PRN 08/05/24 01/24/25 Rx aerosol inhaler shortness of breath or [...] in appetite (more content not included)... Normal [facility] Lipid Profileon 04-30-2024 Cholesterol [Mass/Vol] 160 mg/dL Normal 200 [facility] Comment on above: Result Comment: <200 mg/dL Desirable 200-240 mg/dL Borderline >240 mg/dL High Risk Performed By: #### L 500.4100, L501.9985 #### [facility] [address] [place], [address] Cholesterol in HDL [Mass/Vol] 72 mg/dL Normal [facility] Comment on above: Result Comment: The drugs N-Acetylcysteine and Metamizole may falsely depress this assay. Reference Range HDL <40 mg/dL Low HDL Cholesterol HDL >or= 60 mg/dL High HDL Cholesterol Performed By: #### L 500.4100, L501.9985 #### [facility] [address] [place], [address] Cholesterol in LDL [Mass/Vol] 45 mg/dL Normal 0-130 [facility] Comment on above: Performed By: #### L 500.4100, L501.9985 #### [facility] [address] [place], [address] Cholesterol in VLDL [Mass/Vol] 43 mg/dL High 5-40 [facility] Comment on above: Performed By: #### L 500.4100, L501.9985 #### [facility] [address] [place], [address] Triglyceride [Mass/Vol] 215 mg/dL High [facility] Comment on above: Result Comment: The drugs N-Acetylcysteine and Metamizole may falsely depress this assay. Serum Triglycerides Reference Interval Normal <150 mg/dL Borderline high 150 - 199 mg/dL High 200 - 499 mg/dL Very High > or = 500 mg/dL Performed By: #### L 500.4100, L501.9985 #### [facility] [address] [place], [address] CBC W/Diff, Automatedon 11-0 6-2023 Absolute Lymph 1.42 X10 3/uL Normal 0.83-4.51 [facility] Comment on above: Performed By: #### L 100.0100, L500.4050 #### [facility] [address] [place], [address] Absolute Neut 4.6 X10 3/uL Normal 2.0-7.7 [facility] Comment on above: Performed By: #### L 100.0100, L500.4050 #### [facility] [address] [place], [address] Basophils/100 WBC (Bld) 0.7 % Normal 0-1 [facility] Comment on above: Performed By: #### L 100.0100, L500.4050 #### [facility] [address] [place], [address] Eosinophils/100 WBC (Bld) 2.5 % Normal 0-5 [facility] Comment on above: Performed By: #### L 100.0100, L500.4050 #### [facility] [address] [place], [address] Erythrocyte distribution width (RBC) [Ratio] 14.3 % Normal 11.6-14.6 [facility] Comment on above: Performed By: #### L 100.0100, L500.4050 #### [facility] [address] [place], [address] Hematocrit (Bld) [Volume fraction] 35.1 % Low 37-47 [facility] Comment on above: Performed By: #### L 100.0100, L500.4050 #### [facility] [address] [place], [address] Hemoglobin (Bld) [Mass/Vol] 12.0 g/dL Normal 12.0-15.0 [facility] Comment on above: Performed By: #### L 100.0100, L500.4050 #### [facility] [address] [place], [address] IG% 0.300 Normal 0.0-0.9 [facility] Comment on above: Result Comment: IG% - Immature Granulocytes (promyelocytes, myelocytes and metamyelocytes) > 1% indicates that a LEFT SHIFT is Present. Performed By: #### L 100.0100, L500.4050 #### [facility] [address] [place], [address] Lymphocytes/100 WBC (Bld) 21.1 % Normal 19-41 [facility] Comment on above: Performed By: #### L 100.0100, L500.4050 #### [facility] [address] [place], [address] MCH (RBC) [Entitic mass] 32.0 pg Normal 27.0-32.0 [facility] Comment on above: Performed By: #### L 100.0100, L500.4050 #### [facility] [address] [place], [address] MCHC (RBC) [Mass/Vol] 34.2 g/dL Normal 32-36 [facility] Comment on above: Performed By: #### L 100.0100, L500.4050 #### [facility] [address] [place], [address] MCV (RBC) [Entitic vol] 93.6 fL Normal 81-99 [facility] Comment on above: Performed By: #### L 100.0100, L500.4050 #### [facility] [address] [place], [address] Monocytes/100 WBC (Bld) 7.4 % Normal 0-10 [facility] Comment on above: Performed By: #### L 100.0100, L500.4050 #### [facility] [address] [place], [address] Neutrophils/100 WBC (Bld) 68.0 % Normal 47-70 [facility] Comment on above: Performed By: #### L 100.0100, L500.4050 #### [facility] [address] [place], [address] Nucleated RBC (Bld) [#/Vol] 0 10*3/uL Normal 0-5 [facility] Comment on above: Performed By: #### L 100.0100, L500.4050 #### [facility] [address] [place], [address] Platelet mean volume (Bld) [Entitic vol] 9.2 fL Normal 6.2-12.0 [facility] Comment on above: Performed By: #### L 100.0100, L500.4050 #### [facility] [address] [place], [address] Platelets (Bld) [#/Vol] 362 10*3/uL Normal 150-450 [facility] Comment on above: Performed By: #### L 100.0100, L500.4050 #### [facility] [address] [place], [address] RBC (Bld) [#/Vol] 3.75 10*6/uL Low 4.2-5.4 [facility] Comment on above: Performed By: #### L 100.0100, L500.4050 #### [facility] [address] [place], [address] RDW SD 48.5 fl High 35.1-43.9 [facility] Comment on above: Performed By: #### L 100.0100, L500.4050 #### [facility] [address] [place], [address] WBC (Bld) [#/Vol] 6.7 10*3/uL Normal 4.4-11.0 [facility] Comment on above: Performed By: #### L 100.0100, L500.4050 #### [facility] [address] [place], [address] Comprehensive Metabolic Prof ilon 02-11-2024 Albumin [Mass/Vol] 3.9 g/dL Normal 3.2-5.0 [facility] Comment on above: Performed By: #### L 100.0100, L500.4050 #### [facility] [address] [place], [address] Albumin/Globulin [Mass ratio] 1.3 {ratio} Normal 0.9-2.4 [facility] Comment on above: Performed By: #### L 100.0100, L500.4050 #### [facility] [address] [place], [address] ALK P 42 U/L Low 45-117 [facility] Comment on above: Performed By: #### L 100.0100, L500.4050 #### [facility] [address] [place], [address] ALT [Catalytic activity/Vol] 33 U/L Normal 13-56 [facility] Comment on above: Performed By: #### L 100.0100, L500.4050 #### [facility] [address] [place], [address] AST [Catalytic activity/Vol] 24 U/L Normal 15-37 [facility] Comment on above: Performed By: #### L 100.0100, L500.4050 #### [facility] [address] [place], [address] Bilirubin [Mass/Vol] 0.70 mg/dL Normal 0.20-1.00 [facility] Comment on above: Result Comment: For patients on eltrombopag therapy, use of Dimension [place] TBIL is not recommended. Performed By: #### L 100.0100, L500.4050 #### [facility] [address] [place], [address] BUN/CRE 10.3 RATIO Normal 10-20 [facility] Comment on above: Performed By: #### L 100.0100, L500.4050 #### [facility] [address] [place], [address] CA,Total 9.1 mg/dL Normal 8.5-10.1 [facility] Comment on above: Performed By: #### L 100.0100, L500.4050 #### [facility] [address] [place], [address] Chloride [Moles/Vol] 100 mmol/L Normal 98-107 [facility] Comment on above: Performed By: #### L 100.0100, L500.4050 #### [facility] [address] [place], [address] CO2 [Moles/Vol] 28.0 mmol/L Normal 21.0-32.0 [facility] Comment on above: Performed By: #### L 100.0100, L500.4050 #### [facility] [address] [place], [address] Creatinine [Mass/Vol] 0.87 mg/dL Normal 0.55-1.02 [facility] Comment on above: Result Comment: The validity of the calculated GFR GFRAA in patients over 70 years has not been determined. Clinical correlation is essential. Performed By: #### L 100.0100, L500.4050 #### [facility] [address] [place], [address] EST GFR - AA 84 mL/min Normal >60 [facility] Comment on above: Result Comment: Afri can Argentine GFR Calc Performed By: #### L 100.0100, L500.4050 #### [facility] [address] [place], [address] GAP 6 Normal 5-15 [facility] Comment on above: Performed By: #### L 100.0100, L500.4050 #### [facility] [address] [place], [address] GFR/1.73 sq M.predicted among non-blacks MDRD (S/P/Bld) [Vol rate/Area] 69 mL/min/{1.73_m2} Normal >60 [facility] Comment on above: Result Comment: Non- GFR Calc Performed By: #### L 100.0100, L500.4050 #### [facility] [address] [place], [address] Globulin (S) [Mass/Vol] 3.0 g/dL Normal 2.2-4.2 [facility] Comment on above: Performed By: #### L 100.0100, L500.4050 #### [facility] [address] [place], [address] Glucose [Mass/Vol] 115 mg/dL High 74-106 [facility] Comment on above: Result Comment: Fast ing Glucose result from 100 to 125 mg/dL suggests IMPAIRED HOMEOSTASIS per A.D.A. criteria. Performed By: #### L 100.0100, L500.4050 #### [facility] [address] [place], [address] Potassium [Moles/Vol] 3.5 mmol/L Normal 3.5-5.1 [facility] Comment on above: Performed By: #### L 100.0100, L500.4050 #### [facility] [address] [place], [address] Sodium [Moles/Vol] 134 mmol/L Low 136-145 [facility] Comment on above: Performed By: #### L 100.0100, L500.4050 #### [facility] [address] [place], [address] T PROT 6.9 g/dL Normal 6.4-8.2 [facility] Comment on above: Performed By: #### L 100.0100, L500.4050 #### [facility] [address] [place], [address] Urea nitrogen [Mass/Vol] 9 mg/dL Normal 7-18 [facility] Comment on above: Performed By: #### L 100.0100, L500.4050 #### [facility] [address] [place], [address] LABORATORYOrdered By: SYSTEM SYSTEM on 01-19-2024 Natriuretic peptide.B prohormone N-Terminal [Mass/Vol] 33 pg/mL Normal 0 - 125 pg/mL AO ADM SS Comment on above: Interpretive Data: N T-proBNP results of less than 300 pg/mL effectively rules out acute congestive heart failure with 99% negative predictive value. PBNPon 01-19-2024 Natriuretic peptide B (Bld) [Mass/Vol] 33 pg/mL Normal 0-125 [facility] Comment on above: Result Comment: NT-p roBNP results of less than 300 pg/mL effectively rules out acute congestive heart failure with 99% negative predictive value. Performed By: #### P BNP #### [address] [address] Cerv Spine 2 or 3 Viewson Cerv Spine 2 or 3 Views [facility] [address] [place] [address] Cerv Spine 2 or 3 Views MR#: [id number] Acct: [id number] Name: KADY SPENCER Rep #: [id number] : 1960 F 63 From: Bret Hebert PCP: Dr. Tash Fallon MD Status: REG CLI Study: Cerv Spine 2 or 3 Views Date of Exam: 11/17/23 Exam# [id number] Ordering Dr: Gloria Garcia MD [id number] INDICATION: Spondylosis without myelopathy or radiculopathy, cervical [...] Signed: Bret Robert MD at 12:23 EDT Reading Location ID and State: [facility] / [place] Tel , Service support , CC: Dr. Gloria Garcia MD; Dr. Tash Fallon MD Outreach Educator: Signed Normal [facility] CBC W/Diff, Automatedon 08-0 Absolute Lymph 1.76 X10 3/uL Normal 0.83-4.51 [facility] Comment on above: Performed By: #### L 500.4050, L100.0100 ####[facility] [address] [place], [address] Absolute Neut 3.2 X10 3/uL Normal 2.0-7.7 [facility] Comment on above: Performed By: #### L 500.4050, L100.0100 ####[facility] [address] [place], [address] Basophils/100 WBC (Bld) 0.5 % Normal 0-1 [facility] Comment on above: Performed By: #### L 500.4050, L100.0100 ####[facility] [address] [place], [address] Eosinophils/100 WBC (Bld) 1.6 % Normal 0-5 [facility] Comment on above: Performed By: #### L 500.4050, L100.0100 ####[facility] [address] [place], [address] Erythrocyte distribution width (RBC) [Ratio] 13.7 % Normal 11.6-14.6 [facility] Comment on above: Performed By: #### L 500.4050, L100.0100 ####[facility] [address] [place], [address] Hematocrit (Bld) [Volume fraction] 36.3 % Low 37-47 [facility] Comment on above: Performed By: #### L 500.4050, L100.0100 ####[facility] [address] [place], [address] Hemoglobin (Bld) [Mass/Vol] 12.0 g/dL Normal 12.0-15.0 [facility] Comment on above: Performed By: #### L 500.4050, L100.0100 ####[facility] [address] [place], [address] IG% 0.200 Normal 0.0-0.9 [facility] Comment on above: Result Comment: IG% - Immature Granulocytes (promyelocytes, myelocytes and metamyelocytes) > 1% indicates that a LEFT SHIFT is Present. Performed By: #### L 500.4050, L100.0100 ####[facility] [address] [place], [address] Lymphocytes/100 WBC (Bld) 31.2 % Normal 19-41 [facility] Comment on above: Performed By: #### L 500.4050, L100.0100 ####[facility] [address] [place], [address] MCH (RBC) [Entitic mass] 30.8 pg Normal 27.0-32.0 [facility] Comment on above: Performed By: #### L 500.4050, L100.0100 ####[facility] [address] [place], [address] MCHC (RBC) [Mass/Vol] 33.1 g/dL Normal 32-36 [facility] Comment on above: Performed By: #### L 500.4050, L100.0100 ####[facility] [address] [place], [address] MCV (RBC) [Entitic vol] 93.1 fL Normal 81-99 [facility] Comment on above: Performed By: #### L 500.4050, L100.0100 ####[facility] [address] [place], [address] Monocytes/100 WBC (Bld) 10.4 % High 0-10 [facility] Comment on above: Performed By: #### L 500.4050, L100.0100 ####[facility] [address] [place], [address] Neutrophils/100 WBC (Bld) 56.1 % Normal 47-70 [facility] Comment on above: Performed By: #### L 500.4050, L100.0100 ####[facility] [address] [place], [address] Nucleated RBC (Bld) [#/Vol] 0 10*3/uL Normal 0-5 [facility] Comment on above: Performed By: #### L 500.4050, L100.0100 ####[facility] [address] [place], [address] Platelet mean volume (Bld) [Entitic vol] 9.2 fL Normal 6.2-12.0 [facility] Comment on above: Performed By: #### L 500.4050, L100.0100 ####[facility] [address] [place], [address] Platelets (Bld) [#/Vol] 345 10*3/uL Normal 150-450 [facility] Comment on above: Performed By: #### L 500.4050, L100.0100 ####[facility] [address] [place], [address] RBC (Bld) [#/Vol] 3.90 10*6/uL Low 4.2-5.4 [facility] Comment on above: Performed By: #### L 500.4050, L100.0100 ####[facility] [address] [place], [address] RDW SD 45.9 fl High 35.1-43.9 [facility] Comment on above: Performed By: #### L 500.4050, L100.0100 ####[facility] [address] [place], [address] WBC (Bld) [#/Vol] 5.7 10*3/uL Normal 4.4-11.0 [facility] Comment on above: Performed By: #### L 500.4050, L100.0100 ####[facility] [address] [place], [address] Comprehensive Metabolic Prof ilon 11-13-2023 Albumin [Mass/Vol] 4.2 g/dL Normal 3.2-5.0 [facility] Comment on above: Performed By: #### L 500.4050, L100.0100 ####[facility] [address] [place], [address] Albumin/Globulin [Mass ratio] 1.5 {ratio} Normal 0.9-2.4 [facility] Comment on above: Performed By: #### L 500.4050, L100.0100 ####[facility] [address] [place], [address] ALK P 32 U/L Low 45-117 [facility] Comment on above: Performed By: #### L 500.4050, L100.0100 ####[facility] [address] [place], [address] ALT [Catalytic activity/Vol] 42 U/L Normal 13-56 [facility] Comment on above: Performed By: #### L 500.4050, L100.0100 ####[facility] [address] [place], [address] AST [Catalytic activity/Vol] 33 U/L Normal 15-37 [facility] Comment on above: Performed By: #### L 500.4050, L100.0100 ####[facility] [address] [place], [address] Bilirubin [Mass/Vol] 0.90 mg/dL Normal 0.20-1.00 [facility] Comment on above: Result Comment: For patients on eltrombopag therapy, use of Dimension [place] TBIL is not recommended. Performed By: #### L 500.4050, L100.0100 ####[facility] [address] [place], [address] BUN/CRE 10.6 RATIO Normal 10-20 [facility] Comment on above: Performed By: #### L 500.4050, L100.0100 ####[facility] [address] [place], [address] CA,Total 9.2 mg/dL Normal 8.5-10.1 [facility] Comment on above: Performed By: #### L 500.4050, L100.0100 ####[facility] [address] [place], [address] Chloride [Moles/Vol] 100 mmol/L Normal 98-107 [facility] Comment on above: Performed By: #### L 500.4050, L100.0100 ####[facility] [address] [place], [address] CO2 [Moles/Vol] 27.0 mmol/L Normal 21.0-32.0 [facility] Comment on above: Performed By: #### L 500.4050, L100.0100 ####[facility] [address] [place], [address] Creatinine [Mass/Vol] 0.75 mg/dL Normal 0.55-1.02 [facility] Comment on above: Result Comment: The validity of the calculated GFR GFRAA in patients over 70 years has not been determined. Clinical correlation is essential. Performed By: #### L 500.4050, L100.0100 ####[facility] [address] [place], [address] EST GFR - AA 100 mL/min Normal >60 [facility] Comment on above: Result Comment: Afri can Argentine GFR Calc Performed By: #### L 500.4050, L100.0100 ####[facility] [address] [place], [address] GAP 7 Normal 5-15 [facility] Comment on above: Performed By: #### L 500.4050, L100.0100 ####[facility] [address] [place], [address] GFR/1.73 sq M.predicted among non-blacks MDRD (S/P/Bld) [Vol rate/Area] 82 mL/min/{1.73_m2} Normal >60 [facility] Comment on above: Result Comment: Non- GFR Calc Performed By: #### L 500.4050, L100.0100 ####[facility] [address] [place], [address] Globulin (S) [Mass/Vol] 2.8 g/dL Normal 2.2-4.2 [facility] Comment on above: Performed By: #### L 500.4050, L100.0100 ####[facility] [address] [place], [address] Glucose [Mass/Vol] 93 mg/dL Normal 74-106 [facility] Comment on above: Performed By: #### L 500.4050, L100.0100 ####[facility] [address] [place], [address] Potassium [Moles/Vol] 4.0 mmol/L Normal 3.5-5.1 [facility] Comment on above: Performed By: #### L 500.4050, L100.0100 ####[facility] [address] [place], [address] Sodium [Moles/Vol] 134 mmol/L Low 136-145 [facility] Comment on above: Performed By: #### L 500.4050, L100.0100 ####[facility] [address] [place], [address] T PROT 7.0 g/dL Normal 6.4-8.2 [facility] Comment on above: Performed By: #### L 500.4050, L100.0100 ####[facility] [address] [place], [address] Urea nitrogen [Mass/Vol] 8 mg/dL Normal 7-18 [facility] Comment on above: Performed By: #### L 500.4050, L100.0100 ####[facility] [address] [place], [address] Absolute lymphocyte countOrd ered By: Susie Washington on 05-26-2023 Lymphocytes Auto (Unsp spec) [#/Vol] 2.25 10*3/uL 0.83-4.51 [facility] Automated lymphocyte count a s percentage of total leukocytesOrdered By: Susie Washington on 05-26-2023 Lymphocytes/100 WBC Auto (Unsp spec) 36.6 % 19-41 [facility] Basophil percentageOrdered B y: Susie Washington on 05-26-2023 Basophils/100 WBC (Bld) 0.5 % 0-1 [facility] Bilirubin [Mass/Vol] 1.00 mg/dL 0.20-1.00 [facility] Comment on above: For patients on eltr ombopag therapy, use of Dimension [place] TBIL is not recommended. Chloride [Moles/Vol] 104 mmol/L 98-107 [facility] Cholesterol [Mass/Vol] 225 mg/dL <200 [facility] Comment on above: <200 mg/dL Desirable 200-240 mg/dL Borderline >240 mg/dL High Risk Eosinophils/100 WBC (Bld) 1.1 % 0-5 [facility] Glucose [Mass/Vol] 93 mg/dL 74-106 [facility] Hemoglobin (Bld) [Mass/Vol] 12.9 g/dL 12.0-15.0 [facility] Monocytes/100 WBC (Bld) 10.7 % 0-10 [facility] Neutrophils (Bld) [#/Vol] 3.1 10*3/uL 2.0-7.7 [facility] Neutrophils/100 WBC (Bld) 50.9 % 47-70 [facility] Potassium [Moles/Vol] 4.2 mmol/L 3.5-5.1 [facility] Protein [Mass/Vol] 6.8 g/dL 6.4-8.2 [facility] Sodium [Moles/Vol] 137 mmol/L 136-145 [facility] Triglyceride [Mass/Vol] 174 mg/dL <199 [facility] Comment on above: The drugs N-Acetylcy steine and Metamizole may falsely depress this assay.Serum Triglycerides Reference Interval Normal <150 mg/dL Borderline high 150 - 199 mg/dL High 200 - 499 mg/dL Very High > or = 500 mg/dL WBC (Bld) [#/Vol] 6.2 10*3/uL 4.4-11.0 [facility] Determination of erythrocyte mean corpuscular volume (MCV)Ordered By: Susie Washington on 05-26-2023 MCV (RBC) [Entitic vol] 95.0 fL 81-99 [facility] Erythrocyte distribution wid th ratioOrdered By: [facility] Padmini on 05-26-2023 Erythrocyte distribution width (RBC) [Ratio] 14.6 % 11.6-14.6 [facility] Erythrocyte distribution wid th standard deviationOrdered By: [facility] Padmini on 05-26-2023 Erythrocyte distribution width (RBC) [Entitic vol] 50.5 fL 35.1-43.9 [facility] Hematocrit Auto (Bld) [Volum e fraction]Ordered By: Susie Washington on 05-26-2023 Hematocrit (Bld) [Volume fraction] 38.2 % 37-47 [facility] Immature granulocytes/100 WB C Auto (Bld)Ordered By: [facility] Padmini on 05-26-2023 Immature granulocytes/100 WBC (Bld) 0.200 % 0.0-0.9 [facility] Comment on above: IG% - Immature Granu locytes (promyelocytes, myelocytes and metamyelocytes) > 1% indicates that a LEFT SHIFT is Present. Laboratory - Chemistry and C hemistry - challengeOrdered By: Susie Washington on 05-26-2023 Albumin/Globulin [Mass ratio] 1.4 {ratio} 0.9-2.4 [facility] ALP [Catalytic activity/Vol] 32 U/L 45-117 [facility] ALT [Catalytic activity/Vol] 37 U/L 13-56 [facility] Cholesterol in HDL [Mass/Vol] 91 mg/dL >40 [facility] Comment on above: The drugs N-Acetylcy steine and Metamizole may falsely depress this assay. Reference Range HDL <40 mg/dL Low HDL Cholesterol HDL >or= 60 mg/dL High HDL Cholesterol Cholesterol in LDL [Mass/Vol] 99 mg/dL 0-130 [facility] CO2 [Moles/Vol] 29.0 mmol/L 21.0-32.0 [facility] Globulin (S) [Mass/Vol] 2.8 g/dL 2.2-4.2 [facility] Urea nitrogen/Creatinine [Mass ratio] 8.9 mg/mg 10-20 [facility] - Hematology and Cell countsOrdered By: Susie Washington on 05-26-2023 MCH (RBC) [Entitic mass] 32.1 pg 27.0-32.0 [facility] MCHC (RBC) [Mass/Vol] 33.8 g/dL 32-36 [facility] Nucleated RBC/100 WBC (Bld) [Ratio] 0 % 0-5 [facility] Platelet mean volume (Bld) [Entitic vol] 8.8 fL 6.2-12.0 [facility] Platelets (Bld) [#/Vol] 339 10*3/uL 150-450 [facility] No Panel InformationOrdered By: Susie Washington on 05-26-2023 Estimated GFR (MDRD) Amer 81 mL/min >60 [facility] Comment on above: GFR Calc Estimated GFR (MDRD) Non-Af Amer 67 mL/min >60 [facility] Comment on above: Non- GFR Calc VLDL Cholesterol 35 mg/dL 5-40 [facility] RBC Auto (Bld) [#/Vol]Ordere d By: Susie Washington on 05-26-2023 RBC (Bld) [#/Vol] 4.02 10*6/uL 4.2-5.4 [facility] Serum or plasma calcium syed urement (mass/volume)Ordered By: Susie Washington on 05-26-2023 Calcium [Mass/Vol] 8.9 mg/dL 8.5-10.1 [facility] Serum or plasma creatinine m easurement (mass/volume)Ordered By: Susie Washington on 05-26-2023 Creatinine [Mass/Vol] 0.90 mg/dL 0.55-1.02 [facility] Comment on above: The validity of the calculated GFR & GFRAA in patients over 70 years has not been determined. Clinical correlation is essential. Serum or plasma urea nitroge n measurement (mass/volume)Ordered By: Susie Washington on 05-26-2023 Urea nitrogen [Mass/Vol] 8 mg/dL 7-18 [facility] Thin prep Papanicolaou smear with manual screeningOrdered By: Susie Washington on 05-26-2023 Thin prep Papanicolaou smear with manual screening 4.0 g/dL 3.2-5.0 [facility] Thin prep Papanicolaou smear with manual screening 26 U/L 15-37 [facility] Thin prep Papanicolaou smear with manual screening 4 5-15 [facility] Basophil percentageOrdered B y: Tash Fallon on 03-17-2023 Cholesterol [Mass/Vol] 184 mg/dL <200 [facility] Comment on above: <200 mg/dL Desirable 200-240 mg/dL Borderline >240 mg/dL High Risk Triglyceride [Mass/Vol] 199 mg/dL <199 [facility] Comment on above: The drugs N-Acetylcy steine and Metamizole may falsely depress this assay.Serum Triglycerides Reference Interval Normal <150 mg/dL Borderline high 150 - 199 mg/dL High 200 - 499 mg/dL Very High > or = 500 mg/dL Laboratory - Hematology and Cell countson 03-17-2023 HbA1c (Bld) [Mass fraction] 5.9 % 4.2-6.3 [facility] Serum or plasma cholesterol in HDL measurement (mass/volume)Ordered By: Tash Fallon on 03-17-2023 Cholesterol in HDL [Mass/Vol] 77 mg/dL >40 [facility] Comment on above: The drugs N-Acetylcy steine and Metamizole may falsely depress this assay. Reference Range HDL <40 mg/dL Low HDL Cholesterol HDL >or= 60 mg/dL High HDL Cholesterol Serum or plasma cholesterol in VLDL measurement (mass/volume)Ordered By: Tash Fallon on 03-17-2023 Cholesterol in VLDL [Mass/Vol] 40 mg/dL 5-40 [facility] Serum or plasma low density lipoprotein (LDL) cholesterol measurement (mass/volume)Ordered By: Tash Fallon on 03-17-2023 Cholesterol in LDL [Mass/Vol] 67 mg/dL 0-130 [facility] Absolute lymphocyte countOrd ered By: Susie Washington on 02-07-2023 Lymphocytes Auto (Unsp spec) [#/Vol] 2.83 10*3/uL 0.83-4.51 [facility] Basophil percentageOrdered B y: Susie Washington on 02-07-2023 Basophils/100 WBC (Bld) 0.3 % 0-1 [facility] Bilirubin [Mass/Vol] 0.80 mg/dL 0.20-1.00 [facility] Comment on above: For patients on eltr ombopag therapy, use of Dimension [place] TBIL is not recommended. Chloride [Moles/Vol] 98 mmol/L 98-107 [facility] Eosinophils/100 WBC (Bld) 0.8 % 0-5 [facility] Glucose [Mass/Vol] 79 mg/dL 74-106 [facility] Neutrophils (Bld) [#/Vol] 6.8 10*3/uL 2.0-7.7 [facility] Neutrophils/100 WBC (Bld) 64.4 % 47-70 [facility] Potassium [Moles/Vol] 3.8 mmol/L 3.5-5.1 [facility] Protein [Mass/Vol] 6.8 g/dL 6.4-8.2 [facility] Sodium [Moles/Vol] 133 mmol/L 136-145 [facility] WBC (Bld) [#/Vol] 10.6 10*3/uL 4.4-11.0 [facility] Blood erythrocytes count (nu mber/volume)Ordered By: Susie Washington on 02-07-2023 RBC (Bld) [#/Vol] 3.84 10*6/uL 4.2-5.4 [facility] Blood hemoglobin measurement (mass/volume)Ordered By: Susie Washington on 02-07-2023 Hemoglobin (Bld) [Mass/Vol] 12.2 g/dL 12.0-15.0 [facility] Blood lymphocytes/100 leukoc ytesOrdered By: Susie Washington on 02-07-2023 Lymphocytes/100 WBC (Bld) 26.7 % 19-41 [facility] Blood monocytes/100 leukocyt esOrdered By: Susie Washington on 02-07-2023 Monocytes/100 WBC (Bld) 7.5 % 0-10 [facility] Blood platelet mean volumeOr dered By: Susie Washington on 02-07-2023 Platelet mean volume (Bld) [Entitic vol] 9.2 fL 6.2-12.0 [facility] Determination of erythrocyte mean corpuscular volume (MCV)Ordered By: Susie Washington on 02-07-2023 MCV (RBC) [Entitic vol] 96.1 fL 81-99 [facility] Hematocrit Auto (Bld) [Volum e fraction]Ordered By: [facility] Padmini on 02-07-2023 Hematocrit (Bld) [Volume fraction] 36.9 % 37-47 [facility] Laboratory - Chemistry and C hemistry - challengeOrdered By: [facility] Padmini on 02-07-2023 ALP [Catalytic activity/Vol] 44 U/L 45-117 [facility] ALT [Catalytic activity/Vol] 33 U/L 13-56 [facility] CO2 [Moles/Vol] 28.0 mmol/L 21.0-32.0 [facility] Globulin (S) [Mass/Vol] 3.1 g/dL 2.2-4.2 [facility] Urea nitrogen/Creatinine [Mass ratio] 12.6 mg/mg 10-20 [facility] Laboratory - Hematology and Cell countsOrdered By: Susierashida Washington on 02-07-2023 Erythrocyte distribution width (RBC) [Entitic vol] 49.5 fL 35.1-43.9 [facility] Erythrocyte distribution width (RBC) [Ratio] 14.4 % 11.6-14.6 [facility] Immature granulocytes/100 WBC (Bld) 0.300 % 0.0-0.9 [facility] Comment on above: IG% - Immature Granu locytes (promyelocytes, myelocytes and metamyelocytes) > 1% indicates that a LEFT SHIFT is Present. MCH (RBC) [Entitic mass] 31.8 pg 27.0-32.0 [facility] Nucleated RBC/100 WBC (Bld) [Ratio] 0 % 0-5 [facility] MCHC Auto (RBC) [Mass/Vol]Or dered By: Susie Washington on 02-07-2023 MCHC (RBC) [Mass/Vol] 33.1 g/dL 32-36 [facility] No Panel InformationOrdered By: Susie Washington on 02-07-2023 Estimated GFR (MDRD) Amer 84 mL/min >60 [facility] Comment on above: GFR Calc Estimated GFR (MDRD) Non-Af Amer 70 mL/min >60 [facility] Comment on above: Non- GFR Calc Platelets bldOrdered By: Leonor Washington on 02-07-2023 Platelets (Bld) [#/Vol] 402 10*3/uL 150-450 [facility] Serum or plasma albumin syed urement (mass/volume)Ordered By: Susie Washington on 02-07-2023 Albumin [Mass/Vol] 3.7 g/dL 3.2-5.0 [facility] Serum or plasma albumin/glob ulin mass ratioOrdered By: uSsie Washington on 02-07-2023 Albumin/Globulin [Mass ratio] 1.2 {ratio} 0.9-2.4 [facility] Serum or plasma calcium syed urement (mass/volume)Ordered By: Susie Washington on 02-07-2023 Calcium [Mass/Vol] 8.7 mg/dL 8.5-10.1 [facility] Serum or plasma creatinine m easurement (mass/volume)Ordered By: Susie Washington on 02-07-2023 Creatinine [Mass/Vol] 0.87 mg/dL 0.55-1.02 [facility] Comment on above: The validity of the calculated GFR & GFRAA in patients over 70 years has not been determined. Clinical correlation is essential. Serum or plasma urea nitroge n measurement (mass/volume)Ordered By: Susie Washington on 02-07-2023 Urea nitrogen [Mass/Vol] 11 mg/dL 7-18 [facility] Thin prep Papanicolaou smear with manual screeningOrdered By: Susie Washington on 02-07-2023 Thin prep Papanicolaou smear with manual screening 18 U/L 15-37 [facility] Thin prep Papanicolaou smear with manual screening 7 5-15 [facility] Absolute lymphocyte countOrd ered By: Susie Washington on 12-06-2022 Lymphocytes Auto (Unsp spec) [#/Vol] 2.13 10*3/uL 0.83-4.51 [facility] Basophil percentageOrdered B y: Susie Washington on 12-06-2022 Basophils/100 WBC (Bld) 0.6 % 0-1 [facility] Bilirubin [Mass/Vol] 0.90 mg/dL 0.20-1.00 [facility] Comment on above: For patients on eltr ombopag therapy, use of Dimension [place] TBIL is not recommended. Chloride [Moles/Vol] 100 mmol/L 98-107 [facility] Eosinophils/100 WBC (Bld) 1.6 % 0-5 [facility] Glucose [Mass/Vol] 95 mg/dL 74-106 [facility] Neutrophils (Bld) [#/Vol] 3.8 10*3/uL 2.0-7.7 [facility] Neutrophils/100 WBC (Bld) 57.5 % 47-70 [facility] Potassium [Moles/Vol] 3.8 mmol/L 3.5-5.1 [facility] Protein [Mass/Vol] 7.5 g/dL 6.4-8.2 [facility] Sodium [Moles/Vol] 135 mmol/L 136-145 [facility] WBC (Bld) [#/Vol] 6.7 10*3/uL 4.4-11.0 [facility] Blood erythrocytes count (nu mber/volume)Ordered By: Susie Washington on 12-06-2022 RBC (Bld) [#/Vol] 4.20 10*6/uL 4.2-5.4 [facility] Blood hemoglobin measurement (mass/volume)Ordered By: Susie Washington on 12-06-2022 Hemoglobin (Bld) [Mass/Vol] 13.2 g/dL 12.0-15.0 [facility] Blood lymphocytes/100 leukoc ytesOrdered By: Susie Washington on 12-06-2022 Lymphocytes/100 WBC (Bld) 31.9 % 19-41 [facility] Blood monocytes/100 leukocyt esOrdered By: Susie Washington on 12-06-2022 Monocytes/100 WBC (Bld) 8.1 % 0-10 [facility] Blood platelet mean volumeOr dered By: Susie Washington on 12-06-2022 Platelet mean volume (Bld) [Entitic vol] 9.0 fL 6.2-12.0 [facility] Determination of erythrocyte mean corpuscular volume (MCV)Ordered By: Susie Washington on 12-06-2022 MCV (RBC) [Entitic vol] 97.6 fL 81-99 [facility] Hematocrit Auto (Bld) [Volum e fraction]Ordered By: [facility] Padmini on 12-06-2022 Hematocrit (Bld) [Volume fraction] 41.0 % 37-47 [facility] Laboratory - Chemistry and C hemistry - challengeOrdered By: Susie Padmini on 12-06-2022 ALP [Catalytic activity/Vol] 51 U/L 45-117 [facility] ALT [Catalytic activity/Vol] 38 U/L 13-56 [facility] CO2 [Moles/Vol] 27.0 mmol/L 21.0-32.0 [facility] Globulin (S) [Mass/Vol] 3.4 g/dL 2.2-4.2 [facility] Urea nitrogen/Creatinine [Mass ratio] 9.2 mg/mg 10-20 [facility] Laboratory - Hematology and Cell countsOrdered By: Susie Washington on 12-06-2022 Erythrocyte distribution width (RBC) [Entitic vol] 50.4 fL 35.1-43.9 [facility] Erythrocyte distribution width (RBC) [Ratio] 14.0 % 11.6-14.6 [facility] Immature granulocytes/100 WBC (Bld) 0.300 % 0.0-0.9 [facility] Comment on above: IG% - Immature Granu locytes (promyelocytes, myelocytes and metamyelocytes) > 1% indicates that a LEFT SHIFT is Present. MCH (RBC) [Entitic mass] 31.4 pg 27.0-32.0 [facility] Nucleated RBC/100 WBC (Bld) [Ratio] 0 % 0-5 [facility] MCHC Auto (RBC) [Mass/Vol]Or dered By: Susie Washington on 12-06-2022 MCHC (RBC) [Mass/Vol] 32.2 g/dL 32-36 [facility] No Panel InformationOrdered By: Susie Washington on 12-06-2022 Estimated GFR (MDRD) Amer 99 mL/min >60 [facility] Comment on above: GFR Calc Estimated GFR (MDRD) Non-Af Amer 82 mL/min >60 [facility] Comment on above: Non- GFR Calc Platelets bldOrdered By: Leonor Washington on 12-06-2022 Platelets (Bld) [#/Vol] 388 10*3/uL 150-450 [facility] Serum or plasma albumin syed urement (mass/volume)Ordered By: Susie Washington on 12-06-2022 Albumin [Mass/Vol] 4.1 g/dL 3.2-5.0 [facility] Serum or plasma albumin/glob ulin mass ratioOrdered By: Susie Washington on 12-06-2022 Albumin/Globulin [Mass ratio] 1.2 {ratio} 0.9-2.4 [facility] Serum or plasma calcium syed urement (mass/volume)Ordered By: Susie Washington on 12-06-2022 Calcium [Mass/Vol] 9.0 mg/dL 8.5-10.1 [facility] Serum or plasma creatinine m easurement (mass/volume)Ordered By: Susie Washington on 12-06-2022 Creatinine [Mass/Vol] 0.76 mg/dL 0.55-1.02 [facility] Comment on above: The validity of the calculated GFR & GFRAA in patients over 70 years has not been determined. Clinical correlation is essential. Serum or plasma urea nitroge n measurement (mass/volume)Ordered By: Susie Washington on 12-06-2022 Urea nitrogen [Mass/Vol] 7 mg/dL 7-18 [facility] Thin prep Papanicolaou smear with manual screeningOrdered By: Susie Washington on 12-06-2022 Thin prep Papanicolaou smear with manual screening 27 U/L 15-37 [facility] Thin prep Papanicolaou smear with manual screening 8 5-15 [facility] Laboratory - Hematology and Cell countson 09-24-2022 HbA1c (Bld) [Mass fraction] 6.0 % 4.2-6.3 [facility] Absolute lymphocyte countOrd ered By: Dr. Washington on 09-16-2022 Lymphocytes Auto (Unsp spec) [#/Vol] 2.57 10*3/uL 0.83-4.51 [facility] Basophil percentageOrdered B y: Dr. Washington on 09-16-2022 Basophils/100 WBC (Bld) 0.5 % 0-1 [facility] Bilirubin [Mass/Vol] 0.80 mg/dL 0.20-1.00 [facility] Comment on above: For patients on eltr ombopag therapy, use of Dimension [place] TBIL is not recommended. Chloride [Moles/Vol] 97 mmol/L 98-107 [facility] Eosinophils/100 WBC (Bld) 2.6 % 0-5 [facility] Glucose [Mass/Vol] 102 mg/dL 74-106 [facility] Comment on above: Fasting Glucose resu lt from 100 to 125 mg/dL suggests IMPAIRED HOMEOSTASIS per A.D.A. criteria. Neutrophils (Bld) [#/Vol] 4.1 10*3/uL 2.0-7.7 [facility] Neutrophils/100 WBC (Bld) 54.7 % 47-70 [facility] Potassium [Moles/Vol] 4.2 mmol/L 3.5-5.1 [facility] Protein [Mass/Vol] 7.5 g/dL 6.4-8.2 [facility] Sodium [Moles/Vol] 131 mmol/L 136-145 [facility] WBC (Bld) [#/Vol] 7.6 10*3/uL 4.4-11.0 [facility] Blood erythrocytes count (nu mber/volume)Ordered By: Dr. Washington on 09-16-2022 RBC (Bld) [#/Vol] 4.16 10*6/uL 4.2-5.4 [facility] Blood hemoglobin measurement (mass/volume)Ordered By: Dr. Washington on 09-16-2022 Hemoglobin (Bld) [Mass/Vol] 13.0 g/dL 12.0-15.0 [facility] Blood lymphocytes/100 leukoc ytesOrdered By: Dr. Washington on 09-16-2022 Lymphocytes/100 WBC (Bld) 33.9 % 19-41 [facility] Blood monocytes/100 leukocyt esOrdered By: Dr. Washington on 09-16-2022 Monocytes/100 WBC (Bld) 8.0 % 0-10 [facility] Blood platelet mean volumeOr dered By: Dr. Washington on 09-16-2022 Platelet mean volume (Bld) [Entitic vol] 8.8 fL 6.2-12.0 [facility] Determination of erythrocyte mean corpuscular volume (MCV)Ordered By: Dr. Washington on 09-16-2022 MCV (RBC) [Entitic vol] 94.7 fL 81-99 [facility] Hematocrit Auto (Bld) [Volum e fraction]Ordered By: Dr. Washington on 09-16-2022 Hematocrit (Bld) [Volume fraction] 39.4 % 37-47 [facility] Laboratory - Chemistry and C hemistry - challengeOrdered By: Dr. Washington on 09-16-2022 ALP [Catalytic activity/Vol] 52 U/L 45-117 [facility] ALT [Catalytic activity/Vol] 40 U/L 13-56 [facility] CO2 [Moles/Vol] 27.0 mmol/L 21.0-32.0 [facility] Globulin (S) [Mass/Vol] 3.5 g/dL 2.2-4.2 [facility] Urea nitrogen/Creatinine [Mass ratio] 8.0 mg/mg 10-20 [facility] Laboratory - Hematology and Cell countsOrdered By: Dr. Washington on 09-16-2022 Erythrocyte distribution width (RBC) [Entitic vol] 48.1 fL 35.1-43.9 [facility] Erythrocyte distribution width (RBC) [Ratio] 14.1 % 11.6-14.6 [facility] Immature granulocytes/100 WBC (Bld) 0.300 % 0.0-0.9 [facility] Comment on above: IG% - Immature Granu locytes (promyelocytes, myelocytes and metamyelocytes) > 1% indicates that a LEFT SHIFT is Present. MCH (RBC) [Entitic mass] 31.3 pg 27.0-32.0 [facility] Nucleated RBC/100 WBC (Bld) [Ratio] 0 % 0-5 [facility] MCHC Auto (RBC) [Mass/Vol]Or dered By: Dr. Washington on 09-16-2022 MCHC (RBC) [Mass/Vol] 33.0 g/dL 32-36 [facility] No Panel InformationOrdered By: Dr. Washington on 09-16-2022 Estimated GFR (MDRD) Amer 100 mL/min >60 [facility] Comment on above: GFR Calc Estimated GFR (MDRD) Non-Af Amer 83 mL/min >60 [facility] Comment on above: Non- GFR Calc Platelets bldOrdered By: Dr. Washington on 09-16-2022 Platelets (Bld) [#/Vol] 379 10*3/uL 150-450 [facility] Serum or plasma albumin syed urement (mass/volume)Ordered By: Dr. Washington on 09-16-2022 Albumin [Mass/Vol] 4.0 g/dL 3.2-5.0 [facility] Serum or plasma albumin/glob ulin mass ratioOrdered By: Dr. Washington on 09-16-2022 Albumin/Globulin [Mass ratio] 1.1 {ratio} 0.9-2.4 [facility] Serum or plasma calcium syed urement (mass/volume)Ordered By: Dr. Washington on 09-16-2022 Calcium [Mass/Vol] 9.3 mg/dL 8.5-10.1 [facility] Serum or plasma creatinine m easurement (mass/volume)Ordered By: Dr. Washington on 09-16-2022 Creatinine [Mass/Vol] 0.75 mg/dL 0.55-1.02 [facility] Comment on above: The validity of the calculated GFR & GFRAA in patients over 70 years has not been determined. Clinical correlation is essential. Serum or plasma urea nitroge n measurement (mass/volume)Ordered By: Dr. Washington on 09-16-2022 Urea nitrogen [Mass/Vol] 6 mg/dL 7-18 [facility] Thin prep Papanicolaou smear with manual screeningOrdered By: Dr. Washington on 09-16-2022 Thin prep Papanicolaou smear with manual screening 30 U/L 15-37 [facility] Thin prep Papanicolaou smear with manual screening 7 5-15 [facility] Laboratory - Microbiology an d Antimicrobial susceptibilityon 08-26-2022 S. pyogenes Ag IA Ql (Unsp spec) Negative [facility] Absolute lymphocyte countOrd ered By: Dr. Washington on 06-19-2022 Lymphocytes Auto (Unsp spec) [#/Vol] 2.76 10*3/uL 0.83-4.51 [facility] Basophil percentageOrdered B y: Dr. Washington on 06-19-2022 Basophils/100 WBC (Bld) 0.4 % 0-1 [facility] Bilirubin [Mass/Vol] 1.00 mg/dL 0.20-1.00 [facility] Comment on above: For patients on eltr ombopag therapy, use of Dimension [place] TBIL is not recommended. Chloride [Moles/Vol] 102 mmol/L 98-107 [facility] Eosinophils/100 WBC (Bld) 2.3 % 0-5 [facility] Glucose [Mass/Vol] 122 mg/dL 74-106 [facility] Comment on above: Fasting Glucose resu lt from 100 to 125 mg/dL suggests IMPAIRED HOMEOSTASIS per A.D.A. criteria. Neutrophils (Bld) [#/Vol] 3.8 10*3/uL 2.0-7.7 [facility] Neutrophils/100 WBC (Bld) 51.6 % 47-70 [facility] Potassium [Moles/Vol] 3.7 mmol/L 3.5-5.1 [facility] Protein [Mass/Vol] 6.7 g/dL 6.4-8.2 [facility] Sodium [Moles/Vol] 137 mmol/L 136-145 [facility] WBC (Bld) [#/Vol] 7.4 10*3/uL 4.4-11.0 [facility] Blood erythrocytes count (nu mber/volume)Ordered By: Dr. Washington on 06-19-2022 RBC (Bld) [#/Vol] 4.09 10*6/uL 4.2-5.4 [facility] Blood hemoglobin measurement (mass/volume)Ordered By: Dr. Washington on 06-19-2022 Hemoglobin (Bld) [Mass/Vol] 12.8 g/dL 12.0-15.0 [facility] Blood lymphocytes/100 leukoc ytesOrdered By: Dr. Washington on 06-19-2022 Lymphocytes/100 WBC (Bld) 37.1 % 19-41 [facility] Blood monocytes/100 leukocyt esOrdered By: Dr. Washington on 06-19-2022 Monocytes/100 WBC (Bld) 8.5 % 0-10 [facility] Blood platelet mean volumeOr dered By: Dr. Washington on 06-19-2022 Platelet mean volume (Bld) [Entitic vol] 10.0 fL 6.2-12.0 [facility] Determination of erythrocyte mean corpuscular volume (MCV)Ordered By: Dr. Washington on 06-19-2022 MCV (RBC) [Entitic vol] 93.2 fL 81-99 [facility] Hematocrit Auto (Bld) [Volum e fraction]Ordered By: Dr. Washington on 06-19-2022 Hematocrit (Bld) [Volume fraction] 38.1 % 37-47 [facility] Laboratory - Chemistry and C hemistry - challengeOrdered By: Dr. Washington on 06-19-2022 ALP [Catalytic activity/Vol] 46 U/L 45-117 [facility] ALT [Catalytic activity/Vol] 39 U/L 13-56 [facility] CO2 [Moles/Vol] 26.0 mmol/L 21.0-32.0 [facility] Globulin (S) [Mass/Vol] 2.9 g/dL 2.2-4.2 [facility] Urea nitrogen/Creatinine [Mass ratio] 10.6 mg/mg 10-20 [facility] Laboratory - Hematology and Cell countsOrdered By: Dr. Washington on 06-19-2022 Erythrocyte distribution width (RBC) [Entitic vol] 50.0 fL 35.1-43.9 [facility] Erythrocyte distribution width (RBC) [Ratio] 14.6 % 11.6-14.6 [facility] Immature granulocytes/100 WBC (Bld) 0.100 % 0.0-0.9 [facility] Comment on above: IG% - Immature Granu locytes (promyelocytes, myelocytes and metamyelocytes) > 1% indicates that a LEFT SHIFT is Present. MCH (RBC) [Entitic mass] 31.3 pg 27.0-32.0 [facility] Nucleated RBC/100 WBC (Bld) [Ratio] 0 % 0-5 [facility] MCHC Auto (RBC) [Mass/Vol]Or dered By: Dr. Washington on 06-19-2022 MCHC (RBC) [Mass/Vol] 33.6 g/dL 32-36 [facility] No Panel InformationOrdered By: Dr. Washington on 06-19-2022 Estimated GFR (MDRD) Amer 100 mL/min >60 [facility] Comment on above: GFR Calc Estimated GFR (MDRD) Non-Af Amer 82 mL/min >60 [facility] Comment on above: Non- GFR Calc Platelets bldOrdered By: Dr. Washington on 06-19-2022 Platelets (Bld) [#/Vol] 388 10*3/uL 150-450 [facility] Serum or plasma albumin syed urement (mass/volume)Ordered By: Dr. Washington on 06-19-2022 Albumin [Mass/Vol] 3.8 g/dL 3.2-5.0 [facility] Serum or plasma albumin/glob ulin mass ratioOrdered By: Dr. Washington on 06-19-2022 Albumin/Globulin [Mass ratio] 1.3 {ratio} 0.9-2.4 [facility] Serum or plasma calcium syed urement (mass/volume)Ordered By: Dr. Washington on 06-19-2022 Calcium [Mass/Vol] 8.6 mg/dL 8.5-10.1 [facility] Serum or plasma creatinine m easurement (mass/volume)Ordered By: Dr. Washington on 06-19-2022 Creatinine [Mass/Vol] 0.76 mg/dL 0.55-1.02 [facility] Comment on above: The validity of the calculated GFR & GFRAA in patients over 70 years has not been determined. Clinical correlation is essential. Serum or plasma urea nitroge n measurement (mass/volume)Ordered By: Dr. Washington on 06-19-2022 Urea nitrogen [Mass/Vol] 8 mg/dL 7-18 [facility] Thin prep Papanicolaou smear with manual screeningOrdered By: Dr. Washington on 06-19-2022 Thin prep Papanicolaou smear with manual screening 28 U/L 15-37 [facility] Thin prep Papanicolaou smear with manual screening 9 5-15 [facility] LABORATORYOrdered By: SYSTEM SYSTEM on 05-01-2022 Natriuretic peptide.B prohormone N-Terminal [Mass/Vol] 20 pg/mL Invalid Interpretation Code 0 - 125 pg/mL AO ADM SS Qualitative QuantiFERON-TB g old in tube testOrdered By: Dr. Washington on 04-16-2022 M. tuberculosis tuberculin stim IFN-g Ql (Bld) 0.03 IU/mL . [facility] Thin prep Papanicolaou smear with manual screeningOrdered By: Dr. Washington on 04-16-2022 Thin prep Papanicolaou smear with manual screening Comment . [facility] Comment on above: QuantiFERON-TB Gold Plus [...] smear with manual screening 0.03 IU/mL . [facility] Thin prep Papanicolaou smear with manual screening 0.04 IU/mL . [facility] Thin prep Papanicolaou smear with manual screening > 10.00 IU/mL . [facility] Thin prep Papanicolaou smear with manual screening Negative Negative [facility] Comment on above: No response to [...] the productionof interferon gamma. Chemiluminescence immunoassaymethodologyPerformed at: - [facility] [id number] Director: Fuentes Petty PhD, Phone: [phone] Absolute lymphocyte countOrd ered By: Dr. Washington on 03-13-2022 Lymphocytes Auto (Unsp spec) [#/Vol] 2.29 10*3/uL 0.83-4.51 [facility] Basophil percentageOrdered B y: Dr. Washington on 03-13-2022 Basophils/100 WBC (Bld) 0.6 % 0-1 [facility] Bilirubin [Mass/Vol] 0.40 mg/dL 0.20-1.00 [facility] Comment on above: For patients on eltr ombopag therapy, use of Dimension [place] TBIL is not recommended. Chloride [Moles/Vol] 104 mmol/L 98-107 [facility] Eosinophils/100 WBC (Bld) 2.1 % 0-5 [facility] Glucose [Mass/Vol] 107 mg/dL 74-106 [facility] Comment on above: Fasting Glucose resu lt from 100 to 125 mg/dL suggests IMPAIRED HOMEOSTASIS per A.D.A. criteria. Neutrophils (Bld) [#/Vol] 4.0 10*3/uL 2.0-7.7 [facility] Neutrophils/100 WBC (Bld) 57.2 % 47-70 [facility] Potassium [Moles/Vol] 4.0 mmol/L 3.5-5.1 [facility] Protein [Mass/Vol] 6.9 g/dL 6.4-8.2 [facility] Sodium [Moles/Vol] 138 mmol/L 136-145 [facility] WBC (Bld) [#/Vol] 7.0 10*3/uL 4.4-11.0 [facility] Blood erythrocytes count (nu mber/volume)Ordered By: Dr. Washington on 03-13-2022 RBC (Bld) [#/Vol] 4.14 10*6/uL 4.2-5.4 [facility] Blood hemoglobin measurement (mass/volume)Ordered By: Dr. Washington on 03-13-2022 Hemoglobin (Bld) [Mass/Vol] 12.3 g/dL 12.0-15.0 [facility] Blood lymphocytes/100 leukoc ytesOrdered By: Dr. Washington on 03-13-2022 Lymphocytes/100 WBC (Bld) 32.7 % 19-41 [facility] Blood monocytes/100 leukocyt esOrdered By: Dr. Washington on 03-13-2022 Monocytes/100 WBC (Bld) 7.1 % 0-10 [facility] Blood platelet mean volumeOr dered By: Dr. Washington on 03-13-2022 Platelet mean volume (Bld) [Entitic vol] 9.4 fL 6.2-12.0 [facility] Determination of erythrocyte mean corpuscular volume (MCV)Ordered By: Dr. Washington on 03-13-2022 MCV (RBC) [Entitic vol] 91.8 fL 81-99 [facility] Hematocrit Auto (Bld) [Volum e fraction]Ordered By: Dr. Washington on 03-13-2022 Hematocrit (Bld) [Volume fraction] 38.0 % 37-47 [facility] Laboratory - Chemistry and C hemistry - challengeOrdered By: Dr. Washington on 03-13-2022 ALP [Catalytic activity/Vol] 61 U/L 45-117 [facility] ALT [Catalytic activity/Vol] 32 U/L 13-56 [facility] CO2 [Moles/Vol] 31.0 mmol/L 21.0-32.0 [facility] Globulin (S) [Mass/Vol] 2.9 g/dL 2.2-4.2 [facility] Urea nitrogen/Creatinine [Mass ratio] 10.7 mg/mg 10-20 [facility] Laboratory - Hematology and Cell countsOrdered By: Dr. Washington on 03-13-2022 Erythrocyte distribution width (RBC) [Entitic vol] 48.0 fL 35.1-43.9 [facility] Erythrocyte distribution width (RBC) [Ratio] 14.3 % 11.6-14.6 [facility] Immature granulocytes/100 WBC (Bld) 0.300 % 0.0-0.9 [facility] Comment on above: IG% - Immature Granu locytes (promyelocytes, myelocytes and metamyelocytes) > 1% indicates that a LEFT SHIFT is Present. MCH (RBC) [Entitic mass] 29.7 pg 27.0-32.0 [facility] Nucleated RBC/100 WBC (Bld) [Ratio] 0 % 0-5 [facility] MCHC Auto (RBC) [Mass/Vol]Or dered By: Dr. Washington on 03-13-2022 MCHC (RBC) [Mass/Vol] 32.4 g/dL 32-36 [facility] No Panel InformationOrdered By: Dr. Washington on 03-13-2022 Estimated GFR (MDRD) Amer 117 mL/min >60 [facility] Comment on above: GFR Calc Estimated GFR (MDRD) Non-Af Amer 97 mL/min >60 [facility] Comment on above: Non- GFR Calc Platelets bldOrdered By: Dr. Washington on 03-13-2022 Platelets (Bld) [#/Vol] 397 10*3/uL 150-450 [facility] Serum or plasma albumin syed urement (mass/volume)Ordered By: Dr. Washington on 03-13-2022 Albumin [Mass/Vol] 4.0 g/dL 3.2-5.0 [facility] Serum or plasma albumin/glob ulin mass ratioOrdered By: Dr. Washington on 03-13-2022 Albumin/Globulin [Mass ratio] 1.4 {ratio} 0.9-2.4 [facility] Serum or plasma calcium syed urement (mass/volume)Ordered By: Dr. Washington on 03-13-2022 Calcium [Mass/Vol] 9.0 mg/dL 8.5-10.1 [facility] Serum or plasma creatinine m easurement (mass/volume)Ordered By: Dr. Washington on 03-13-2022 Creatinine [Mass/Vol] 0.66 mg/dL 0.55-1.02 [facility] Comment on above: The validity of the calculated GFR & GFRAA in patients over 70 years has not been determined. Clinical correlation is essential. Serum or plasma urea nitroge n measurement (mass/volume)Ordered By: Dr. Washington on 03-13-2022 Urea nitrogen [Mass/Vol] 7 mg/dL 7-18 [facility] Thin prep Papanicolaou smear with manual screeningOrdered By: Dr. Washington on 03-13-2022 Thin prep Papanicolaou smear with manual screening 21 U/L 15-37 [facility] Thin prep Papanicolaou smear with manual screening 3 5-15 [facility] Absolute lymphocyte countOrd ered By: Dr. Washington on 01-07-2022 Lymphocytes Auto (Unsp spec) [#/Vol] 2.35 10*3/uL 0.83-4.51 [facility] Basophil percentageOrdered B y: Dr. Washington on 01-07-2022 Basophils/100 WBC (Bld) 0.4 % 0-1 [facility] Bilirubin [Mass/Vol] 0.70 mg/dL 0.20-1.00 [facility] Comment on above: For patients on eltr ombopag therapy, use of Dimension [place] TBIL is not recommended. Chloride [Moles/Vol] 103 mmol/L 98-107 [facility] Eosinophils/100 WBC (Bld) 1.7 % 0-5 [facility] Glucose [Mass/Vol] 95 mg/dL 74-106 [facility] Neutrophils (Bld) [#/Vol] 4.1 10*3/uL 2.0-7.7 [facility] Neutrophils/100 WBC (Bld) 57.1 % 47-70 [facility] Potassium [Moles/Vol] 3.9 mmol/L 3.5-5.1 [facility] Protein [Mass/Vol] 7.3 g/dL 6.4-8.2 [facility] Sodium [Moles/Vol] 138 mmol/L 136-145 [facility] WBC (Bld) [#/Vol] 7.2 10*3/uL 4.4-11.0 [facility] Blood erythrocytes count (nu mber/volume)Ordered By: Dr. Washington on 01-07-2022 RBC (Bld) [#/Vol] 4.32 10*6/uL 4.2-5.4 [facility] Blood hemoglobin measurement (mass/volume)Ordered By: Dr. Washington on 01-07-2022 Hemoglobin (Bld) [Mass/Vol] 12.9 g/dL 12.0-15.0 [facility] Blood lymphocytes/100 leukoc ytesOrdered By: Dr. Washington on 01-07-2022 Lymphocytes/100 WBC (Bld) 32.5 % 19-41 [facility] Blood monocytes/100 leukocyt esOrdered By: Dr. Washington on 01-07-2022 Monocytes/100 WBC (Bld) 8.0 % 0-10 [facility] Blood platelet mean volumeOr dered By: Dr. Washington on 01-07-2022 Platelet mean volume (Bld) [Entitic vol] 9.3 fL 6.2-12.0 [facility] Determination of erythrocyte mean corpuscular volume (MCV)Ordered By: Dr. Washington on 01-07-2022 MCV (RBC) [Entitic vol] 91.7 fL 81-99 [facility] Hematocrit Auto (Bld) [Volum e fraction]Ordered By: Dr. Washington on 01-07-2022 Hematocrit (Bld) [Volume fraction] 39.6 % 37-47 [facility] Laboratory - Chemistry and C hemistry - challengeOrdered By: Dr. Washington on 01-07-2022 ALP [Catalytic activity/Vol] 51 U/L 45-117 [facility] ALT [Catalytic activity/Vol] 26 U/L 13-56 [facility] CO2 [Moles/Vol] 27.0 mmol/L 21.0-32.0 [facility] Globulin (S) [Mass/Vol] 3.4 g/dL 2.2-4.2 [facility] Urea nitrogen/Creatinine [Mass ratio] 8.1 mg/mg 10-20 [facility] Laboratory - Hematology and Cell countsOrdered By: Dr. Washington on 01-07-2022 Erythrocyte distribution width (RBC) [Entitic vol] 50.8 fL 35.1-43.9 [facility] Erythrocyte distribution width (RBC) [Ratio] 15.1 % 11.6-14.6 [facility] Immature granulocytes/100 WBC (Bld) 0.300 % 0.0-0.9 [facility] Comment on above: IG% - Immature Granu locytes (promyelocytes, myelocytes and metamyelocytes) > 1% indicates that a LEFT SHIFT is Present. MCH (RBC) [Entitic mass] 29.9 pg 27.0-32.0 [facility] Nucleated RBC/100 WBC (Bld) [Ratio] 0 % 0-5 [facility] MCHC Auto (RBC) [Mass/Vol]Or dered By: Dr. Washington on 01-07-2022 MCHC (RBC) [Mass/Vol] 32.6 g/dL 32-36 [facility] No Panel InformationOrdered By: Dr. Washington on 01-07-2022 Estimated GFR (MDRD) Amer 102 mL/min >60 [facility] Comment on above: GFR Calc Estimated GFR (MDRD) Non-Af Amer 85 mL/min >60 [facility] Comment on above: Non- GFR Calc Platelets bldOrdered By: Dr. Washington on 01-07-2022 Platelets (Bld) [#/Vol] 401 10*3/uL 150-450 [facility] Serum or plasma albumin syed urement (mass/volume)Ordered By: Dr. Washington on 01-07-2022 Albumin [Mass/Vol] 3.9 g/dL 3.2-5.0 [facility] Serum or plasma albumin/glob ulin mass ratioOrdered By: Dr. Washington on 01-07-2022 Albumin/Globulin [Mass ratio] 1.1 {ratio} 0.9-2.4 [facility] Serum or plasma calcium syed urement (mass/volume)Ordered By: Dr. Washington on 01-07-2022 Calcium [Mass/Vol] 9.2 mg/dL 8.5-10.1 [facility] Serum or plasma creatinine m easurement (mass/volume)Ordered By: Dr. Washington on 01-07-2022 Creatinine [Mass/Vol] 0.74 mg/dL 0.55-1.02 [facility] Comment on above: The validity of the calculated GFR & GFRAA in patients over 70 years has not been determined. Clinical correlation is essential. Serum or plasma urea nitroge n measurement (mass/volume)Ordered By: Dr. Washington on 01-07-2022 Urea nitrogen [Mass/Vol] 6 mg/dL 7-18 [facility] Thin prep Papanicolaou smear with manual screeningOrdered By: Dr. Washington on 01-07-2022 Thin prep Papanicolaou smear with manual screening 18 U/L 15-37 [facility] Thin prep Papanicolaou smear with manual screening 8 5-15 [facility] Laboratory - Drug toxicology on 11-13-2021 Amphetamines Ql (U) Negative <1000 ng/mL [facility] Work Phone: Benzodiazepines Ql (U) Negative < 200 ng/mL [facility] Work Phone: Cannabinoids Screen Ql (U) Negative < 50 ng/mL [facility] Work Phone: Cocaine Ql (U) Negative < 300 ng/mL [facility] Work Phone: Opiates Ql (U) Negative < 300 ng/mL [facility] Work Phone: No Panel Informationon 11-13 MDMA (Ecstasy) Screen Negative < 500 ng/mL [facility] Work Phone: Miscellaneous Test See comment [facility] Work Phone: Comment on above: [id number] 6+OXYCODONE-B UND (ng/mL) DRUG RESULT SCREEN CUTOFF____ Amphetamines,Urine Negative ng/mL 1000 Amphetamine test includes Amphetamine and Methamphetamine.Barbiturates Negative ng/mL 200Benzodiazepines Negative ng/mL 200Cannabinoid Negative ng/mL 20Cocaine (Metab) Negative ng/mL 300Opiates Negative ng/mL 300 Opiates test includes Codeine, Morphine, Hydromorphone, Hydrocodone. Oxycodone/Oxymorphone,Urine Negative ng/mL 300 Test includes Oxydodone and Oxymorphone. TESTING PERFORMED AT [facility]. ORIGINAL REPORT ON FILE IN LAB CONTAINS ADDITIONAL TEST SITE INFORMATION. Urine Barbiturates Screen Negative < 200 ng/mL [facility] Work Phone: Urine Drug Screen Comment [facility] Work Phone: Comment on above: CONFIRMATORY [...] Urine Methadone Screen Negative < 300 ng/mL [facility] Work Phone: Urine phencyclidine (PCP) de tectionon 11-13-2021 Phencyclidine Ql (U) Negative < 25 ng/mL [facility] Work Phone: Basophil percentageon 2021 Chloride [Moles/Vol] 101 mmol/L 98-107 [facility] Work Phone: Glucose [Mass/Vol] 101 mg/dL 74-106 [facility] Work Phone: Comment on above: Fasting Glucose resu lt from 100 to 125 mg/dL suggests IMPAIRED HOMEOSTASIS per A.D.A. criteria. Potassium [Moles/Vol] 4.1 mmol/L 3.5-5.1 [facility] Work Phone: Sodium [Moles/Vol] 134 mmol/L 136-145 [facility] Work Phone: Laboratory - Chemistry and C hemistry - challengeon 11-09-2021 CO2 [Moles/Vol] 27.0 mmol/L 21.0-32.0 [facility] Work Phone: Urea nitrogen/Creatinine [Mass ratio] 7.1 mg/mg 10-20 [facility] Work Phone: Laboratory - Microbiology an d Antimicrobial susceptibilityon 11-09-2021 SARS-CoV-2 (COVID-19) RNA AYANNA+probe Ql (Unsp spec) Not detected Not Detect [facility] Work Phone: Comment on above: Normal Reference Ran ge: Not DetectedMethod:(RT-PCR) real-time reverse transcriptase PCRLuminex Cooler Planet Instrument*The Food and Drug Administration (FDA) has issued an Emergency Use Authorization (EAU) for the [employer] Planet SARS-CoV-2 Assay for the rapid detection of [...] Estimated GFR (MDRD) Amer 109 mL/min >60 [facility] Work Phone: Comment on above: GFR Calc Estimated GFR (MDRD) Non-Af Amer 90 mL/min >60 [facility] Work Phone: Comment on above: Non- GFR Calc Serum or plasma calcium syed urement (mass/volume)on 11-09-2021 Calcium [Mass/Vol] 9.3 mg/dL 8.5-10.1 [facility] Work Phone: Serum or plasma creatinine m easurement (mass/volume)on 11-09-2021 Creatinine [Mass/Vol] 0.70 mg/dL 0.55-1.02 [facility] Work Phone: Comment on above: The validity of the calculated GFR & GFRAA in patients over 70 years has not been determined. Clinical correlation is essential. Serum or plasma urea nitroge n measurement (mass/volume)on 11-09-2021 Urea nitrogen [Mass/Vol] 5 mg/dL 7-18 [facility] Work Phone: Thin prep Papanicolaou smear with manual screeningon 11-09-2021 Thin prep Papanicolaou smear with manual screening 6 5-15 [facility] Work Phone: Whole blood hemoglobin A1c/t otal hemoglobin ratio (mass fraction)on 11-09-2021 HbA1c (Bld) [Mass fraction] 5.9 % 3.8-5.6 [facility] Work Phone: Comment on above: Normal < 5.7 % Predi abetic 5.7 - 6.4 % Diabetic >or= 6.5 % Please note range changes. Laboratory - Drug toxicology on 10-15-2021 Amphetamines Ql (U) Negative <1000 ng/mL [facility] Work Phone: Benzodiazepines Ql (U) Negative < 200 ng/mL [facility] Work Phone: Cannabinoids Screen Ql (U) Negative < 50 ng/mL [facility] Work Phone: Cocaine Ql (U) Negative < 300 ng/mL [facility] Work Phone: Opiates Ql (U) Negative < 300 ng/mL [facility] Work Phone: No Panel Informationon 10-15 MDMA (Ecstasy) Screen Negative < 500 ng/mL [facility] Work Phone: Miscellaneous Test See comment [facility] Work Phone: Comment on above: [id number] 6+OXYCODONE-B UND (ng/mL) DRUG RESULT SCREEN CUTOFF____ Amphetamines,Urine Negative ng/mL 1000 Amphetamine test includes Amphetamine and Methamphetamine.Barbiturates Negative ng/mL 200Benzodiazepines Negative ng/mL 200Cannabinoid Negative ng/mL 20Cocaine (Metab) Negative ng/mL 300Opiates Negative ng/mL 300 Opiates test includes Codeine, Morphine, Hydromorphone, Hydrocodone. Oxycodone/Oxymorphone,Urine Negative ng/mL 300 Test includes Oxydodone and Oxymorphone. TESTING PERFORMED AT [facility]. ORIGINAL REPORT ON FILE IN LAB CONTAINS ADDITIONAL TEST SITE INFORMATION. Urine Barbiturates Screen Negative < 200 ng/mL [facility] Work Phone: Urine Drug Screen Comment [facility] Work Phone: Comment on above: CONFIRMATORY [...] Urine Methadone Screen Negative < 300 ng/mL [facility] Work Phone: Urine phencyclidine (PCP) de tectionon 10-15-2021 Phencyclidine Ql (U) Negative < 25 ng/mL [facility] Work Phone: Absolute lymphocyte counton 10-10-2021 Lymphocytes Auto (Unsp spec) [#/Vol] 2.04 10*3/uL 0.83-4.51 [facility] Work Phone: Basophil percentageon 2021 Basophils/100 WBC (Bld) 0.5 % 0-1 [facility] Work Phone: [phone] Bilirubin [Mass/Vol] 0.90 mg/dL 0.20-1.00 [facility] Work Phone: [phone] Comment on above: For patients on eltr ombopag therapy, use of Dimension [place] TBIL is not recommended. Chloride [Moles/Vol] 95 mmol/L 98-107 [facility] Work Phone: Eosinophils/100 WBC (Bld) 1.2 % 0-5 [facility] Work Phone: [phone] Glucose [Mass/Vol] 111 mg/dL 74-106 [facility] Work Phone: [phone] Comment on above: Fasting Glucose resu lt from 100 to 125 mg/dL suggests IMPAIRED HOMEOSTASIS per A.D.A. criteria. Neutrophils (Bld) [#/Vol] 5.9 10*3/uL 2.0-7.7 [facility] Work Phone: [phone] Neutrophils/100 WBC (Bld) 67.1 % 47-70 [facility] Work Phone: [phone] Potassium [Moles/Vol] 3.7 mmol/L 3.5-5.1 [facility] Work Phone: [phone] Protein [Mass/Vol] 8.0 g/dL 6.4-8.2 [facility] Work Phone: Sodium [Moles/Vol] 132 mmol/L 136-145 [facility] Work Phone: WBC (Bld) [#/Vol] 8.8 10*3/uL 4.4-11.0 [facility] Work Phone: Blood erythrocytes count (nu mber/volume)on 10-10-2021 RBC (Bld) [#/Vol] 4.50 10*6/uL 4.2-5.4 [facility] Work Phone: Blood hemoglobin measurement (mass/volume)on 10-10-2021 Hemoglobin (Bld) [Mass/Vol] 13.3 g/dL 12.0-15.0 [facility] Work Phone: Blood lymphocytes/100 leukoc yteson 10-10-2021 Lymphocytes/100 WBC (Bld) 23.1 % 19-41 [facility] Work Phone: Blood monocytes/100 leukocyt eson 10-10-2021 Monocytes/100 WBC (Bld) 7.8 % 0-10 [facility] Work Phone: Blood platelet mean volumeon 10-10-2021 Platelet mean volume (Bld) [Entitic vol] 9.4 fL 6.2-12.0 [facility] Work Phone: [phone] Determination of erythrocyte mean corpuscular volume (MCV)on 10-10-2021 MCV (RBC) [Entitic vol] 88.4 fL 81-99 [facility] Work Phone: [phone] Erythrocyte sedimentation ra zhen 10-10-2021 ESR (Bld) [Velocity] 26 mm/h 0-30 [facility] Work Phone: Hematocrit Auto (Bld) [Volum e fraction]on 10-10-2021 Hematocrit (Bld) [Volume fraction] 39.8 % 37-47 [facility] Work Phone: [phone] Laboratory - Chemistry and C hemistry - challengeon 10-10-2021 ALP [Catalytic activity/Vol] 57 U/L 45-117 [facility] Work Phone: ALT [Catalytic activity/Vol] 26 U/L 13-56 [facility] Work Phone: CO2 [Moles/Vol] 29.0 mmol/L 21.0-32.0 [facility] Work Phone: [phone] Globulin (S) [Mass/Vol] 3.7 g/dL 2.2-4.2 [facility] Work Phone: [phone] Urea nitrogen/Creatinine [Mass ratio] 7.4 mg/mg 10-20 [facility] Work Phone: Laboratory - Hematology and Cell countson 10-10-2021 Erythrocyte distribution width (RBC) [Entitic vol] 44.2 fL 35.1-43.9 [facility] Work Phone: Erythrocyte distribution width (RBC) [Ratio] 13.7 % 11.6-14.6 [facility] Work Phone: Immature granulocytes/100 WBC (Bld) 0.300 % 0.0-0.9 [facility] Work Phone: Comment on above: IG% - Immature Granu locytes (promyelocytes, myelocytes and metamyelocytes) > 1% indicates that a LEFT SHIFT is Present. MCH (RBC) [Entitic mass] 29.6 pg 27.0-32.0 [facility] Work Phone: Nucleated RBC/100 WBC (Bld) [Ratio] 0 % 0-5 [facility] Work Phone: MCHC Auto (RBC) [Mass/Vol]on 10-10-2021 MCHC (RBC) [Mass/Vol] 33.4 g/dL 32-36 [facility] Work Phone: No Panel Informationon 10-10 Estimated GFR (MDRD) Amer 92 mL/min >60 [facility] Work Phone: Comment on above: GFR Calc Estimated GFR (MDRD) Non-Af Amer 76 mL/min >60 [facility] Work Phone: Comment on above: Non- GFR Calc Hepatitis B Surface Antigen Non-Reactive Nonreactive [facility] Work Phone: Hepatitis C Antibody Non-Reactive Nonreactive [facility] Work Phone: Comment on above: Non Reactive: < 0.8 Equivocal: >/= 0.8 to < 1.0 Reactive: >/= 1.0The CDC recommends that a reactive/equivocal HCV antibody result be followed up by the HCV Nucleic Acid Amplificationtest (468993) Platelets bldon 10-10-2021 Platelets (Bld) [#/Vol] 476 10*3/uL 150-450 [facility] Work Phone: Serum cyclic citrullinated p eptide IgG antibody assay (units/volume)on 10-10-2021 Cyclic citrullinated peptide IgG Qn 7 units 0-19 [facility] Work Phone: Comment on above: Negative <20 Weak po sitive 20 - 39 Moderate positive 40 - 59 Strong positive >59Performed at: 2 - [facility] [address] [place], [place] [id number] Director: Napoleon Niño PhD, Phone: [phone] at: - [facility] [id number] Director: Igor Andrews MD, Phone: [phone] Serum hepatitis B virus surf bautista antibody IgG detectionon 10-10-2021 HBV surface IgG Ql (S) Non-Reactive [facility] Work Phone: Comment on above: Non Reactive: Incons istent with immunity less than <10 mIU/mL Reactive: Consistent with immunity greater than or equal to 10 mIU/mL Serum or plasma C reactive p rotein measurement (mass/volume)on 10-10-2021 CRP [Mass/Vol] 6.55 mg/L 0.0-3.0 [facility] Work Phone: Comment on above: C-Reactive Protein ( CRP) provides useful information for thediagnosis, therapy and monitoring of inflammatory processesand associated diseases. For the evaluation of Relative Riskfor Cardiovascular Disease, a High Sensitivity CRP (HSCRP)should be ordered. Serum or plasma albumin syed urement (mass/volume)on 10-10-2021 Albumin [Mass/Vol] 4.3 g/dL 3.2-5.0 [facility] Work Phone: Serum or plasma albumin/glob ulin mass ratioon 10-10-2021 Albumin/Globulin [Mass ratio] 1.2 {ratio} 0.9-2.4 [facility] Work Phone: Serum or plasma calcium syed urement (mass/volume)on 10-10-2021 Calcium [Mass/Vol] 9.4 mg/dL 8.5-10.1 [facility] Work Phone: Serum or plasma creatinine m easurement (mass/volume)on 10-10-2021 Creatinine [Mass/Vol] 0.81 mg/dL 0.55-1.02 [facility] Work Phone: Comment on above: The validity of the calculated GFR & GFRAA in patients over 70 years has not been determined. Clinical correlation is essential. Serum or plasma urea nitroge n measurement (mass/volume)on 10-10-2021 Urea nitrogen [Mass/Vol] 6 mg/dL 7-18 [facility] Work Phone: Serum rheumatoid factor dete ctionon 10-10-2021 Rheumatoid factor Ql (S) < 10.0 IU/mL <15 [facility] Work Phone: Thin prep Papanicolaou smear with manual screeningon 10-10-2021 Thin prep Papanicolaou smear with manual screening 19 U/L 15-37 [facility] Work Phone: Thin prep Papanicolaou smear with manual screening 8 5-15 [facility] Work Phone: Thin prep Papanicolaou smear with manual screening Negative . [facility] Work Phone: Comment on above: HLA-B*27 [id number] allele interpretation for all loci based on IMGT/HLAdatabase version 3.44This test was developed and its performance characteristicsdetermined by [facility]. It has not been cleared or approvedby the Food and Drug Administration.[facility] CLIA ID Number [id number] test was performed using PCR (Polymerase ChainReaction)/SSOP (Sequence Specific Oligonucleotide Probes)technique. SBT (Sequence Based Typing) and/or SSP(Sequence Specific Primers) may be used as supplementalmethods when necessary. Please contact [facility] at if you have any questions. Director of [facility] Dr Napoleon Niño, PhD Laboratory - Hematology and Cell countson 07-31-2021 HbA1c (Bld) [Mass fraction] 6.1 % 4.2-6.3 [facility] Work Phone: Basophil percentageon 2021 Basophil percentage Not Reportable [facility] Work Phone: Erythrocyte sedimentation ra zhen 06-20-2021 ESR (Bld) [Velocity] 31 mm/h 0-30 [facility] Work Phone: No Panel Informationon 06-20 Anti-Nuclear Antibody Screen Negative Negative [facility] Work Phone: Comment on above: Performed at: [place] [id number] Director: Fuentes Petty PhD, Phone: [phone] [employer]rome[employer] B Antibody Not Reportable [facility] Work Phone: BOILER [employer] ENGINE OPERATOR Antibody Not Reportable [facility] Work Phone: Serum DNA double strand anti body assay (units/volume)on 06-20-2021 DNA double strand Ab Qn (S) Not Reportable [facility] Work Phone: Serum Vika-1 antibody assay (u nits/volume)on 06-20-2021 Vika-1 extractable nuclear Ab Qn (S) Not Reportable [facility] Work Phone: Serum Scl-70 extractable nuc lear antibody assay (units/volume)on 06-20-2021 SCL-70 extractable nuclear Ab Qn (S) Not Reportable [facility] Work Phone: Serum Shay extractable nucl ear antibody detectionon 06-20-2021 Shay extractable nuclear Ab Ql (S) Not Reportable [facility] Work Phone: Serum rheumatoid factor dete ctionon 06-20-2021 Rheumatoid factor Ql (S) < 10.0 IU/mL <15 [facility] Work Phone: Absolute lymphocyte counton 05-02-2021 Lymphocytes Auto (Unsp spec) [#/Vol] 2.59 10*3/uL 0.83-4.51 [facility] Work Phone: Basophil percentageon 2021 Basophils/100 WBC (Bld) 0.6 % 0-1 [facility] Work Phone: [phone] Bilirubin [Mass/Vol] 1.00 mg/dL 0.20-1.00 [facility] Work Phone: Comment on above: For patients on eltr ombopag therapy, use of Dimension [place] TBIL is not recommended. Chloride [Moles/Vol] 95 mmol/L 98-107 [facility] Work Phone: [phone] Cholesterol [Mass/Vol] 204 mg/dL <200 [facility] Work Phone: [phone] Comment on above: <200 mg/dL Desirable 200-240 mg/dL Borderline >240 mg/dL High Risk Eosinophils/100 WBC (Bld) 2.0 % 0-5 [facility] Work Phone: [phone] Glucose [Mass/Vol] 101 mg/dL 74-106 [facility] Work Phone: Comment on above: Fasting Glucose resu lt from 100 to 125 mg/dL suggests IMPAIRED HOMEOSTASIS per A.D.A. criteria. Neutrophils (Bld) [#/Vol] 4.6 10*3/uL 2.0-7.7 [facility] Work Phone: [phone] Neutrophils/100 WBC (Bld) 57.8 % 47-70 [facility] Work Phone: [phone] Potassium [Moles/Vol] 4.0 mmol/L 3.5-5.1 [facility] Work Phone: [phone] Protein [Mass/Vol] 8.0 g/dL 6.4-8.2 [facility] Work Phone: [phone] Sodium [Moles/Vol] 133 mmol/L 136-145 [facility] Work Phone: [phone] Triglyceride [Mass/Vol] 263 mg/dL [facility] Work Phone: [phone] Comment on above: The drugs N-Acetylcy steine and Metamizole may falsely depress this assay.Serum Triglycerides Reference Interval Normal <150 mg/dL Borderline high 150 - 199 mg/dL High 200 - 499 mg/dL Very High > or = 500 mg/dL WBC (Bld) [#/Vol] 8.0 10*3/uL 4.4-11.0 [facility] Work Phone: Blood erythrocytes count (nu mber/volume)on 05-02-2021 RBC (Bld) [#/Vol] 4.62 10*6/uL 4.2-5.4 [facility] Work Phone: [phone] Blood hemoglobin measurement (mass/volume)on 05-02-2021 Hemoglobin (Bld) [Mass/Vol] 13.0 g/dL 12.0-15.0 [facility] Work Phone: Blood lymphocytes/100 leukoc yteson 05-02-2021 Lymphocytes/100 WBC (Bld) 32.4 % 19-41 [facility] Work Phone: Blood monocytes/100 leukocyt eson 05-02-2021 Monocytes/100 WBC (Bld) 6.9 % 0-10 [facility] Work Phone: Blood platelet mean volumeon 05-02-2021 Platelet mean volume (Bld) [Entitic vol] 8.9 fL 6.2-12.0 [facility] Work Phone: [phone] Determination of erythrocyte mean corpuscular volume (MCV)on 05-02-2021 MCV (RBC) [Entitic vol] 87.7 fL 81-99 [facility] Work Phone: Hematocrit Auto (Bld) [Volum e fraction]on 05-02-2021 Hematocrit (Bld) [Volume fraction] 40.5 % 37-47 [facility] Work Phone: [phone] Laboratory - Chemistry and C hemistry - challengeon 05-02-2021 ALP [Catalytic activity/Vol] 68 U/L 45-117 [facility] Work Phone: [phone] ALT [Catalytic activity/Vol] 31 U/L 13-56 [facility] Work Phone: [phone] CO2 [Moles/Vol] 31.0 mmol/L 21.0-32.0 [facility] Work Phone: [phone] Globulin (S) [Mass/Vol] 3.9 g/dL 2.2-4.2 [facility] Work Phone: Urea nitrogen/Creatinine [Mass ratio] 8.8 mg/mg 10-20 [facility] Work Phone: Laboratory - Hematology and Cell countson 05-02-2021 Erythrocyte distribution width (RBC) [Entitic vol] 42.7 fL 35.1-43.9 [facility] Work Phone: [phone] Erythrocyte distribution width (RBC) [Ratio] 13.4 % 11.6-14.6 [facility] Work Phone: Immature granulocytes/100 WBC (Bld) 0.300 % 0.0-0.9 [facility] Work Phone: Comment on above: IG% - Immature Granu locytes (promyelocytes, myelocytes and metamyelocytes) > 1% indicates that a LEFT SHIFT is Present. MCH (RBC) [Entitic mass] 28.1 pg 27.0-32.0 [facility] Work Phone: Nucleated RBC/100 WBC (Bld) [Ratio] 0 % 0-5 [facility] Work Phone: HbA1c (Bld) [Mass fraction] 6.2 % [facility] Work Phone: MCHC Auto (RBC) [Mass/Vol]on 05-02-2021 MCHC (RBC) [Mass/Vol] 32.1 g/dL 32-36 [facility] Work Phone: No Panel Informationon 05-02 Estimated GFR (MDRD) Amer 94 mL/min >60 [facility] Work Phone: Comment on above: GFR Calc Estimated GFR (MDRD) Non-Af Amer 78 mL/min >60 [facility] Work Phone: Comment on above: Non- GFR Calc Platelets bldon 05-02-2021 Platelets (Bld) [#/Vol] 490 10*3/uL 150-450 [facility] Work Phone: Serum or plasma albumin syed urement (mass/volume)on 05-02-2021 Albumin [Mass/Vol] 4.1 g/dL 3.2-5.0 [facility] Work Phone: Serum or plasma albumin/glob ulin mass ratioon 05-02-2021 Albumin/Globulin [Mass ratio] 1.1 {ratio} 0.9-2.4 [facility] Work Phone: Serum or plasma calcium syed urement (mass/volume)on 05-02-2021 Calcium [Mass/Vol] 9.5 mg/dL 8.5-10.1 [facility] Work Phone: Serum or plasma cholesterol in HDL measurement (mass/volume)on 05-02-2021 Cholesterol in HDL [Mass/Vol] 77 mg/dL [facility] Work Phone: Comment on above: The drugs N-Acetylcy steine and Metamizole may falsely depress this assay. Reference Range HDL <40 mg/dL Low HDL Cholesterol HDL >or= 60 mg/dL High HDL Cholesterol Serum or plasma cholesterol in VLDL measurement (mass/volume)on 05-02-2021 Cholesterol in VLDL [Mass/Vol] 53 mg/dL 5-40 [facility] Work Phone: Serum or plasma creatinine m easurement (mass/volume)on 05-02-2021 Creatinine [Mass/Vol] 0.80 mg/dL 0.55-1.02 [facility] Work Phone: Comment on above: The validity of the calculated GFR & GFRAA in patients over 70 years has not been determined. Clinical correlation is essential. Serum or plasma low density lipoprotein (LDL) cholesterol measurement (mass/volume)on 05-02-2021 Cholesterol in LDL [Mass/Vol] 74 mg/dL 0-130 [facility] Work Phone: Serum or plasma urea nitroge n measurement (mass/volume)on 05-02-2021 Urea nitrogen [Mass/Vol] 7 mg/dL 7-18 [facility] Work Phone: Thin prep Papanicolaou smear with manual screeningon 05-02-2021 Thin prep Papanicolaou smear with manual screening 20 U/L 15- [facility] Work Phone: Thin prep Papanicolaou smear with manual screening 7 08-19 [facility] Work Phone: LABORATORYOrdered By: Lambert Hall [...] Date Time Vital Sign Value Performing Clinician Reynaldo balderrama 10-05-2024 13:07-0400 Body height 160.[address] Tash Fallon MD Work Phone: [facility] 10-05-2024 13:07-0400 Body mass index (BMI) [Ratio] 33.5 kg/m2 Dr. Tash Fallon MD Work Phone: [facility] 10-05-2024 13:07-0400 Body temperature 98 [degF] Dr. Tash Fallon MD Work Phone: [facility] 10-05-2024 13:07-0400 Body weight 85.[address] Tash Fallon MD Work Phone: [facility] 10-05-2024 13:07-0400 Diastolic blood pressure 76 mm[Hg] Dr. Tash Fallon MD Work Phone: [facility] 10-05-2024 13:07-0400 Heart rate 92 /min Dr. Tash Fallon MD Work Phone: [facility] 10-05-2024 13:07-0400 Respiratory rate 18 /min Dr. Tash Fallon MD Work Phone: [facility] 10-05-2024 13:07-0400 SaO2% (BldA) [Mass fraction] 94 % Dr. Tash Fallon MD Work Phone: [facility] 10-05-2024 13:07-0400 Systolic blood pressure 144 mm[Hg] Dr. Tash Fallon MD Work Phone: [facility] 07-01-2024 08:32-0400 Body mass index (BMI) [Ratio] 33.1 kg/m2 Dr. Tash Fallon MD Work Phone: [facility] 07-01-2024 08:32-0400 Body temperature 97.4 [degF] Dr. Tash Fallon MD Work Phone: [facility] 07-01-2024 08:32-0400 Body weight 84.[address] Tash Fallon MD Work Phone: [facility] 07-01-2024 08:32-0400 Diastolic blood pressure 74 mm[Hg] Dr. Tash Fallno MD Work Phone: [facility] 07-01-2024 08:32-0400 Heart rate 78 /min Dr. Tash Fallon MD Work Phone: [facility] 07-01-2024 08:32-0400 Respiratory rate 16 /min Dr. Tash Fallon MD Work Phone: [facility] 07-01-2024 08:32-0400 SaO2% (BldA) [Mass fraction] 99 % Dr. Tash Fallon MD Work Phone: [facility] 07-01-2024 08:32-0400 Systolic blood pressure 122 mm[Hg] Dr. Tash Fallon MD Work Phone: [facility] 06-20-2023 11:21-0400 Body height 160.[address] Tash Fallon Work Phone: [facility] 04-21-2023 10:57-0500 Body height 160.[address] Tash Fallon Work Phone: [facility] 04-21-2023 10:44-0500 Body mass index (BMI) [Ratio] 31.9 kg/m2 Dr. Tash Fallon Work Phone: [facility] 04-21-2023 10:44-0500 Body weight 81.[address] Tash Fallon Work Phone: [facility] 03-27-2023 15:55-0500 Body mass index (BMI) [Ratio] 31.7 kg/m2 Dr. Tash Fallon Work Phone: [facility] 03-27-2023 15:55-0500 Body temperature 97.8 [degF] Dr. Tash Fallon Work Phone: [facility] 03-27-2023 15:55-0500 Body weight 81.[address] Tash Fallon Work Phone: [facility] 03-27-2023 15:55-0500 Diastolic blood pressure 80 mm[Hg] Dr. Tash Fallon Work Phone: [facility] 03-27-2023 15:55-0500 Heart rate 85 /min Dr. Tash Fallon Work Phone: [facility] 03-27-2023 15:55-0500 Respiratory rate 16 /min Dr. Tash Fallon Work Phone: [facility] 03-27-2023 15:55-0500 SaO2% (BldA) [Mass fraction] 98 % Dr. Tash Fallon Work Phone: [facility] 03-27-2023 15:55-0500 Systolic blood pressure 138 mm[Hg] Dr. Tash Fallon Work Phone: [facility] 03-17-2023 10:05-0500 Body height 160.[address] Tash Fallon Work Phone: [facility] 03-17-2023 10:05-0500 Body mass index (BMI) [Ratio] 31.8 kg/m2 Dr. Tash Fallon Work Phone: [facility] 03-17-2023 10:05-0500 Body temperature 97.7 [degF] Dr. Tash Fallon Work Phone: [facility] 03-17-2023 10:05-0500 Body weight 81.[address] Tash Fallon Work Phone: [facility] 03-17-2023 10:05-0500 Diastolic blood pressure 82 mm[Hg] Dr. Tash Fallon Work Phone: [facility] 03-17-2023 10:05-0500 Heart rate 81 /min Dr. Tash Fallon Work Phone: [facility] 03-17-2023 10:05-0500 Respiratory rate 16 /min Dr. Tash Fallon Work Phone: [facility] 03-17-2023 10:05-0500 SaO2% (BldA) [Mass fraction] 97 % Dr. Tash Fallon Work Phone: [facility] 03-17-2023 10:05-0500 Systolic blood pressure 120 mm[Hg] Dr. Tash Fallon Work Phone: [facility] 03-13-2023 14:12-0500 Body temperature 98.7 [degF] Dr. Tash Fallon Work Phone: [facility] 03-13-2023 14:12-0500 Diastolic blood pressure 84 mm[Hg] Dr. Tash Fallon Work Phone: [facility] 03-13-2023 14:12-0500 Heart rate 94 /min Dr. Tash Fallon Work Phone: [facility] 03-13-2023 14:12-0500 Respiratory rate 14 /min Dr. Tash Fallon Work Phone: [facility] 03-13-2023 14:12-0500 SaO2% (BldA) [Mass fraction] 93 % Dr. Tash Fallon Work Phone: [facility] 03-13-2023 14:12-0500 Systolic blood pressure 143 mm[Hg] Dr. Tash Fallon Work Phone: [facility] 01-03-2023 09:23-0400 Body height 160.[address] Tash Fallon Work Phone: [facility] 01-03-2023 09:23-0400 Body mass index (BMI) [Ratio] 31.3 kg/m2 Dr. Tash Fallon Work Phone: [facility] 01-03-2023 09:23-0400 Body temperature 98.1 [degF] Dr. Tash Fallon Work Phone: [facility] 01-03-2023 09:23-0400 Body weight 80.[address] Tash Fallon Work Phone: [facility] 01-03-2023 09:23-0400 Diastolic blood pressure 83 mm[Hg] Dr. Tash Fallon Work Phone: [facility] 01-03-2023 09:23-0400 Heart rate 83 /min Dr. Tash Fallon Work Phone: [facility] 01-03-2023 09:23-0400 Respiratory rate 14 /min Dr. Tash Fallon Work Phone: [facility] 01-03-2023 09:23-0400 SaO2% (BldA) [Mass fraction] 96 % Dr. Tash Fallon Work Phone: [facility] 01-03-2023 09:23-0400 Systolic blood pressure 161 mm[Hg] Dr. Tash Fallon Work Phone: [facility] 09-24-2022 15:24-0400 Body height 160.[address] Tash Fallon Work Phone: [facility] 09-24-2022 15:24-0400 Body mass index (BMI) [Ratio] 31.3 kg/m2 Dr. Tash Fallon Work Phone: [facility] 09-24-2022 15:24-0400 Body temperature 98.6 [degF] Dr. Tash Fallon Work Phone: [facility] 09-24-2022 15:24-0400 Body weight 80.[address] Tash Fallon Work Phone: [facility] 09-24-2022 15:24-0400 Diastolic blood pressure 76 mm[Hg] Dr. Tash Fallon Work Phone: [facility] 09-24-2022 15:24-0400 Heart rate 86 /min Dr. Tash Fallon Work Phone: [facility] 09-24-2022 15:24-0400 Respiratory rate 14 /min Dr. Tash Fallon Work Phone: [facility] 09-24-2022 15:24-0400 SaO2% (BldA) [Mass fraction] 97 % Dr. Tash Fallon Work Phone: [facility] 09-24-2022 15:24-0400 Systolic blood pressure 138 mm[Hg] Dr. Tash Fallon Work Phone: [facility] 08-26-2022 14:09-0400 Body temperature 97.4 [degF] Dr. Tash Fallon Work Phone: [facility] 08-26-2022 14:09-0400 Body weight 79.[address] Tash Fallon Work Phone: [facility] 08-26-2022 14:09-0400 Diastolic blood pressure 74 mm[Hg] Dr. Tash Fallon Work Phone: [facility] 08-26-2022 14:09-0400 Heart rate 88 /min Dr. Tash Fallon Work Phone: [facility] 08-26-2022 14:09-0400 Respiratory rate 14 /min Dr. Tash Fallon Work Phone: [facility] 08-26-2022 14:09-0400 SaO2% (BldA) [Mass fraction] 97 % Dr. Tash Fallon Work Phone: [facility] 08-26-2022 14:09-0400 Systolic blood pressure 122 mm[Hg] Dr. Tash Fallon Work Phone: [facility] 11-19-2021 10:26-0400 Body height 160.[address] Tash Fallon Work Phone: [facility] Work Phone: 11-19-2021 10:26-0400 Body mass index (BMI) [Ratio] 29.7 kg/m2 Dr. Tash Fallon Work Phone: [facility] Work Phone: 11-19-2021 10:26-0400 Body temperature 98.6 [degF] Dr. Tash Fallon Work Phone: [facility] Work Phone: 11-19-2021 10:26-0400 Body weight 76.[address] Tash Fallon Work Phone: [facility] Work Phone: 11-19-2021 10:26-0400 Diastolic blood pressure 70 mm[Hg] Dr. Tash Fallon Work Phone: [facility] Work Phone: 11-19-2021 10:26-0400 Heart rate 81 /min Dr. Tash Fallon Work Phone: [facility] Work Phone: 11-19-2021 10:26-0400 Respiratory rate 14 /min Dr. Tash Fallon Work Phone: [facility] Work Phone: 11-19-2021 10:26-0400 SaO2% (BldA) [Mass fraction] 97 % Dr. Tash Fallon Work Phone: [facility] Work Phone: 11-19-2021 10:26-0400 Systolic blood pressure 122 mm[Hg] Dr. Tash Fallon Work Phone: [facility] Work Phone: 11-09-2021 11:12-0400 Body height 160.[address] Tash Fallon Work Phone: [facility] Work Phone: 11-09-2021 11:12-0400 Body mass index (BMI) [Ratio] 29.5 kg/m2 Dr. Tash Fallon Work Phone: [facility] Work Phone: 11-09-2021 11:12-0400 Body temperature 97.3 [degF] Dr. Tash Fallon Work Phone: [facility] Work Phone: 11-09-2021 11:12-0400 Body weight 75.[address] Tash Fallon Work Phone: [facility] Work Phone: 11-09-2021 11:12-0400 Diastolic blood pressure 60 mm[Hg] Dr. Tash Fallon Work Phone: [facility] Work Phone: 11-09-2021 11:12-0400 Heart rate 78 /min Dr. Tash Fallon Work Phone: [facility] Work Phone: 11-09-2021 11:12-0400 Respiratory rate 18 /min Dr. Tash Fallon Work Phone: [facility] Work Phone: 11-09-2021 11:12-0400 SaO2% (BldA) [Mass fraction] 98 % Dr. Tash Fallon Work Phone: [facility] Work Phone: 11-09-2021 11:12-0400 Systolic blood pressure 124 mm[Hg] Dr. Tash Fallon Work Phone: [facility] Work Phone: 07-31-2021 09:39-0400 Body height 160.[address] Tash Fallon Work Phone: [facility] Work Phone: 07-31-2021 09:39-0400 Body mass index (BMI) [Ratio] 30.4 kg/m2 Dr. Tash Fallon Work Phone: [facility] Work Phone: 07-31-2021 09:39-0400 Body temperature 97 [degF] Dr. Tash Fallon Work Phone: [facility] Work Phone: 07-31-2021 09:39-0400 Body weight 78.[address] Tash Fallon Work Phone: [facility] Work Phone: 07-31-2021 09:39-0400 Heart rate 81 /min Dr. Tash Fallon Work Phone: [facility] Work Phone: 07-31-2021 09:39-0400 Respiratory rate 18 /min Dr. Tash Fallon Work Phone: [facility] Work Phone: 07-31-2021 09:39-0400 SaO2% (BldA) [Mass fraction] 97 % Dr. Tash Fallon Work Phone: [facility] Work Phone: 07-31-2021 09:39-0400 Body height 160.[address] Tash Fallon Work Phone: [facility] Work Phone: 07-31-2021 09:39-0400 Body mass index (BMI) [Ratio] 30.4 kg/m2 Dr. Tash Fallon Work Phone: [facility] Work Phone: 07-31-2021 09:39-0400 Body temperature 97 [degF] Dr. Tash Fallon Work Phone: [facility] Work Phone: 07-31-2021 09:39-0400 Body weight 78.[address] Tash Fallon Work Phone: [facility] Work Phone: 07-31-2021 09:39-0400 Heart rate 81 /min Dr. Tash Fallon Work Phone: [facility] Work Phone: 07-31-2021 09:39-0400 Respiratory rate 18 /min Dr. Tash Fallon Work Phone: [facility] Work Phone: 07-31-2021 09:39-0400 SaO2% (BldA) [Mass fraction] 97 % Dr. Tash Fallon Work Phone: [facility] Work Phone: 06-20-2021 10:35-0400 Body mass index (BMI) [Ratio] 28.8 kg/m2 Dr. Tash Fallon Work Phone: [facility] Work Phone: 06-20-2021 10:35-0400 Body temperature 98.4 [degF] Dr. Tash Fallon Work Phone: [facility] Work Phone: 06-20-2021 10:35-0400 Body weight 73.[address] Tash Fallon Work Phone: [facility] Work Phone: 06-20-2021 10:35-0400 Diastolic blood pressure 80 mm[Hg] Dr. Tash Fallon Work Phone: [facility] Work Phone: 06-20-2021 10:35-0400 Heart rate 82 /min Dr. Tash Fallon Work Phone: [facility] Work Phone: 06-20-2021 10:35-0400 Respiratory rate 14 /min Dr. Tash Fallon Work Phone: [facility] Work Phone: 06-20-2021 10:35-0400 SaO2% (BldA) [Mass fraction] 96 % Dr. Tash Fallon Work Phone: [facility] Work Phone: 06-20-2021 10:35-0400 Systolic blood pressure 126 mm[Hg] Dr. Tash Fallon Work Phone: [facility] Work Phone: 06-20-2021 10:35-0400 Body height 160.[address] Tash Fallon Work Phone: [facility] Work Phone: 06-20-2021 10:35-0400 Body mass index (BMI) [Ratio] 28.8 kg/m2 Dr. Tash Fallon Work Phone: [facility] Work Phone: 06-20-2021 10:35-0400 Body temperature 98.4 [degF] Dr. Tash Fallon Work Phone: [facility] Work Phone: 06-20-2021 10:35-0400 Body weight 73.[address] Tash Fallon Work Phone: [facility] Work Phone: 06-20-2021 10:35-0400 Diastolic blood pressure 80 mm[Hg] Dr. Tash Fallon Work Phone: [facility] Work Phone: 06-20-2021 10:35-0400 Heart rate 82 /min Dr. Tash Fallon Work Phone: [facility] Work Phone: 06-20-2021 10:35-0400 Respiratory rate 14 /min Dr. Tash Fallon Work Phone: [facility] Work Phone: 06-20-2021 10:35-0400 SaO2% (BldA) [Mass fraction] 96 % Dr. Tash Fallon Work Phone: [facility] Work Phone: 06-20-2021 10:35-0400 Systolic blood pressure 126 mm[Hg] Dr. Tash Fallon Work Phone: [facility] Work Phone: 05-02-2021 09:32-0500 Body mass index (BMI) [Ratio] 30.1 kg/m2 Dr. Tash Fallon Work Phone: [facility] Work Phone: 05-02-2021 09:32-0500 Body temperature 96.6 [degF] Dr. Tash Fallon Work Phone: [facility] Work Phone: 05-02-2021 09:32-0500 Body weight 77.[address] Tash Fallon Work Phone: [facility] Work Phone: 05-02-2021 09:32-0500 Diastolic blood pressure 72 mm[Hg] Dr. Tash Fallon Work Phone: [facility] Work Phone: 05-02-2021 09:32-0500 Heart rate 83 /min Dr. Tash Fallon Work Phone: [facility] Work Phone: 05-02-2021 09:32-0500 Respiratory rate 14 /min Dr. Tash Fallon Work Phone: [facility] Work Phone: 05-02-2021 09:32-0500 SaO2% (BldA) [Mass fraction] 99 % Dr. Tash Fallon Work Phone: [facility] Work Phone: 05-02-2021 09:32-0500 Systolic blood pressure 112 mm[Hg] Dr. Tash Fallon Work Phone: [facility] Work Phone: 03-20-2021 13:02-0500 Body mass index (BMI) [Ratio] 29 kg/m2 Dr. Tash Fallon Work Phone: [facility] Work Phone: 03-20-2021 13:02-0500 Body temperature 97.6 [degF] Dr. Tash Fallon Work Phone: [facility] Work Phone: 03-20-2021 13:02-0500 Body weight 74.[address] Tash Fallon Work Phone: [facility] Work Phone: 03-20-2021 13:02-0500 Diastolic blood pressure 84 mm[Hg] Dr. Tash Fallon Work Phone: [facility] Work Phone: 03-20-2021 13:02-0500 Heart rate 78 /min Dr. Tash Fallon Work Phone: [facility] Work Phone: 03-20-2021 13:02-0500 Respiratory rate 14 /min Dr. Tash Fallon Work Phone: [facility] Work Phone: 03-20-2021 13:02-0500 SaO2% (BldA) [Mass fraction] 97 % Dr. Tash Fallon Work Phone: [facility] Work Phone: 03-20-2021 13:02-0500 Systolic blood pressure 120 mm[Hg] Dr. Tash Fallon Work Phone: [facility] Work Phone: Encounters Encounter Date Encounter Type Care Provider Facility Start: 10-05-2024 End: 10-05-2024 Patient encounter procedure Elsa Alvarez [employer]-C -[facility] [place] Work Phone: Start: 10-05-2024 End: 10-05-2024 ambulatory Elsa Alvarez Facility:[facility] Start: 10-05-2024 End: 10-05-2024 Patient encounter procedure Elsa Alvarez NP-C -[facility] Work Phone: Start: 10-05-2024 End: 10-05-[address] Tash Fallon MD Work Phone: -[facility] Start: 09-21-2024 End: 09-21-2024 Office outpatient new 60 minutes Wilmer Titus MD Work Phone: Ophthalmology Comment on above: Low tension glaucoma of left eye, severe stage (Primary Dx); Low-tension glaucoma, right eye, mild stage; Pseudophakia; Long-term use of Plaquenil Start: 09-21-2024 End: 09-21-2024 ambulatory WILMER TITUS Facility:[facility] Start: 08-27-2024 ambulatory TASH FISHER MD Facility:[facility] Start: 07-23-2024 End: 07-23-[address] Susie Washington MD -[facility] [place] Work Phone: Start: 07-23-2024 End: 07-23-2024 ambulatory Susie Washington Facility:[facility] Start: 07-01-2024 End: 07-01-2024 Patient encounter procedure Riley VALENTIN -[facility] Work Phone: Start: 07-01-2024 End: 07-01-2024 ambulatory Riley VALENTIN Facility:[facility] Start: 06-10-[address] JAIME BHATTI MD Facility:[facility] Start: 04-30-2024 Encounter for genera l adult medical examination without abnormal findings [facility] Start: 04-30-2024 End: 04-30-2024 ambulatory [facility] Facility:[facility] Start: 04-30-2024 End: 04-30-2024 ambulatory [facility] Facility:[facility] Start: 02-11-2024 End: 02-11-2024 ambulatory [facility] Facility:[facility] Start: 01-19-2024 End: 01-19-2024 ambulatory TASH FALLON MD Facility:[facility] Start: 01-19-2024 End: 01-19-[address] JAIME LEO MD [facility] Start: 11-17-2023 End: 11-17-2023 ambulatory [facility] Facility:[facility] Start: 11-13-2023 End: 11-13-2023 ambulatory [facility] Facility:[facility] Start: 09-19-[address] Tash Fallon MD Work Phone: [facility] Start: 07-07-2023 End: 07-07-[address] Tash Fallon Work Phone: [facility] Work Phone: Start: 07-07-2023 End: 07-07-[address] Tash Fallon Work Phone: [facility] Work Phone: Start: 06-23-2023 End: 06-23-[address] Tash Fallon Work Phone: [facility] Work Phone: Start: 06-06-2023 End: 10-10-2023 ambulatory CEFERINO DONNELLY DO Facility:[facility] Start: 06-06-2023 End: 10-10-2023 Physical therapy management [facility] Start: 05-28-2023 End: 05-28-[address] JAIME LEO MD Facility:[facility] Start: 05-28-2023 End: 05-28-[address] JAIME LEO [facility] Start: 05-26-2023 End: 05-26-[address] Tash Fallon Work Phone: [facility] Work Phone: Start: 05-26-2023 End: 05-26-[address] Tash Fallon Work Phone: [facility] Work Phone: Start: 05-21-[address] JAIME BHATTI MD Facility:[facility] Start: 04-21-2023 End: 04-21-[address] Tash Fallon Work Phone: [facility] Work Phone: Start: 03-27-2023 End: 03-27-[address] Tash Fallon Work Phone: [facility] Work Phone: Start: 03-17-2023 End: 03-17-[address] Tash Fallon Work Phone: [facility] Work Phone: Start: 03-17-2023 End: 03-17-[address] Tash Fallon Work Phone: [facility] Work Phone: Start: 03-13-2023 End: 03-13-[address] Tash Fallon Work Phone: [facility] Work Phone: Start: 02-07-2023 End: 02-07-[address] Tash Fallon Work Phone: [facility] Work Phone: Start: 02-07-2023 End: 02-07-[address] Tash Fallno Work Phone: [facility] Work Phone: Start: 01-27-2023 End: 01-27-[address] Tash Fallon Work Phone: [facility] Work Phone: Start: 01-27-2023 End: 01-27-[address] Tash Fallon Work Phone: [facility] Work Phone: Start: 01-03-2023 End: 01-03-[address] Tash Fallon Work Phone: [facility] Work Phone: Start: 12-06-2022 End: 12-06-[address] Tash Fallon Work Phone: [facility] Work Phone: Start: 12-06-2022 End: 12-06-[address] Tash Fallon Work Phone: [facility] Work Phone: Start: 10-21-2022 End: 10-21-[address] Tash Fallon Work Phone: [facility] Work Phone: Start: 10-21-2022 End: 10-21-[address] Tash Fallon Work Phone: [facility] Work Phone: Start: 09-24-2022 End: 09-24-[address] Tash Fallon Work Phone: [facility] Work Phone: Start: 09-16-2022 End: 09-16-[address] Tash Fallon Work Phone: [facility] Work Phone: Start: 09-16-2022 End: 09-16-[address] Tash Fallon Work Phone: [facility] Start: 08-26-2022 End: 08-26-[address] Tash Fallon Work Phone: [facility] Start: 07-19-2022 End: 07-19-2022 Patient encounter procedure ZUNILDA MARSHALL DO [facility] Start: 07-08-2022 End: 07-08-2022 Patient encounter procedure ZUNILDA MARSHALL DO [facility] Start: 06-19-2022 End: 06-19-2022 ambulatory [facility] Work Phone: Start: 06-19-2022 End: 06-19-2022 Patient encounter procedure [facility] Start: 05-01-2022 End: 05-01-[address] JAIME LEO MD [facility] Start: 04-16-2022 End: 04-16-[address] Tash Fallon Work Phone: [facility] Work Phone: Start: 04-16-2022 End: 04-16-[address] Tash Fallon Work Phone: [facility] Start: 04-02-2022 End: 04-02-[address] GLORIA GARCIA MD [facility] Start: 03-13-2022 End: 03-13-[address] Tash Fallon Work Phone: [facility] Work Phone: Start: 03-13-2022 End: 03-13-[address] Tash Fallon Work Phone: [facility] Start: 02-18-2022 End: 02-18-[address] Tash Fallon Work Phone: [facility] Start: 01-07-2022 End: 01-07-[address] Tash Fallon Work Phone: [facility] Work Phone: Start: 01-07-2022 End: 01-07-[address] Tash Fallon Work Phone: [facility] Start: 11-28-2021 End: 11-28-[address] JAIME LEO MD [facility] Start: 11-19-2021 End: 11-19-[address] Tash Fallon Work Phone: [facility] Internal Medicine Start: 11-13-2021 End: 11-13-[address] [facility] Start: 11-09-2021 End: 11-09-[address] Tash Fallon Work Phone: [facility] Medicine Start: 10-15-2021 End: 10-15-[address] [facility] Start: 10-10-2021 End: 10-10-[address] Tash Fallon Work Phone: [facility] Start: 08-22-2021 End: 08-22-[address] [facility] Fall[facility] Start: 08-20-2021 End: 08-20-[address] Tash Fallon Work Phone: [facility] Start: 08-02-2021 End: 08-02-[address] Tash Fallon Work Phone: [facility]Neurology Start: 08-02-2021 Non-patient / Non-visit Dr. Francine Fallon Work Phone: [facility] Start: 07-31-2021 End: 07-31-[address] Tash Fallon Work Phone: [facility] Internal Medicine Start: 06-20-2021 End: 06-20-[address] Tash Fallon Work Phone: [facility] [place] Start: 2021 End: [address] Tash Fallon Work Phone: [facility] Start: 06-04-2021 End: 06-04-[address] Tash Fallon Work Phone: [facility] Rad[facility] Start: 05-02-2021 End: 05-02-[address] Tahs Fallon Work Phone: [facility] [place] Start: 04-02-2021 End: 04-02-[address] JOYA MONTGOMERY MD [facility] Start: 03-20-2021 End: 03-20-[address] Tash Fallon Work Phone: [facility] Internal Medicine Start: 03-05-[address] [facility] Fall[facility] Start: 01-24-2021 End: 01-24-[address] JAIME LEO MD [facility] Start: 01-19-2021 End: 01-19-[address] JAIME LEO MD [facility] Procedures Date Procedure Procedure Detail Performing Clinician Start: 10-05-2024 X-ray of foot, three or more views Dr. Tash Fallon MD Work Phone: Start: 09-21-2024 End: 09-21-2024 Visual field xm [...] spine Dr. Tash Fallon Work Phone: Start: 11-29-2021 X-ray of lumbar spin e, two or [...] Influenza vaccination Influenz a Vaccine (Season Ended) [facility] Start: 11-23-2024 End: 11-23-2024 Patient encounter procedure 11/23/2024 10:30 AM EDT Office Visit [facility] Ophthalmology [address] [place] [address] [phone] Wilmer Titus MD [address] [place] [address] [phone] [facility] [address] [address] Return in about 2 months (around 11/21/2024) for 2 months - VA/IOP, baseline HVF 10-2 OU (plaquenil), repeat HVF 24-2 OS. Ophthalmology Comment on above: Return in about 2 mo nths (around 11/21/2024) for 2 months - VA/IOP, baseline HVF 10-2 OU (plaquenil), repeat HVF 24-2 OS. Start: 06-10-2024 Advance Directive Discussion Advance Directive Discussion [facility] Start: 06-10-2024 Screening for osteoporosis Bone Density Screening [facility] Start: 04-07-2024 Medicare Advantage Annual Wellness Visit Medicare Advantage Annual Wellness Visit [facility] Start: 05-30-2023 Patient referral [facility] Work Phone: Start: 04-21-2023 Patient referral [facility] Work Phone: Start: 03-17-2023 Patient referral [facility] Work Phone: Start: [facility]-13-[facility] Start: 08-20-2021 Patient referral [facility] Work Phone: Start: 06-20-2021 Patient referral [facility] Work Phone: Start: 05-02-2021 Patient referral [facility] Work Phone: Start: 2019 RSV Vaccine (1 - Ris k 60-74 years 1-dose series) RSV Vaccine (1 - Risk 60-74 years 1-dose series) [facility] Start: 06-10-2004 Diabetes Screening Diabetes Screenin g [facility] Start: 06-10-2004 Lipid panel Lipid Screening [facility] Start: 06-10-2004 Screening for malign ant neoplasm of colon [facility] Start: 1999 Screening for malign ant neoplasm of breast Mammogram Screening [facility] Start: 06-10-1978 Pneumococcal Vaccine : 50+ (1 of 2 - PCV) Pneumococcal Vaccine: 50+ (1 of 2 - PCV) [facility] Start: 06-10-1978 Shingrix Vaccine (1 of 2) Shingrix Vaccine (1 of 2) [facility] Start: 06-10-1978 Urine microalbumin profile DTaP,Tdap,Td Vaccine (1 - Tdap) [facility] Start: 06-10-1977 Anxiety Screening Anxiety Screening [facility] Start: 06-10-1977 Depression Screening Depression Scre ening [facility] Start: 06-10-1977 Hepatitis C screening Hepatitis C Sc [facility] Start: 06-10-1977 HIV screening HIV Screening [facility] Start: 06-10-1970 Screening for malign ant neoplasm of cervix Cervical Cancer Screening [facility] Start: 06-10-1964 Covid-19 Vaccine (#1) Covid-19 Vacci ne (#1) [facility] Cyclic citrullinated peptide IgG Ab [Units/volume] in Serum or Plasma [facility] Work Phone: HLA-B27 [Presence] b y AYANNA with probe detection [facility] Work Phone: Patient referral [facility] Work Phone: VISUAL FIELD 10-2 OU (BOTH EYES) VISUAL FIELD 10-2 OU (BOTH EYES) [facility] Imaging Routine Long-term use of Plaquenil 1 Occurrences starting 09/21/2024 [facility] Work Phone: Comment on above: 1 Occurrences starti ng 09/21/2024 End: 03-15-2026 VISUAL FIELD 24-2 OS (LEFT EYE) VISUAL FIELD 24-2 OS (LEFT EYE) [facility] Imaging Routine Low tension glaucoma of left eye, severe stage 1 Occurrences starting 09/21/2024 until 03/15/2026 [facility] Comment on above: 1 Occurrences starti ng 09/21/2024 until 03/15/2026 Immunizations Immunization Date Immunization Notes Care Provider Fa cili 02-22-2021 Covid (Moderna) Dr. Kenneth Fallon MD Work Phone: [facility] 02-12-2021 pneumococcal conjuga te vaccine, [address] Tash Fallon MD Work Phone: [facility] 08-24-2020 Covid (Moderna) Dr. Kenneth Fallon MD Work Phone: [facility] 07-20-2020 Covid (Moderna) Dr. Kenneth Fallon MD Work Phone: [facility] Payers Date Payer Category Payer Self-pay [id number] 2023 Medicare (Managed Care) TIM E [id number] 2023 Unknown [id number] 1960 Unknown [id number]. 2.627 1959 Unknown [id number] [id number]. 2.627 1959 Unknown [id number] [id number]. 2.627 1959 Unknown [id number] 2.16.840.1.985340.3.579. 2.627 1959 Unknown [id number] [id number]. 2.627 1959 Unknown [id number] 2.16.840.1.991128.3.579. 2.627 Unknown [id number] 2.16.840.1.053365.3.579. 2.462 Unknown [id number] 2.16840.1.907776.3.579. 2.462 Unknown [id number] 2.16.840.1.602162.3.579. 2.462 Unknown [id number] 2.16.840.1.561412.3.579. 2.462 Unknown [id number] 2.16840.1.437288.3.579. 2.462 Unknown [id number] 2.16840.1.738933.3.579. 2.462 Unknown [id number] 2.16840.1.048921.3.579. 2.462 Unknown [id number] 2.16840.1.019672.3.579. 2.462 Unknown [id number]. 2.462 Social History Date Type Detail Facility Start: 11-13-2020 Ex-smoker (finding) [facility] Start: 1960 Sex Assigned At Female [facility] Start: 06-20-2021 End: 03-17-2023 Tobacco smoking status NHIS Unknown if ever smoked [facility] Start: 09-21-2024 End: 10-05-2024 Tobacco smoking status NHIS Never smoked tobacco [facility] Start: 09-21-2024 Tobacco use and exposure Smokeless tobacco non-user [facility] Start: 09-21-2024 Alcoholic beverage intake Ex-drinker (finding) [facility] Start: 09-21-2024 History of Social function [facility] Start: 09-21-2024 Tobacco use panel [facility] National Score (1-10 0), lower number is lower risk 62 [facility] Start: 1960 Sex assigned at Not on file [facility] Functional Status Date Assessment Result Facility 06-06-2023 [...] Grossly intact to light touch on bilat [facility] Clinical Notes 07-19-2022 to 10-06-2024 Patient Wilmer Cabrera MD - 09/21/2024 11:45 AM EDT Note Date & Type Note Facility 10-06-2024 Radiology Diagnostic study note [facility] Imaging Services [address] [place], [place] [id number] Foot min 3 Views MR#: [id number] Acct: [id number] Name: KADY SPENCER Rep #: [id number] : 1960 F 64 From: Linda Mccurdy MD PCP: Dr. 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 No acute bone or soft tissue pathology. Possible old 5th metatarsal base fracture. RAD/Foot min 3 Views IMPRESSION: No acute findings Reading Location: [place] [address] CC: WASHING MACHINE LOADER AND PULLERMorena Alvarez; Dr. Tash Fallon MD ~ Outreach Educator: Signed [facility] 09-21-2024 Instructions Wilmer Titus MD - 09/21/2024 [...] your next appointment. documented in this encounter [facility] 09-21-2024 Note Table formatting fro m the original result was not included. Date of Procedure 09/21/2024. Pachymetry Interpretation Right Eye Thick - Measured IOP may overestimate true IOP and glaucoma risk may be decreased. Left Eye Thick - Measured IOP may overestimate true IOP and glaucoma risk may be decreased. Notes Ophthalmology Exam Pachymetry (09/21/2024) Right Left Thickness [phone] Edited by: Lilian Wilkerson, [facility] 09-21-2024 Note Date of Procedure 09/21/2024. Beauty School Instructor Information Developmental Training Counselor: bobby. Start time: 10:41 AM. Stop time: 10:51 AM. Reliability Right Eye Good. Left Eye Borderline. Interpretation Right Eye Normal. Left Eye Cecocentral defect. Interval Change Right Eye Initial. Left Eye Initial. [facility] 09-21-2024 Note Date of Procedure 09/21/2024. Beauty School Instructor Information Developmental Training Counselor: BOBBY. Start time: 10:57 AM. Stop time: 11:00 AM. Quality Right Eye Good. Left Eye Good. NFL Interpretation Right Eye Normal. Left Eye Inferior loss. Ganglion Cell Layer Thickness Right Eye Normal. Left Eye Inferior loss, Temporal loss. Interval Change Right Eye Initial. Left Eye Initial. [facility] 09-21-2024 Note HNO ID: [id number] Author: WILMER TITUS MD Service: ? Author Type: Physician Type: Progress Notes Filed: 09/21/2024 17:15 Note Text: Referred on 09/21/[address] Yu at [facility] for glaucoma eval Lasers and Surgeries: OD: Phaco OS: Phaco Ocular Medication Intol and Non-efficacy: None Blood Thinners: ASA Now on Latan 04/07 Cosopt 05/09 -HVF 24-2 ARAM FAST Stim III 09/21/2024 [...] OD ERM, good foveal contour, no IRF/SRF, CO intact, no choroidal infiltrates OS good foveal contour, no IRF/SRF, CO intact, no choroidal infiltrates #Normal tension glaucoma, [...] - Plan: - Continue latan 04/07, cosopt / - Discussed addition of drop vs SLT [...] of its relevant components. Wilmer Titus MD [facility] 09-21-2024 History of Presen t illness Narrative Referred on 09/21/[address] Yu at [place] [facility] for glaucoma eval Lasers and Surgeries: OD: Phaco OS: Phaco Ocular Medication Intol and Non-efficacy: None Blood Thinners: ASA Now on Latan 04/07 Cosopt / -HVF 24-2 ARAM FAST Stim III 09/21/2024 [...] OD ERM, good foveal contour, no IRF/SRF, CO intact, no choroidal infiltrates OS good foveal contour, no IRF/SRF, CO intact, no choroidal infiltrates #Normal tension glaucoma, [...] - Pachy: 580/573 - Tmax: unsure outside [place] - hx: OD: None OS: 09/2024 (IT [...] of its relevant components. Wilmer Titus MD [facility] documented in this encounter [facility] 07-01-2024 Evaluation note Diagnosis Onset Date Resolution Shingles acute July 01 10:59am [facility] Work Phone: [phone] Evaluation note* Diagnosis Onset Date Resolution Status Admit Date Shingles acute July 01 10:59am Extensor tendinitis of foot acute October 05, 2024 12:58pm [facility] Work Phone: [phone] Evaluation + Plan note Future Scheduled Tests [...] Sign Date: 07/19/2022 12:30:16 PM Ordering Provider: [facility]04-14-2023 Note ORIGINAL EXAMINATION: WHOLE BODY BONE SCAN [...] Sign Date: 07/19/2022 12:30:16 PM [facility] Future Appointments Appointment Date:01/25/2021 08:00:00 AM Scheduled Provider: Location:[facility] Appointment Type:PF PFT w/Bronchodiltor Future Scheduled Tests Laboratory* N-Terminal proBNP 04/04/21 * N-Terminal proBNP 07/03/21 [facility] Evaluation + Plan note Future Scheduled Tests Laboratory* N-Terminal proBNP 04/04/21 * N-Terminal proBNP 07/03/21 [facility] Evaluation + Plan note Future Scheduled Tests Laboratory* N-Terminal proBNP 07/03/21 [facility] Evaluation + Plan note Future Scheduled Tests Laboratory* N-Terminal proBNP 05/01/22 [facility] Evaluation + Plan note Future Appointments Appointment Date:05/08/2022 11:30:00 AM Scheduled Provider: Location:[facility] Appointment Type:CV OV Future Scheduled Tests Laboratory* N-Terminal proBNP 05/01/22 [facility] Evaluation + Plan note Future Appointments Appointment Date:05/08/2022 11:30:00 AM Scheduled Provider: Location[facility] Appointment Type:CV OV [facility] Appointments Appointment Date:06/14/2023 09:30:00 AM Scheduled Provider: Location:XRAY Appointment Type:CT Coronary Calcium Scoring w/o Contrast Future Scheduled Tests Laboratory* N-Terminal proBNP 11/19/23 Radiology* CT Coronary Calcium Score w/o Contrast 06/14/23 [facility] Evaluation note* Diagnosis Onset Date Resolution Status Borderline type 2 diabetes mellitus chronic Hypertension chronic Insomnia chronic Left foot pain chronic KATELYN (obstructive sleep apnea) chronic Obesity (BMI 30-39.9) acute Right buttock pain acute Borderline type 2 diabetes mellitus chronic Hypertension chronic KATELYN (obstructive sleep apnea) chronic Trigger thumb, left thumb ac monse Fibromyalgia acute Polyarthralgia acute Trigger thumb, right thumb a cute Polyarthralgia acute Vertigo acute Arthritis chronic [facility] Work Phone: Evaluation note* Diagnosis Onset Date Resolution Status Obesity (BMI 30-39.9) acute Right buttock pain acute Borderline type 2 diabetes mellitus chronic Hypertension chronic KATELYN (obstructive sleep apnea) chronic Trigger thumb, left thumb ac monse Polyarthralgia acute Trigger thumb, right thumb a cute Fibromyalgia chronic Polyarthralgia acute Vertigo acute Arthritis chronic Polyarthralgia acute Vertigo acute Borderline type 2 diabetes mellitus chronic Fibromyalgia chronic Hypertension chronic Insomnia [facility] Work Phone: Evaluation note* Diagnosis Onset Date Resolution Status Obesity (BMI 30-39.9) acute Right buttock pain acute Borderline type 2 diabetes mellitus chronic Hypertension chronic KATELYN (obstructive sleep apnea) chronic Trigger thumb, left thumb ac monse Polyarthralgia acute Trigger thumb, right thumb a cute Fibromyalgia chronic Polyarthralgia acute Vertigo acute Arthritis chronic Polyarthralgia acute Vertigo acute Borderline type 2 diabetes mellitus chronic Fibromyalgia chronic Hypertension chronic Insomnia chronic Chronic hand pain acute Polyarthralgia acute Fibromyalgia [facility] Work Phone: Evaluation note* Diagnosis Onset Date Resolution Status Polyarthralgia acute Vertigo acute Arthritis chronic Polyarthralgia acute Vertigo acute Borderline type 2 diabetes mellitus chronic Fibromyalgia chronic Hypertension chronic Insomnia chronic Chronic hand pain acute Polyarthralgia acute Fibromyalgia [facility] Work Phone: Evaluation note* Diagnosis Onset Date Resolution Status Polyarthralgia acute Vertigo acute Borderline type 2 diabetes mellitus chronic Fibromyalgia chronic Hypertension chronic Insomnia chronic Chronic hand pain acute Polyarthralgia acute Fibromyalgia [facility] Work Phone: Evaluation note* Diagnosis Onset Date Resolution Status Polyarthralgia acute Vertigo acute Borderline type 2 diabetes mellitus chronic Fibromyalgia chronic Hypertension chronic Insomnia chronic Chronic hand pain acute Polyarthralgia acute Fibromyalgia chronic Asthma acute Dizziness noneactive Upper respiratory infection noneactive [facility] Work Phone: Evaluation note* Diagnosis Onset Date Resolution Status Asthma acute Dizziness noneactive Upper respiratory infection noneactive Asthma acute Borderline type 2 diabetes mellitus chronic Hypertension chronic Polyarthralgia chronic [facility] Work Phone: Evaluation note* Diagnosis Onset Date Resolution Status Pain of right thumb acute Trigger thumb, right thumb a cute [facility] Work Phone: Evaluation noteNo assessment information available [facility] Work Phone: Evaluation note* Diagnosis Onset Date Resolution Status Acute pharyngitis, unspecified acute Acute sinusitis, unspecified acute [facility] Work Phone: Evaluation note* Diagnosis Onset Date Resolution Status Acute pharyngitis, unspecified acute Acute sinusitis, unspecified acute Insomnia chronic Allergic asthma noneactive [facility] Work Phone: Evaluation note* Diagnosis Onset Date Resolution Status Acute bronchitis acute Oral candidiasis acute [facility] Work Phone: Evaluation note* Diagnosis Onset [...] of right side acute Rheumatoid arthritis acute [facility] Work Phone: Evaluation note* Diagnosis Onset [...] of right side acute Rheumatoid arthritis acute [facility] Work Phone: Evaluation note* Diagnosis Onset Date Resolution Status Acute bronchitis acute Oral candidiasis acute Acute right otitis media acu te Asthma chronic Borderline type 2 diabetes mellitus chronic Hypertension chronic Insomnia chronic Right hip pain chronic [facility] Work Phone: Evaluation note* Diagnosis Low tension glaucoma of left eye, severe stage- Primary Low-tension glaucoma, right eye, mild stage Pseudophakia Lens replaced by other means Long-term use of Plaquenil Encounter for long-term (current) use of other medications [facility] N[facility] No data available for this section [facility] Hospital Discharge instructions No data available for this section [facility] Work Phone: [facility] Work Phone: [facility] Work Phone: Progress note No data available for this section [facility] Reason for referral (narrative)No reason for referral [facility] Work Phone: Chief Complaint and Reason for [...] Date Shingles July 01, 2024 10: 59am Chief Complaint Admit Date ACUTE RAISED ITCHY RASH ON INNER THIGH M arch 2024 10:59am PAIN- COPY PCP July 23, 2024 2:0 9pm ACUTE RIGHT FOOT PAIN October 05, 2024 12: 58pm foot pain/ RIGHT FOOT October 05, 2024 2:0 1pm Reason for Visit Admit Date Shingles July 01, 2024 10: 59am Extensor tendinitis of foot October 05 12:58pm Family History Relationship Condition Age at Onset [...] Member Role: Primary Care Physician Address: Address: [address] [place] [address] [place] [address]- Care Team Related Persons Name: JHONNY SPENCER Address: Home [address] [place] [phone] [place] Care Team Personnel Name: TASH FALLON MD Member Role: Primary Care Physician Address: Address: [facility] [place] [address]- Care Team Related Persons Name: JHONNY SPENCER Address: Home [address] [place] [phone] [place] Care Team Personnel Name: TASH FALLON MD Member Role: Primary Care Physician Address: Address: [facility] [place] [address]- Care Team Related Persons Name: JHONNY SPENCER Address: [address] [phone] [place] Care Teams (unrecognized sec tion and content) Team Status: Active Member Role Status Dates Fran Leavittham Family Provider Active Dr. 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 aTsh Fallon MD Primary Care Provider Active Dr. Gloria Garcia MD Attending Provider, Referring Pr ovider Active Team Status: Inactive Member Role Status Dates Dr. Tash Fallon MD Primary Care Provider, Refer ring Provider Active Kenn Dale PA, PA Attending Provider Active Team Status: Inactive Member Role Status Dates Dr. Tash Fallon MD Primary Care P roruizder, Attending Provider, Referring Provider Active Team Status: Inactive Member Role Status Dates Dr. Tash Fallon MD Primary Care Provider, Refer ring Provider Active BARBIE Henley Attending Provider Active Team Status: Inactive Member Role Status Dates Dr. Tash Fallon MD Primary Care Provider Active Dr. 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 Tash Fallon MD Primary [...] October 05, 2024 End: October 05, 2024 Team Status: Inactive Member Role/Relationship Status Dates Dr. Tash Fallon MD Primary Care Provider Active Start: October 05, 2024 End: October 05, 2024 CELIA Umana Attending Provider Active Start: October 05, 2024 End: October 05, 2024 CELIA Umana Referring Provider Active Start: October 05, 2024 End: October 05, 2024 INFORMATION SOURCE (unrecogn ized section and content) DATE CREATED AUTHOR 10/11/2023 [facility] DATE CREATED AUTHOR AUTHOR'S ORGANIZ ATION 06/10/[address] [facility] DATE CREATED AUTHOR AUTHOR'S ORGANIZ ATION 09/03/2024 [facility] DATE CREATED AUTHOR AUTHOR'S ORGANIZ ATION 09/24/2024 [facility] DATE CREATED AUTHOR AUTHOR'S ORGANIZ ATION 10/06/2024 [facility] Source Comments (unrecognize d section and content) In the event this informatio n is protected by the Federal Confidentiality of Alcohol and Drug Abuse Patient Records regulations: The Federal rules restrict any use of the information to criminally investigate or prosecute any alcohol or drug abuse patient.[facility] Reason for Visit (unrecogniz ed section and [...] BE BASED ON THE PRIMARY CLINICAL RECORDS. [facility]. provides no warranty or guarantee of the accuracy or completeness of information in this document.
== END | disposition home or self-care (01) ==
LOC: BIMLAB 10:40
PROVIDERS: PCP Internal Medicine; Referring Provider Internal Medicine Rheumatology; Visit Provider Internal Medicine Rheumatology
DX: M06.09 Rheumatoid arthritis without rheumatoid factor, multiple sites (principal); M79.7 Fibromyalgia; Z79.899 Other long term (current) drug therapy
CPT/HCPCS: 36415; 80053; 85025

== ENCOUNTER → 2025-01-07 | Outpatient (CLI) | payer MEDICARE, SELFPAY ==
[2025-01-07 12:16] LABS: Hematocrit 34.3 % (37-47); Hemoglobin 12.1 g/dL (12.0-15.0); Immature Granulocytes Count 0.010 X10^3/uL (0.0-0.0); Mean Corp Hgb Conc 35.3 g/dL (32-36); Mean Corpuscular Volume 92.7 fL (81-99); Mean Platelet Vol. 9.2 fl (6.2-12.0); NRBC Flagged by Analyzer 0 % (0-5); Platelet Count 344 K/mm3 (150-450); RBC Distribution Width CV 14.6 % (11.6-14.6); RBC Distribution Width SD 49.1 fl (35.1-43.9); Red Blood Count 3.70 M/mm3 (4.2-5.4); White Blood Count 4.2 K/mm3 (4.4-11.0)
[2025-01-07 12:53] LABS: AST(SGOT) 42 U/L (<=31); Alanine Aminotransfer ALT/SGPT 36 U/L (<=34); Albumin, Serum 4.3 g/dL (3.4-4.8); Alkaline Phosphatase 41 U/L (35-104); Anion Gap 13 (5-15); BUN 7 mg/dL (4-19); BUN/Creat Ratio 8.9 RATIO (10-20); Calcium,Total 9.3 mg/dL (7.6-11.0); Carbon Dioxide 23.8 mmol/L (21.0-32.0); Chloride 97 mmol/L (98-108); Globulin 2.7 g/dL (2.2-4.2); Glucose 93 mg/dL (70-99); Potassium 3.8 mmol/L (3.3-5.1)
== END | disposition home or self-care (01) ==
LOC: MTLAB 10:41
PROVIDERS: PCP Internal Medicine; Referring Provider Internal Medicine Rheumatology; Visit Provider Internal Medicine Rheumatology
DX: M06.09 Rheumatoid arthritis without rheumatoid factor, multiple sites (principal); M79.7 Fibromyalgia; M19.041 Primary osteoarthritis, right hand; M18.12 Unilateral primary osteoarthritis of first carpometacarpal joint, left hand; Z79.899 Other long term (current) drug therapy
CPT/HCPCS: 36415; 80053; 85025

== ENCOUNTER → 2025-02-25 | Outpatient (CLI) | payer MEDICARE, SELFPAY ==
[2025-02-25 15:26] LABS: Hematocrit 38.1 % (37-47); Hemoglobin 12.6 g/dL (12.0-15.0); Immature Granulocytes Count 0.010 X10^3/uL (0.0-0.0); Mean Corp Hgb Conc 33.1 g/dL (32-36); Mean Corpuscular Volume 91.6 fL (81-99); Mean Platelet Vol. 9.2 fl (6.2-12.0); NRBC Flagged by Analyzer 0 % (0-5); Platelet Count 375 K/mm3 (150-450); RBC Distribution Width CV 13.3 % (11.6-14.6); RBC Distribution Width SD 45.1 fl (35.1-43.9); Red Blood Count 4.16 M/mm3 (4.2-5.4); White Blood Count 5.5 K/mm3 (4.4-11.0)
[2025-02-25 16:09] LABS: AST(SGOT) 25 U/L (<=31); Alanine Aminotransfer ALT/SGPT 28 U/L (<=34); Albumin, Serum 4.4 g/dL (3.4-4.8); Alkaline Phosphatase 47 U/L (35-104); Anion Gap 11 (5-15); BUN 5 mg/dL (4-19); BUN/Creat Ratio 7.1 RATIO (10-20); Calcium,Total 9.5 mg/dL (7.6-11.0); Carbon Dioxide 27.1 mmol/L (21.0-32.0); Chloride 98 mmol/L (98-108); Cholesterol 188 mg/dL (<=200); Globulin 2.8 g/dL (2.2-4.2); Glucose 100 mg/dL (70-99); Low Density Lipoprotein Calc. 93 mg/dL; Potassium 4.1 mmol/L (3.3-5.1); Triglycerides 142 mg/dL; Very Low Density Lipoprotein 28 mg/dL (5-40); Vitamin D,25 Hydroxy 81.1 ng/mL (30-100); cholesterol:hdl ratio screen 2.67
== END | disposition home or self-care (01) ==
LOC: MTLAB 11:40
PROVIDERS: PCP Internal Medicine; Referring Provider Internal Medicine; Visit Provider Internal Medicine
DX: M06.09 Rheumatoid arthritis without rheumatoid factor, multiple sites (principal); Z79.899 Other long term (current) drug therapy; M79.7 Fibromyalgia; I10 Essential (primary) hypertension; M81.0 Age-related osteoporosis without current pathological fracture
CPT/HCPCS: 36415; 80053; 80061; 82306; 85025